=== PATIENT | female | born 1955 | race Caucasian/White ===

== ENCOUNTER 2019-09-09 09:58 | Inpatient (IN) ==
[2019-09-09] MEDS ORDERED: fentaNYL citrate 100 MCG/2 ML VIAL IV PRN (10:09)
[2019-09-09] MEDS ORDERED: PROMETHAZINE 12.5 MG/50.5 ML BAG IV STA (10:12)
--- NOTE | 2019-09-09 10:12 | Emergency Department Note ---
Impression & Plan Calculus of left ureter, Hydronephrosis, left, Flank Pain ED Provider Note NAME: GALLO SETH AGE: 63 SEX: F : 1955 ARRIVES VIA: Ambulance INFORMANT: Patient, ED PROVIDER(S): Ottoniel Gomez DO CHIEF COMPLAINT: Left flank pain HPI: The patient is a 63-year-old female who presented to the emergency department for an evaluation of left flank pain. The patient states that she started having left flank pain earlier today. She is noticed nausea and vomiting. She has a known large renal calculus and she feels that this is the cause of her symptoms. She has previously had kidney stones in the past. She called 911 and presented to the emergency department via ambulance. The patient was treated with Toradol and Zofran prior to arrival with little improvement of her symptoms. She denies having any chest pain or difficulty breathing. She denies having any weakness or numbness in the legs. She is had no rectal bleeding or hematemesis. ROS: See above HPI for pertinent positives & negatives. A total of 10 systems reviewed and were otherwise negative. PAST MEDICAL HISTORY: See Below PAST SURGICAL HISTORY: See Below FAMILY HISTORY: See Below SOCIAL HISTORY: See Below HOME MEDICATIONS: See Below ALLERGIES: See Below VITALS: See Below PHYSICAL EXAMINATION: GENERAL: Patient is awake alert in no acute distress patient is resting comfortably and showing no signs of anxiety EYES: The conjunctivae are clear. The pupils are round and reactive. EARS, NOSE, MOUTH AND THROAT: The nose is without any evidence of any deformity. Mucous membranes are moist. Tongue is midline. NECK: The neck is nontender and supple. RESPIRATORY: Normal respiratory effort is noted there is no evidence of wheezing rhonchi or rales CARDIOVASCULAR: Regular rate and rhythm noted there no murmurs rubs or gallops normal S1 normal S2. GASTROINTESTINAL: The abdomen is mildly distended but soft. There is left-sided tenderness to palpation but no guarding or rigidity. BACK: No midline tenderness or or step-off noted range of motion in flexion extension as well as rotation no signs of muscle spasm noted MUSCULOSKELETAL/EXTREMITIES: There is no evidence of gross deformity full range of motion is noted in the hips and shoulders. SKIN: There is no obvious evidence of any rash. There are no petechiae, pallor or cyanosis noted. NEUROLOGIC: Patient is awake alert and oriented x3 strength is symmetric patellar reflexes are 2+ bilaterally MEDICAL DECISION MAKING: The patient is a 63-year-old female who presented to the emergency department for an evaluation of left flank pain. The patient has a known large renal calculus but started to to notice pain over the last 24 hours. The patient was at home when she started noticing worsening pain. She called the ambulance and presented to the emergency department for further evaluation. The patient was treated with IV fluids and IV pain medication in the emergency department. She was reevaluated multiple times. The patient was found to have a very large distal left ureteral calculus with significant hydronephrosis. Given these findings as well as the patient's persistence of pain I discussed her case with the on-call urologist as well as the on-call [facility] hospitalist group. They have agreed to evaluate the patient in the emergency department for further management and disposition. I discussed the patient's laboratory and radiographic studies with her. Triage Nursing notes reviewed. Prior medical records reviewed Vital Signs: reviewed and remarkable for elevated blood pressure Differential diagnosis: Musculoskeletal, disc herniation, fracture, metastatic disease, cord compression, discitis, sciatica, cauda equina, infection, aortic disease, renal colic, gastrointestinal, as well as other pathologies. ER treatment provided: See below Diagnostics interpreted by me: ECG: none Cardiac Monitoring: An order was placed for continuous cardiac monitoring. The monitor shows a rate of 88 with sinus rhythm. Laboratory studies: As stated above and show below. Imaging studies: See below Consultation(s): 1200: I discussed this case with Janeen who is on-call for the urology group. She recommends that the patient be managed medically but then kept n.p.o. after midnight for likely intervention tomorrow if symptoms do not improve. 1225: I discussed this case with Deena who was on-call for the [facility] hospitalist group. They have agreed to evaluate the patient in the emergency department for further management and disposition. Past Med/Surg History Medical History (Updated 09/09/19 @ 14:10 by Ottoniel Gomez DO) Asthma COPD (chronic obstructive pulmonary disease) oxygen dependent Depression with anxiety Diabetes mellitus, type II High cholesterol HTN (hypertension) Hypothyroidism Insomnia Kidney stones Left-sided heart failure Surgical History Hx of tonsillectomy Hx of tubal ligation Family History Mother Breast cancer Father FH: leukemia CLL Sister Hypertension Social History Feels Safe at Home: Yes Smoking Status: Current some day smoker Cigarettes Per Day: 2 ; Hx Alcohol Use: No Hx Substance Use: No Allergies Allergies Allergy/AdvReac Type Severity Reaction Status Date / Time moxifloxacin [From Avelox] AdvReac Intermediate Cellulitic Unverified 09/09/19 10:58 Rash Home Meds Home Medications Medication Instructions Recorded Confirmed albuterol sulfate 2 puff INHALATION QID PRN 09/09/19 09/09/19 buspirone 7.5 mg PO HS 09/09/19 09/09/19 buspirone 15 mg PO DAILY 09/09/19 09/09/19 citalopram [Celexa] 20 mg PO QAM 09/09/19 09/09/19 fluticasone furoate-vilanterol 1 inh INHALATION DAILY 09/09/19 09/09/19 [Breo Ellipta] furosemide [Lasix] 40 mg PO QAM PRN 09/09/19 09/09/19 levothyroxine [Levoxyl] 50 mcg PO DAILY 09/09/19 09/09/19 lisinopril 5 mg PO QAM 09/09/19 09/09/19 lorazepam 0.5 mg PO BID PRN 09/09/19 09/09/19 pantoprazole [Protonix] 40 mg PO QAM 09/09/19 09/09/19 tiotropium bromide [Spiriva 2 puff INHALATION QAM 09/09/19 09/09/19 Respimat] trazodone 25 mg PO HS 09/09/19 09/09/19 Results & Data (ED) Vital Signs Vital Signs - 24 hr 09/09/19 10:11 09/09/19 10:27 09/09/19 11:48 Temperature 36.6 C Temperature Source Oral Pulse Rate 67 Pulse Rate [Finger] 75 Pulse Rhythm [Finger] Regular Pulse Strength [Finger] Normal Respiratory Rate 20 20 Respiratory Effort / Characteristics Non-Labored Spontaneous Respiratory Depth Normal Respiratory Pattern Regular Blood Pressure 194/96 H Blood Pressure [Right Arm] 135/78 Blood Pressure Mean 128 Blood Pressure Mean [Right Arm] 97 Blood Pressure Position [Right Arm] Lying Pulse Oximetry 100 100 99 Oxygen Delivery Method Room Air Nasal Cannula Nasal Cannula Oxygen Flow Rate 2 2 Sepsis Recent Fever Within 48 Hours No Sepsis New/Unexplained Change in Mental Status No Sepsis Action Taken by Nursing No Action Required Home Medications Current Medication List: was personally reviewed by me Laboratory Data Attestation: I reviewed the patient's lab results. Result diagrams: 09/09/19 10:50 09/09/19 10:50 Lab Results 09/09/19 09/09/19 09/09/19 Range/Units 10:50 10:50 11:35 WBC 10.17 (4.8-10.8) K/uL RBC 4.71 (4.2-5.4) M/uL Hgb 13.3 (12.0-16.0) g/dL Hct 41.9 (37-47) % MCV 89.0 (80-100) fL MCH 28.2 (25-34) pg MCHC 31.7 L (32-36) g/dL RDW Std Deviation 42.0 (36.4-46.3) fL RDW Coeff of Lillie 12.9 (11.5-14.5) % Plt Count 189 (130-400) K/uL MPV 12.0 H (7.4-10.4) fL Immature Gran % (Auto) 0.2 % Neut % (Auto) 86.6 % Lymph % (Auto) 8.1 % [place] % (Auto) 4.7 % Eos % (Auto) 0.1 % Baso % (Auto) 0.3 % Immature Gran # (Auto) 0.02 (0.00-0.02) K/uL Neut # (Auto) 8.81 H (1.4-6.5) K/uL Lymph # (Auto) 0.82 L (1.2-3.4) K/uL [place] # (Auto) 0.48 (0.11-0.59) K/uL Eos # (Auto) 0.01 (0-0.5) K/uL Baso # (Auto) 0.03 (0-0.2) K/uL Sodium 140 (136-145) mmol/L Potassium 3.7 (3.5-5.1) mmol/L Chloride 106 (98-107) mmol/L Carbon Dioxide 29 (21-32) mmol/L Anion Gap 5.0 (3-11) BUN 12 (7-18) mg/dl Creatinine 0.81 (0.6-1.2) mg/dl Est Cr Clr Drug Dosing 65.9 ml/min Est GFR ( Amer) 89.6 Est GFR (Non-Af Amer) 77.3 BUN/Creatinine Ratio 14.4 (10-20) Glucose 136 H (70-99) mg/dl Calcium 9.0 (8.5-10.1) mg/dl Total Bilirubin 0.3 (0.2-1) mg/dl AST 14 L (15-37) U/L ALT 17 (12-78) U/L Alkaline Phosphatase 86 (45-117) U/L Total Protein 7.1 (6.4-8.2) gm/dl Albumin 3.7 (3.4-5.0) gm/dl Globulin 3.4 (2.5-4.0) gm/dl Albumin/Globulin Ratio 1.1 (0.9-2) Lipase 77 (73-393) U/L Urine Color Yellow Urine Appearance Turbid A (Clear) Urine pH 7.5 (4.5-7.5) Ur Specific [place] 1.015 (1.000-1.030) Urine Protein 1+ H (Negative) Urine Glucose (UA) Negative (Negative) Urine Ketones Trace H (Negative) Urine Blood Trace H (Negative) Urine Nitrite Negative (Negative) Urine Bilirubin Negative (Negative) Urine Urobilinogen Negative (Negative) Ur Leukocyte Esterase Negative (Negative) Urine WBC (Auto) 1-5 (0-5) /hpf Urine RBC (Auto) 5-10 H (0-4) /hpf U Hyaline Cast (Auto) 1-5 (0-5) /lpf U Epithel Cells (Auto) >30 H (0-5) /lpf Urine Bacteria (Auto) Negative (Negative) Administered Medications Discontinued Medications Fentanyl Citrate (Fentanyl Citrate) 50 mcg IV Q15M PRN PRN Reason: Pain Stop: 09/23/19 10:08 Last Admin: 09/09/19 10:26 Dose: 50 mcg Documented by: [id number] Sodium Chloride (Nss 1000ml) 1,000 mls @ 999 mls/hr IV .Q1H1M ASHIA Stop: 09/09/19 11:15 Last Infusion: 09/09/19 11:41 Dose: 0 mls/hr Documented by: [id number] Admin: 09/09/19 10:27 Dose: 999 mls/hr Documented by: [id number] Promethazine HCl (Phenergan) 12.5 mg in 50.5 mls @ 202 mls/hr IV NOW STA Stop: 09/09/19 10:26 Last Infusion: 09/09/19 10:45 Dose: 0 mls/hr Documented by: [id number] Admin: 09/09/19 10:26 Dose: 202 mls/hr Documented by: [id number] Imaging Data Radiologist's Impression: CT SCAN OF THE ABDOMEN AND PELVIS WITHOUT IV CONTRAST CLINICAL HISTORY: Left flank pain. COMPARISON STUDY: No priors. TECHNIQUE: CT scan of the abdomen and pelvis is performed from the lung bases to the proximal femora. Images are reviewed in the axial, sagittal, and coronal planes. IV contrast was not administered for this examination as per the referring clinician. A dose lowering technique was utilized adhering to the principles of ALARA. CT DOSE: 702.37 mGy.cm FINDINGS: Lung bases: The heart is normal in size and without pericardial effusion. A fat- containing Bochdalek hernia is noted at the right lung base. There is bibasilar scarring/atelectasis. No airspace consolidation or pleural effusion is identified. There is a small hiatal hernia. Liver: The unenhanced liver is normal in size, contour, and attenuation. There is no intrahepatic biliary ductal dilatation. Gallbladder: Unremarkable. Spleen: Normal in size and attenuation. Pancreas: The unenhanced pancreas is moderately atrophic and grossly unremarkable. Adrenal glands: Unremarkable. Kidneys: The unenhanced kidneys demonstrate mild cortical atrophy. There is an 8 mm obstructing calculus in the distal left ureter located just above the vesicoureteral junction seen on image #318. This causes moderate to severe left- sided hydroureteronephrosis. There is associated left-sided perinephric stranding and trace fluid. No additional left renal calculi are identified. A 5 mm nonobstructing calculus is seen in the lower pole of the right kidney. There is no right-sided hydronephrosis. There is a 1.8 cm left renal cyst. Abdominal vasculature: The abdominal aorta is normal in course and caliber noting moderate atherosclerotic calcification. Bowel: There is no bowel obstruction. Fecal retention is noted in the right colon. The cecum is located in the right upper quadrant. A structure that may represent a normal appendix is seen on image #221. Peritoneum: There is no intraperitoneal free air or abdominal ascites. Lymphadenopathy: None. Pelvic viscera: The bladder, uterus, and adnexa are normal as imaged. Postoperative change is noted in the left groin. Skeletal structures: The skeletal structures are osteopenic. Mild lumbosacral spondylosis is observed. There are mild compression deformities of T11 and L5. Sclerotic change is noted in the pubic symphysis. No lytic or blastic lesions are seen. IMPRESSION: 1. There is an 8 mm obstructing calculus in the distal left ureter located just above the vesicoureteral junction. This causes moderate to severe left hydroureteronephrosis. 2. An additional nonobstructing calculus is seen in the right kidney. 3. Additional findings as above. ACT 112: Negative or not required by law. Electronically signed by: Bang Beltran M.D. 09/09/2019 11:11 AM Dictated: 09/09/19 1102 Transcribed: 09/09/19 1102 Blood Pressure Blood Pressure Findings: Elevated blood pressure Blood Pressure Disposition: further management by hospitalist Discharge Plan Visit Data *Final* Discharge Date/Time: 09/09/19 13:27 Chief Complaint: Flank Pain ED Provider: Ottoniel Gomez Discharge Problem: Calculus of left ureter, Hydronephrosis, left, Flank Pain Patient Disposition: Admitted As Inpatient Condition: Good Discharge Instructions Interventions: ED Discharge Assessment Last Done: 09/09/19 13:27
[2019-09-09] MEDS ORDERED: SODIUM CHLORIDE 0.9% 1000ML 1,000 ML IV SCH (10:15)
[2019-09-09 11:01] LABS: Basophils # (auto) 0.03 K/uL (0-0.2); Basophils % (auto) 0.3 %; Eosinophils # (auto) 0.01 K/uL (0-0.5); Eosinophils % (auto) 0.1 %; Hematocrit (blood only) 41.9 % (37-47); Hemoglobin 13.3 g/dL (12.0-16.0); Immature Granulocytes # (auto) 0.02 K/uL (0.00-0.02); Immature Granulocytes % (auto) 0.2 %; Lymphocytes # (auto) 0.82 K/uL (1.2-3.4); Lymphocytes % (auto) 8.1 %; Mean Corpuscular Hemoglobin 28.2 pg (25-34); Mean Corpuscular Hgb Conc 31.7 g/dL (32-36); Monocytes # (auto) 0.48 K/uL (0.11-0.59); Monocytes % (auto) 4.7 %; Neutrophils # (auto) 8.81 K/uL (1.4-6.5); Neutrophils % (auto) 86.6 %; Platelet Count 189 K/uL (130-400); RDW Coefficient of Variation 12.9 % (11.5-14.5); Red Blood Count 4.71 M/uL (4.2-5.4); White Blood Count 10.17 K/uL (4.8-10.8)
--- NOTE | 2019-09-09 11:12 | CT Scan Report ---
CT SCAN OF THE ABDOMEN AND PELVIS WITHOUT IV CONTRAST CLINICAL HISTORY: Left flank pain. COMPARISON STUDY: No priors. TECHNIQUE: CT scan of the abdomen and pelvis is performed from the lung bases to the proximal femora. Images are reviewed in the axial, sagittal, and coronal planes. IV contrast was not administered for this examination as per the referring clinician. A dose lowering technique was utilized adhering to the principles of ALARA. CT DOSE: 702.37 mGy.cm FINDINGS: Lung bases: The heart is normal in size and without pericardial effusion. A fat-containing Bochdalek hernia is noted at the right lung base. There is bibasilar scarring/atelectasis. No airspace consolid ation or pleural effusion is identified. There is a small hiatal hernia. Liver: The unenhanced liver is normal in size, contour, and attenuation. There is no intrahepatic danuta iary ductal dilatation. Gallbladder: Unremarkable. Spleen: Normal in size and attenuation. Pancreas: The unenhanced pancreas is moderately atrophic and grossly unremarkable. Adrenal glands: Unremarkable. Kidneys: The unenhanced kidneys demonstrate mild cortical atrophy. There is an 8 mm obstructing calcu gustabo in the distal left ureter located just above the vesicoureteral junction seen on image #318. This causes moderate to severe left-sided hydroureteronephrosis. There is associated left-sided perinephr ic stranding and trace fluid. No additional left renal calculi are identified. A 5 mm nonobstructing calculus is seen in the lower pole of the right kidney. There is no right-sided hydronephrosis. There is a 1.8 cm left renal cyst. Abdominal vasculature: The abdominal aorta is normal in course and caliber noting moderate atheroscle rotic calcification. Bowel: There is no bowel obstruction. Fecal retention is noted in the right colon. The cecum is locat ed in the right upper quadrant. A structure that may represent a normal appendix is seen on image #22 1. Peritoneum: There is no intraperitoneal free air or abdominal ascites. Lymphadenopathy: None. Pelvic viscera: The bladder, uterus, and adnexa are normal as imaged. Postoperative change is noted in the left groin. Skeletal structures: The skeletal structures are osteopenic. Mild lumbosacral spondylosis is observed . There are mild compression deformities of T11 and L5. Sclerotic change is noted in the pubic symphy sis. No lytic or blastic lesions are seen. IMPRESSION: 1. There is an 8 mm obstructing calculus in the distal left ureter located just above the vesicourete ral junction. This causes moderate to severe left hydroureteronephrosis. 2. An additional nonobstructing calculus is seen in the right kidney. 3. Additional findings as above. ACT 112: Negative or not required by law. Electronically signed by: Bang Beltran M.D. 09/09/2019 11:11 AM
[2019-09-09 11:16] LABS: Albumin Level 3.7 gm/dl (3.4-5.0); BUN Creatinine Ratio 14.4 (10-20); Creatinine Clr Calc Pharmacy 65.9 ml/min; Est GFR (African American) 89.6; Est GFR (Non-African American) 77.3; Potassium 3.7 mmol/L (3.5-5.1)
[2019-09-09 11:19] LABS: Albumin Globulin Ratio 1.1 (0.9-2); Bilirubin,Total 0.3 mg/dl (0.2-1); Globulin 3.4 gm/dl (2.5-4.0); Total Protein 7.1 gm/dl (6.4-8.2)
[2019-09-09 12:06] LABS: Appearance Urine Turbid (Clear); Bacteria Urine Automated Negative (Negative); Bilirubin Urine Negative (Negative); Blood Urine Trace (Negative); Color Urine Yellow; Epithelial Cell Urine Auto >30 /lpf (0-5); Glucose Urine UA Negative (Negative); Ketones Urine Trace (Negative); Leukocyte Esterase Urine Negative (Negative); Nitrite Urine Negative (Negative); Specific Gravity Urine 1.015 (1.000-1.030); Urobilinogen Urine Negative (Negative); pH Urine 7.5 (4.5-7.5)
[2019-09-09 12:16] LABS: Protein Urine 1+ (Negative); Sulfosalicylic Acid Urine Positive (Negative)
--- NOTE | 2019-09-09 13:41 | History & Physical Report ---
Date of Service September 09, 2019 Assessment & Plan (1) Calculus of left ureter: (2) Hydronephrosis, left: Pt is 63 y/o F with PMH COPD on 2L, DM II, depression, anxiety, hypothyroidism, left sided heart failure presented to ER with c/o left flank pain, nausea and vomiting x 1. Denies fever/chills. Reported was given Zofran and Toradol by EMS. In ER pt afebrile, P: 67, R: 20, BP: 194/96 down to 135/78, 100% on 2L chronic oxygen. No leukocytosis, BUN: 12, Cr: 0.8, GFR: 77, UA: 5-10 RBC, no bacteria or leuk esterase or nitrite CT Abd/pelvis: 8 mm obstructing calculus in the distal left ureter located just above the vesicoureteral junction. This causes moderate to severe left hydroureteronephrosis. An additional nonobstructing calculus is seen in the right kidney. -In ER given 1L NSS, Phenergan 12.5mg, Fentanyl 50mcg -IVF -Toradol, morphine prn pain; Zofran prn N/V -Strain urine -Flomax daily -NPO midnight for probable procedure tomorrow -Consult urology; ER physician spoke to gynaecological oncologist -CBC, BMP in am (3) COPD (chronic obstructive pulmonary disease): On Chronic 2L oxygen via [place] -Denies any increased SOB or wheezing from her baseline, denies cough, fever/chills. -Continue Breo, Spiriva -Will switch Albuterol inhaler to neb treatments secondary to current baseline wheezing and low supply of albuterol MDI (4) Diabetes mellitus, type II: A1c: 5.8 on 06/11/2019 -Pt self stopped metformin. Was taking 500mg daily -Will hold metformin while inpatient -Novolog sliding scale per protocol (5) HTN (hypertension): Initially hypertensive in ER and improved with pain control -Monitor BP -Continue lisinopril (6) Left-sided heart failure: Takes Lasix prn LE edema. No recent edema Appears euvolemic at this time -Hold prn Lasix (7) Hypothyroidism: TSH: 23 on 06/11/2019 -Pt self stopped levothyroxine -Will need further follow up with PCP (8) Depression with anxiety: -Continue buspirone, citalopram, trazodone DVT Prophylaxis -SCDs Full Code as per discussion with pt Follows with Dr Alvarez for routine care Pt was seen and care coordinated with Dr Morel. See addendum History of Present Illness Chief Complaint: Left flank pain Primary Care Provider: Destinee Alvarez MD Pt is 63 y/o F with PMH COPD on 2L, DM II, depression, anxiety, hypothyroidism, left sided heart failure presented to ER with c/o left flank pain. Pt states this morning started with left back pain with radiation to left flank. She has noticed urinating smaller amounts. Also c/o nausea and vomited x 1. EMS gave pt Toradol and Zofran with little relief. Denies any increased SOB from her baseline. Denies fever/chills, diaphoresis, N/V/D/C, MEEHAN, dizziness, syncope, vision changes, neck pain, CP, orthopnea, palpitations, cough, sore throat, choking, otalgia, rhinorrhea, abdominal pain, paresthesias, weakness, extremity weakness, extremity edema, rashes, dysuria, hematuria, urinary retention. Allergies Allergy/AdvReac Type Severity Reaction Status Date / Time moxifloxacin [From Avelox] AdvReac Intermediate Cellulitic Unverified 09/09/19 10:58 Rash Home Medications Home Medications Medication Instructions Recorded Confirmed Type albuterol sulfate 2 puff INHALATION QID PRN 09/09/19 09/09/19 History buspirone 7.5 mg PO HS 09/09/19 09/09/19 History buspirone 15 mg PO DAILY 09/09/19 09/09/19 History citalopram [Celexa] 20 mg PO QAM 09/09/19 09/09/19 History fluticasone furoate-vilanterol 1 inh INHALATION DAILY 09/09/19 09/09/19 History [Breo Ellipta] furosemide [Lasix] 40 mg PO QAM PRN 09/09/19 09/09/19 History levothyroxine [Levoxyl] 50 mcg PO DAILY 09/09/19 09/09/19 History lisinopril 5 mg PO QAM 09/09/19 09/09/19 History lorazepam 0.5 mg PO BID PRN 09/09/19 09/09/19 History pantoprazole [Protonix] 40 mg PO QAM 09/09/19 09/09/19 History tiotropium bromide [Spiriva 2 puff INHALATION QAM 09/09/19 09/09/19 History Respimat] trazodone 25 mg PO HS 09/09/19 09/09/19 History Past Med/Surg History Medical History (Updated 09/09/19 @ 14:10 by Ottoniel Gomez DO) Asthma COPD (chronic obstructive pulmonary disease) oxygen dependent Depression with anxiety Diabetes mellitus, type II High cholesterol HTN (hypertension) Hypothyroidism Insomnia Kidney stones Left-sided heart failure Surgical History Hx of tonsillectomy Hx of tubal ligation Family History Mother Breast cancer Father FH: leukemia CLL Sister Hypertension Social History Preferred Language: Sammarinese Communication Ability: Effective Ice Maker Required: No Beliefs That Will Affect Care: None Current Living Situation: Alone Other Information That Helps Us Care for You: No Feels Safe at Home: Yes Safety Concerns: Feels Safe At This Time Smoking Status: Current every day smoker Tobacco Type: cigarettes ; Cigarettes Per Day: 2 ; Do You Dip or Chew Tobacco: No ; Second Hand Exposure: Yes ; Tobacco Cessation Education Requested by Patient: No Hx Alcohol Use: No Hx Substance Use: No Review of Systems Review of Systems: All systems reviewed & are unremarkable except as noted in HPI & below Physical Exam Physical Exam: General: no distress, WDWN Head: normocephalic, atraumatic Eyes: PERRL, EOM's intact, conjunctiva non-injected, anicteric ENT: normal inspection external ears, nose, mucous membranes moist Neck: supple, trachea midline Lungs: no respiratory distress, on chronic 2L oxygen via [place], +scattered wheezing, no rhonchi/rales CV: RRR, no murmur, no JVD, no pretibial edema Abd: normal BS, soft, +left flank and LLQ tenderness to palpation without rebound or guarding Ext: no cyanosis, no calf tenderness Neuro: A&O x 3, no focal deficits noted, normal affect Skin: warm, dry Results & Data Results & Data ([facility]) Vital Signs (Past 12 Hours) Vital Signs Temp Pulse Pulse Resp BP BP Pulse Ox 09/09/19 13:00 76 20 141/83 H 99 09/09/19 11:48 75 20 135/78 99 09/09/19 10:27 100 09/09/19 10:11 36.6 C 67 20 194/96 H 100 Laboratory Results Short CBC 09/09/19 Range/Units 10:50 WBC 10.17 (4.8-10.8) K/uL Hgb 13.3 (12.0-16.0) g/dL Hct 41.9 (37-47) % Plt Count 189 (130-400) K/uL BMP 09/09/19 10:50 Sodium 140 Potassium 3.7 Chloride 106 Carbon Dioxide 29 BUN 12 Creatinine 0.81 Glucose 136 H Calcium 9.0 Liver Function 09/09/19 Range/Units 10:50 Total Bilirubin 0.3 (0.2-1) mg/dl AST 14 L (15-37) U/L ALT 17 (12-78) U/L Alkaline Phosphatase 86 (45-117) U/L Albumin 3.7 (3.4-5.0) gm/dl Urine 09/09/19 Range/Units 11:35 Urine Color Yellow Urine Appearance Turbid A (Clear) Urine pH 7.5 (4.5-7.5) Ur Specific [place] 1.015 (1.000-1.030) Urine Protein 1+ H (Negative) Urine Glucose (UA) Negative (Negative) Diagnostic Findings CT ABD/PELVIS: IMPRESSION: 1. There is an 8 mm obstructing calculus in the distal left ureter located just above the vesicoureteral junction. This causes moderate to severe left hydroureteronephrosis. 2. An additional nonobstructing calculus is seen in the right kidney. 3. Additional findings as above. Code Status & VTE Plan VTE Prophylaxis Plan VTE Prophylaxis will be ordered: Yes Supervising Physician Co-Signing Physician Notes Attending Addendum: care coordinated with ELEANOR Nieves please refer to her notes for full details, I agree with her notes patient seen and examined, records reviewed by myself as well on exam, patient seen resting in bed, comfortable, not in distress States left flank pain is sufficiently covered with PRN analgesics No hematuria or dysuria since admission Denies fevers or chills no other symptoms VS noted and reviewed oriented x 3, not in distress, speaks in sentences with no effort nor accessory muscle use normal rate, regular rhythm, no murmurs clear breath sounds bilaterally non distended, soft, nontender, no CVA tenderness no bipedal edema, erythema, warmth no neuro deficits WBC 10.17 Hg 13.3 Crea 0.81 ASSESSMENT AND PLAN Left UVJ stone with moderate to severe left hydroureteronephrosis No signs of UTI at this time PRN morphine and Toradol, n.p.o. after midnight, IV fluids, Flomax Urology consulted, cystoscopy with stent placement tomorrow Hypertension Elevated, but asymptomatic Patient was not able to take her usual lisinopril this morning, resume today Chronic respiratory failure, on home oxygen, COPD Not in exacerbation Continue usual Breo, Spiriva other diagnoses and plan of care as per ELEANOR Morel MD
[2019-09-09] MEDS ORDERED: CARBOHYDRATES FOR HYPOGLYCEMIA PO PRN (13:57)
[2019-09-09] MEDS ORDERED: GLUCAGON FOR INJ 1 MG VIAL SQ PRN (13:57)
[2019-09-09] MEDS ORDERED: GLUCOSE 40% GEL 15 GM TUBE PO PRN (13:57)
[2019-09-09] MEDS ORDERED: GLUCOSE 10 TABS/TUBE PO PRN (13:57)
[2019-09-09] MEDS ORDERED: DEXTROSE 50% 50 ML SYRINGE IV PRN (13:57)
[2019-09-09] MEDS ORDERED: ONDANSETRON INJ 2 MG/ML 2 ML VIAL IV PRN (13:57)
[2019-09-09] MEDS ORDERED: ACETAMINOPHEN 325 MG TAB PO PRN (13:57)
[2019-09-09] MEDS: SODIUM CHLORIDE 0.9% 1000ML 1,000 ML IV SCH (15:00)
[2019-09-09] MEDS ORDERED: lisinopriL 5 MG TAB PO ONE (15:26)
[2019-09-09] MEDS: KETOROLAC TROMETHAMINE 15 MG/ML VIAL IV PRN (15:27)
[2019-09-09] MEDS ORDERED: FLUTICASONE/VILANTEROL 100/25MCG 14 PUFFS/INHALER INH STA (15:29)
[2019-09-09] MEDS ORDERED: UMECLIDINIUM BROMIDE 62.5MCG/BLISTER 7 PUFFS/INHALER INH STA (15:30)
[2019-09-09] MEDS ORDERED: PANTOprazole 40 MG TAB PO ONE ×2 (15:30→16:00)
[2019-09-09] MEDS ORDERED: HydrALAZINE HCL 20 MG/ML VIAL IV PRN (16:29)
[2019-09-09] MEDS: LORazepam 0.5 MG TAB PO PRN (16:51)
--- NOTE | 2019-09-09 16:58 | Urology Consultation ---
Date of Consultation September 09, 2019 Assessment & Plan (1) Calculus of left ureter: Assessment 1. Renal colic secondary to distal left ureteral calculus Discussed With patient options including 1. Trial of passage 2. Ureteroscopy laser lithotripsy stent placement 3. Extracorporal shockwave lithotripsy Patient is afebrile and her pain is controlled there is no need for intervention tonight unless she develops a fever at which point she would need stenting. Plan For tomorrow will be to do a cystoscopy ureteroscopy laser lithotripsyAnd stent placement on the left side History of Present Illness Attending Physician: Thien Morel MD History of Present Illness Patient is a 63-year-old white female admitted through the emergency room with left renal colic. She said the pain started about 4 AM this morning.She denies having any fevers chills Did have some nausea.She had a CT done which showed a 7 mm left ureterovesical junction calculus with proximal hydroureteronephrosis.Currently her pain is controlled. She denies any nausea or vomiting. She is had no fevers or shaking chills since being here.She has had calculi in the past. Patient does have a history of diabetes, COPD, nephrolithiasisHypertension Allergies Allergy/AdvReac Type Severity Reaction Status Date / Time moxifloxacin [From Avelox] AdvReac Intermediate Cellulitic Unverified 09/09/19 10:58 Rash Home Medications Home Medications Medication Instructions Recorded Confirmed Type albuterol sulfate 2 puff INHALATION QID PRN 09/09/19 09/09/19 History buspirone 7.5 mg PO HS 09/09/19 09/09/19 History buspirone 15 mg PO DAILY 09/09/19 09/09/19 History citalopram 40 mg PO DAILY 09/09/19 09/09/19 History fluticasone furoate-vilanterol 1 inh INHALATION DAILY 09/09/19 09/09/19 History [Breo Ellipta] furosemide [Lasix] 40 mg PO QAM PRN 09/09/19 09/09/19 History levothyroxine [Levoxyl] 50 mcg PO DAILY 09/09/19 09/09/19 History lisinopril 5 mg PO QAM 09/09/19 09/09/19 History lorazepam 0.5 mg PO BID PRN 09/09/19 09/09/19 History pantoprazole [Protonix] 40 mg PO QAM 09/09/19 09/09/19 History tiotropium bromide [Spiriva 2 puff INHALATION QAM 09/09/19 09/09/19 History Respimat] trazodone 25 mg PO HS 09/09/19 09/09/19 History Patient History Medical History (Updated 09/09/19 @ 14:10 by Ottoniel Gomez DO) Asthma COPD (chronic obstructive pulmonary disease) oxygen dependent Depression with anxiety Diabetes mellitus, type II High cholesterol HTN (hypertension) Hypothyroidism Insomnia Kidney stones Left-sided heart failure Surgical History Hx of tonsillectomy Hx of tubal ligation Family History Mother Breast cancer Father FH: leukemia CLL Sister Hypertension Social History Preferred Language: Faroese Communication Ability: Effective Supervisor Finishing Room Required: No Beliefs That Will Affect Care: None Current Living Situation: Alone Other Information That Helps Us Care for You: No Feels Safe at Home: Yes Safety Concerns: Feels Safe At This Time Smoking Status: Current every day smoker Tobacco Type: cigarettes ; Cigarettes Per Day: 2 ; Do You Dip or Chew Tobacco: No ; Second Hand Exposure: Yes ; Tobacco Cessation Education Requested by Patient: No Hx Alcohol Use: No Hx Substance Use: No Review of Systems Review of Systems: All systems reviewed & are unremarkable except as noted in HPI & below Physical Exam Physical Exam: CONSTITUTIONAL Well-developed well-nourished female in no acute distress NEURO/PSYCH Alert and oriented Normal mood and affect Normal coordination SKIN Normal color and turgor No rashes NECK Normal visual inspection PULMONARY To auscultation Normal rhythm and effort No respiratory distress CARDIAC Regular rate and rhythm No peripheral edema LYMPHATIC Femoral and inguinal lymph nodes not palpable ABDOMEN Soft nontender No hepatosplenomegaly No masses No hernias Results & Data Vital Signs (Past 12 Hours) Vital Signs Temp Pulse Pulse Resp BP BP Pulse Ox 09/09/19 15:01 36.6 C 84 17 186/83 H 93 09/09/19 14:18 37.3 C 87 18 153/88 H 92 09/09/19 13:00 76 20 141/83 H 99 09/09/19 11:48 75 20 135/78 99 09/09/19 10:27 100 09/09/19 10:11 36.6 C 67 20 194/96 H 100 PG Care Time/CCT Total # of Minutes Spent Total Time Spent with Patient: Total time spent is greater than 50% in coordination of care (as documented) at patient's floor/unit and/or counseling patient: Coding Level of Care Code 06302 Office/OBS Consult Lvl 3 Diagnoses Calculus of left ureter N20.1
[2019-09-09] MEDS: CITALOPRAM 40 MG TAB PO SCH (17:20)
[2019-09-09] MEDS: INSULIN ASPART 100 UNITS/ML 3 ML PEN SC SCH ×2 (19:02→21:13)
[2019-09-09] MEDS: MoRPHine SULFATE 4 MG/ML 1 ML CARP\\VIAL IV PRN (19:13)
[2019-09-09] MEDS: CEFAZOLIN 1000MG 1,000 MG/7.5 ML SYR IV SCH (19:13)
[2019-09-09] MEDS: ALBUTEROL 0.083% NEBU SOLN 3 ML VIAL NEB SCH (19:50)
[2019-09-09] MEDS: TAMSULOSIN HCL 0.4 MG CAP PO SCH (20:10)
[2019-09-09] MEDS: BUSPIRONE HCL 7.5 MG TAB PO SCH (20:10)
[2019-09-09] MEDS: TRAZODONE HCL 50 MG TAB PO SCH (20:10)
[2019-09-09] MEDS ORDERED: Nursing to Pharmacy Communication ONE (21:15)
[2019-09-09] MEDS ORDERED: cefTRIAXone SODIUM 2,000 MG in DEXTROSE 5% 50 ML IV SCH (22:00)
[2019-09-10] MEDS: LORazepam 0.5 MG TAB PO PRN ×3 (00:04→23:36)
[2019-09-10] MEDS: SODIUM CHLORIDE 0.9% 1000ML 1,000 ML IV SCH (00:04)
[2019-09-10] MEDS: KETOROLAC TROMETHAMINE 15 MG/ML VIAL IV PRN ×2 (00:25→09:17)
[2019-09-10] MEDS: ALBUTEROL 0.083% NEBU SOLN 3 ML VIAL NEB SCH ×4 (00:39→20:11)
[2019-09-10] MEDS: MoRPHine SULFATE 4 MG/ML 1 ML CARP\\VIAL IV PRN ×2 (05:45→18:34)
[2019-09-10] MEDS: INSULIN ASPART 100 UNITS/ML 3 ML PEN SC SCH ×4 (06:38→21:31)
[2019-09-10 06:41] LABS: Hematocrit (blood only) 35.6 % (37-47); Hemoglobin 11.3 g/dL (12.0-16.0); Mean Corpuscular Hemoglobin 28.2 pg (25-34); Mean Corpuscular Hgb Conc 31.7 g/dL (32-36); Mean Corpuscular Volume 88.8 fL (80-100); Mean Platelet Volume 11.9 fL (7.4-10.4); Platelet Count 170 K/uL (130-400); RDW Coefficient of Variation 13.1 % (11.5-14.5); RDW Standard Deviation 42.4 fL (36.4-46.3); Red Blood Count 4.01 M/uL (4.2-5.4); White Blood Count 7.88 K/uL (4.8-10.8)
[2019-09-10 07:08] LABS: BUN Creatinine Ratio 13.5 (10-20); Calcium 8.3 mg/dl (8.5-10.1); Creatinine Clr Calc Pharmacy 48.5 ml/min; Est GFR (African American) 61.9; Est GFR (Non-African American) 53.4; Potassium 3.6 mmol/L (3.5-5.1)
[2019-09-10] MEDS: CEFAZOLIN 1000MG 1,000 MG/7.5 ML SYR IV SCH ×2 (07:08→19:02)
--- NOTE | 2019-09-10 08:00 | Hospitalist Progress Note ---
Date of Service September 10, 2019 Assessment & Plan (1) Calculus of left ureter: (2) Hydronephrosis, left: Pt is 63 y/o F with PMH COPD on 2L, DM II, depression, anxiety, hypothyroidism, left sided heart failure presented to ER with c/o left flank pain, nausea and vomiting x 1. Denies fever/chills. Reported was given Zofran and Toradol by EMS. In ER pt afebrile, P: 67, R: 20, BP: 194/96 down to 135/78, 100% on 2L chronic oxygen. No leukocytosis, BUN: 12, Cr: 0.8, GFR: 77, UA: 5-10 RBC, no bacteria or leuk esterase or nitrite CT Abd/pelvis: 8 mm obstructing calculus in the distal left ureter located just above the vesicoureteral junction. This causes moderate to severe left hydroureteronephrosis. An additional nonobstructing calculus is seen in the right kidney. -In ER given 1L NSS, Phenergan 12.5mg, Fentanyl 50mcg -IVF -Toradol, morphine prn pain; Zofran prn N/V -Strain urine -Flomax daily -NPO after midnight for planned urologic procedure later today -Urology consulted, plan for cystoscopy ureteroscopy laser lithotripsy and stent placement on the left side -cont. to monitor CBC, BMP in am (3) COPD (chronic obstructive pulmonary disease): On Chronic 2L oxygen via [place] -Denies any increased SOB or wheezing from her baseline, denies cough, fever/chills. -Continue Breo, Spiriva -Will switch Albuterol inhaler to neb treatments secondary to current baseline wheezing and low supply of albuterol MDI (4) Diabetes mellitus, type II: A1c: 5.8 on 06/11/2019 -Pt self stopped metformin. Was taking 500mg daily -Will hold metformin while inpatient -Novolog sliding scale per protocol (5) HTN (hypertension): Initially hypertensive in ER and improved with pain control -Monitor BP -Continue lisinopril (6) Left-sided heart failure: Takes Lasix prn LE edema. No recent edema Appears euvolemic at this time -Hold prn Lasix (7) Hypothyroidism: TSH: 23 on 06/11/2019 -Pt self stopped levothyroxine -Will need further follow up with PCP (8) Depression with anxiety: -Continue buspirone, citalopram, trazodone DVT Prophylaxis -SCDs Full Code as per discussion with pt Follows with Dr Alvarez for routine care Admission and Anticipated Discharge Date Admission Date: September 09, 2019 Subjective Patient is lying in bed, in no acute distress, resting. She says that her pain is now much better controlled. She is scheduled for urologic procedure later today. Currently denies any fevers, chills, chest pain, shortness of breath, nausea or vomiting. Review of Systems Review of Systems: All systems reviewed & are unremarkable except as noted in HPI & below Constitutional: no fever and no chills Respiratory: no cough and no dyspnea Cardiovascular: no chest pain and no dyspnea on exertion Gastrointestinal: no abdominal pain, no nausea and no vomiting Physical Exam Physical Exam: General: Elderly female lying in bed, in no distress, WDWN Head: normocephalic, atraumatic Eyes: PERRL, EOM's intact, conjunctiva non-injected, anicteric ENT: normal inspection external ears, nose, mucous membranes moist Neck: supple, trachea midline Lungs: no respiratory distress, on chronic 2L oxygen via [place], no wheezes,rhonchi/rales CV: RRR, no murmur, no JVD, no pretibial edema Abd: normal BS, soft, +left flank and LLQ tenderness to palpation without rebound or guarding Ext: no cyanosis, no calf tenderness, moves extremities spontaneously Neuro: A&O x 3, no focal deficits noted, normal affect Skin: warm, dry Results & Data Results & Data ([facility]) Vital Signs (Past 12 Hours) Vital Signs Temp Pulse Resp BP Pulse Ox 09/10/19 07:25 78 18 94 09/10/19 06:55 37.1 C 80 17 144/67 H 94 09/10/19 00:40 87 16 93 09/09/19 23:50 37.3 C 85 18 168/79 H 94 09/09/19 22:01 37.4 C 09/09/19 21:36 37.8 C H Laboratory Results 09/10/19 09/10/19 09/10/19 Range/Units 06:12 06:00 06:00 WBC 7.88 (4.8-10.8) K/uL RBC 4.01 L (4.2-5.4) M/uL Hgb 11.3 L (12.0-16.0) g/dL Hct 35.6 L (37-47) % MCV 88.8 (80-100) fL MCH 28.2 (25-34) pg MCHC 31.7 L (32-36) g/dL RDW Std Deviation 42.4 (36.4-46.3) fL RDW Coeff of Lillie 13.1 (11.5-14.5) % Plt Count 170 (130-400) K/uL MPV 11.9 H (7.4-10.4) fL Immature Gran % (Auto) % Neut % (Auto) % Lymph % (Auto) % [place] % (Auto) % Eos % (Auto) % Baso % (Auto) % Immature Gran # (Auto) (0.00-0.02) K/uL Neut # (Auto) (1.4-6.5) K/uL Lymph # (Auto) (1.2-3.4) K/uL [place] # (Auto) (0.11-0.59) K/uL Eos # (Auto) (0-0.5) K/uL Baso # (Auto) (0-0.2) K/uL Sodium 140 (136-145) mmol/L Potassium 3.6 (3.5-5.1) mmol/L Chloride 109 H (98-107) mmol/L Carbon Dioxide 27 (21-32) mmol/L Anion Gap 4.0 (3-11) BUN 15 (7-18) mg/dl Creatinine 1.10 (0.6-1.2) mg/dl Est Cr Clr Drug Dosing 48.5 ml/min Est GFR ( Amer) 61.9 Est GFR (Non-Af Amer) 53.4 BUN/Creatinine Ratio 13.5 (10-20) Glucose 129 H (70-99) mg/dl POC Glucose 127 H (70-99) mg/dl Calcium 8.3 L (8.5-10.1) mg/dl Total Bilirubin (0.2-1) mg/dl AST (15-37) U/L ALT (12-78) U/L Alkaline Phosphatase (45-117) U/L Total Protein (6.4-8.2) gm/dl Albumin (3.4-5.0) gm/dl Globulin (2.5-4.0) gm/dl Albumin/Globulin Ratio (0.9-2) Lipase (73-393) U/L Urine Color Urine Appearance (Clear) Urine pH (4.5-7.5) Ur Specific [place] (1.000-1.030) Urine Protein (Negative) Urine Glucose (UA) (Negative) Urine Ketones (Negative) Urine Blood (Negative) Urine Nitrite (Negative) Urine Bilirubin (Negative) Urine Urobilinogen (Negative) Ur Leukocyte Esterase (Negative) Urine WBC (Auto) (0-5) /hpf Urine RBC (Auto) (0-4) /hpf U Hyaline Cast (Auto) (0-5) /lpf U Epithel Cells (Auto) (0-5) /lpf Urine Bacteria (Auto) (Negative) 09/09/19 09/09/19 09/09/19 Range/Units 20:50 16:59 14:12 WBC (4.8-10.8) K/uL RBC (4.2-5.4) M/uL Hgb (12.0-16.0) g/dL Hct (37-47) % MCV (80-100) fL MCH (25-34) pg MCHC (32-36) g/dL RDW Std Deviation (36.4-46.3) fL RDW Coeff of Lillie (11.5-14.5) % Plt Count (130-400) K/uL MPV (7.4-10.4) fL Immature Gran % (Auto) % Neut % (Auto) % Lymph % (Auto) % [place] % (Auto) % Eos % (Auto) % Baso % (Auto) % Immature Gran # (Auto) (0.00-0.02) K/uL Neut # (Auto) (1.4-6.5) K/uL Lymph # (Auto) (1.2-3.4) K/uL [place] # (Auto) (0.11-0.59) K/uL Eos # (Auto) (0-0.5) K/uL Baso # (Auto) (0-0.2) K/uL Sodium (136-145) mmol/L Potassium (3.5-5.1) mmol/L Chloride (98-107) mmol/L Carbon Dioxide (21-32) mmol/L Anion Gap (3-11) BUN (7-18) mg/dl Creatinine (0.6-1.2) mg/dl Est Cr Clr Drug Dosing ml/min Est GFR ( Amer) Est GFR (Non-Af Amer) BUN/Creatinine Ratio (10-20) Glucose (70-99) mg/dl POC Glucose 79 96 97 (70-99) mg/dl Calcium (8.5-10.1) mg/dl Total Bilirubin (0.2-1) mg/dl AST (15-37) U/L ALT (12-78) U/L Alkaline Phosphatase (45-117) U/L Total Protein (6.4-8.2) gm/dl Albumin (3.4-5.0) gm/dl Globulin (2.5-4.0) gm/dl Albumin/Globulin Ratio (0.9-2) Lipase (73-393) U/L Urine Color Urine Appearance (Clear) Urine pH (4.5-7.5) Ur Specific [place] (1.000-1.030) Urine Protein (Negative) Urine Glucose (UA) (Negative) Urine Ketones (Negative) Urine Blood (Negative) Urine Nitrite (Negative) Urine Bilirubin (Negative) Urine Urobilinogen (Negative) Ur Leukocyte Esterase (Negative) Urine WBC (Auto) (0-5) /hpf Urine RBC (Auto) (0-4) /hpf U Hyaline Cast (Auto) (0-5) /lpf U Epithel Cells (Auto) (0-5) /lpf Urine Bacteria (Auto) (Negative) 09/09/19 09/09/19 09/09/19 Range/Units 11:35 10:50 10:50 WBC 10.17 (4.8-10.8) K/uL RBC 4.71 (4.2-5.4) M/uL Hgb 13.3 (12.0-16.0) g/dL Hct 41.9 (37-47) % MCV 89.0 (80-100) fL MCH 28.2 (25-34) pg MCHC 31.7 L (32-36) g/dL RDW Std Deviation 42.0 (36.4-46.3) fL RDW Coeff of Lillie 12.9 (11.5-14.5) % Plt Count 189 (130-400) K/uL MPV 12.0 H (7.4-10.4) fL Immature Gran % (Auto) 0.2 % Neut % (Auto) 86.6 % Lymph % (Auto) 8.1 % [place] % (Auto) 4.7 % Eos % (Auto) 0.1 % Baso % (Auto) 0.3 % Immature Gran # (Auto) 0.02 (0.00-0.02) K/uL Neut # (Auto) 8.81 H (1.4-6.5) K/uL Lymph # (Auto) 0.82 L (1.2-3.4) K/uL [place] # (Auto) 0.48 (0.11-0.59) K/uL Eos # (Auto) 0.01 (0-0.5) K/uL Baso # (Auto) 0.03 (0-0.2) K/uL Sodium 140 (136-145) mmol/L Potassium 3.7 (3.5-5.1) mmol/L Chloride 106 (98-107) mmol/L Carbon Dioxide 29 (21-32) mmol/L Anion Gap 5.0 (3-11) BUN 12 (7-18) mg/dl Creatinine 0.81 (0.6-1.2) mg/dl Est Cr Clr Drug Dosing 65.9 ml/min Est GFR ( Amer) 89.6 Est GFR (Non-Af Amer) 77.3 BUN/Creatinine Ratio 14.4 (10-20) Glucose 136 H (70-99) mg/dl POC Glucose (70-99) mg/dl Calcium 9.0 (8.5-10.1) mg/dl Total Bilirubin 0.3 (0.2-1) mg/dl AST 14 L (15-37) U/L ALT 17 (12-78) U/L Alkaline Phosphatase 86 (45-117) U/L Total Protein 7.1 (6.4-8.2) gm/dl Albumin 3.7 (3.4-5.0) gm/dl Globulin 3.4 (2.5-4.0) gm/dl Albumin/Globulin Ratio 1.1 (0.9-2) Lipase 77 (73-393) U/L Urine Color Yellow Urine Appearance Turbid A (Clear) Urine pH 7.5 (4.5-7.5) Ur Specific [place] 1.015 (1.000-1.030) Urine Protein 1+ H (Negative) Urine Glucose (UA) Negative (Negative) Urine Ketones Trace H (Negative) Urine Blood Trace H (Negative) Urine Nitrite Negative (Negative) Urine Bilirubin Negative (Negative) Urine Urobilinogen Negative (Negative) Ur Leukocyte Esterase Negative (Negative) Urine WBC (Auto) 1-5 (0-5) /hpf Urine RBC (Auto) 5-10 H (0-4) /hpf U Hyaline Cast (Auto) 1-5 (0-5) /lpf U Epithel Cells (Auto) >30 H (0-5) /lpf Urine Bacteria (Auto) Negative (Negative) Medications Administered Current Inpatient Medications Acetaminophen (Tylenol) 650 mg PO Q4H PRN PRN Reason: pain/fever Stop: 10/09/19 13:56 Last Admin: 09/09/19 22:08 Dose: 650 mg Documented by: Albuterol (Ventolin 0.083% 2.5mg/3ml) 2.5 mg NEB Q6R ASHIA Stop: 10/09/19 18:59 Last Admin: 09/10/19 07:22 Dose: 2.5 mg Documented by: Buspirone HCl (Buspar) 15 mg PO DAILY [facility] Stop: 10/10/19 08:59 Buspirone HCl (Buspar) 7.5 mg PO HS ASHIA Stop: 10/09/19 20:59 Last Admin: 09/09/19 20:10 Dose: 7.5 mg Documented by: Citalopram Hydrobromide (Celexa) 40 mg PO DAILY [facility] Stop: 10/09/19 16:44 Last Admin: 09/09/19 17:20 Dose: 40 mg Documented by: Dextrose (Dextrose 50%) 25 - 50 ml IV UD PRN; Protocol PRN Reason: Hypoglycemia Protocol Stop: 10/09/19 13:56 Fluticasone/Vilanterol (Breo Ellipta 100/25 Mcg Inh) 1 puffs INH DAILY [facility] Stop: 10/10/19 08:59 Glucagon (Glucagen) 1 mg SQ UD PRN; Protocol PRN Reason: Hypoglycemia Protocol Stop: 10/09/19 13:56 Glucose (Dex4 Glucose) 4 - 8 tabs PO UD PRN; Protocol PRN Reason: Hypoglycemia Protocol Stop: 10/09/19 13:56 Glucose (Glucose 40%) 15 - 30 gm PO UD PRN; Protocol PRN Reason: Hypoglycemia Protocol Stop: 10/09/19 13:56 Hydralazine HCl (Hydralazine Hcl) 5 mg IV Q6H PRN PRN Reason: hypertension Stop: 10/09/19 16:29 Sodium Chloride (Nss 1000ml) 1,000 mls @ 100 mls/hr IV .Q10H [facility] Stop: 09/10/19 10:44 Last Admin: 09/10/19 00:04 Dose: 100 mls/hr Documented by: Cefazolin Sodium (Ancef 1000mg) 1,000 mg in 7.5 mls @ 2.5 mls/min IV Q12H [facility] Stop: 09/14/19 18:59 Last Admin: 09/10/19 07:08 Dose: 2.5 mls/min Documented by: Insulin Aspart (Novolog Flexpen) 0 units SC Q6 [facility] Stop: 10/10/19 05:59 Last Admin: 09/10/19 06:38 Dose: Not Given Documented by: Ketorolac Tromethamine (Toradol) 15 mg IV Q6H PRN PRN Reason: Pain Last Admin: 09/10/19 00:25 Dose: 15 mg Documented by: Lisinopril (Zestril) 5 mg PO QAM [facility] Stop: 10/10/19 08:59 Lorazepam (Ativan) 0.5 mg PO BID PRN PRN Reason: Anxiety Stop: 10/09/19 13:56 Last Admin: 09/10/19 00:04 Dose: 0.5 mg Documented by: Miscellaneous (Carbohydrates For Hypoglycemia) 15 - 30 gm PO UD PRN PRN Reason: Hypoglycemia Protocol Stop: 10/09/19 13:56 Morphine Sulfate (Morphine Sulfate) 3 mg IV Q4H PRN PRN Reason: Severe Pain Stop: 09/23/19 13:56 Last Admin: 09/10/19 05:45 Dose: 3 mg Documented by: Ondansetron HCl (Zofran) 4 mg IV Q6H PRN PRN Reason: Nausea Stop: 10/09/19 13:56 Last Admin: 09/10/19 05:50 Dose: 4 mg Documented by: Pantoprazole Sodium (Protonix) [facility] [place] Stop: 10/10/19 08:59 Potassium Chloride (Klor-Con M20) 40 meq PO NOW STA Stop: 09/10/19 07:58 Tamsulosin HCl (Flomax) 0.4 mg PO [facility] Stop: 10/09/19 20:59 Last Admin: 09/09/19 20:10 Dose: 0.4 mg Documented by: Trazodone HCl (Desyrel) 25 mg PO [facility] Stop: 10/09/19 20:59 Last Admin: 09/09/19 20:10 Dose: 25 mg Documented by: Umeclidinium [place] (Incruse Ellipta) 1 puffs INH [facility] Stop: 10/10/19 08:59
[2019-09-10] MEDS ORDERED: POTASSIUM CHLORIDE 20 MEQ TABCR PO ONE (08:15)
[2019-09-10] MEDS: FLUTICASONE/VILANTEROL 100/25MCG 14 PUFFS/INHALER INH SCH (08:44)
[2019-09-10] MEDS: lisinopriL 5 MG TAB PO SCH (08:45)
[2019-09-10] MEDS: CITALOPRAM 40 MG TAB PO SCH (08:45)
[2019-09-10] MEDS: UMECLIDINIUM BROMIDE 62.5MCG/BLISTER 7 PUFFS/INHALER INH SCH (08:45)
[2019-09-10] MEDS: BusPIRone 15 MG TAB PO SCH (08:45)
[2019-09-10] MEDS: PANTOprazole 40 MG TAB PO SCH (08:45)
[2019-09-10] MEDS ORDERED: PROPOFOL IV EMULSION 10 MG/ML 20 ML VIAL IV ONE ×2 (08:56→14:11)
[2019-09-10] MEDS ORDERED: LIDOCAINE HCL 2% 2 ML VIAL/AMP(20MG/ML) INFIL ONE (08:56)
[2019-09-10] MEDS ORDERED: CITALOPRAM 20 MG TAB PO SCH (09:00)
[2019-09-10] MEDS ORDERED: MIDAZOLAM HCL 1 MG/ML 2ML VIAL ONE (12:59)
[2019-09-10] MEDS ORDERED: fentaNYL citrate 100 MCG/2 ML VIAL ONE (12:59)
--- NOTE | 2019-09-10 13:21 | History & Physical Bridge Note ---
Date of Service September 10, 2019 History & Physical Bridge Note I have examined the patient, reviewed the History & Physical and in the interval since the performance of the History & Physical I have noted the following changes of clinical significance: no changes noted
--- NOTE | 2019-09-10 13:23 | Anesthesiology Consultation ---
Date of Service September 10, 2019 Assessment & Plan Chart Review Chart Review: Acceptable Risk for Surgery Consults Requested none History Surgery Operation Date: 09/10/19 13:30 Proposed Procedures p Cystoscopy, Retrograde Pyelogram, Left Ureteronephroscopy, Laser Litho, Stent Placement - Jorge Swain, DO Height/Weight Height: 5 ft 1 in Weight: 75 kg Allergies Allergy/AdvReac Type Severity Reaction Status Date / Time moxifloxacin [From Avelox] AdvReac Intermediate Cellulitic Unverified 09/09/19 10:58 Rash Medications Home Medications Medication Instructions Recorded Confirmed Last Taken albuterol sulfate 2 puff INHALATION QID PRN 09/09/19 09/09/19 09/09/19 buspirone 7.5 mg PO 09/09/19 09/09/19 09/08/19 buspirone 15 mg PO DAILY 09/09/19 09/09/19 09/08/19 citalopram 40 mg PO DAILY 09/09/19 09/09/19 Unknown fluticasone furoate-vilanterol 1 inh INHALATION DAILY 09/09/19 09/09/19 09/08/19 [Breo Ellipta] furosemide [Lasix] 40 mg PO QAM PRN 09/09/19 09/09/19 Unknown levothyroxine [Levoxyl] 50 mcg PO DAILY 09/09/19 09/09/19 Unknown lisinopril 5 mg PO QAM 09/09/19 09/09/19 09/08/19 lorazepam 0.5 mg PO BID PRN 09/09/19 09/09/19 09/08/19 pantoprazole [Protonix] 40 mg PO QAM 09/09/19 09/09/19 09/08/19 tiotropium bromide [Spiriva 2 puff INHALATION QAM 09/09/19 09/09/19 09/08/19 Respimat] trazodone 25 mg PO 09/09/19 09/09/19 09/08/19 Active Medications Generic Name Dose Route Start Last Admin Trade Name Freq PRN Reason Stop Dose Admin Acetaminophen 650 mg 09/09/19 13:57 09/09/19 22:08 Tylenol PO 10/09/19 13:56 650 mg Q4H PRN Administration pain/fever Albuterol 2.5 mg 09/09/19 19:00 09/10/19 07:22 Ventolin 0.083% 2.5mg/3ml NEB 10/09/19 18:59 2.5 mg Q6R ASHIA Administration Buspirone HCl 15 mg 09/10/19 09:00 09/10/19 08:45 Buspar PO 10/10/19 08:59 15 mg DAILY ASHIA Administration Buspirone HCl 7.5 mg 09/09/19 21:00 09/09/19 20:10 Buspar PO 10/09/19 20:59 7.5 mg HS ASHIA Administration Citalopram Hydrobromide 40 mg 09/09/19 16:45 09/10/19 08:45 Celexa PO 10/09/19 16:44 40 mg DAILY ASHIA Administration Fluticasone/Vilanterol 1 puffs 09/10/19 09:00 09/10/19 08:44 Breo Ellipta 100/25 Mcg Inh INH 10/10/19 08:59 1 puffs DAILY ASHIA Administration Cefazolin Sodium 1,000 mg in 7.5 mls @ 2.5 mls/min 09/09/19 19:00 09/10/19 07:08 Ancef 1000mg IV 09/14/19 18:59 2.5 mls/min Q12H ASHIA Administration Insulin Aspart 0 units 09/10/19 06:00 09/10/19 11:57 Novolog Flexpen SC 10/10/19 05:59 Not Given Q6 ASHIA Lisinopril 5 mg 09/10/19 09:00 09/10/19 08:45 Zestril PO 10/10/19 08:59 5 mg QAM ASHIA Administration Lorazepam 0.5 mg 09/09/19 13:57 09/10/19 00:04 Ativan PO 10/09/19 13:56 0.5 mg BID PRN Administration Anxiety Morphine Sulfate 3 mg 09/09/19 13:57 09/10/19 05:45 Morphine Sulfate IV 09/23/19 13:56 3 mg Q4H PRN Administration Severe Pain Ondansetron HCl 4 mg 09/09/19 13:57 09/10/19 05:50 Zofran IV 10/09/19 13:56 4 mg Q6H PRN Administration Nausea Pantoprazole Sodium 40 mg 09/10/19 09:00 06/04/20 08:45 Protonix PO 10/10/19 08:59 40 mg QAM ASHIA Administration Tamsulosin HCl 0.4 mg 09/09/19 21:00 09/09/19 20:10 Flomax PO 10/09/19 20:59 0.4 mg HS ASHIA Administration Trazodone HCl 25 mg 09/09/19 21:00 09/09/19 20:10 Desyrel PO 10/09/19 20:59 25 mg HS ASHIA Administration Umeclidinium [place] 1 puffs 09/10/19 09:00 09/10/19 08:45 Incruse Ellipta INH 10/10/19 08:59 1 puffs QAM ASHIA Administration NPO Date Last Intake of Fluids: 09/09/19 Time Last Intake of Fluids: 22:30 Last Intake of Fluids Comment: sips with meds this morning Date Last Intake of Solids: 09/09/19 Time Last Intake of Solids: 17:30 Past Medical History Medical History Asthma COPD (chronic obstructive pulmonary disease) oxygen dependent Depression with anxiety Diabetes mellitus, type II High cholesterol HTN (hypertension) Hypothyroidism Insomnia Kidney stones Left-sided heart failure Past Family History Family History Mother Breast cancer Father FH: leukemia CLL Sister Hypertension Past Surgical History Surgical History Hx of tonsillectomy Hx of tubal ligation Social History Smoking Status: Current every day smoker tobacco type: cigarettes Smoking cigarettes per day: 2 Do You Dip or Chew Tobacco: No Hx Alcohol Use: No Hx Substance Use: No substance use type: does not use Physical Exam Vital Signs Last Vital Signs Temp 36.8 C 09/10/19 13:12 Pulse 86 09/10/19 13:12 Resp 18 09/10/19 13:12 BP 158/88 H 09/10/19 13:12 Pulse Ox 94 09/10/19 13:12 Testing Laboratory Results 09/10/19 06:00 09/10/19 06:00 Urine Color Yellow 09/09/19 11:35 Urine Appearance Turbid (Clear) A 09/09/19 11:35 Urine pH 7.5 (4.5-7.5) 09/09/19 11:35 Ur Specific [place] 1.015 (1.000-1.030) 09/09/19 11:35 Urine Protein 1+ (Negative) H 09/09/19 11:35 Urine Glucose (UA) Negative (Negative) 09/09/19 11:35 Urine Ketones Trace (Negative) H 09/09/19 11:35 Urine Nitrite Negative (Negative) 09/09/19 11:35 Ur Leukocyte Esterase Negative (Negative) 09/09/19 11:35 Urine WBC (Auto) 1-5 /hpf (0-5) 09/09/19 11:35 Urine RBC (Auto) 5-10 /hpf (0-4) H 09/09/19 11:35 U Hyaline Cast (Auto) 1-5 /lpf (0-5) 09/09/19 11:35 U Epithel Cells (Auto) >30 /lpf (0-5) H 09/09/19 11:35 Urine Bacteria (Auto) Negative (Negative) 09/09/19 11:35 09/10/19 09/10/19 11:48 06:12 POC Glucose 123 H 127 H
[2019-09-10] MEDS ORDERED: HYDROmorphone INJ 2 MG/ML SYR/VIAL IV PRN (13:24)
[2019-09-10] MEDS ORDERED: ONDANSETRON INJ 2 MG/ML 2 ML VIAL IV PRN (13:24)
[2019-09-10] MEDS ORDERED: METOCLOPRAMIDE HCL INJ 5 MG/ML 2 ML VIAL IV PRN (13:24)
[2019-09-10] MEDS ORDERED: fentaNYL citrate 100 MCG/2 ML VIAL IV PRN (13:24)
[2019-09-10] MEDS ORDERED: ATROPINE SULFATE 0.1 MG/ML 10ML SYR IV PRN (13:24)
[2019-09-10] MEDS ORDERED: ePHEDrine sulfate 50 MG/ML AMP IV PRN (13:24)
[2019-09-10] MEDS ORDERED: PROMETHAZINE HCL 12.5 MG in SODIUM CHLORIDE 0.9% 50 ML IV PRN (13:24)
[2019-09-10] MEDS ORDERED: IOTHALAMATE MEGLUMINE II 17.2% 250 ML VIAL ONE (13:28)
--- NOTE | 2019-09-10 14:13 | Operative Report ---
PG Post Operative Report Pre & Post Diagnosis Obst Distal Left ureteral stone Same Operation Date: 09/10/19 13:30 <No data on this case meets the specified criteria> I identified the patient and participated in the time-out.: Yes Procedure Cystoscopy with left ureteroscopy, laser lithotripsy, retrograde pyelogram, and stent placement. Operation Date: 09/10/19 13:30 <No data on this case meets the specified criteria> Surgeon Jorge Swain, II, DO Gear Generator Set Up Operator None Estimated Blood Loss 1 Findings Consistent with Post-Op Diagnosis Stone destroyed to dust and small fragments. Specimens None Drains 6 Fr Multilength Anesthesia Type MAC Complications none Disposition Disposition: Recovery Room Indications Patient with bothersome stones. Risks and benefits discussed at length. Description of Procedure Patient was consented and brought back to the operating room. Patient was placed under anesthesia in the supine position and moved to the dorsal lithotomy position. Patient was prepped and draped in the regular sterile fashion. A time out was completed. A 30degree Cystoscope was placed into the bladder and the entire bladder was examined. The UO's were identified. The UO was cannulized with a catheter and a retrograde pyelogram was completed. A wire was then placed. The Rigid ureteroscope was taken into the ureter. The stone was identified. A laser fiber was selected and the stones were pulverized to dust and small fragments. The entire area was once again examined. No residual large fragments or areas of concern were noted. The scope was slowly removed with the wire left in place. Contrast was placed through the scope for a pyelogram to assist in stent placement. The entire ureter was examined as the scope was slowly removed. No obstructions or other areas of concern were noted. With the wire in place, a 6 Fr Double J stent was placed. It was confirmed with fluoroscopy. With the stent in place, the bladder was emptied. The scope was removed. The patient was cleaned, aroused from anesthesia, and transferred to the pacu in stable condition having tolerated the procedure well with no complications. I was present and participated in all aspects of the procedure. The patient will be monitored in the PACU until transferred. I attest to the content of the Intraoperative Record and any orders documented therein. Any exceptions are noted below.
--- NOTE | 2019-09-10 14:21 | Fluoroscopy Report ---
FL retrograde includes kub CLINICAL HISTORY: RETROGRADEstent placement COMPARISON STUDY: None FLUOROSCOPY TIME: 26 seconds NUMBER OF FLUOROSCOPIC IMAGES: 20 FINDINGS: Image intensifier support for left ureteral stent placement and laser lithotripsy IMPRESSION: Image intensifier support for left ureteral stent placement and laser lithotripsy. ACT 112: Negative or not required by law. The above report was generated using voice recognition software. It may contain grammatical, syntax or spelling errors. Electronically signed by: Justin Alvarado M.D. 09/10/2019 2:20 PM
--- NOTE | 2019-09-10 14:33 | Anesthesiology Progress Note ---
Date of Service September 10, 2019 Anesthesia Post Procedure Vital Signs Vital Signs: Temp Pulse Resp BP BP Pulse Ox 09/10/19 14:22 36.8 C 82 16 104/76 99 09/10/19 13:12 36.8 C 86 18 158/88 H 94 09/10/19 07:25 78 18 94 09/10/19 06:55 37.1 C 80 17 144/67 H 94 09/10/19 00:40 87 16 93 09/09/19 23:50 37.3 C 85 18 168/79 H 94 09/09/19 22:01 37.4 C 09/09/19 21:36 37.8 C H 09/09/19 19:07 80 20 159/79 H 94 09/09/19 17:21 80 18 170/85 H 92 09/09/19 15:01 36.6 C 84 17 186/83 H 93 Pain Intensity Back: Pain Intensity: 1 Transfer of Care Handoff Completed per policy Notes Mental Status: alert / awake / arousable and participated in evaluation Patient Amnestic to Procedure: Yes Nausea / Vomiting: adequately controlled Pain: adequately controlled Airway Patency, RR, SpO2: stable & adequate BP & HR: stable & adequate Hydration State: stable & adequate Anesthetic Complications: no major complications apparent
[2019-09-10] MEDS ORDERED: Nursing to Pharmacy Communication ONE (15:13)
[2019-09-10] MEDS: TAMSULOSIN HCL 0.4 MG CAP PO SCH (20:05)
[2019-09-10] MEDS: TRAZODONE HCL 50 MG TAB PO SCH (20:05)
[2019-09-10] MEDS: BUSPIRONE HCL 7.5 MG TAB PO SCH (20:06)
[2019-09-11] MEDS: MoRPHine SULFATE 4 MG/ML 1 ML CARP\\VIAL IV PRN ×3 (00:06→09:51)
[2019-09-11] MEDS: ALBUTEROL 0.083% NEBU SOLN 3 ML VIAL NEB SCH ×3 (00:56→13:10)
[2019-09-11] MEDS: CEFAZOLIN 1000MG 1,000 MG/7.5 ML SYR IV SCH (06:10)
[2019-09-11 06:16] LABS: Hematocrit (blood only) 34.3 % (37-47); Hemoglobin 10.9 g/dL (12.0-16.0); Mean Corpuscular Hemoglobin 28.4 pg (25-34); Mean Corpuscular Hgb Conc 31.8 g/dL (32-36); Mean Corpuscular Volume 89.3 fL (80-100); Mean Platelet Volume 11.4 fL (7.4-10.4); Platelet Count 170 K/uL (130-400); RDW Coefficient of Variation 13.2 % (11.5-14.5); Red Blood Count 3.84 M/uL (4.2-5.4); White Blood Count 6.78 K/uL (4.8-10.8)
[2019-09-11 06:46] LABS: Calcium 8.3 mg/dl (8.5-10.1); Creatinine Clr Calc Pharmacy 75.1 ml/min; Est GFR (African American) 105.1; Est GFR (Non-African American) 90.7; Magnesium 1.9 mg/dl (1.8-2.4)
--- NOTE | 2019-09-11 07:45 | Hospitalist Progress Note ---
Date of Service September 11, 2019 Assessment & Plan (1) Calculus of left ureter: (2) Hydronephrosis, left: Pt is 63 y/o F with PMH COPD on 2L, DM II, depression, anxiety, hypothyroidism, left sided heart failure presented to ER with c/o left flank pain, nausea and vomiting x 1. Denies fever/chills. Reported was given Zofran and Toradol by EMS. In ER pt afebrile, P: 67, R: 20, BP: 194/96 down to 135/78, 100% on 2L chronic oxygen. No leukocytosis, BUN: 12, Cr: 0.8, GFR: 77, UA: 5-10 RBC, no bacteria or leuk esterase or nitrite CT Abd/pelvis: 8 mm obstructing calculus in the distal left ureter located just above the vesicoureteral junction. This causes moderate to severe left hydroureteronephrosis. An additional nonobstructing calculus is seen in the right kidney. -In ER given 1L NSS, Phenergan 12.5mg, Fentanyl 50mcg -IVF -Toradol, morphine prn pain; Zofran prn N/V -Strain urine -Flomax daily -Urology consulted, patient underwent laser lithotripsy and left ureteral stent placement on 09/10/[address] Swain. Patient tolerated procedure well. She will be discharged today, plan to follow- up with urology next week for stent removal. (3) COPD (chronic obstructive pulmonary disease): On Chronic 2L oxygen via [place] -Denies any increased SOB or wheezing from her baseline, denies cough, fever/chills. -Continue Breo, Spiriva -Will switch Albuterol inhaler to neb treatments secondary to current baseline wheezing and low supply of albuterol MDI (4) Diabetes mellitus, type II: A1c: 5.8 on 06/11/2019 -Pt self stopped metformin. Was taking 500mg daily -Will hold metformin while inpatient -Novolog sliding scale per protocol (5) HTN (hypertension): Initially hypertensive in ER and improved with pain control -Monitor BP -Continue lisinopril (6) Left-sided heart failure: Takes Lasix prn LE edema. No recent edema Appears euvolemic at this time -Hold prn Lasix (7) Hypothyroidism: TSH: 23 on 06/11/2019 -Pt self stopped levothyroxine -Will need further follow up with PCP (8) Depression with anxiety: -Continue buspirone, citalopram, trazodone DVT Prophylaxis -SCDs Full Code as per discussion with pt Follows with Dr Alvarez for routine care Admission and Anticipated Discharge Date Admission Date: September 09, 2019 Subjective Patient underwent laser lithotripsy and left ureteral stent placement yesterday. Tolerated procedure well. Currently she sitting in the bed, in no acute distress, inquiring about going home. Denies any fevers, chills, chest pain, shortness of breath, abdominal pain. Says she has mild discomfort with urination and some blood in the urine. Evaluated by urology today, patient is safe to discharge home, will follow up with urology for stent removal next week. Patient understands and agrees with the plan. Review of Systems Review of Systems: All systems reviewed & are unremarkable except as noted in HPI & below Constitutional: no fever and no chills Respiratory: no cough and no dyspnea Cardiovascular: no chest pain and no dyspnea on exertion Gastrointestinal: no abdominal pain, no nausea and no vomiting Genitourinary: + dysuria (mild) and + hematuria (mild) Physical Exam Physical Exam: General: Elderly female lying in bed, in no distress, WDWN Head: normocephalic, atraumatic Eyes: PERRL, EOM's intact, conjunctiva non-injected, anicteric ENT: normal inspection external ears, nose, mucous membranes moist Neck: supple, trachea midline Lungs: no respiratory distress, on chronic 2L oxygen via [place], no wheezes,rhonchi/rales CV: RRR, no murmur, no JVD, no pretibial edema Abd: normal BS, soft, nontender to palpation, mild left CVA tenderness (much improved) Ext: no cyanosis, no calf tenderness, moves extremities spontaneously Neuro: A&O x 3, no focal deficits noted, normal affect Skin: warm, dry Results & Data Results & Data ([facility]) Vital Signs (Past 12 Hours) Vital Signs Temp Pulse Resp BP BP Pulse Ox 09/11/19 07:21 19 93 09/11/19 07:14 37.0 C 80 17 122/69 94 09/11/19 03:30 37.3 C 76 18 114/66 92 09/10/19 23:34 37.0 C 80 18 147/75 H 96 09/10/19 21:22 37.1 C 81 16 118/69 90 09/10/19 20:11 80 18 94 Laboratory Results 09/11/19 09/11/19 09/10/19 Range/Units 05:58 05:58 20:51 WBC 6.78 (4.8-10.8) K/uL RBC 3.84 L (4.2-5.4) M/uL Hgb 10.9 L (12.0-16.0) g/dL Hct 34.3 L (37-47) % MCV 89.3 (80-100) fL MCH 28.4 (25-34) pg MCHC 31.8 L (32-36) g/dL RDW Std Deviation 43.0 (36.4-46.3) fL RDW Coeff of Lillie 13.2 (11.5-14.5) % Plt Count 170 (130-400) K/uL MPV 11.4 H (7.4-10.4) fL Sodium 141 (136-145) mmol/L Potassium 4.0 (3.5-5.1) mmol/L Chloride 108 H (98-107) mmol/L Carbon Dioxide 30 (21-32) mmol/L Anion Gap 3.0 (3-11) BUN 8 D (7-18) mg/dl Creatinine 0.71 D (0.6-1.2) mg/dl Est Cr Clr Drug Dosing 75.1 ml/min Est GFR ( Amer) 105.1 Est GFR (Non-Af Amer) 90.7 BUN/Creatinine Ratio 11.0 (10-20) Glucose 98 (70-99) mg/dl POC Glucose 81 (70-99) mg/dl Calcium 8.3 L (8.5-10.1) mg/dl Phosphorus 3.0 (2.5-4.9) mg/dl Magnesium 1.9 (1.8-2.4) mg/dl 09/10/19 09/10/19 09/10/19 Range/Units 17:08 14:25 11:48 WBC (4.8-10.8) K/uL RBC (4.2-5.4) M/uL Hgb (12.0-16.0) g/dL Hct (37-47) % MCV (80-100) fL MCH (25-34) pg MCHC (32-36) g/dL RDW Std Deviation (36.4-46.3) fL RDW Coeff of Lillie (11.5-14.5) % Plt Count (130-400) K/uL MPV (7.4-10.4) fL Sodium (136-145) mmol/L Potassium (3.5-5.1) mmol/L Chloride (98-107) mmol/L Carbon Dioxide (21-32) mmol/L Anion Gap (3-11) BUN (7-18) mg/dl Creatinine (0.6-1.2) mg/dl Est Cr Clr Drug Dosing ml/min Est GFR ( Amer) Est GFR (Non-Af Amer) BUN/Creatinine Ratio (10-20) Glucose (70-99) mg/dl POC Glucose 79 105 H 123 H (70-99) mg/dl Calcium (8.5-10.1) mg/dl Phosphorus (2.5-4.9) mg/dl Magnesium (1.8-2.4) mg/dl Medications Administered Current Inpatient Medications Acetaminophen (Tylenol) 650 mg PO Q4H PRN PRN Reason: pain/fever Stop: 10/09/19 13:56 Last Admin: 09/09/19 22:08 Dose: 650 mg Documented by: Albuterol (Ventolin 0.083% 2.5mg/3ml) 2.5 mg NEB Q6R [facility] Stop: 10/09/19 18:59 Last Admin: 09/11/19 07:20 Dose: 2.5 mg Documented by: Buspirone HCl (Buspar) 15 mg PO DAILY [facility] Stop: 10/10/19 08:59 Last Admin: 09/10/19 08:45 Dose: 15 mg Documented by: Buspirone HCl (Buspar) 7.5 mg PO HS [facility] Stop: 10/09/19 20:59 Last Admin: 09/10/19 20:06 Dose: 7.5 mg Documented by: Citalopram Hydrobromide (Celexa) 40 mg PO DAILY [facility] Stop: 10/09/19 16:44 Last Admin: 09/10/19 08:45 Dose: 40 mg Documented by: Dextrose (Dextrose 50%) 25 - 50 ml IV UD PRN; Protocol PRN Reason: Hypoglycemia Protocol Stop: 10/09/19 13:56 Fluticasone/Vilanterol (Breo Ellipta 100/25 Mcg Inh) 1 puffs INH DAILY [facility] Stop: 10/10/19 08:59 Last Admin: 09/10/19 08:44 Dose: 1 puffs Documented by: Glucagon (Glucagen) 1 mg SQ UD PRN; Protocol PRN Reason: Hypoglycemia Protocol Stop: 10/09/19 13:56 Glucose (Dex4 Glucose) 4 - 8 tabs PO UD PRN; Protocol PRN Reason: Hypoglycemia Protocol Stop: 10/09/19 13:56 Glucose (Glucose 40%) 15 - 30 gm PO UD PRN; Protocol PRN Reason: Hypoglycemia Protocol Stop: 10/09/19 13:56 Hydralazine HCl (Hydralazine Hcl) 5 mg IV Q6H PRN PRN Reason: hypertension Stop: 10/09/19 16:29 Cefazolin Sodium (Ancef 1000mg) 1,000 mg in 7.5 mls @ 2.5 mls/min IV Q12H [facility] Stop: 09/14/19 18:59 Last Admin: 09/11/19 06:10 Dose: 2.5 mls/min Documented by: Insulin Aspart (Novolog Flexpen) 0 units SC ACHS [facility] Stop: 10/10/19 16:29 Last Admin: 09/10/19 21:31 Dose: Not Given Documented by: Lisinopril (Zestril) 5 mg PO QAM [facility] Stop: 10/10/19 08:59 Last Admin: 09/10/19 08:45 Dose: 5 mg Documented by: Lorazepam (Ativan) 0.5 mg PO BID PRN PRN Reason: Anxiety Stop: 10/09/19 13:56 Last Admin: 09/10/19 23:36 Dose: 0.5 mg Documented by: Miscellaneous (Carbohydrates For Hypoglycemia) 15 - 30 gm PO UD PRN PRN Reason: Hypoglycemia Protocol Stop: 10/09/19 13:56 Morphine Sulfate (Morphine Sulfate) 3 mg IV Q4H PRN PRN Reason: Severe Pain Stop: 09/23/19 13:56 Last Admin: 09/11/19 06:48 Dose: 3 mg Documented by: Ondansetron HCl (Zofran) 4 mg IV Q6H PRN PRN Reason: Nausea Stop: 10/09/19 13:56 Last Admin: 09/10/19 05:50 Dose: 4 mg Documented by: Pantoprazole Sodium (Protonix) 40 mg PO [facility] Stop: 10/10/19 08:59 Last Admin: 09/10/19 08:45 Dose: 40 mg Documented by: Tamsulosin HCl (Flomax) 0.4 mg PO [facility] Stop: 10/09/19 20:59 Last Admin: 09/10/19 20:05 Dose: 0.4 mg Documented by: Trazodone HCl (Desyrel) 25 mg PO [facility] Stop: 10/09/19 20:59 Last Admin: 09/10/19 20:05 Dose: 25 mg Documented by: Umeclidinium [place] (Incruse Ellipta) 1 puffs INH [facility] Stop: 10/10/19 08:59 Last Admin: 09/10/19 08:45 Dose: 1 puffs Documented by:
[2019-09-11] MEDS: FLUTICASONE/VILANTEROL 100/25MCG 14 PUFFS/INHALER INH SCH (08:18)
[2019-09-11] MEDS: lisinopriL 5 MG TAB PO SCH (08:19)
[2019-09-11] MEDS: CITALOPRAM 40 MG TAB PO SCH (08:19)
[2019-09-11] MEDS: PANTOprazole 40 MG TAB PO SCH (08:19)
[2019-09-11] MEDS: BusPIRone 15 MG TAB PO SCH (08:19)
[2019-09-11] MEDS: UMECLIDINIUM BROMIDE 62.5MCG/BLISTER 7 PUFFS/INHALER INH SCH (08:19)
[2019-09-11] MEDS: LORazepam 0.5 MG TAB PO PRN (08:22)
[2019-09-11] MEDS: INSULIN ASPART 100 UNITS/ML 3 ML PEN SC SCH ×2 (08:55→12:55)
--- NOTE | 2019-09-11 12:37 | Urology Progress Note ---
Date of Service September 11, 2019 Assessment & Plan (1) Flank Pain: Postop day 1 status post laser lithotripsy and stent placement. Patient tolerated procedure well with no major issues or problems. Has been increasing ambulation. Has increased diet slowly. Is having issues with pain on voiding. Discussed this at length with patient. Oral pain medications were recommended. Will likely resolve over the next few days likely secondary to reflux. We will continue to follow. Patient is improving and is hoping to go home later today. Assuming patient does not have any further issues or problems and pain is well controlled she should be able to return home. Patient also has a right sided renal stone and may need this addressed at some point. Has a tethered stent in place. We will plan to have patient back in the office next week for tethered stent removal and will likely discuss future plans for possible intervention on right side in the next 2 to 3 months (2) Calculus of left ureter: Subjective Postop from stent placement for obstruction issues. Patient has been tolerating well. Has noticed some frequency and urgency. Has not had severe pain in the back and flank. Does have occasional burning and irritation. No severe episodes or major changes. No new nausea or vomiting. Had tolerated anesthesia without major problems Review of Systems Review of Systems: All systems reviewed & are unremarkable except as noted in HPI & below Physical Exam Physical Exam: General: Alert in no acute distress. HEENT: Normocephalic Atraumatic. Inspection normal. Cranial Nerves 2-12 Grossly intact. Normal inspection of face. Normal inspection of neck. Psychologic: Normal affect. Respiratory: Nonlabored. No use of accessory muscles. No tachypnea or dyspnea. Cardiovascular: No tachycardia Skin: Nenzel and Dry. No rashes or visible lesions. Extremities/Lymphatics: No edema Abdomen: Soft Non-distended. No rebound or guarding. Results & Data Vital Signs (Past 12 Hours) Vital Signs Temp Pulse Resp BP BP Pulse Ox 09/11/19 11:46 37.1 C 87 18 119/72 94 09/11/19 07:21 19 93 09/11/19 07:14 37.0 C 80 17 122/69 94 09/11/19 03:30 37.3 C 76 18 114/66 92 PG Care Time/CCT Total # of Minutes Spent Total Time Spent with Patient: Total time spent is greater than 50% in coordination of care (as documented) at patient's floor/unit and/or counseling patient: Coding Level of Care Code 80375 Subseq Hosp Care Lvl 3 Diagnoses Flank Pain R10.9 Calculus of left ureter N20.1
--- NOTE | 2019-09-11 14:01 | Discharge Summary ---
Date of Service September 11, 2019 Admission HPI Per Admitting Provider Pt is 63 y/o F with PMH COPD on 2L, DM II, depression, anxiety, hypothyroidism, left sided heart failure presented to ER with c/o left flank pain. Pt states this morning started with left back pain with radiation to left flank. She has noticed urinating smaller amounts. Also c/o nausea and vomited x 1. EMS gave pt Toradol and Zofran with little relief. Denies any increased SOB from her baseline. Denies fever/chills, diaphoresis, N/V/D/C, MEEHAN, dizziness, syncope, vision changes, neck pain, CP, orthopnea, palpitations, cough, sore throat, choking, otalgia, rhinorrhea, abdominal pain, paresthesias, weakness, extremity weakness, extremity edema, rashes, dysuria, hematuria, urinary retention. Admission Exam Per Admitting Provider General: no distress, WDWN Head: normocephalic, atraumatic Eyes: PERRL, EOM's intact, conjunctiva non-injected, anicteric ENT: normal inspection external ears, nose, mucous membranes moist Neck: supple, trachea midline Lungs: no respiratory distress, on chronic 2L oxygen via [place], +scattered wheezing, no rhonchi/rales CV: RRR, no murmur, no JVD, no pretibial edema Abd: normal BS, soft, +left flank and LLQ tenderness to palpation without rebound or guarding Ext: no cyanosis, no calf tenderness Neuro: A&O x 3, no focal deficits noted, normal affect Skin: warm, dry Principal Diagnosis Obstructing calculus in left ureter, hydroureteronephrosis Now status post laser lithotripsy and left ureteral stent placement Discharge Exam General: Elderly female lying in bed, in no distress, WDWN Head: normocephalic, atraumatic Eyes: PERRL, EOM's intact, conjunctiva non-injected, anicteric ENT: normal inspection external ears, nose, mucous membranes moist Neck: supple, trachea midline Lungs: no respiratory distress, on chronic 2L oxygen via [place], no wheezes,rhonchi/rales CV: RRR, no murmur, no JVD, no pretibial edema Abd: normal BS, soft, nontender to palpation, mild left CVA tenderness (much improved) Ext: no cyanosis, no calf tenderness, moves extremities spontaneously Neuro: A&O x 3, no focal deficits noted, normal affect Skin: warm, dry Discharge Data Allergies Allergy/AdvReac Type Severity Reaction Status Date / Time moxifloxacin [From Avelox] AdvReac Intermediate Cellulitic Unverified 09/09/19 10:58 Rash Consultations 09/09/19 11:58 Consult Urology Stat 09/09/19 12:29 ED Decision to Admit Stat 09/09/19 13:57 Consult Urology Routine Procedures Performed Operation Date: 09/10/19 13:30 Actual Procedures p Left Ureteronephroscopy, Laser Lithotripsy, (Not Applicable) - DO vidya Arambula Left ureteral Stent Placement(Not Applicable) - DO vidya Arambula Cystoscopy, Left Retrograde Pyelogram(Not Applicable) - Jorge Swain DO Ordered Studies 09/09/19 10:09 CT abd pelvis wo con Stat IMPRESSION: 1. There is an 8 mm obstructing calculus in the distal left ureter located just above the vesicoureteral junction. This causes moderate to severe left hydroureteronephrosis. 2. An additional nonobstructing calculus is seen in the right kidney. 09/10/19 11:00 FL retrograde includes kub Routine Hospital Course (1) Calculus of left ureter: (2) Hydronephrosis, left: Pt is 63 y/o F with PMH COPD on 2L, DM II, depression, anxiety, hypothyr oidism, left sided heart failure presented to ER with c/o left flank pain, nausea and vomiting x 1. Denies fever/chills. Reported was given Zofran and Toradol by EMS. In ER pt afebrile, P: 67, R: 20, BP: 194/96 down to 135/78, 100% on 2L chronic oxygen. No leukocytosis, BUN: 12, Cr: 0.8, GFR: 77, UA: 5-10 RBC, no bacteria or leuk esterase or nitrite CT Abd/pelvis: 8 mm obstructing calculus in the distal left ureter located just above the vesicoureteral junction. This causes moderate to severe left hydroureteronephrosis. An additional nonobstructing calculus is seen in the right kidney. -In ER given 1L NSS, Phenergan 12.5mg, Fentanyl 50mcg -IVF -Toradol, morphine prn pain; Zofran prn N/V -Strain urine -Flomax daily -Urology consulted, patient underwent laser lithotripsy and left ureteral stent placement on 09/10/[address] Swain. Patient tolerated procedure well. She will be discharged today, plan to follow- up with urology next week for stent removal. (3) COPD (chronic obstructive pulmonary disease): On Chronic 2L oxygen via [place] -Denies any increased SOB or wheezing from her baseline, denies cough, fever/chills. -Continue Breo, Spiriva -switched Albuterol inhaler to neb treatments secondary to current baseline wheezing and low supply of albuterol MDI (4) Diabetes mellitus, type II: A1c: 5.8 on 06/11/2019 -Pt self stopped metformin. Was taking 500mg daily -Will hold metformin while inpatient -Novolog sliding scale per protocol (5) HTN (hypertension): Initially hypertensive in ER and improved with pain control -Monitor BP -Continue lisinopril (6) Left-sided heart failure: Takes Lasix prn LE edema. No recent edema Appears euvolemic at this time -Hold prn Lasix (7) Hypothyroidism: TSH: 23 on 06/11/2019 -Pt self stopped levothyroxine -Will need further follow up with PCP (8) Depression with anxiety: -Continue buspirone, citalopram, trazodone Follows with Dr Alvarez for routine care Total Time Total Time Spent Total Time Spent (In Minutes): 40 Total Time Includes: Examination of the Patient, Discharge Planning, Medication Reconciliation and Communication With Other Providers Discharge Plan Discharge Items Patient Disposition: Home - Self-Care Reason For Visit: KIDNEY STONE Discharge Diagnosis: Obstructing calculus in left ureter, hydronephrosis Now status post laser lithotripsy and left ureteral stent placement Condition on Discharge: Good Activity: Per Instructions section Non-emergency contact: Primary Care Provider and Urologist Call non-emergency contact if: you have any medication questions and your symptoms worsen Follow-up/Referrals: Destinee Alvarez MD [Primary Care Provider] - 09/14/19 2:20 pm (09/14/2019 2:20 PM Provider Destinee Alvarez MD Department General Internal Medicine [facility] ) Diet: Carb Consistent or DM2 Addtl Attending Provider Instructions: For pain, recommend to take Tylenol 1000 mg 3 times a day. You can obtain Tylenol [id number]. For severe pain, you can take tramadol as prescribed, however given that you already take Lorazepam, minimize tramadol use as much as possible, as combination of these drugs can be dangerous. Discuss with your primary care doctor possible other options, if your pain is not well controlled. Currently you have an appointment scheduled for September 13. You will also need to follow-up with urology (Dr. Swain), who plans to remove the stent next week, you will be contacted from their office. Pending Studies at Discharge: No Stand-Alone Forms: My [facility] [place], Smoking Cessation Medications and DC Order Prescriptions: New tamsulosin 0.4 mg Capsule 0.4 mg PO HS 5 Days Qty: 5 RF: 0 tramadol 50 mg tablet 50 mg PO Q8H PRN (Reason: pain) Qty: 10 RF: 0 cephalexin [Keflex] 500 mg capsule 500 mg PO Q6H 3 Days Qty: 12 RF: 0 Continued furosemide [Lasix] 40 mg Tablet 40 mg PO QAM PRN (Reason: Edema) RF: 0 trazodone 50 mg Tablet 25 mg PO HS RF: 0 lorazepam 0.5 mg Tablet 0.5 mg PO BID PRN (Reason: Anxiety) RF: 0 pantoprazole [Protonix] 40 mg Tablet,Delayed Release (Dr/Ec) 40 mg PO QAM RF: 0 lisinopril 5 mg Tablet 5 mg PO QAM RF: 0 albuterol sulfate 90 mcg/actuation Hfa Aerosol Inhaler 2 puff INHALATION QID PRN (Reason: Shortness Of Breath) RF: 0 buspirone 15 mg Tablet 15 mg PO DAILY RF: 0 Spiriva Respimat 1.25 mcg/actuation Mist 2 puff INHALATION QAM RF: 0 buspirone 15 mg Tablet 7.5 mg PO HS RF: 0 Breo Ellipta 100-25 mcg/dose Blister With Device 1 inh INHALATION DAILY RF: 0 levothyroxine [Levoxyl] 50 mcg Tablet 50 mcg PO DAILY RF: 0 citalopram 40 mg tablet 40 mg PO DAILY RF: 0 Discharge Orders: Discharge Order (Routine); Ordered 09/11/19 Ordered By: Momo Guerrero Admission Data Admit Date/Time: 09/09/19 12:56 Attending Provider: Momo Guerrero Admit Provider: Thien Morel Primary Care Provider: Destinee Alvarez Other Providers: Juan Antonio Gibbs ; Thien Morel
== END 2019-09-11 14:21 | disposition home or self-care (01) | DRG 660 ==
LOC: ED 09:58 → 3N 12:56 → SUATTDRO 12:56 → 3N 13:27

== ENCOUNTER 2020-04-20 13:35 | Inpatient (IN) ==
[2020-04-20] MEDS ORDERED: DEXAMETHASONE SOD INJ 10 MG/ML VIAL IV ONE (14:27)
[2020-04-20] MEDS ORDERED: ALBUT/IPRATROP 3MG/0.5MG NEB 3 ML VIAL NEB STA (14:27)
[2020-04-20] MEDS ORDERED: ONDANSETRON INJ 2 MG/ML 2 ML VIAL IV STA (14:27)
[2020-04-20] MEDS ORDERED: SODIUM CHLORIDE 0.9% 1000ML 1,000 ML IV SCH (14:31)
[2020-04-20 14:40] LABS: Basophils # (auto) 0.01 K/uL (0-0.2); Basophils % (auto) 0.2 %; Eosinophils # (auto) 0.02 K/uL (0-0.5); Eosinophils % (auto) 0.5 %; Hematocrit (blood only) 39.9 % (37-47); Hemoglobin 13.1 g/dL (12.0-16.0); Lymphocytes # (auto) 0.89 K/uL (1.2-3.4); Lymphocytes % (auto) 20.5 %; Mean Corpuscular Hemoglobin 28.9 pg (25-34); Mean Corpuscular Hgb Conc 32.8 g/dL (32-36); Mean Corpuscular Volume 88.1 fL (80-100); Mean Platelet Volume 10.8 fL (7.4-10.4); Monocytes % (auto) 9.2 %; Neutrophils # (auto) 3.03 K/uL (1.4-6.5); Neutrophils % (auto) 69.6 %; Platelet Count 215 K/uL (130-400); RDW Coefficient of Variation 12.9 % (11.5-14.5); RDW Standard Deviation 41.8 fL (36.4-46.3); Red Blood Count 4.53 M/uL (4.2-5.4); White Blood Count 4.35 K/uL (4.8-10.8)
--- NOTE | 2020-04-20 14:40 | Emergency Department Note ---
History of Present Illness General Chief complaint: Illness Stated complaint: ILLNESS, SOB, COVID + Time Seen by Provider: 04/20/20 13:59 History of Present Illness Maximum Pain Intensity: 6 Patient is a 64-year-old female with past medical history significant for oxygen dependent COPD, hypertension, diabetes, hypothyroidism, who presents the emergency department via ambulance for evaluation of nausea, vomiting, diarrhea and weakness with associated shortness of breath after being diagnosed with Covid 8 days ago. Patient was seen at our facility early in the morning on 04/12/2020. Her Covid test was positive at that time. Patient states that she has been resting at home over the last week. She was doing well until the last 2 to 3 days when her symptoms worsened. She has been nauseous and anorexic, has had vomiting and diarrhea. She feels generally weak and fatigued. She has had continued fevers, last temperature at home was 101 F earlier this morning. She is normally on 2 to 2-1/2 L of oxygen by nasal cannula, she has had increased oxygen to over 3 L over the last 1 to 2 days. She has a pulse ox probe at home, lowest sat she documented was 91%. She has been using her Ventolin inhaler 4 times per day, has been compliant with her other inhalers including Dulera and Combivent. She still notes some tightness in her chest and wheezing. She has tried Zofran for the nausea but it has not helped. She vomited twice today, has had roughly 5 episodes of diarrhea in the last 24 hours. She denies melena, hematochezia or hematemesis. She has been taking Tylenol for her fevers, headache and body aches. She has a nebulizer machine at home but was told not to use this by her primary care provider's office. She called the ambulance this morning because of the weakness, nausea vomiting and diarrhea. She does have a longstanding history of COPD, she is not currently smoking. She has never been intubated for her COPD. Home Medications Medication Instructions Recorded Confirmed Type albuterol sulfate 2 puff INHALATION QID PRN 09/09/19 04/20/20 History buspirone 7.5 mg PO HS 09/09/19 04/20/20 History buspirone 15 mg PO QAM 09/09/19 04/20/20 History citalopram 40 mg PO DAILY 09/09/19 04/20/20 History lisinopril 5 mg PO QAM 09/09/19 04/20/20 History lorazepam 0.5 mg PO BID PRN 09/09/19 04/20/20 History pantoprazole [Protonix] 40 mg PO QAM 09/09/19 04/20/20 History ipratropium-albuterol [Combivent 1 puff INHALATION QID 04/12/20 04/20/20 History Respimat] mometasone-formoterol [Dulera] 2 puff INHALATION Q12H 04/12/20 04/20/20 History Allergies Allergy/AdvReac Type Severity Reaction Status Date / Time levothyroxine Allergy Hives Verified 04/12/20 03:00 moxifloxacin [From Avelox] AdvReac Intermediate Cellulitic Unverified 04/20/20 15:16 Rash Past Med/Surg History Medical History (Updated 04/20/20 @ 19:19 by Latasha Escalante) Asthma COPD (chronic obstructive pulmonary disease) oxygen dependent Depression with anxiety Diabetes mellitus, type II High cholesterol HTN (hypertension) Hypothyroidism Insomnia Kidney stones Left-sided heart failure Surgical History Hx of tonsillectomy Hx of tubal ligation Family History Mother Breast cancer Father FH: leukemia CLL Sister Hypertension Social History (Updated 04/20/20 @ 17:00 by Elli Abreu PA-C) Smoking Status: Former smoker Second Hand Exposure: Yes; Hx Alcohol Use: No Hx Substance Use: No Preferred Language: Tajik Communication Ability: Effective Concert Promoter Required: No Beliefs That Will Affect Care: None Current Living Situation: Alone Feels Safe at Home: Yes Assistive Devices: Oxygen - Continuous Review of Systems A total of 10 systems reviewed and were otherwise negative Physical Exam Vital Signs Vital Signs - 24 hr 04/20/20 13:42 04/20/20 13:44 04/20/20 13:45 Temperature 36.9 C Temperature Source Oral Pulse Rate 75 81 81 Pulse Rate [Right Radial] Pulse Rate from SpO2 Sensor 76 81 81 Pulse Rhythm Regular Pulse Strength Normal Respiratory Rate 21 20 17 Respiratory Effort / Characteristics Non-Labored Spontaneous Respiratory Depth Normal Blood Pressure 143/81 H 131/80 Blood Pressure Mean 97 97 Blood Pressure Position Lying Pulse Oximetry 98 98 97 Oxygen Delivery Method Nasal Cannula Oxygen Flow Rate 2 Sepsis Recent Fever Within 48 Hours Yes Sepsis New/Unexplained Change in Mental Status No Sepsis Action Taken by Nursing No Action Required 04/20/20 14:00 04/20/20 14:01 04/20/20 14:15 Temperature Temperature Source Pulse Rate 81 80 83 Pulse Rate [Right Radial] Pulse Rate from SpO2 Sensor 81 80 82 Pulse Rhythm Pulse Strength Respiratory Rate 17 13 19 Respiratory Effort / Characteristics Respiratory Depth Blood Pressure 118/75 115/83 Blood Pressure Mean 98 96 Blood Pressure Position Pulse Oximetry 97 97 97 Oxygen Delivery Method Oxygen Flow Rate Sepsis Recent Fever Within 48 Hours Sepsis New/Unexplained Change in Mental Status Sepsis Action Taken by Nursing 04/20/20 14:30 04/20/20 14:31 04/20/20 14:45 Temperature Temperature Source Pulse Rate 78 81 81 Pulse Rate [Right Radial] Pulse Rate from SpO2 Sensor 79 79 81 Pulse Rhythm Pulse Strength Respiratory Rate 13 15 Respiratory Effort / Characteristics Respiratory Depth Blood Pressure 119/71 122/72 Blood Pressure Mean 99 97 Blood Pressure Position Pulse Oximetry 97 97 96 Oxygen Delivery Method Oxygen Flow Rate Sepsis Recent Fever Within 48 Hours Sepsis New/Unexplained Change in Mental Status Sepsis Action Taken by Nursing 04/20/20 15:00 04/20/20 15:01 04/20/20 15:15 Temperature Temperature Source Pulse Rate 80 77 73 Pulse Rate [Right Radial] Pulse Rate from SpO2 Sensor 80 73 73 Pulse Rhythm Pulse Strength Respiratory Rate 12 16 15 Respiratory Effort / Characteristics Respiratory Depth Blood Pressure 127/77 133/86 Blood Pressure Mean 94 98 Blood Pressure Position Pulse Oximetry 97 97 98 Oxygen Delivery Method Oxygen Flow Rate Sepsis Recent Fever Within 48 Hours Sepsis New/Unexplained Change in Mental Status Sepsis Action Taken by Nursing 04/20/20 15:17 04/20/20 15:30 04/20/20 15:31 Temperature Temperature Source Pulse Rate 76 73 Pulse Rate [Right Radial] 73 Pulse Rate from SpO2 Sensor 75 73 Pulse Rhythm Pulse Strength Respiratory Rate 20 12 14 Respiratory Effort / Characteristics Non-Labored Spontaneous Respiratory Depth Blood Pressure 127/79 Blood Pressure Mean 102 Blood Pressure Position Pulse Oximetry 95 95 95 Oxygen Delivery Method Nasal Cannula Oxygen Flow Rate 2.5 Sepsis Recent Fever Within 48 Hours Sepsis New/Unexplained Change in Mental Status Sepsis Action Taken by Nursing 04/20/20 15:45 04/20/20 16:00 04/20/20 16:01 Temperature Temperature Source Pulse Rate 75 77 79 Pulse Rate [Right Radial] Pulse Rate from SpO2 Sensor 75 77 80 Pulse Rhythm Pulse Strength Respiratory Rate 16 17 17 Respiratory Effort / Characteristics Respiratory Depth Blood Pressure 138/64 130/68 Blood Pressure Mean 94 88 Blood Pressure Position Pulse Oximetry 94 95 94 Oxygen Delivery Method Oxygen Flow Rate Sepsis Recent Fever Within 48 Hours Sepsis New/Unexplained Change in Mental Status Sepsis Action Taken by Nursing 04/20/20 16:15 04/20/20 16:30 04/20/20 16:31 Temperature Temperature Source Pulse Rate 73 80 79 Pulse Rate [Right Radial] Pulse Rate from SpO2 Sensor 74 81 80 Pulse Rhythm Pulse Strength Respiratory Rate 15 14 16 Respiratory Effort / Characteristics Respiratory Depth Blood Pressure 137/72 128/67 Blood Pressure Mean 106 88 Blood Pressure Position Pulse Oximetry 93 93 93 Oxygen Delivery Method Oxygen Flow Rate Sepsis Recent Fever Within 48 Hours Sepsis New/Unexplained Change in Mental Status Sepsis Action Taken by Nursing 04/20/20 16:45 04/20/20 17:00 04/20/20 17:01 Temperature Temperature Source Pulse Rate 80 76 77 Pulse Rate [Right Radial] Pulse Rate from SpO2 Sensor 82 76 78 Pulse Rhythm Pulse Strength Respiratory Rate 22 15 16 Respiratory Effort / Characteristics Respiratory Depth Blood Pressure 144/84 H 134/74 Blood Pressure Mean 114 101 Blood Pressure Position Pulse Oximetry 94 95 95 Oxygen Delivery Method Oxygen Flow Rate Sepsis Recent Fever Within 48 Hours Sepsis New/Unexplained Change in Mental Status Sepsis Action Taken by Nursing 04/20/20 17:15 04/20/20 17:30 04/20/20 17:31 Temperature Temperature Source Pulse Rate 78 79 79 Pulse Rate [Right Radial] Pulse Rate from SpO2 Sensor 78 79 80 Pulse Rhythm Pulse Strength Respiratory Rate 12 12 15 Respiratory Effort / Characteristics Respiratory Depth Blood Pressure 125/72 120/68 Blood Pressure Mean 101 85 Blood Pressure Position Pulse Oximetry 95 96 95 Oxygen Delivery Method Oxygen Flow Rate Sepsis Recent Fever Within 48 Hours Sepsis New/Unexplained Change in Mental Status Sepsis Action Taken by Nursing 04/20/20 18:30 Temperature Temperature Source Pulse Rate Pulse Rate [Right Radial] Pulse Rate from SpO2 Sensor Pulse Rhythm Pulse Strength Respiratory Rate Respiratory Effort / Characteristics Respiratory Depth Blood Pressure Blood Pressure Mean Blood Pressure Position Pulse Oximetry Oxygen Delivery Method Nasal Cannula Oxygen Flow Rate Sepsis Recent Fever Within 48 Hours Sepsis New/Unexplained Change in Mental Status Sepsis Action Taken by Nursing CONSTITUTIONAL: Patient is an ill although nontoxic appearing 64-year-old female who is awake and alert and laying semiupright on the gurney in no acute distress . She is afebrile, O2 sat 97% on 2 and half liters by nasal cannula. EYES: Pupils equal, round, reactive to light and accommodation. EOMs intact without nystagmus. Sclera are anicteric. ENT: Tympanic membranes intact, with normal landmarks. External canals are clear. Oral and nasopharynx are clear. Mucous membranes are moist, no lesions, tongue and gums appear normal. CARDIOVASCULAR: Regular rate and rhythm, with normal S1 and S2, no murmur or gallop or rub is heard. No carotid bruits auscultated. No JVD. Peripheral pulses easy to palpable. RESPIRATORY: Breath sounds are diminished, with inspiratory and expiratory wheezes noted throughout. No accessory muscle use or retractions. No conversational dyspnea. GI: Bowel sounds are present. Abdomen is soft, nontender, nondistended. No organomegaly. No pulsatile masses. No guarding or rebound. MUSCULOSKELETAL: Full range of motion of extremities x 4 with good strength. No cyanosis, edema, joint tenderness or swelling. No deformity. INTEGUMENTARY: No lesions or rash, normal skin turgor. NEUROLOGICAL: Alert, oriented, and cooperative. Cranial nerves, sensation and strength grossly intact. Pupils round, equal, and react to light, EOMs are full. LYMPH: No lymphadenopathy. Course Course The patient was seen and assessed as above. Old records were reviewed. She presents the emergency department for worsening weakness, nausea, vomiting and shortness of breath in the setting of COVID-19 and COPD. IV lock was initiated and laboratory studies were collected. Patient was hydrated with normal saline solution, and medicated with Zofran 4 mg IV, Decadron 6 mg IV and given a DuoNeb treatment. Chest x-ray and EKG were performed. Laboratory studies were collected including CBC with differential, sed rate, coags, D-dimer, CMP, lactic acid, magnesium, C-reactive protein, lipase, troponin, type and screen, and procalcitonin. Laboratory studies noted a leukopenia 4300. She is not anemic. Sed rate slightly elevated at 39, coags are within normal limits. D-dimer is 430. Electrolytes without significant abnormality requiring correction. Renal functions are normal. Lactate is 0.4. Transaminases are within normal limits. Troponin is negative x1. Lipase is not indicative of acute pancreatitis. Procalcitonin is less than 0.05. Blood cultures x2 were drawn and are pending. EKG was without acute ischemic changes. Chest x-ray notes mild hazy bibasilar opacities, differentials considered infectious versus artifact versus atelectasis. X-ray unchanged from April 12, 2020. The patient was reassessed by telephone. She states that the nausea had improved with the IV Zofran. The nebulizer treatment had helped and she was coughing more. Laboratory studies and diagnostic imaging were reviewed with her. Given her Covid illness, superimposed on her COPD, admission/observation was discussed with her and she was in agreement. Patient was reviewed with attending physician, and [facility]. Cardiac monitoring: An order was placed for continuous cardiac monitoring. The monitor shows a normal sinus rhythm in the mid 70s to low 80s. Administered Medications Discontinued Medications Albuterol (Albut/Ipratrop 3mg/0.5mg Neb 3 Ml Vial) 3 ml NEB NOW STA Stop: 04/20/20 14:28 Last Admin: 04/20/20 15:16 Dose: 3 ml Documented by: [id number] Dexamethasone (Dexamethasone Sod Inj 10 Mg/Ml Vial) 6 mg IV NOW ONE Stop: 04/20/20 14:28 Last Admin: 04/20/20 15:01 Dose: 6 mg Documented by: [id number] Sodium Chloride (Nss 1000ml) 1,000 mls @ 999 mls/hr IV .Q1H1M ASHIA Stop: 04/20/20 15:31 Last Infusion: 04/20/20 16:30 Dose: 0 mls/hr Documented by: [id number] Admin: 04/20/20 15:01 Dose: 999 mls/hr Documented by: [id number] Ondansetron HCl (Ondansetron Inj 2 Mg/Ml 2 Ml Vial) 4 mg IV NOW STA Stop: 04/20/20 14:28 Last Admin: 04/20/20 15:00 Dose: 4 mg Documented by: [id number] Medical Decision Making Differential Diagnosis Differential diagnosis includes acute myocardial infarction, acute coronary syndrome, myocarditis, pericarditis, pericardial effusions /tamponade, pulmonary embolism, viral illness including influenza or coronavirus, pneumonia, pneumoth orax, cardiomyopathy, congestive heart failure, anemia , COPD/asthma exacerbation, among others. Medical Records Attestation: I reviewed the patient's medical records. Home Medications Current Medication List: was personally reviewed by me Laboratory Data Attestation: I reviewed the patient's lab results. Result diagrams: 04/20/20 13:50 04/20/20 13:50 Lab Results 04/20/20 04/20/20 04/20/20 Range/Units 13:50 13:50 13:50 WBC 4.35 L (4.8-10.8) K/uL RBC 4.53 (4.2-5.4) M/uL Hgb 13.1 (12.0-16.0) g/dL Hct 39.9 (37-47) % MCV 88.1 (80-100) fL MCH 28.9 (25-34) pg MCHC 32.8 (32-36) g/dL RDW Std Deviation 41.8 (36.4-46.3) fL RDW Coeff of Lillie 12.9 (11.5-14.5) % Plt Count 215 (130-400) K/uL MPV 10.8 H (7.4-10.4) fL Immature Gran % (Auto) 0.0 % Neut % (Auto) 69.6 % Lymph % (Auto) 20.5 % [place] % (Auto) 9.2 % Eos % (Auto) 0.5 % Baso % (Auto) 0.2 % Neut # (Auto) 3.03 (1.4-6.5) K/uL Lymph # (Auto) 0.89 L (1.2-3.4) K/uL [place] # (Auto) 0.40 (0.11-0.59) K/uL Eos # (Auto) 0.02 (0-0.5) K/uL Baso # (Auto) 0.01 (0-0.2) K/uL Immature Gran # (Auto) 0.00 (0.00-0.02) K/uL ESR (0-21) mm/hr PT 10.5 (9.0-12.0) Seconds INR 1.0 (0.9-1.1) APTT 33.5 H (21.0-31.0) Seconds PTT Ratio 1.2 D-Dimer 430 (0-500) ug/L FEU Sodium (136-145) mmol/L Potassium (3.5-5.1) mmol/L Chloride (98-107) mmol/L Carbon Dioxide (21-32) mmol/L Anion Gap (3-11) BUN (7-18) mg/dl Creatinine (0.6-1.2) mg/dl Est Cr Clr Drug Dosing ml/min Est GFR ( Amer) Est GFR (Non-Af Amer) BUN/Creatinine Ratio (10-20) Glucose (70-99) mg/dl Lactate (0.4-2.0) mmol/L Calcium (8.5-10.1) mg/dl Magnesium (1.8-2.4) mg/dl Total Bilirubin (0.2-1) mg/dl AST (15-37) U/L ALT (12-78) U/L Alkaline Phosphatase (45-117) U/L Troponin I (0-0.045) ng/ml C-Reactive Protein (0-0.29) mg/dl Total Protein (6.4-8.2) gm/dl Albumin (3.4-5.0) gm/dl Globulin (2.5-4.0) gm/dl Albumin/Globulin Ratio (0.9-2) Lipase (73-393) U/L Procalcitonin < 0.05 (0-0.5) ng/ml Blood Type Antibody Screen 04/20/20 04/20/20 04/20/20 Range/Units 13:50 13:50 14:46 WBC (4.8-10.8) K/uL RBC (4.2-5.4) M/uL Hgb (12.0-16.0) g/dL Hct (37-47) % MCV (80-100) fL MCH (25-34) pg MCHC (32-36) g/dL RDW Std Deviation (36.4-46.3) fL RDW Coeff of Lillie (11.5-14.5) % Plt Count (130-400) K/uL MPV (7.4-10.4) fL Immature Gran % (Auto) % Neut % (Auto) % Lymph % (Auto) % [place] % (Auto) % Eos % (Auto) % Baso % (Auto) % Neut # (Auto) (1.4-6.5) K/uL Lymph # (Auto) (1.2-3.4) K/uL [place] # (Auto) (0.11-0.59) K/uL Eos # (Auto) (0-0.5) K/uL Baso # (Auto) (0-0.2) K/uL Immature Gran # (Auto) (0.00-0.02) K/uL ESR 39 H (0-21) mm/hr PT (9.0-12.0) Seconds INR (0.9-1.1) APTT (21.0-31.0) Seconds PTT Ratio D-Dimer (0-500) ug/L FEU Sodium 139 (136-145) mmol/L Potassium 3.5 (3.5-5.1) mmol/L Chloride 104 (98-107) mmol/L Carbon Dioxide 29 (21-32) mmol/L Anion Gap 6.0 (3-11) BUN 8 (7-18) mg/dl Creatinine 0.73 (0.6-1.2) mg/dl Est Cr Clr Drug Dosing 69.2 ml/min Est GFR ( Amer) 100.9 Est GFR (Non-Af Amer) 87.0 BUN/Creatinine Ratio 10.3 (10-20) Glucose 161 H (70-99) mg/dl Lactate (0.4-2.0) mmol/L Calcium 9.1 (8.5-10.1) mg/dl Magnesium 1.8 (1.8-2.4) mg/dl Total Bilirubin 0.4 (0.2-1) mg/dl AST 31 (15-37) U/L ALT 27 (12-78) U/L Alkaline Phosphatase 87 (45-117) U/L Troponin I (0-0.045) ng/ml C-Reactive Protein 3.48 H (0-0.29) mg/dl Total Protein 7.2 (6.4-8.2) gm/dl Albumin 3.1 L (3.4-5.0) gm/dl Globulin 4.1 H (2.5-4.0) gm/dl Albumin/Globulin Ratio 0.8 L (0.9-2) Lipase 100 (73-393) U/L Procalcitonin (0-0.5) ng/ml Blood Type O Negative Antibody Screen NEGATIVE 04/20/20 04/20/20 Range/Units 14:58 15:18 WBC (4.8-10.8) K/uL RBC (4.2-5.4) M/uL Hgb (12.0-16.0) g/dL Hct (37-47) % MCV (80-100) fL MCH (25-34) pg MCHC (32-36) g/dL RDW Std Deviation (36.4-46.3) fL RDW Coeff of Lillie (11.5-14.5) % Plt Count (130-400) K/uL MPV (7.4-10.4) fL Immature Gran % (Auto) % Neut % (Auto) % Lymph % (Auto) % [place] % (Auto) % Eos % (Auto) % Baso % (Auto) % Neut # (Auto) (1.4-6.5) K/uL Lymph # (Auto) (1.2-3.4) K/uL [place] # (Auto) (0.11-0.59) K/uL Eos # (Auto) (0-0.5) K/uL Baso # (Auto) (0-0.2) K/uL Immature Gran # (Auto) (0.00-0.02) K/uL ESR (0-21) mm/hr PT (9.0-12.0) Seconds INR (0.9-1.1) APTT (21.0-31.0) Seconds PTT Ratio D-Dimer (0-500) ug/L FEU Sodium (136-145) mmol/L Potassium (3.5-5.1) mmol/L Chloride (98-107) mmol/L Carbon Dioxide (21-32) mmol/L Anion Gap (3-11) BUN (7-18) mg/dl Creatinine (0.6-1.2) mg/dl Est Cr Clr Drug Dosing ml/min Est GFR ( Amer) Est GFR (Non-Af Amer) BUN/Creatinine Ratio (10-20) Glucose (70-99) mg/dl Lactate 0.7 (0.4-2.0) mmol/L Calcium (8.5-10.1) mg/dl Magnesium (1.8-2.4) mg/dl Total Bilirubin (0.2-1) mg/dl AST (15-37) U/L ALT (12-78) U/L Alkaline Phosphatase (45-117) U/L Troponin I < 0.015 (0-0.045) ng/ml C-Reactive Protein (0-0.29) mg/dl Total Protein (6.4-8.2) gm/dl Albumin (3.4-5.0) gm/dl Globulin (2.5-4.0) gm/dl Albumin/Globulin Ratio (0.9-2) Lipase (73-393) U/L Procalcitonin (0-0.5) ng/ml Blood Type Antibody Screen Imaging Data Attestation: I personally reviewed and interpreted this imaging study as follows: Radiologist's Impression: XR chest 1V portable CLINICAL HISTORY: SOB, COVID, COPD COMPARISON STUDY: Chest radiograph April 12, 2020. FINDINGS: There may be mild lung hyperexpansion. No pneumothorax or pleural effusion is noted. Mild hazy bibasilar opacities are present. Appearance is similar to exam of April 12, 2020. Cardiomediastinal silhouette is unremarkable. Patient is mildly rotated. IMPRESSION: Mild hazy bibasilar opacities. Artifact or atelectasis is favored however an infectious process could appear similar. ECG Data Attestation: I personally reviewed and interpreted this ECG as follows: Indication: + SOB/dyspnea Rate (beats per minute): 81 Rhythm: + normal sinus ECG [place]: + Normal ECG ST segments: + Normal ST segments ECG Findings: no PVCs Comparison ECG Date: from (04/12/2020) Change: no significant change MDM Narrative See ED course. Impression & Plan Pneumonia due to COVID-19 virus, COPD exacerbation Discharge Plan Visit Data Chief Complaint: Illness Stated Complaint: ILLNESS, SOB, COVID + ED Provider: Gurvinder Pollard ED Midlevel Provider: Latasha Escalante Discharge Problem: Pneumonia due to COVID-19 virus, COPD exacerbation Patient Disposition: Admitted As Inpatient Discharge Instructions Interventions: ED Discharge Assessment Last Done: 04/20/20 18:30 Forms Stand Alone Forms: My [employer] Prescriptions Prescriptions: No Action Dulera 200-5 mcg/actuation Hfa Aerosol Inhaler 2 puff INHALATION Q12H RF: 0 Combivent Respimat 20-100 mcg/actuation Mist 1 puff INHALATION QID RF: 0 lorazepam 0.5 mg Tablet 0.5 mg PO BID PRN (Reason: Anxiety) RF: 0 pantoprazole [Protonix] 40 mg Tablet,Delayed Release (Dr/Ec) 40 mg PO QAM RF: 0 lisinopril 5 mg Tablet 5 mg PO QAM RF: 0 albuterol sulfate 90 mcg/actuation Hfa Aerosol Inhaler 2 puff INHALATION QID PRN (Reason: Shortness Of Breath) RF: 0 buspirone 15 mg Tablet 15 mg PO QAM RF: 0 buspirone 15 mg Tablet 7.5 mg PO HS RF: 0 citalopram 40 mg tablet 40 mg PO DAILY RF: 0 Referrals Referrals: Destinee Alvarez MD [Primary Care Provider] -
[2020-04-20 14:48] LABS: Albumin Level 3.1 gm/dl (3.4-5.0); BUN Creatinine Ratio 10.3 (10-20); C Reactive Protein 3.48 mg/dl (0-0.29); Calcium 9.1 mg/dl (8.5-10.1); Creatinine Clr Calc Pharmacy 69.2 ml/min; D Dimer 430 ug/L FEU (0-500); Est GFR (African American) 100.9; Magnesium 1.8 mg/dl (1.8-2.4); Partial Thromboplastin Ratio 1.2; Partial Thromboplastin Time 33.5 Seconds (21.0-31.0); Potassium 3.5 mmol/L (3.5-5.1); Prothrombin Time 10.5 Seconds (9.0-12.0)
[2020-04-20 14:51] LABS: Albumin Globulin Ratio 0.8 (0.9-2); Bilirubin,Total 0.4 mg/dl (0.2-1); Globulin 4.1 gm/dl (2.5-4.0); Total Protein 7.2 gm/dl (6.4-8.2)
--- NOTE | 2020-04-20 14:58 | XRay Report ---
XR chest 1V portable CLINICAL HISTORY: SOB, COVID, COPD COMPARISON STUDY: Chest radiograph April 12, 2020. FINDINGS: There may be mild lung hyperexpansion. No pneumothorax or pleural effusion is noted. Mild h azy bibasilar opacities are present. Appearance is similar to exam of April 12, 2020. Cardiomediasti nal silhouette is unremarkable. Patient is mildly rotated. IMPRESSION: Mild hazy bibasilar opacities. Artifact or atelectasis is favored however an infectious process could appear similar. ACT 112: Negative or not required by law. Electronically signed by: Bryn Diego M.D. 04/20/2020 2:57 PM
--- NOTE | 2020-04-20 17:02 | History & Physical Report ---
Date of Service April 20, 2020 Assessment & Plan (1) Pneumonia due to COVID-19 virus: (2) COPD exacerbation: (3) Chronic respiratory failure: This is a 64-year-old female who has significant past medical history of oxygen dependent COPD, T2DM, HTN, depression with anxiety, hypothyroidism, ulcerative colitis, history of CHF who presents to ED secondary to worsening COVID-19 symptoms including shortness of breath for the past 3 days. Patient initially diagnosed with COVID-19 on 04/12/2020 with symptom onset of 04/11/20. Persistent symptoms worsen with increasing shortness of breath and chest tightness. Chest x-ray unchanged prior. ESR 39, CRP 3.48, procalcitonin less than 0.05, D-dimer WNL. Admit to Med/Surg Start remdesivir 200 mg x 1; 100 mg daily x4 days IV dexamethasone 6 mg daily Pulmonary toilet with incentive spirometry, flutter valve Continue albuterol nebs, Combivent and Dulera Encourage self proning if tolerated Tessalon Perles or Mucinex for cough Antiemetics/antipyretics (4) Diabetes mellitus, type II: Last A1c 5.9 on 02/18/2020 BSG 161 in ED Consult placed in the pharmacy in setting of dexamethasone use and expected hyperglycemia (5) HTN (hypertension): Blood pressure stable continue lisinopril (6) DVT prophylaxis: SQ Lovenox 40mg Q12 Disposition: admit to med/surg Follow up: PCP Dr. Alvarez upon discharge Pt was collaborated with Dr. Alberts, please see addendum History of Present Illness Chief Complaint: Worsening shortness of breath for the past 2 to 3 days. Primary Care Provider: Destinee Alvarez MD This is a 64-year-old female who has significant past medical history of oxygen dependent COPD, T2DM, HTN, depression with anxiety, hypothyroidism, ulcerative colitis, history of CHF who presents to ED secondary to worsening COVID-19 symptoms including shortness of breath for the past 3 days. Patient was initially seen and evaluated in our ED the morning of 04/12/2020. She was Covid positive at that time. She has been resting at home however for the past several days her symptoms have worsened. Her symptoms include off-and-on fever with a T-max of 101, nausea, loss of taste and smell, body aches, myalgias, fatigue, cough and worsening shortness of breath. She is on 2 L of oxygen at baseline and has pulse oximetry at home. She has been monitoring her blood oxygen level and has been declining to low 90s therefore she has increased her oxygen to 3 L. She has had 2 episodes of vomiting today and approximately 5 episodes of diarrhea. She denies any chills, sweats, lightheadedness, dizziness, chest pain, palpitations, hemoptysis, abdominal pain, melena, hematochezia, dysuria, increased urgency or frequency with urination. She has been taking [id number] Tylenol with mild improvement. She is also been using nebulizer at home with mild improvement of symptoms. She is a former smoker but currently denies tobacco use. In ED Chest x-ray was similar in appearance with mild hazy bibasilar opacities. Inflammatory markers elevated with ESR 39 and CRP 3.48. Her procalcitonin was normal. No signs or symptoms of superimposed infection. Her D-dimer was WNL. She received 6 mg of IV dexamethasone and albuterol nebulizer treatment in ED. Allergies Allergy/AdvReac Type Severity Reaction Status Date / Time levothyroxine Allergy Hives Verified 04/12/20 03:00 moxifloxacin [From Avelox] AdvReac Intermediate Cellulitic Unverified 04/20/20 15:16 Rash Home Medications Medication Instructions Recorded Confirmed Type albuterol sulfate 2 puff INHALATION QID PRN 09/09/19 04/20/20 History buspirone 7.5 mg PO HS 09/09/19 04/20/20 History buspirone 15 mg PO QAM 09/09/19 04/20/20 History citalopram 40 mg PO DAILY 09/09/19 04/20/20 History lisinopril 5 mg PO QAM 09/09/19 04/20/20 History lorazepam 0.5 mg PO BID PRN 09/09/19 04/20/20 History pantoprazole [Protonix] 40 mg PO QAM 09/09/19 04/20/20 History ipratropium-albuterol [Combivent 1 puff INHALATION QID 04/12/20 04/20/20 History Respimat] mometasone-formoterol [Dulera] 2 puff INHALATION Q12H 04/12/20 04/20/20 History Past Med/Surg History Medical History (Updated 04/20/20 @ 17:05 by Elli Abreu PA-C) Asthma COPD (chronic obstructive pulmonary disease) oxygen dependent Depression with anxiety Diabetes mellitus, type II High cholesterol HTN (hypertension) Hypothyroidism Insomnia Kidney stones Left-sided heart failure Surgical History Hx of tonsillectomy Hx of tubal ligation Family History Mother Breast cancer Father FH: leukemia CLL Sister Hypertension Social History (Updated 04/20/20 @ 17:00 by Elli Abreu PA-C) Smoking Status: Former smoker Second Hand Exposure: Yes; Hx Alcohol Use: No Hx Substance Use: No Preferred Language: Irish Communication Ability: Effective Auto Self Service Station Attendant Required: No Beliefs That Will Affect Care: None Current Living Situation: Alone Feels Safe at Home: Yes Assistive Devices: Oxygen - Continuous Review of Systems Review of Systems: All systems reviewed & are unremarkable except as noted in HPI & below Physical Exam Physical Exam: please refer to Dr. Alberts addendum for physical exam findings Results & Data Results & Data ([facility]) Vital Signs (Past 12 Hours) Vital Signs Temp Pulse Pulse Resp BP Pulse Ox 04/20/20 15:17 73 20 95 04/20/20 13:42 36.9 C 78 22 131/80 97 Diagnostic Findings CXR: IMPRESSION: Mild hazy bibasilar opacities. Artifact or atelectasis is favored however an infectious process could appear similar. Medications Administered Discontinued Medications Albuterol (Albut/Ipratrop 3mg/0.5mg Neb 3 Ml Vial) 3 ml NEB NOW STA Stop: 04/20/20 14:28 Last Admin: 04/20/20 15:16 Dose: 3 ml Documented by: [id number] Dexamethasone (Dexamethasone Sod Inj 10 Mg/Ml Vial) 6 mg IV NOW ONE Stop: 04/20/20 14:28 Last Admin: 04/20/20 15:01 Dose: 6 mg Documented by: [id number] Sodium Chloride (Nss 1000ml) 1,000 mls @ 999 mls/hr IV .Q1H1M ASHIA Stop: 04/20/20 15:31 Last Admin: 04/20/20 15:01 Dose: 999 mls/hr Documented by: [id number] Ondansetron HCl (Ondansetron Inj 2 Mg/Ml 2 Ml Vial) 4 mg IV NOW STA Stop: 04/20/20 14:28 Last Admin: 04/20/20 15:00 Dose: 4 mg Documented by: [id number] ECG Rate (beats per minute): 81 Rhythm: normal sinus Findings: + prolonged QT (qtc 471ms) COVID-19 Results Results COVID-19 Lab Results: RBC 4.53 M/uL (4.2-5.4) 04/20/20 WBC 4.35 K/uL (4.8-10.8) L 04/20/20 Hgb 13.1 g/dL (12.0-16.0) 04/20/20 Hct 39.9 % (37-47) 04/20/20 Plt Count 215 K/uL (130-400) 04/20/20 Neutrophils (%) (Auto) 69.6 % 04/20/20 Lymphocytes (%) (Auto) 20.5 % 04/20/20 Monocytes # (Auto) 0.40 K/uL (0.11-0.59) 04/20/20 Eosinophils # (Auto) 0.02 K/uL (0-0.5) 04/20/20 Immature Granulocyte % (Auto) 0.0 % 04/20/20 Neutrophils # (Auto) 3.03 K/uL (1.4-6.5) 04/20/20 Lymphocytes # (Auto) 0.89 K/uL (1.2-3.4) L 04/20/20 Monocytes # (Auto) 0.40 K/uL (0.11-0.59) 04/20/20 Eosinophils # (Auto) 0.02 K/uL (0-0.5) 04/20/20 Basophils # (Auto) 0.01 K/uL (0-0.2) 04/20/20 Immature Granulocyte # (Auto) 0.00 K/uL (0.00-0.02) 04/20/20 Na 139 mmol/L (136-145) 04/20/20 K 3.5 mmol/L (3.5-5.1) 04/20/20 Cl 104 mmol/L (98-107) 04/20/20 CO2 29 mmol/L (21-32) 04/20/20 Anion Gap 6.0 (3-11) 04/20/20 BUN 8 mg/dl (7-18) 04/20/20 Creatinine 0.73 mg/dl (0.6-1.2) 04/20/20 BUN/Creatinine Ratio 10.3 (10-20) 04/20/20 Glucose Level 161 mg/dl (70-99) H 04/20/20 Ca 9.1 mg/dl (8.5-10.1) 04/20/20 Total Bilirubin 0.4 mg/dl (0.2-1) 04/20/20 AST/SGOT 31 U/L (15-37) 04/20/20 ALT/SGPT 27 U/L (12-78) 04/20/20 Alkaline Phosphatase 87 U/L (45-117) 04/20/20 Total Protein 7.2 gm/dl (6.4-8.2) 04/20/20 Albumin 3.1 gm/dl (3.4-5.0) L 04/20/20 Globulin 4.1 gm/dl (2.5-4.0) H 04/20/20 Albumin/Globulin Ratio 0.8 (0.9-2) L 04/20/20 Troponin I < 0.015 ng/ml (0-0.045) 04/20/20 CRP 3.48 mg/dl (0-0.29) H 04/20/20 Procalcitonin < 0.05 ng/ml (0-0.5) 04/20/20 D-Dimer 430 ug/L FEU (0-500) 04/20/20 PTT 33.5 Seconds (21.0-31.0) H 04/20/20 INR 1.0 (0.9-1.1) 04/20/20 Chest X-Ray 04/20/20 Code Status & VTE Plan Code Status Full Code VTE Prophylaxis Plan VTE Prophylaxis will be ordered: Yes Supervising Physician Co-Signing Physician Notes I saw this patient with the physician traffic assistant, I participated in the history, physical, review of systems, and physical exam. I reviewed the medications with the patient and the physician traffic assistant and helped reconcile the medications. I helped take a detailed family and social history as well. I formulated the assessment and plan personally with the physician traffic assistant and went over it with the patient. ROS-No Headache, No Visual Changes, No Nausea, No Vomiting, +Fever, + Chills, No Neck Pain or Stiffness, No Chest Pain, No Palpitations, + SOB, + SIERRA, + Cough, No Sputum, + Wheezing, No Abdominal Pain, No Diarrhea, No Hematemesis, No Hemoptysis, No Unexpected Weight Loss, No Flank pain, No Melena, No Hematochezia, No Frequency, No Urgency, No Burning, No Hematuria, No Rashes, No Diaphoresis. Appetite is Normal Physical Exam Gen-AAO x 3, Ill, febrile Head-NCAT, EOMI, PERRLA, Anicteric Sclera, No Posterior Pharyngeal Erythema Neck-Supple, No JVD, No Thyromegaly, No Masses, No LAD, No Bruits Lungs-No Rales, No Rhonchi, Tight Wheezing, No Crepitus Chest-No S4, +S1, +S2, No S3, No Murmurs, No Rubs, No Gallops, No Ectopy Abdomen-Soft, Bowel Sounds Present, Non Tender, Non Distended, No Hepatomegaly, No Splenomegaly, No Palpable Masses, No Rebound, No Rigidity, No Guarding Musculoskeletal-Full Range of Motion Bilaterally, No CVAT Extremities-No Cyanosis, No Clubbing, No Edema Nuero-Cranial Nerves II-XII grossly intact, Motor WNL, DTRs WNL, Strength WNL, Non Focal Psych-Normal Mood
[2020-04-20] MEDS ORDERED: ALBUTEROL HFA 8 GM INHALER INH PRN (19:36)
[2020-04-20] MEDS ORDERED: DEXTROSE 50% 50 ML SYRINGE IV PRN (19:36)
[2020-04-20] MEDS ORDERED: GLUCAGON FOR INJ 1 MG VIAL SQ PRN (19:36)
[2020-04-20] MEDS ORDERED: GLUCOSE 10 TABS/TUBE PO PRN (19:36)
[2020-04-20] MEDS ORDERED: IPRATROPIUM BROMIDE/ALBUTEROL respimat INH INH SCH (19:36)
[2020-04-20] MEDS ORDERED: GLUCOSE 40% GEL 15 GM TUBE PO PRN (19:36)
[2020-04-20] MEDS ORDERED: CARBOHYDRATES FOR HYPOGLYCEMIA PO PRN (19:36)
[2020-04-20] MEDS ORDERED: PHARMACY GLYCEMIC MGMT CONSULT PRN (19:59)
[2020-04-20] MEDS ORDERED: REMDESIVIR 200 MG in SODIUM CHLORIDE 0.9% 210 ML IV ONE (20:15)
[2020-04-20] MEDS: SODIUM CHLORIDE 0.9% 1000ML 1,000 ML IV SCH (20:32)
[2020-04-20] MEDS: busPIRone 7.5 MG TAB PO SCH (21:00)
[2020-04-20] MEDS: guaiFENesin 600 MG TABCR PO SCH (21:01)
[2020-04-20] MEDS: INSULIN ASPART 100 UNITS/ML 3 ML PEN SC SCH (21:02)
[2020-04-20] MEDS: BENZONATATE 100 MG CAPSULE PO SCH (21:03)
[2020-04-20] MEDS: ENOXAPARIN INJ 40 MG/0.4 ML SYR SQ SCH (21:03)
[2020-04-20] MEDS: LORazepam 0.5 MG TAB PO PRN (21:05)
--- NOTE | 2020-04-20 22:41 | Pharmacy Report ---
Pharmacy Glycemic Short Note 2 - Date of Service April 20, 2020 - Glycemic Short BSG Results (Last 24 hours): 04/20/20 04/20/20 13:50 20:09 Glucose 161 H POC Glucose 139 H OUTPATIENT ANTIDIABETIC REGIMEN: * N/A * HbA1c: 5.9% (02/18/20) - per H&P ASSESSMENT: * JEREMIAS is a 64 year old female admitted on 04/20 with COPD exacerbation secondary to COVID-19 pneumonia * BSGs reasonable so far today (161 and 139 mg/dL) * Will hold basal for now given A1c with no antidiabetic medications * Will manage with SC Novolog for now * May require basal insulin with IV dexamethasone moving forward PLAN FOR INPATIENT GLYCEMIC CONTROL: * Basal insulin * Hold for now - consider adding basal insulin with IV dexamethasone based on BSG trends * Bolus insulin * NovoLog per scale ACHS or Q6hrs while NPO * Goal Range: Low 110 mg/dL - High 140 mg/dL * Correction Factor: 30 mg/dL/unit * Nutritional / Prandial insulin per carb ratio of 1 unit per 10 grams CHO consumed PLAN FOR DISCHARGE: * tbd
[2020-04-20] MEDS: SODIUM CHLORIDE 0.9% 10ML FLUSH IV SCH (23:08)
[2020-04-20] MEDS ORDERED: traZODone HCL 50 MG TAB PO ONE (23:15)
[2020-04-21 07:11] LABS: Hematocrit (blood only) 39.8 % (37-47); Hemoglobin 12.5 g/dL (12.0-16.0); Mean Corpuscular Hgb Conc 31.4 g/dL (32-36); Mean Platelet Volume 10.9 fL (7.4-10.4); Platelet Count 227 K/uL (130-400); RDW Standard Deviation 42.4 fL (36.4-46.3); Red Blood Count 4.47 M/uL (4.2-5.4)
[2020-04-21 07:24] LABS: Estimated Average Glucose 131 mg/dl; Hemoglobin A1C 6.2 % (4.5-5.6)
[2020-04-21 07:36] LABS: BUN Creatinine Ratio 13.3 (10-20); Calcium 8.5 mg/dl (8.5-10.1); Creatinine Clr Calc Pharmacy 83.9 ml/min; Est GFR (African American) 112.9; Est GFR (Non-African American) 97.4; Magnesium 2.1 mg/dl (1.8-2.4); Potassium 3.9 mmol/L (3.5-5.1)
[2020-04-21] MEDS: Albuterol HFA 8 GM Inhaler (Combivent Respimat P&T Subs) INH SCH ×4 (07:59→19:20)
[2020-04-21] MEDS: Ipratropium HFA Inhaler (Combivent Respimat P&T Subs) INH SCH ×4 (08:00→19:20)
[2020-04-21] MEDS: dexAMETHasone 6 MG in SYRINGE 0 ML IV SCH (08:41)
[2020-04-21] MEDS: BENZONATATE 100 MG CAPSULE PO SCH ×3 (08:42→21:30)
[2020-04-21] MEDS: ENOXAPARIN INJ 40 MG/0.4 ML SYR SQ SCH ×2 (08:42→21:30)
[2020-04-21] MEDS: guaiFENesin 600 MG TABCR PO SCH ×2 (08:42→21:29)
[2020-04-21] MEDS: FLUTICASONE/VILANTEROL 100/25MCG 14 PUFFS/INHALER INH SCH (08:43)
[2020-04-21] MEDS: lisinopril 5 MG TAB PO SCH (08:43)
[2020-04-21] MEDS: CITALOPRAM 40 MG TAB PO SCH (08:43)
[2020-04-21] MEDS: busPIRone 15 MG TAB PO SCH (08:44)
[2020-04-21] MEDS: PANTOprazole 40 MG TAB PO SCH (08:44)
[2020-04-21] MEDS: LORazepam 0.5 MG TAB PO PRN ×2 (08:46→21:29)
[2020-04-21] MEDS: INSULIN ASPART 100 UNITS/ML 3 ML PEN SC SCH ×4 (08:47→21:35)
--- NOTE | 2020-04-21 13:10 | CT Scan Report ---
HEAD CT NONCONTRAST CT DOSE: 638.56 mGycm HISTORY: sudden onset blurred vision, r/o CVA TECHNIQUE: Multiaxial CT images of the head were performed without the use of intravenous contrast. A utomated exposure control was utilized for this study. A dose lowering technique was utilized adheri ng to the principles of ALARA. Comparison: None. Findings: The paranasal sinuses and mastoid air cells are clear. The calvarium and skull base are int act. The ventricles and sulci are within normal limits. There is no mass, hematoma, midline shift, ac judy infarct. Mild periventricular white matter hypodensity is nonspecific but suggestive of microvasc ular ischemic change. Impression: No acute intracranial abnormality. ACT 112: Negative or not required by law. Electronically signed by: Stan Davis M.D. 04/21/2020 1:09 PM
--- NOTE | 2020-04-21 18:26 | Hospitalist Progress Note ---
Date of Service April 21, 2020 Assessment & Plan (1) Pneumonia due to COVID-19 virus: (2) COPD exacerbation: (3) Chronic respiratory failure: Per admitting service notes: This is a 64-year-old female who has significant past medical history of oxygen dependent COPD, T2DM, HTN, depression with anxiety, hypothyroidism, ulcerative colitis, history of CHF who presents to ED secondary to worsening COVID-19 symptoms including shortness of breath for the past 3 days. Patient initially diagnosed with COVID-19 on 04/12/2020 with symptom onset of 04/11/20. Persistent symptoms worsen with increasing shortness of breath and chest tightness. Chest x-ray unchanged prior. ESR 39, CRP 3.48, procalcitonin less than 0.05, D-dimer WNL. 04/21 stable at 3 L NC Remdesivir Day 2 Decadron Day 2 Pulmonary toilet with incentive spirometry, flutter valve Continue albuterol nebs, Combivent and Dulera Encourage self proning if tolerated Tessalon Perles or Mucinex for cough CT head: no acute CVA blurred vision resolved (4) Diabetes mellitus, type II: Last A1c 5.9 on 02/18/2020 Pharm Glycemic Control consult (5) HTN (hypertension): Blood pressure stable continue lisinopril (6) DVT prophylaxis: SQ Lovenox 40mg Q12 Disposition: admit to med/surg Follow up: PCP Dr. Alvarez upon discharge Admission and Anticipated Discharge Date Admission Date: April 20, 2020 Subjective ff up for COVID 19 pneumonia, acute on chronic respiratory failure seen resting in bed, not in distress, on 3 L NC states she feels improved compared to yesterday Breathing and cough improving gradually Denies chest pain Appetite improving as well Was reporting blurred vision this morning, no other neurologic deficits, resolved now No other symptoms Review of Systems Review of Systems: All systems reviewed & are unremarkable except as noted in Subjective Physical Exam Physical Exam: General- oriented x 3, not in distress, speaks in sentences with no effort or accessory muscle use Head- atraumatic Eyes- PERRL, EOMI, anicteric ENT- oropharynx clear Neck- supple, no JVD, no adenopathy, no thyromegaly; carotids +2/2, no bruits appreciated Lungs- (+) mild expiratory wheeze and crackles Good air entry bilaterally Heart- normal rate, regular rhythm; no murmur, no gallop, no rub appreciated Abdomen- normal bowel sounds, nondistended, soft, nontender, no masses or hepatosplenomegaly Extremities- no pretibial edema, no calf tenderness; peripheral pulses intact Neuro- alert, oriented x 3; CN 2-12 grossly intact; motor 5/5 bilaterally;sensation 100% on all extremities; no other gross focal neurologic deficits Skin- warm & dry Results & Data Results & Data ([facility]) Vital Signs (Past 12 Hours) Vital Signs Temp Pulse Resp BP Pulse Ox 04/21/20 16:02 72 16 92 04/21/20 15:19 36.7 C 72 16 130/75 92 04/21/20 12:04 36.6 C 73 18 132/76 93 04/21/20 11:41 73 18 96 04/21/20 08:00 70 20 96 04/21/20 07:49 37 C 72 18 145/70 H 97 Laboratory Results Laboratory Results - last 24 hr 04/20/20 04/21/20 04/21/20 20:09 05:31 05:31 WBC 2.00 L RBC 4.47 Hgb 12.5 Hct 39.8 MCV 89.0 MCH 28.0 MCHC 31.4 L RDW Std Deviation 42.4 RDW Coeff of Lillie 13.0 Plt Count 227 MPV 10.9 H Sodium 141 Potassium 3.9 Chloride 107 Carbon Dioxide 30 Anion Gap 4.0 BUN 8 Creatinine 0.58 L Est Cr Clr Drug Dosing 83.9 Est GFR ( Amer) 112.9 Est GFR (Non-Af Amer) 97.4 BUN/Creatinine Ratio 13.3 Glucose 119 H POC Glucose 139 H Estimat Average Glucose Hemoglobin A1c Calcium 8.5 Magnesium 2.1 Procalcitonin Hepatitis C Ab Screen 04/21/20 04/21/20 04/21/20 05:31 05:31 05:31 WBC RBC Hgb Hct MCV MCH MCHC RDW Std Deviation RDW Coeff of Lillie Plt Count MPV Sodium Potassium Chloride Carbon Dioxide Anion Gap BUN Creatinine Est Cr Clr Drug Dosing Est GFR ( Amer) Est GFR (Non-Af Amer) BUN/Creatinine Ratio Glucose POC Glucose Estimat Average Glucose 131 Hemoglobin A1c 6.2 H Calcium Magnesium Procalcitonin < 0.05 Hepatitis C Ab Screen Neg 04/21/20 04/21/20 04/21/20 07:50 12:15 17:02 WBC RBC Hgb Hct MCV MCH MCHC RDW Std Deviation RDW Coeff of Lillie Plt Count MPV Sodium Potassium Chloride Carbon Dioxide Anion Gap BUN Creatinine Est Cr Clr Drug Dosing Est GFR ( Amer) Est GFR (Non-Af Amer) BUN/Creatinine Ratio Glucose POC Glucose 116 H 113 H 150 H Estimat Average Glucose Hemoglobin A1c Calcium Magnesium Procalcitonin Hepatitis C Ab Screen
[2020-04-21] MEDS: REMDESIVIR 100 MG in SODIUM CHLORIDE 0.9% 230 ML IV SCH (19:25)
[2020-04-21] MEDS: SODIUM CHLORIDE 0.9% 10ML FLUSH IV SCH (20:30)
[2020-04-21] MEDS: busPIRone 7.5 MG TAB PO SCH (21:29)
[2020-04-21] MEDS: traZODone HCL 50 MG TAB PO SCH (21:29)
[2020-04-21 22:23] LABS: Appearance Urine Clear (Clear); Bacteria Urine Automated Negative (Negative); Bilirubin Urine Negative (Negative); Blood Urine Negative (Negative); Cast Urine Automated 0 /lpf (0-5); Color Urine Yellow; Epithelial Cell Urine Auto >30 /lpf (0-5); Glucose Urine UA Negative (Negative); Ketones Urine Negative (Negative); Leukocyte Esterase Urine 2+ (Negative); Nitrite Urine Negative (Negative); Protein Urine Trace (Negative); RBC Urine Automated 0-4 /hpf (0-4); Specific Gravity Urine 1.014 (1.000-1.030); Urobilinogen Urine Negative (Negative); WBC Urine Automated >30 /hpf (0-5)
[2020-04-22 07:06] LABS: Creatinine Clr Calc Pharmacy 60.8 ml/min; Est GFR (African American) 90.3; Est GFR (Non-African American) 77.9
[2020-04-22] MEDS: Ipratropium HFA Inhaler (Combivent Respimat P&T Subs) INH SCH ×4 (07:07→19:29)
[2020-04-22] MEDS: Albuterol HFA 8 GM Inhaler (Combivent Respimat P&T Subs) INH SCH ×4 (07:07→19:28)
[2020-04-22] MEDS: FLUTICASONE/VILANTEROL 100/25MCG 14 PUFFS/INHALER INH SCH (07:35)
[2020-04-22] MEDS: LORazepam 0.5 MG TAB PO PRN ×2 (07:37→21:08)
[2020-04-22] MEDS: CITALOPRAM 40 MG TAB PO SCH (07:40)
[2020-04-22] MEDS: busPIRone 15 MG TAB PO SCH (07:40)
[2020-04-22] MEDS: dexAMETHasone 6 MG in SYRINGE 0 ML IV SCH (07:41)
[2020-04-22] MEDS: guaiFENesin 600 MG TABCR PO SCH ×2 (07:45→20:40)
[2020-04-22] MEDS: BENZONATATE 100 MG CAPSULE PO SCH ×3 (07:46→20:41)
[2020-04-22] MEDS: PANTOprazole 40 MG TAB PO SCH (07:46)
[2020-04-22] MEDS: lisinopril 5 MG TAB PO SCH (07:47)
[2020-04-22] MEDS: INSULIN ASPART 100 UNITS/ML 3 ML PEN SC SCH ×4 (08:59→21:04)
[2020-04-22] MEDS: ENOXAPARIN INJ 40 MG/0.4 ML SYR SQ SCH ×2 (09:02→21:08)
[2020-04-22 10:49] LABS: Hematocrit (blood only) 37.3 % (37-47); Hemoglobin 12.1 g/dL (12.0-16.0); Immature Granulocytes # (auto) 0.03 K/uL (0.00-0.02); Immature Granulocytes % (auto) 0.6 %; Lymphocytes % (auto) 11.8 %; Mean Corpuscular Hemoglobin 28.3 pg (25-34); Mean Corpuscular Hgb Conc 32.4 g/dL (32-36); Mean Corpuscular Volume 87.1 fL (80-100); Mean Platelet Volume 11.1 fL (7.4-10.4); Monocytes # (auto) 0.35 K/uL (0.11-0.59); Monocytes % (auto) 6.9 %; Neutrophils # (auto) 4.11 K/uL (1.4-6.5); Neutrophils % (auto) 80.7 %; Platelet Count 253 K/uL (130-400); RDW Coefficient of Variation 13.1 % (11.5-14.5); RDW Standard Deviation 41.9 fL (36.4-46.3); Red Blood Count 4.28 M/uL (4.2-5.4); White Blood Count 5.09 K/uL (4.8-10.8)
[2020-04-22 11:32] LABS: BUN Creatinine Ratio 19.3 (10-20); Calcium 8.7 mg/dl (8.5-10.1); Creatinine Clr Calc Pharmacy 57.9 ml/min; Est GFR (African American) 85.1; Est GFR (Non-African American) 73.4; Potassium 3.6 mmol/L (3.5-5.1)
--- NOTE | 2020-04-22 11:59 | Pharmacy Report ---
Glycemic Control Progress Note - Date of Service April 22, 2020 - Scope Glycemic Pharmacist consulted for glycemic control to write orders per [facility] inpatient glycemic control protocol. - Objective Accuchecks BSG(last 24 hours):: 04/21/20 04/21/20 04/21/20 12:15 17:02 20:33 Glucose POC Glucose 113 H 150 H 118 H 04/22/20 04/22/20 08:01 10:10 Glucose 189 H POC Glucose 99 HbA1c:: Hemoglobin A1c 6.2 % (4.5-5.6) H 04/21/20 05:31 - Recent Pertinent Medications The patient is currently receiving: * Basal insulin: Lantus -- units every -- hours * Correctional Insulin: Novolog Correction per scale ACHS Goal Range: Low 110 mg/dL - High 140 mg/dL Correction Factor: 25 mg/dL/unit * Prandial insulin: Per carb ratio of 1 unit per 8 grams CHO consumed - Outpatient Anti-Diabetic Meds N/A - Assessment & Plan ASSESSMENT: * See progress note from 04/20/20 for more background info, in short: * Pt receiving SQ basal bolus insulin regimen for hyperglycemia secondary to dexamethasone 6 mg IV daily (today is day 2)/ * Patient is currently receiving an average of 20 units of insulin per day * - units of basal insulin * 20 units of prandial/correctional insulin * BSGs ranging 113 - 150 mg/dl over the past 24hrs * Changes needed to insulin regimen: * AM Fasting BSG = 99 mg/dl. This is in goal range for patient based on inpatient targets and co-morbidities. Therefore Basal insulin will continue to be held. * Post-prandial BSGs are in range therefore no changes needed to CF/CR. * Total daily dose = ~20-25 units. This dosing is yielding adequate glycemic control. PLAN FOR INPATIENT GLYCEMIC CONTROL: * Continuing correction factor of 25 mg/dl/unit * Continuing carb ratio of 1 unit per 8 grams CHO consumed * Continuing goal range of Low 110 mg/dL - High 140 mg/dL RECOMMENDATIONS FOR DISCHARGE: * Patient's HbA1C indicates pre-diabetes. * Recommend monitoring at appropriate interval. Can consider dietary modifications and/or the start of metformin if desired. Thank you.
--- NOTE | 2020-04-22 13:35 | Electrocardiogram Report ---
Test Reason : Blood Pressure : / mmHG Vent. Rate : 081 BPM Atrial Rate : 081 BPM P-R Int : 158 ms QRS Dur : 074 ms QT Int : 406 ms P-R-T Axes : 074 022 046 degrees QTc Int : 471 ms Normal sinus rhythm Normal ECG When compared with ECG of 12-APR-2020 02:10, Premature ventricular complexes are no longer Present Confirmed by Christiano Payton ([id number]) on 04/22/2020 1:35:16 PM Referred By: REFERRED SELF Confirmed By:Christiano Payton
[2020-04-22] MEDS ORDERED: MAGNESIUM HYDROXIDE SUSP 30 ML UDC PO PRN (15:34)
[2020-04-22] MEDS ORDERED: PROMETHAZINE HCL 12.5 MG in SODIUM CHLORIDE 0.9% 50 ML IV PRN (15:34)
--- NOTE | 2020-04-22 15:40 | Hospitalist Progress Note ---
Date of Service April 22, 2020 Assessment & Plan (1) Pneumonia due to COVID-19 virus: (2) COPD exacerbation: (3) Chronic respiratory failure: Per admitting service notes: This is a 64-year-old female who has significant past medical history of oxygen dependent COPD, T2DM, HTN, depression with anxiety, hypothyroidism, ulcerative colitis, history of CHF who presents to ED secondary to worsening COVID-19 symptoms including shortness of breath for the past 3 days. Patient initially diagnosed with COVID-19 on 04/12/2020 with symptom onset of 04/11/20. Persistent symptoms worsen with increasing shortness of breath and chest tightness. Chest x-ray unchanged prior. ESR 39, CRP 3.48, procalcitonin less than 0.05, D-dimer WNL. 04/22 stable 3 L NC--> 2 L gradually improving Remdesivir Day / Decadron Day 3 Pulmonary toilet with incentive spirometry, flutter valve Continue albuterol nebs, Combivent and Dulera Encourage self proning if tolerated Tessalon Perles or Mucinex for cough Phenergan PRN for nausea (4) Diabetes mellitus, type II: Last A1c 5.9 on 02/18/2020 Pharm Glycemic Control consult (5) HTN (hypertension): Blood pressure stable continue lisinopril (6) DVT prophylaxis: SQ Lovenox 40mg Q12 Disposition: anticipate d/c to home when medically stable Admission and Anticipated Discharge Date Admission Date: April 20, 2020 Subjective ff up for COVID 19 pneumonia, acute on chronic hypoxic respiratory failure seen resting in bed, not in distress states she has some nausea today, no abdominal pain last BM 2 days ago breathing and cough improved compared to yesterday no chest pain, leg pain appetite is ok no other symptoms Review of Systems Review of Systems: All systems reviewed & are unremarkable except as noted in Subjective Physical Exam Physical Exam: General- oriented x 3, not in distress, speaks in sentences with no effort or accessory muscle use Eyes- anicteric Neck- no JVD Lungs- diminished but improved BS compared to yesterday wheezing resolved mild rhonchi at the bases Heart- normal rate, regular rhythm; no murmurs Abdomen- normal bowel sounds, nondistended, soft, nontender Extremities- no pretibial edema, no calf tenderness Neuro- alert, oriented x 3; no gross focal neurologic deficits Skin- warm & dry Results & Data Results & Data ([facility]) Vital Signs (Past 12 Hours) Vital Signs Temp Pulse Pulse Resp BP Pulse Ox 04/22/20 15:05 36.8 C 74 16 117/63 90 04/22/20 11:17 76 20 96 04/22/20 07:17 36.7 C 61 20 126/67 92 04/22/20 07:08 64 18 93 Laboratory Results Laboratory Results - last 24 hr 04/21/20 04/21/20 04/21/20 17:02 20:33 21:05 WBC RBC Hgb Hct MCV MCH MCHC RDW Std Deviation RDW Coeff of Lillie Plt Count MPV Immature Gran % (Auto) Neut % (Auto) Lymph % (Auto) [place] % (Auto) Eos % (Auto) Baso % (Auto) Neut # (Auto) Lymph # (Auto) [place] # (Auto) Eos # (Auto) Baso # (Auto) Immature Gran # (Auto) Sodium Potassium Chloride Carbon Dioxide Anion Gap BUN Creatinine Est Cr Clr Drug Dosing Est GFR ( Amer) Est GFR (Non-Af Amer) BUN/Creatinine Ratio Glucose POC Glucose 150 H 118 H Calcium AST ALT Urine Color Yellow Urine Appearance Clear Urine pH 7.0 Ur Specific Palm 1.014 Urine Protein Trace H Urine Glucose (UA) Negative Urine Ketones Negative Urine Blood Negative Urine Nitrite Negative Urine Bilirubin Negative Urine Urobilinogen Negative Ur Leukocyte Esterase 2+ H Urine WBC (Auto) >30 H Urine RBC (Auto) 0-4 U Hyaline Cast (Auto) 0 U Epithel Cells (Auto) >30 H Urine Bacteria (Auto) Negative 04/22/20 04/22/20 04/22/20 05:43 08:01 10:10 WBC 5.09 RBC 4.28 Hgb 12.1 Hct 37.3 MCV 87.1 MCH 28.3 MCHC 32.4 RDW Std Deviation 41.9 RDW Coeff of Lillie 13.1 Plt Count 253 MPV 11.1 H Immature Gran % (Auto) 0.6 Neut % (Auto) 80.7 Lymph % (Auto) 11.8 [place] % (Auto) 6.9 Eos % (Auto) 0.0 Baso % (Auto) 0.0 Neut # (Auto) 4.11 Lymph # (Auto) 0.60 L [place] # (Auto) 0.35 Eos # (Auto) 0.00 Baso # (Auto) 0.00 Immature Gran # (Auto) 0.03 H Sodium Potassium Chloride Carbon Dioxide Anion Gap BUN Creatinine 0.80 Est Cr Clr Drug Dosing 60.8 Est GFR ( Amer) 90.3 Est GFR (Non-Af Amer) 77.9 BUN/Creatinine Ratio Glucose POC Glucose 99 Calcium AST 17 ALT 24 Urine Color Urine Appearance Urine pH Ur Specific Palm Urine Protein Urine Glucose (UA) Urine Ketones Urine Blood Urine Nitrite Urine Bilirubin Urine Urobilinogen Ur Leukocyte Esterase Urine WBC (Auto) Urine RBC (Auto) U Hyaline Cast (Auto) U Epithel Cells (Auto) Urine Bacteria (Auto) 04/22/20 04/22/20 10:10 12:13 WBC RBC Hgb Hct MCV MCH MCHC RDW Std Deviation RDW Coeff of Lillie Plt Count MPV Immature Gran % (Auto) Neut % (Auto) Lymph % (Auto) [place] % (Auto) Eos % (Auto) Baso % (Auto) Neut # (Auto) Lymph # (Auto) [place] # (Auto) Eos # (Auto) Baso # (Auto) Immature Gran # (Auto) Sodium 140 Potassium 3.6 Chloride 107 Carbon Dioxide 26 Anion Gap 7.0 BUN 16 D Creatinine 0.84 Est Cr Clr Drug Dosing 57.9 Est GFR ( Amer) 85.1 Est GFR (Non-Af Amer) 73.4 BUN/Creatinine Ratio 19.3 Glucose 189 H POC Glucose 150 H Calcium 8.7 AST ALT Urine Color Urine Appearance Urine pH Ur Specific [place] Urine Protein Urine Glucose (UA) Urine Ketones Urine Blood Urine Nitrite Urine Bilirubin Urine Urobilinogen Ur Leukocyte Esterase Urine WBC (Auto) Urine RBC (Auto) U Hyaline Cast (Auto) U Epithel Cells (Auto) Urine Bacteria (Auto)
[2020-04-22] MEDS: REMDESIVIR 100 MG in SODIUM CHLORIDE 0.9% 230 ML IV SCH (19:45)
[2020-04-22] MEDS: busPIRone 7.5 MG TAB PO SCH (20:39)
[2020-04-22] MEDS: traZODone HCL 50 MG TAB PO SCH (20:41)
[2020-04-22] MEDS: SODIUM CHLORIDE 0.9% 10ML FLUSH IV SCH (21:01)
[2020-04-23 06:31] LABS: Hemoglobin 11.7 g/dL (12.0-16.0); Immature Granulocytes # (auto) 0.02 K/uL (0.00-0.02); Immature Granulocytes % (auto) 0.3 %; Lymphocytes # (auto) 1.19 K/uL (1.2-3.4); Lymphocytes % (auto) 16.8 %; Mean Corpuscular Hemoglobin 28.2 pg (25-34); Mean Corpuscular Hgb Conc 32.5 g/dL (32-36); Mean Corpuscular Volume 86.7 fL (80-100); Mean Platelet Volume 10.8 fL (7.4-10.4); Monocytes # (auto) 0.85 K/uL (0.11-0.59); Neutrophils # (auto) 5.04 K/uL (1.4-6.5); Neutrophils % (auto) 70.9 %; Platelet Count 251 K/uL (130-400); RDW Standard Deviation 41.6 fL (36.4-46.3); Red Blood Count 4.15 M/uL (4.2-5.4)
[2020-04-23 06:52] LABS: BUN Creatinine Ratio 26.6 (10-20); Calcium 8.4 mg/dl (8.5-10.1); Creatinine Clr Calc Pharmacy 66.7 ml/min; Est GFR (African American) 100.9; Potassium 3.9 mmol/L (3.5-5.1)
[2020-04-23] MEDS: Ipratropium HFA Inhaler (Combivent Respimat P&T Subs) INH SCH ×4 (07:38→19:41)
[2020-04-23] MEDS: Albuterol HFA 8 GM Inhaler (Combivent Respimat P&T Subs) INH SCH ×4 (07:38→19:41)
[2020-04-23] MEDS: FLUTICASONE/VILANTEROL 100/25MCG 14 PUFFS/INHALER INH SCH (08:16)
[2020-04-23] MEDS: PANTOprazole 40 MG TAB PO SCH (08:17)
[2020-04-23] MEDS: CITALOPRAM 40 MG TAB PO SCH (08:17)
[2020-04-23] MEDS: BENZONATATE 100 MG CAPSULE PO SCH ×3 (08:17→20:39)
[2020-04-23] MEDS: lisinopril 5 MG TAB PO SCH (08:17)
[2020-04-23] MEDS: dexAMETHasone 6 MG in SYRINGE 0 ML IV SCH (08:17)
[2020-04-23] MEDS: busPIRone 15 MG TAB PO SCH (08:17)
[2020-04-23] MEDS: guaiFENesin 600 MG TABCR PO SCH ×2 (08:18→20:39)
[2020-04-23] MEDS: LORazepam 0.5 MG TAB PO PRN ×2 (08:22→20:44)
[2020-04-23] MEDS: INSULIN ASPART 100 UNITS/ML 3 ML PEN SC SCH ×4 (09:34→22:30)
[2020-04-23] MEDS: ENOXAPARIN INJ 40 MG/0.4 ML SYR SQ SCH ×2 (09:37→21:42)
--- NOTE | 2020-04-23 17:12 | Hospitalist Progress Note ---
Date of Service April 23, 2020 Assessment & Plan (1) Pneumonia due to COVID-19 virus: (2) COPD exacerbation: (3) Chronic respiratory failure: Per admitting service notes: This is a 64-year-old female who has significant past medical history of oxygen dependent COPD, T2DM, HTN, depression with anxiety, hypothyroidism, ulcerative colitis, history of CHF who presents to ED secondary to worsening COVID-19 symptoms including shortness of breath for the past 3 days. Patient initially diagnosed with COVID-19 on 04/12/2020 with symptom onset of 04/11/20. Persistent symptoms worsen with increasing shortness of breath and chest tightness. Chest x-ray unchanged prior. ESR 39, CRP 3.48, procalcitonin less than 0.05, D-dimer WNL. 04/23 stable 3 L NC--> 2 L continues to improve overall Remdesivir Day 4/5 Decadron Day 4 Pulmonary toilet with incentive spirometry, flutter valve Continue albuterol nebs, Combivent and Dulera Encourage self proning if tolerated Tessalon Perles or Mucinex for cough Phenergan PRN for nausea (4) Diabetes mellitus, type II: Last A1c 5.9 on 02/18/2020 Pharm Glycemic Control consult (5) HTN (hypertension): Blood pressure stable continue lisinopril (6) DVT prophylaxis: SQ Lovenox 40mg Q12 Disposition: anticipate d/c to home when medically stable Admission and Anticipated Discharge Date Admission Date: April 20, 2020 Subjective ff up for COVID 19 pneumonia, etc seen resting in bed, comfortable, on 2 L NC states she feels continued improvement breathing is easier, less cough no chest pain good appetite nausea resolved no other symptoms Review of Systems Review of Systems: All systems reviewed & are unremarkable except as noted in Subjective Physical Exam Physical Exam: General- oriented x 3, not in distress, speaks in sentences with no effort or accessory muscle use Eyes- anicteric Neck- no JVD Lungs- mild intermittent wheeze on the left mid-base clear on the right Heart- normal rate, regular rhythm; no murmurs Abdomen- normal bowel sounds, nondistended, soft, nontender Extremities- no pretibial edema, no calf tenderness Neuro- alert, oriented x 3; no gross focal neurologic deficits Skin- warm & dry Results & Data Results & Data ([facility]) Vital Signs (Past 12 Hours) Vital Signs Temp Pulse Resp BP Pulse Ox 04/23/20 15:51 36.7 C 66 16 115/68 93 04/23/20 15:06 73 18 97 04/23/20 11:18 75 16 96 04/23/20 07:40 36.6 C 64 16 133/62 92 04/23/20 07:38 82 16 96 Laboratory Results Laboratory Results - last 24 hr 04/22/20 04/22/20 04/23/20 17:23 20:48 05:36 WBC RBC Hgb Hct MCV MCH MCHC RDW Std Deviation RDW Coeff of Lillie Plt Count MPV Immature Gran % (Auto) Neut % (Auto) Lymph % (Auto) Peach % (Auto) Eos % (Auto) Baso % (Auto) Neut # (Auto) Lymph # (Auto) Peach # (Auto) Eos # (Auto) Baso # (Auto) Immature Gran # (Auto) Sodium 140 Potassium 3.9 Chloride 108 H Carbon Dioxide 28 Anion Gap 4.0 BUN 20 H Creatinine 0.73 Est Cr Clr Drug Dosing 66.7 Est GFR ( Amer) 100.9 Est GFR (Non-Af Amer) 87.0 BUN/Creatinine Ratio 26.6 H Glucose 109 H POC Glucose 140 H 158 H Calcium 8.4 L AST 23 ALT 26 04/23/20 04/23/20 04/23/20 05:36 07:55 12:03 WBC 7.10 RBC 4.15 L Hgb 11.7 L Hct 36.0 L MCV 86.7 MCH 28.2 MCHC 32.5 RDW Std Deviation 41.6 RDW Coeff of Lillie 13.0 Plt Count 251 MPV 10.8 H Immature Gran % (Auto) 0.3 Neut % (Auto) 70.9 Lymph % (Auto) 16.8 Peach % (Auto) 12.0 Eos % (Auto) 0.0 Baso % (Auto) 0.0 Neut # (Auto) 5.04 Lymph # (Auto) 1.19 L Peach # (Auto) 0.85 H Eos # (Auto) 0.00 Baso # (Auto) 0.00 Immature Gran # (Auto) 0.02 Sodium Potassium Chloride Carbon Dioxide Anion Gap BUN Creatinine Est Cr Clr Drug Dosing Est GFR ( Amer) Est GFR (Non-Af Amer) BUN/Creatinine Ratio Glucose POC Glucose 128 H 112 H Calcium AST ALT
[2020-04-23] MEDS: REMDESIVIR 100 MG in SODIUM CHLORIDE 0.9% 230 ML IV SCH (20:35)
[2020-04-23] MEDS: traZODone HCL 50 MG TAB PO SCH (20:39)
[2020-04-23] MEDS: busPIRone 7.5 MG TAB PO SCH (20:39)
[2020-04-23] MEDS: SODIUM CHLORIDE 0.9% 10ML FLUSH IV SCH (21:40)
[2020-04-24 07:06] LABS: Basophils # (auto) 0.01 K/uL (0-0.2); Basophils % (auto) 0.1 %; Hematocrit (blood only) 38.5 % (37-47); Hemoglobin 12.3 g/dL (12.0-16.0); Immature Granulocytes # (auto) 0.04 K/uL (0.00-0.02); Immature Granulocytes % (auto) 0.5 %; Lymphocytes # (auto) 1.45 K/uL (1.2-3.4); Lymphocytes % (auto) 17.5 %; Mean Corpuscular Hemoglobin 27.9 pg (25-34); Mean Corpuscular Hgb Conc 31.9 g/dL (32-36); Mean Corpuscular Volume 87.3 fL (80-100); Mean Platelet Volume 10.8 fL (7.4-10.4); Monocytes # (auto) 1.15 K/uL (0.11-0.59); Monocytes % (auto) 13.9 %; Neutrophils # (auto) 5.62 K/uL (1.4-6.5); Platelet Count 262 K/uL (130-400); RDW Coefficient of Variation 12.9 % (11.5-14.5); RDW Standard Deviation 41.5 fL (36.4-46.3); Red Blood Count 4.41 M/uL (4.2-5.4); White Blood Count 8.27 K/uL (4.8-10.8)
[2020-04-24] MEDS: Albuterol HFA 8 GM Inhaler (Combivent Respimat P&T Subs) INH SCH ×4 (07:30→19:31)
[2020-04-24] MEDS: Ipratropium HFA Inhaler (Combivent Respimat P&T Subs) INH SCH ×4 (07:31→19:31)
[2020-04-24 07:33] LABS: BUN Creatinine Ratio 25.3 (10-20); Calcium 8.4 mg/dl (8.5-10.1); Creatinine Clr Calc Pharmacy 63.2 ml/min; Est GFR (African American) 94.6; Est GFR (Non-African American) 81.6; Potassium 4.2 mmol/L (3.5-5.1)
[2020-04-24] MEDS: FLUTICASONE/VILANTEROL 100/25MCG 14 PUFFS/INHALER INH SCH (07:34)
[2020-04-24] MEDS: dexAMETHasone 6 MG in SYRINGE 0 ML IV SCH (07:34)
[2020-04-24] MEDS: BENZONATATE 100 MG CAPSULE PO SCH ×3 (07:34→20:26)
[2020-04-24] MEDS: lisinopril 5 MG TAB PO SCH (07:35)
[2020-04-24] MEDS: busPIRone 15 MG TAB PO SCH (07:35)
[2020-04-24] MEDS: PANTOprazole 40 MG TAB PO SCH (07:35)
[2020-04-24] MEDS: guaiFENesin 600 MG TABCR PO SCH ×2 (07:37→20:26)
[2020-04-24] MEDS: CITALOPRAM 40 MG TAB PO SCH (07:37)
[2020-04-24] MEDS: LORazepam 0.5 MG TAB PO PRN ×2 (07:40→20:36)
[2020-04-24] MEDS: INSULIN ASPART 100 UNITS/ML 3 ML PEN SC SCH ×4 (09:44→20:45)
[2020-04-24] MEDS: ENOXAPARIN INJ 40 MG/0.4 ML SYR SQ SCH ×2 (09:46→20:28)
--- NOTE | 2020-04-24 13:49 | Pharmacy Report ---
Glycemic Control Progress Note - Date of Service April 24, 2020 - Scope Glycemic Pharmacist consulted for glycemic control to write orders per [facility] inpatient glycemic control protocol. - Objective Accuchecks BSG(last 24 hours):: 04/23/20 04/23/20 04/24/20 17:23 20:41 06:40 Glucose 118 H POC Glucose 134 H 125 H 04/24/20 04/24/20 08:07 12:08 Glucose POC Glucose 102 H 117 H HbA1c:: Hemoglobin A1c 6.2 % (4.5-5.6) H 04/21/20 05:31 - Recent Pertinent Medications The patient is currently receiving: * Basal insulin: Lantus -- units every -- hours * Correctional Insulin: Novolog Correction per scale ACHS Goal Range: Low 110 mg/dL - High 140 mg/dL Correction Factor: 25 mg/dL/unit * Prandial insulin: Per carb ratio of 1 unit per 7 grams CHO consumed * Oral Agents: - Outpatient Anti-Diabetic Meds N/A - Assessment & Plan ASSESSMENT: * See progress note from 04/20/20 for more background info, in short: * Pt receiving SQ basal bolus insulin regimen for hyperglycemia secondary to baseline DM. Patient is COVID positive on dexamethasone 6 mg IV daily. * Patient is currently receiving an average of 21 units of insulin per day * 0 units of basal insulin * 21 units of prandial/correctional insulin * BSGs ranging 112 - 134 mg/dl over the past 24hrs * Changes needed to insulin regimen: * AM Fasting BSG = 102 mg/dl. This is in goal range for patient based on inpatient targets and co-morbidities. No basal insulin. * Post-prandial BSGs are in range therefore no changes needed to CF/CR. * Total daily dose = ~20 units. This dosing is yielding adequate glycemic co ntrol PLAN FOR INPATIENT GLYCEMIC CONTROL: * Continuing correction factor of 25 mg/dl/unit * Continuing carb ratio of 1 unit per 7 grams CHO consumed * Continuing goal range of Low 110 mg/dL - High 140 mg/dL RECOMMENDATIONS FOR DISCHARGE: * Patient's HbA1C indicates pre-diabetes. * Recommend monitoring at appropriate interval. Can consider dietary modificati ons and/or the start of metformin if desired. Thank you.
--- NOTE | 2020-04-24 16:16 | Hospitalist Progress Note ---
Date of Service April 24, 2020 Assessment & Plan (1) Pneumonia due to COVID-19 virus: (2) COPD exacerbation: (3) Chronic respiratory failure: Per admitting service notes: This is a 64-year-old female who has significant past medical history of oxygen dependent COPD, T2DM, HTN, depression with anxiety, hypothyroidism, ulcerative colitis, history of CHF who presents to ED secondary to worsening COVID-19 symptoms including shortness of breath for the past 3 days. Patient initially diagnosed with COVID-19 on 04/12/2020 with symptom onset of 04/11/20. Persistent symptoms worsen with increasing shortness of breath and chest tightness. Chest x-ray unchanged prior. ESR 39, CRP 3.48, procalcitonin less than 0.05, D-dimer WNL. 04/24 stable 3 L NC--> 2 L patient improving daily Remdesivir Day 5/ Decadron Day 5 Pulmonary toilet with incentive spirometry, flutter valve Continue albuterol nebs, Combivent and Dulera Tessalon Perles or Mucinex for cough Phenergan PRN for nausea (4) Diabetes mellitus, type II: Last A1c 5.9 on 02/18/2020 Pharm Glycemic Control consult (5) HTN (hypertension): Blood pressure stable continue lisinopril (6) DVT prophylaxis: SQ Lovenox 40mg Q12 Disposition: anticipate d/c to home tomorrow Admission and Anticipated Discharge Date Admission Date: April 20, 2020 Subjective ff up for COVID 19 pneumonia, acute on chronic hypoxic respiratory failure seen resting in bed, comfortable, on 2 L NC states she feels improved today breathing is improving, less cough no chest pain, palpitations, dizziness no abdominal pain , nausea appetite is good no other symptoms Review of Systems Review of Systems: All systems reviewed & are unremarkable except as noted in Subjective Physical Exam Physical Exam: General- oriented x 3, not in distress, speaks in sentences with no effort or accessory muscle use Eyes- anicteric Neck- no JVD Lungs- mild wheeze on the right, intermittent clear on the left Heart- normal rate, regular rhythm; no murmurs Abdomen- normal bowel sounds, nondistended, soft, nontender Extremities- no pretibial edema, no calf tenderness Neuro- alert, oriented x 3; no gross focal neurologic deficits Skin- warm & dry Results & Data Results & Data ([facility]) Vital Signs (Past 12 Hours) Vital Signs Temp Pulse Pulse Resp BP Pulse Ox 04/24/20 15:33 78 16 90 04/24/20 15:27 36.8 C 68 16 128/71 90 04/24/20 11:12 93 H 18 93 04/24/20 07:36 65 18 92
[2020-04-24] MEDS: traZODone HCL 50 MG TAB PO SCH (20:27)
[2020-04-24] MEDS: busPIRone 7.5 MG TAB PO SCH (20:28)
[2020-04-24] MEDS: REMDESIVIR 100 MG in SODIUM CHLORIDE 0.9% 230 ML IV SCH (20:29)
[2020-04-24] MEDS: SODIUM CHLORIDE 0.9% 10ML FLUSH IV SCH (21:35)
[2020-04-25 06:33] LABS: Basophils # (auto) 0.01 K/uL (0-0.2); Basophils % (auto) 0.1 %; Hematocrit (blood only) 38.7 % (37-47); Hemoglobin 12.3 g/dL (12.0-16.0); Immature Granulocytes # (auto) 0.07 K/uL (0.00-0.02); Immature Granulocytes % (auto) 0.8 %; Lymphocytes # (auto) 1.64 K/uL (1.2-3.4); Lymphocytes % (auto) 17.9 %; Mean Corpuscular Hemoglobin 27.6 pg (25-34); Mean Corpuscular Hgb Conc 31.8 g/dL (32-36); Mean Corpuscular Volume 86.8 fL (80-100); Mean Platelet Volume 11.8 fL (7.4-10.4); Monocytes # (auto) 1.08 K/uL (0.11-0.59); Monocytes % (auto) 11.8 %; Neutrophils # (auto) 6.35 K/uL (1.4-6.5); Neutrophils % (auto) 69.4 %; Platelet Count 295 K/uL (130-400); RDW Coefficient of Variation 12.9 % (11.5-14.5); RDW Standard Deviation 41.3 fL (36.4-46.3); Red Blood Count 4.46 M/uL (4.2-5.4); White Blood Count 9.15 K/uL (4.8-10.8)
[2020-04-25 07:19] LABS: BUN Creatinine Ratio 29.8 (10-20); Calcium 9.1 mg/dl (8.5-10.1); Creatinine Clr Calc Pharmacy 55.9 ml/min; Est GFR (African American) 81.6; Est GFR (Non-African American) 70.4; Potassium 4.3 mmol/L (3.5-5.1)
[2020-04-25] MEDS: Ipratropium HFA Inhaler (Combivent Respimat P&T Subs) INH SCH ×3 (07:36→14:46)
[2020-04-25] MEDS: Albuterol HFA 8 GM Inhaler (Combivent Respimat P&T Subs) INH SCH ×3 (07:36→14:46)
[2020-04-25] MEDS: guaiFENesin 600 MG TABCR PO SCH (09:03)
[2020-04-25] MEDS: CITALOPRAM 40 MG TAB PO SCH (09:04)
[2020-04-25] MEDS: lisinopril 5 MG TAB PO SCH (09:04)
[2020-04-25] MEDS: PANTOprazole 40 MG TAB PO SCH (09:04)
[2020-04-25] MEDS: dexAMETHasone 6 MG in SYRINGE 0 ML IV SCH (09:04)
[2020-04-25] MEDS: busPIRone 15 MG TAB PO SCH (09:04)
[2020-04-25] MEDS: FLUTICASONE/VILANTEROL 100/25MCG 14 PUFFS/INHALER INH SCH (09:04)
[2020-04-25] MEDS: ENOXAPARIN INJ 40 MG/0.4 ML SYR SQ SCH (09:05)
[2020-04-25] MEDS: BENZONATATE 100 MG CAPSULE PO SCH ×2 (09:05→14:35)
[2020-04-25] MEDS: INSULIN ASPART 100 UNITS/ML 3 ML PEN SC SCH ×2 (09:08→12:55)
[2020-04-25] MEDS: LORazepam 0.5 MG TAB PO PRN (09:41)
--- NOTE | 2020-04-25 14:42 | Hospitalist Progress Note ---
Date of Service April 25, 2020 Assessment & Plan (1) Pneumonia due to COVID-19 virus: (1) Pneumonia due to COVID-19 virus: (2) COPD exacerbation: (3) Acute on chronic hypoxic space respiratory failure: Per admitting service notes: This is a 64-year-old female who has significant past medical history of oxygen dependent COPD, T2DM, HTN, depression with anxiety, hypothyroidism, ulcerative colitis, history of CHF who presents to ED secondary to worsening COVID-19 symptoms including shortness of breath for the past 3 days. Patient initially diagnosed with COVID-19 on 04/12/2020 with symptom onset of 04/11/20. Persistent symptoms worsen with increasing shortness of breath and chest tightness. Chest x-ray :IMPRESSION: Mild hazy bibasilar opacities. Artifact or atelectasis is favored however an infectious process could appear similar. ESR 39, CRP 3.48, procalcitonin less than 0.05, D-dimer WNL. Patient did well through admission She completed 5 days of Remdesivir IV Also received 6 days of Decadron IV given incentive spirometry, flutter valve, Mucinex Was able to be weaned off from 4 L of oxygen by nasal cannula, Usual 2 L of nasal cannula Patient's symptoms significantly improved Discharged on short prednisone taper, Mucinex Follow-up with PCP this week Repeat renal function and liver function test on follow-up with PCP next Repeat chest x-ray in 3 to 4 weeks (4) Diabetes mellitus, type II: A1c 6.2 Pharm Glycemic Control consulted Given insulin sliding scale follow-up and management as an outpatient (5) HTN (hypertension): Blood pressure stable continue lisinopril (6) DVT prophylaxis: Given SQ Lovenox 40mg Q12 Disposition: Discharge to home today Follow-up with PCP 04/28/2020 Plan of care discussed with patient in detail at length All questions were answered She is understanding, agreeable, comfortable plan of care Admission and Anticipated Discharge Date Admission Date: April 20, 2020 Subjective For COVID-19 pneumonia, acute chronic hypoxic respiratory failure Seen sitting up in bed, comfortable, just had lunch, in good spirits On 2 L of oxygen by nasal cannula States that she feels much better overall Breathing is mostly back to her baseline Minimal cough, no chest pain Abdominal pain, nausea vomiting Appetite is great Ambulating with no problems Other symptoms States she is mostly back to her baseline States that she is ready and would like to be discharged today Review of Systems Review of Systems: All systems reviewed & are unremarkable except as noted in Subjective Physical Exam Physical Exam: General- oriented x 3, not in distress, speaks in sentences with no effort or accessory muscle use Eyes- anicteric Neck- no JVD Lungs- faint intermittent wheeze on the left base, clear on the right Good air entry bilaterally Heart- normal rate, regular rhythm; no murmurs Abdomen- normal bowel sounds, nondistended, soft, nontender Extremities- no pretibial edema, no calf tenderness Neuro- alert, oriented x 3; no gross focal neurologic deficits Skin- warm & dry Results & Data Results & Data ([facility]) Vital Signs (Past 12 Hours) Vital Signs Temp Pulse Pulse Pulse Pulse Resp BP 04/25/20 13:42 36.9 C 84 88 93 H 73 20 134/69 04/25/20 11:31 88 20 04/25/20 07:37 75 18 04/25/20 07:24 36.9 C 74 18 134/69 BP Pulse Ox 04/25/20 13:42 145/80 H 95 04/25/20 11:31 95 04/25/20 07:37 97 04/25/20 07:24 96 Laboratory Results Laboratory Results - last 24 hr 04/24/20 04/24/20 04/25/20 17:17 20:26 05:32 WBC RBC Hgb Hct MCV MCH MCHC RDW Std Deviation RDW Coeff of Lillie Plt Count MPV Immature Gran % (Auto) Neut % (Auto) Lymph % (Auto) Clay % (Auto) Eos % (Auto) Baso % (Auto) Neut # (Auto) Lymph # (Auto) Clay # (Auto) Eos # (Auto) Baso # (Auto) Immature Gran # (Auto) Sodium 139 Potassium 4.3 Chloride 107 Carbon Dioxide 24 Anion Gap 8.0 BUN 26 H Creatinine 0.87 Est Cr Clr Drug Dosing 55.9 Est GFR ( Amer) 81.6 Est GFR (Non-Af Amer) 70.4 BUN/Creatinine Ratio 29.8 H Glucose 104 H POC Glucose 148 H 110 H Calcium 9.1 AST 19 ALT 32 04/25/20 04/25/20 04/25/20 05:32 07:53 12:01 WBC 9.15 RBC 4.46 Hgb 12.3 Hct 38.7 MCV 86.8 MCH 27.6 MCHC 31.8 L RDW Std Deviation 41.3 RDW Coeff of Lillie 12.9 Plt Count 295 MPV 11.8 H Immature Gran % (Auto) 0.8 Neut % (Auto) 69.4 Lymph % (Auto) 17.9 Clay % (Auto) 11.8 Eos % (Auto) 0.0 Baso % (Auto) 0.1 Neut # (Auto) 6.35 Lymph # (Auto) 1.64 Clay # (Auto) 1.08 H Eos # (Auto) 0.00 Baso # (Auto) 0.01 Immature Gran # (Auto) 0.07 H Sodium Potassium Chloride Carbon Dioxide Anion Gap BUN Creatinine Est Cr Clr Drug Dosing Est GFR ( Amer) Est GFR (Non-Af Amer) BUN/Creatinine Ratio Glucose POC Glucose 119 H 98 Calcium AST ALT
--- NOTE | 2020-04-25 14:47 | Discharge Summary ---
Date of Service April 25, 2020 Admission HPI Per Admitting Provider This is a 64-year-old female who has significant past medical history of oxygen dependent COPD, T2DM, HTN, depression with anxiety, hypothyroidism, ulcerative colitis, history of CHF who presents to ED secondary to worsening COVID-19 symptoms including shortness of breath for the past 3 days. Patient was initially seen and evaluated in our ED the morning of 04/12/2020. She was Covid positive at that time. She has been resting at home however for the past several days her symptoms have worsened. Her symptoms include off-and-on fever with a T-max of 101, nausea, loss of taste and smell, body aches, myalgias, f atigue, cough and worsening shortness of breath. She is on 2 L of oxygen at baseline and has pulse oximetry at home. She has been monitoring her blood oxygen level and has been declining to low 90s therefore she has increased her oxygen to 3 L. She has had 2 episodes of vomiting today and approximately 5 episodes of diarrhea. She denies any chills, sweats, lightheadedness, dizziness, chest pain, palpitations, hemoptysis, abdominal pain, melena, hematochezia, dysuria, increased urgency or frequency with urination. She has been taking [id number] Tylenol with mild improvement. She is also been using nebulizer at home with mild improvement of symptoms. She is a former smoker but currently denies tobacco use. In ED Chest x-ray was similar in appearance with mild hazy bibasilar opacities. Inflammatory markers elevated with ESR 39 and CRP 3.48. Her procalcitonin was normal. No signs or symptoms of superimposed infection. Her D-dimer was WNL. She received 6 mg of IV dexamethasone and albuterol nebulizer treatment in ED. Admission Exam Per Admitting Provider Gen-AAO x 3, Ill, febrile Head-NCAT, EOMI, PERRLA, Anicteric Sclera, No Posterior Pharyngeal Erythema Neck-Supple, No JVD, No Thyromegaly, No Masses, No LAD, No Bruits Lungs-No Rales, No Rhonchi, Tight Wheezing, No Crepitus Chest-No S4, +S1, +S2, No S3, No Murmurs, No Rubs, No Gallops, No Ectopy Abdomen-Soft, Bowel Sounds Present, Non Tender, Non Distended, No Hepatomegaly, No Splenomegaly, No Palpable Masses, No Rebound, No Rigidity, No Guarding Musculoskeletal-Full Range of Motion Bilaterally, No CVAT Extremities-No Cyanosis, No Clubbing, No Edema Nuero-Cranial Nerves II-XII grossly intact, Motor WNL, DTRs WNL, Strength WNL, Non Focal Psych-Normal Mood Principal Diagnosis COVID-19 pneumonia, COPD exacerbation, Acute on Chronic hypoxic respiratory failure Discharge Exam General- oriented x 3, not in distress, speaks in sentences with no effort or accessory muscle use Eyes- anicteric Neck- no JVD Lungs- mild wheeze on the right, intermittent clear on the left Heart- normal rate, regular rhythm; no murmurs Abdomen- normal bowel sounds, nondistended, soft, nontender Extremities- no pretibial edema, no calf tenderness Neuro- alert, oriented x 3; no gross focal neurologic deficits Skin- warm & dry Discharge Data Allergies Allergy/AdvReac Type Severity Reaction Status Date / Time levothyroxine Allergy Hives Verified 04/12/20 03:00 moxifloxacin [From Avelox] AdvReac Intermediate Cellulitic Unverified 04/20/20 15:16 Rash tomato AdvReac Verified 04/21/20 16:33 Consultations 04/20/20 16:14 ED Decision to Admit Stat Ordered Studies 04/21/20 12:11 CT head/brain wo con Stat Comparison: None. Findings: The paranasal sinuses and mastoid air cells are clear. The calvarium and skull base are intact. The ventricles and sulci are within normal limits. There is no mass, hematoma, midline shift, acute infarct. Mild periventricular white matter hypodensity is nonspecific but suggestive of microvascular ischemic change. Impression: No acute intracranial abnormality. Chest x-ray: FINDINGS: There may be mild lung hyperexpansion. No pneumothorax or pleural effusion is noted. Mild hazy bibasilar opacities are present. Appearance is similar to exam of April 12, 2020. Cardiomediastinal silhouette is unremarkable. Patient is mildly rotated. IMPRESSION: Mild hazy bibasilar opacities. Artifact or atelectasis is favored however an infectious process could appear similar. Hospital Course (1) Pneumonia due to COVID-19 virus: (1) Pneumonia due to COVID-19 virus: (2) COPD exacerbation: (3) Acute on chronic hypoxic space respiratory failure: Per admitting service notes: This is a 64-year-old female who has significant past medical history of oxygen dependent COPD, T2DM, HTN, depression with anxiety, hypothyroidism, ulcerative colitis, history of CHF who presents to ED secondary to worsening COVID-19 symptoms including shortness of breath for the past 3 days. Patient initially diagnosed with COVID-19 on 04/12/2020 with symptom onset of 04/11/20. Persistent symptoms worsen with increasing shortness of breath and chest tightness. Chest x-ray :IMPRESSION: Mild hazy bibasilar opacities. Artifact or atelectasis is favored however an infectious process could appear similar. ESR 39, CRP 3.48, procalcitonin less than 0.05, D-dimer WNL. Patient did well through admission She completed 5 days of Remdesivir IV Also received 6 days of Decadron IV given incentive spirometry, flutter valve, Mucinex Was able to be weaned off from 4 L of oxygen by nasal cannula, Usual 2 L of nasal cannula Patient's symptoms significantly improved Discharged on short prednisone taper, Mucinex Follow-up with PCP this week Repeat renal function and liver function test on follow-up with PCP next Repeat chest x-ray in 3 to 4 weeks (4) Diabetes mellitus, type II: A1c 6.2 Pharm Glycemic Control consulted Given insulin sliding scale follow-up and management as an outpatient (5) HTN (hypertension): Blood pressure stable continue lisinopril (6) DVT prophylaxis: Given SQ Lovenox 40mg Q12 Disposition: Discharge to home today Follow-up with PCP 04/28/2020 Plan of care discussed with patient in detail at length All questions were answered She is understanding, agreeable, comfortable plan of care Total Time Total Time Spent Total Time Spent (In Minutes): 50 minutes Discharge Plan Discharge Items Patient Disposition: Home - Self-Care Reason For Visit: COVID PNA; COPD EXACERBATION Discharge Diagnosis: COVID-19 pneumonia Acute on Chronic Hypoxic Respiratory Failure Activity: Resume your previous activity Activity Comment: Increase activity gradually as tolerated, always ambulate frequently Lifting: Wait until after follow-up appointment Exercise/Sports: Wait until after follow-up appointment Driving/Machine Use: No driving until reevaluated and allowed by primary care physician Non-emergency contact: Primary Care Provider Call non-emergency contact if: you have any medication questions, your symptoms worsen and you have a fever Follow-up/Referrals: Destinee Alvarez MD [Primary Care Provider] - (Date & Time 04/28/2020 11:00 AM Provider Destinee Alvarez MD Department General Internal Medicine [facility] PLEASE NOTE THAT THIS IS A TELEVIDEO APPOINTMENT. PLEASE FOLLOW THE INSTRUCTIONS PROVIDED IN AN EMAIL YOU WILL RECEIVE. IF YOU HAVE ANY QUESTIONS, PLEASE CALL ) Diet: Carb Consistent or DM2 and Heart Healthy Addtl Attending Provider Instructions: Please review your new medication list and follow instructions carefully Your new medications are: Prednisone taper Mucinex Always ambulate frequently to prevent blood clots. Continue to use incentive spirometry every 15 minutes and flutter valve 4 times a day. Call your primary care physician or return to the ER immediately if with worsening of symptoms, including Shortness of breath, chest pain, fevers or chills, sputum production, Leg swelling or leg pain. Follow-up with primary care physician as outlined above. Pending Studies at Discharge: Yes Studies:: Repeat blood work on follow-up with primary care physician. Repeat chest x-ray in 3 to 4 weeks. Stand-Alone Forms: My Take the Interview, Smoking Cessation Medications and DC Order Prescriptions: New guaifenesin [Mucinex] 600 mg Tablet Extended Release 12hr 600 mg PO Q12 Qty: 10 RF: 0 prednisone 10 mg tablet 10 mg PO UD Qty: 10 RF: 0 Continued Dulera 200-5 mcg/actuation Hfa Aerosol Inhaler 2 puff INHALATION Q12H RF: 0 Combivent Respimat 20-100 mcg/actuation Mist 1 puff INHALATION QID RF: 0 trazodone 50 mg Tablet 25 mg PO HS RF: 0 lorazepam 0.5 mg Tablet 0.5 mg PO BID PRN (Reason: Anxiety) RF: 0 pantoprazole [Protonix] 40 mg Tablet,Delayed Release (Dr/Ec) 40 mg PO QAM RF: 0 lisinopril 5 mg Tablet 5 mg PO QAM RF: 0 albuterol sulfate 90 mcg/actuation Hfa Aerosol Inhaler 2 puff INHALATION QID PRN (Reason: Shortness Of Breath) RF: 0 buspirone 15 mg Tablet 15 mg PO QAM RF: 0 buspirone 15 mg Tablet 7.5 mg PO HS RF: 0 citalopram 40 mg tablet 40 mg PO DAILY RF: 0 Discharge Orders: Discharge Order (Routine); Ordered 04/25/20 Ordered By: Thien Palomares/Other Patient Handouts: High Blood Sugar (Hyperglycemia), Managing Type 2 Diabetes Admission Data Admit Date/Time: 04/20/20 16:20 Attending Provider: Thien Morel Admit Provider: Kb Alberts Primary Care Provider: Destinee Alvarez Other Providers: Kb Alberts Other Interventions: Discharge Summary Assessment (RN) Last Done: 04/25/20 13:42
== END 2020-04-25 15:55 | disposition home or self-care (01) | DRG 177 ==
LOC: ED 13:35 → SUATTDRO 16:20 → 3E 16:20

== ENCOUNTER 2024-08-07 04:24 | Inpatient (IN) ==
--- OUTSIDE RECORDS SUMMARY | 2024-08-07 04:32 | External Medical Summary | Summary of Care ---
Author Name Unknown Organization [facility] Address [address] [facility] [address] Phone [phone] Care Team Providers Care Industrial Electrician Name Role Phone Vickey Merchant MD Primary Car e Provider Encounter Details Date Type Department Care Team (Late st Contact Info) Description 04/13/2024 Population Health External Data Unspecified Department Allergies Active Allergy Reactions Criticality Noted Date Comments Adhesive Tape 07/07/2003 Moxifloxacin Hydrochloride Rash 9 Moxifloxacin Hcl Itching Medium 09/19/2017 documented as of this encounter (statuses as of 04/13/2024) Medications Aspirin 81 MG Oral Tablet Delayed Release 1 Tablet every other day. 30 0 10/14/19 03 Active OXYGENIndications: COPD, severity to be determined (HCC) Continue oxygen at home 1 0 12/22/19 09 Active furosemide (LASIX) 40 MG Tablet Active Lancets (ONETOUCH DELICA PLUS [id number]) [facility] to test 4 times daily as directed Dx E11.9 300 Each 4 03/18/20 19 Active citalopram (CELEXA) 40 MG TabletIndications: Episode of recurrent major depressive disorder, unspecified depression episode severity (HCC),CRISTOFER (generalized anxiety disorder) Take 1 Tab by mouth daily. Take 40 mg in morning 90 Tab 3 12/10/19 20 Active Levothyroxine Sodium 50 MCG Oral Tablet (Synthroid)Indicat ions:Acquired hypothyroidism Take 1 Tab by mouth daily first thing in the morning. (at least 30 min prior to breakfast or other meds) 30 Tab 11 01/08/20 Active Additional Information Patient not taking.Reported on 04/28/2020 Ipratropium-Albute rol 0.5-2.5 (3) MG/3ML Inhalation Solution (DUONEB)Indication s:COPD, severity to be determined (HCC) Inhale 3 mL via nebulizer every 6 hours as needed for Shortness of Breath. 360 mL 5 01/25/20 Active Ondansetron 4 MG Oral Tablet Disintegrating (ZOFRAN) Place 1 Tab on tongue every 8 hours as needed for Nausea. dissolve on tongue. 30 Tab 04/16/19 Active Additional Information Patient not taking.Reported on 01/27/2024 Benzonatate 100 MG Oral Capsule (Tessalon Perlcarson)Indications :Cough Take 1 Cap by mouth 3 times a day as needed for Cough. Do not cut, crush, or chew. 50 Cap 1 04/26/19 Active Additional Information Patient not taking.Reported on 01/27/2024 Multivitamin Adult Oral Tablet Take by mouth. Act khris Polyethylene Glycol 3350 17 GM Oral Packet (MiraLax Mix-In Pelsor) Take 17 g by mouth daily. Active Bisacodyl 10 MG Rectal Suppository Administer 10 mg into the rectum daily. Active guaiFENesin ER 600 MG Oral Tablet Extended Release 12 Hour (Mucinex) Take 600 mg by mouth 2 times a day. Active predniSONE 10 MG Oral Tablet (Deltasone)Indicat ions:COPD exacerbation (HCC) Take 5 tabs for 2 days, 4 tabs for 2 days, 3 tabs for 2 days, 2 tabs for 2 days 1 tab for 2 days 30 Tab 05/16/19 Active Additional Information Patient not taking.Reported on 01/27/2024 busPIRone HCl 15 MG Oral Tablet (Buspar)Indication s:CRISTOFER (generalized anxiety disorder),Psychoph ysiological insomnia TAKE 1 TABLET BY MOUTH TWICE DAILY 60 Tab 5 06/09/19 Active traZODone HCl 50 MG Oral Tablet (Desyrel)Indicatio ns:Psychophysiolog ical insomnia Take 0.5 Tabs by mouth at bedtime. 30 Tab 11 06/09/19 21 Active Albuterol Sulfate HFA 108 (90 Base) MCG/ACT Inhalation Aerosol SolutionIndication s:COPD, severity to be determined (HCC) Inhale 2 Puffs by mouth 4 times a day. 18 g 3 07/08/19 21 Active Dulera 200-5 MCG/ACT Inhalation Aerosol (Mometasone Furo-Formoterol Fum)Indications:CO PD, severity to be determined (HCC) Inhale 2 Puffs by mouth 2 times a day. 39 g 1 09/29/19 21 Active LORazepam 0.5 MG Oral Tablet (Ativan)Indication s:CRISTOFER (generalized anxiety disorder) Take 1 Tab by mouth 2 times a day. Take extra 1/2 tab in afternoon only if needed. 70 Tab 10/04/19 21 Active Combivent Respimat 20-100 MCG/ACT Inhalation Aerosol Solution (Ipratropium-Albut elton)Indications:C OPD, severity to be determined (HCC) INHALE 1 PUFF BY MOUTH FOUR TIMES DAILY 4 g 5 10/13/19 21 Active Pantoprazole Sodium 40 MG Oral Tablet Delayed Release (Protonix) TAKE ONE TABLET BY MOUTH ONCE DAILY 90 Tab 2 12/21/19 21 Active OneTouch Ultra Blue In Vitro Strip (Glucose Blood) Use to test once daily as directed Dx E11.9 400 Strip 03/15/20 21 Active amLODIPine Besy-Benazepril HCl 5-10 MG Oral Capsule (Lotrel) Take 1 Capsule by mouth in the morning. Active Ezetimibe 10 MG Oral Tablet (Zetia) Take 1 Tablet by mouth in the morning. Active Thyroid 15 MG Oral Tablet ([place] Thyroid) Take 1 Tablet by mouth in the morning. Active Tylenol PM Extra Strength 500-25 MG Oral Tablet (diphenhydrAMINE-A PAP (sleep)) Take 2 Tablets by mouth at bedtime as needed for Sleep. Active Ondansetron HCl 4 MG Oral Tablet Take 1 Tablet by mouth every 8 hours as needed for Vomiting or Nausea for up to 20 days. 20 Tablet 04/11/19 25 025 Active predniSONE 50 MG Oral Tablet (Deltasone) Take 1 Tablet by mouth in the morning for 7 days. 7 Tablet 04/11/19 25 025 Active Azithromycin 250 MG Oral Tablet (Zithromax) Take 2 tabs by mouth on the first day, then take 1 tab on daily on days two through five. 6 Tablet 04/11/19 25 Active Hospital, Clinic, or Other Facility Administered Medication Ordered Dose Route Frequency Start Date End Date Status albuterol sulfate (PROVENTIL) (2.5 MG/3ML) 0.083% inhalation solution 2.5 mgIndications:COPD, severity to be determined (HCC) 2.5 mg NEBULIZER Q4H PRN 12/26/2018 Active documented as of this encounter (statuses as of 04/13/2024) Active Problems Problem Noted Date Diagnosed Date CRISTOFER (generalized anxiety disorder) 07/30/2019 Persistent insomnia 07/30/2019 Acquired hypothyroidism 02/10/2019 COPD, severity to be determined 12/18/2008 Type 2 diabetes mellitus wit h hemoglobin A1c goal of less than 7.0% 12/18/2008 Overview (08/02/2015): ICD-10 update of inactive term Major depressive disorder 12/17/2008 Overview (01/29/2017): ICD-10 update of inactive term Type 2 diabetes mellitus wit h hemoglobin A1c goal of less than 7.0% 01/14/2004 Overview (08/02/2015): ICD-10 update of inactive term Presenile dementia, uncomplicated 01/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 Mitral valve prolapse 01/14/2004 Heart failure, left-sided 01/14/2004 Menopause 01/14/2004 Overview (12/05/2004): age 42y, never hrt TOBACCO USE DISORDER(aka SMOKER) 01/14/2004 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 Ulcerative colitis documented as of this encounter (statuses as of 04/13/2024) Resolved Problems Problem Noted Date Diagnosed Date Resolved Date Tylenol intoxication 12/17/2008 009 s/p overdose of Tylenol 12/17/200812/07 documented as of this encounter (statuses as of 04/13/2024) Immunizations Name Administration Dates Next Due Pneumococcal Polysaccharide PPV23 (Pneumovax) Seasonal Influenza, PF, 6 M & above, IM , (FluLaval or Fluzone) 12/11/2018 documented as of this encounter Social History Tobacco Use Types Packs/Day Years Used Date Smoking Tobacco: Former Cigarettes 0.5 40 0 04/25/1980 - 04/25/2020 Smokeless Tobacco: Never Comments:quit in October using nicotine patch- only smokes 3-4 per day (previous 1ppd) Alcohol Use Standard Drinks/Week Comments Yes 0 (1 standard drink = 0.6 oz pur e alcohol) rarely PHQ-2 Answer Date Recorded PHQ Adult Total Score 0 06/04/2023 Hunger Vital Sign Answer Date Recorded Within the past 12 months, y ou worried that your food would run out before you got the money to buy more. Never true 06/04/19 24 Within the past 12 months, t he food you bought just didn't last and you didn't have money to get more. Never true 06/04/2023 Childcare Answer Date Recorded Do you feel overwhelmed with taking care of a child, family member or friend? No 06/04/2023 Does your family need help f inding childcare? (Household - for ages 0-17 years) Not on file 06/04/2023 Clothing Answer Date Recorded Have you been unable to get clothing when it was really needed? No 06/04/2023 Is your family able to get c lothes or diapers when needed? (Household - for ages 0-17 years) Not on file 06/04/2023 Personal Safety Answer Date Recorded Do you feel unsafe or have concerns for your saf ety? No 06/04/2023 Do you have concerns for you r family's safety? (Household - for ages 0-17 years) Not on file 06/04/2023 Utilities Answer Date Recorded Do you have trouble paying y our heating, water, or electric bill? No 06/04/2023 Is your family able to pay t he heat, water, or electric bill? (Household - for ages 0-17 years) Not on file 06/04/2023 Does your family have access to good internet? (Household - for ages 0-17 years) Not on file 06/04/2023 Employment Status Answer Date Recorded Are you unemployed or without regular income? Ye s 06/04/2023 Does the household have a re gular source of income? (Household - for ages 0-17 years) Not on file 06/04/2023 Social Connections Answer Date Recorded How often do you feel lonely or isolated from th ose around you? Never 06/04/2023 Financial Resource Strain Answer Date R ecorded Do you have any trouble payi ng for your medications, or do you think you might in the future? No 06/04/2023 Does your family have troubl e paying for medicine? (Household - for ages 0-17 years) Not on file 06/04/2023 Transportation Needs Answer Date Record ed READ ONLY Do you have troubl e getting a ride to medical visits or work? Never True 06/04/2023 Does your family have a hard time getting a ride to doctors visits? (Household - for ages 0-17 years) Not on file 06/04/2023 Has lack of transportation k ept you from medical appointments, meetings, work, or from getting things needed for daily living? Check all that apply. (Adult - for ages 18 years and over) Not on file 06/04/2023 Do you (or your family) have trouble finding or paying for a ride (transportation)? (Household - for ages 0-17 years) Not on file 06/04/2023 Housing Stability Answer Date Recorded Do you currently live in a s helter or have no steady place to sleep at night? No 06/04/2023 READ ONLY Do you think you a re at risk of becoming homeless? No 06/04/2023 Does your family worry about paying for your home or becoming homeless? (Household - for ages 0-17 years) Not on file 0 06/04/2023 Are you homeless or worried that you might be in the future? (Adult - for ages 18 years and over) Not on file Are you (or your family) jluis eless or worried that you might be in the future? (Household - for ages 0-17 years) Not on file Food Insecurity Answer Date Recorded Do you need food for this week? No 06/04/2023 Are you able to get enough f ood for your family? (Household - for ages 0-17 years) Not on file 06/04/2023 Does your family need food t his week? (Household - for ages 0-17 years) Not on file 06/04/2023 Do you always have enough fo od for your family? (Household - for ages 0-17 years) Not on file 06/04/2023 Comments No Sex and Gender Information Value Date Recorded Sex Assigned at Female 12/11/2018 2:28 PM EDT Legal Sex Female 7:01 AM EST Gender Identity Female 12/11/2018 2:28 PM EDT Sexual Orientation Straight 12/11/2018 2: 28 PM EDT documented as of this encounter Plan of Treatment Health Maintenance Due Date Last Done Comments Alpha-1 Antitrypsin 09/15/1973 Hepatitis C Screening 09/15/1973 DTap/Tdap Vaccines (1 - Tdap) 09/15/1974 Colonoscopy 09/15/2000 Fecal Occult Blood Test 09/15/2000 Sigmoidoscopy 09/15/2000 Zoster Vaccines (1 of 2) 09/15/2005 Diabetic Eye Exam 12/12/2019 12/11/2018, 01/19/2003 Albumin/Creatinine Ratio 06/10/2020 020, 08/04/2018, 04/02/2018 Diabetic Foot Exam 01/06/2021 01/07/2020, 12/11/2018 TSH 02/17/2021 02/18/2020, 08/2019, 01/30/2019, Additional history exists HbA1c 09/08/2021 03/10/2021, 08/1 04/2020, 02/18/2020, Additional history exists Mammogram 08/31/2022 08/31/2021 Colorectal Cancer Screening 03/20/2023 COVID-19 Vaccine ( season) 2023 Influenza Vaccine (FLU shot) (#1) 2023 01/22/2022, 12/11/2018, 12/11/2018 Depression Monitoring 06/04/2024 06/04/2023 GFR 04/11/2025 04/11/2024, 1206/2020, 03/10/2021, Additional history exists O2 ASSESSMENT COMPLETED IN PAST YEAR FOR COPD 04/11/2025 04/11/2024 Lipid Panel 03/10/2026 03/10/2021, 090 08/2018, 08/04/2018, Additional history exists Cologuard 03/19/2026 03/19/2023 Pneumococcal Vaccine: 50+ Years (3 of 3 - PCV20 or PCV21) 01/22/2027 01/22/2022, 12/11/2018 DXA Scan 08/31/2028 08/31/2021, 06/07/2005 Pap Smear Discontinued 12/05/2004 RETIRED - COLONOSCOPY-EVERY 5 YRS AGES 18-100 Discontinued 08/12/2012 Lung Cancer Screening Completed 08/31/2021 HPV (Gardasil) Vaccine Aged Out No lo nger eligible based on patient's age to complete this topic Hepatitis B Vaccine Aged Out No longe r eligible based on patient's age to complete this topic MENINGOCOCCAL (MENACTRA/MENVEO) Aged Out No longer eligible based on patient's age to complete this topic documented as of this encounter Medical Devices Not on filedocumented as of this encounter Additional Health Concerns Infection Onset Date Last Indicated Resolved Time Influenza (seasonal) 04/11/2024 04/11/2024 documented as of this encounter Advance Directives * Full Code (Latest Code Status on File) Date Activated Date Inactivated Comments 12/19/2008 4:15 PM 12/21/2008 3:32 PM This order r eflects the patients wishes and were consensually agreed upon. * Full Code Date Activated Date Inactivated Comments 12/17/2008 3:25 AM 12/19/2008 4:11 PM This order r eflects the patients wishes and were consensually agreed upon. Question Answer Comments Discussion of Advance Directives occurred with: Patient Does the patient have a Living Will? Yes, not cu rrently available Does the patient have Health Care Power of Onion Topper? Yes, not currently available Care Teams Industrial Electrician Relationship Specialty Start Date End Date Vickey Merchant MD [employer] [place] [address] [address] [phone] PCP - General Internal Medicine 05/24/21 documented as of this encounter
--- OUTSIDE RECORDS SUMMARY | 2024-08-07 04:32 | External Medical Summary ---
Author Name Unknown Address Unknown Organization R4LH:[facility] [address] [place] [address] Laboratory Report Ordering Provider Test Date Status EUGENIA ROSEMOHSEN 05/29/2024 15:34:00 Final Observation Date Value Abnormality Reference (Units ) Status Cholesterol 05/29/2024 17:04 247 Above high normal 140 -200 (mg/dL) Final Triglyceride 05/29/2024 17:04 137 35-200 (mg /dL) Final HDL 05/29/2024 17:04 53 30-85 (mg/dL) Final VLDL, Calculated 05/29/2024 17:04 27 <30 (m g/dL) Final LDL, Calculated 05/29/2024 17:04 167 Above high normal <140 (mg/dL) Final ATP III CLASSIFICATION = HIG H Performing Location [facility] [address] [place] [address]
--- OUTSIDE RECORDS SUMMARY | 2024-08-07 04:32 | External Medical Summary ---
Author Name Unknown Address Unknown Organization R4LH:[facility] [address] [place] [address] Laboratory Report Ordering Provider Test Date Status JASON ROSE 05/29/2024 15:34:00 Final Observation Date Value Abnormality Reference (Units ) Status Total Protein 05/29/2024 17:04 7.5 6.0-8.3 ( g/dL) Final Albumin 05/29/2024 17:04 4.1 3.2-5.5 (g/dL ) Final Bilirubin, Total 05/29/2024 17:04 0.6 0.2-1. 0 (mg/dL) Final Bilirubin, Direct 05/29/2024 17:04 0.1 0.0-0 .2 (mg/dL) Final AST 05/29/2024 17:04 17 10-42 (U/L) F inal ALT 05/29/2024 17:04 12 10-60 (U/L) F inal Alkaline Phosphatase 05/29/2024 17:04 69 42 -121 (U/L) Final Performing Location [facility] [address] [place] [address]
--- OUTSIDE RECORDS SUMMARY | 2024-08-07 04:32 | External Medical Summary ---
Author Name Unknown Address Unknown Organization K1G:[facility] - [address] [facility] [address] Laboratory Report Ordering Provider Test Date Status JASON LARA 07/30/2024 17:23:18 Final Observation Date Value Abnormality Reference (Units ) Status BUN 07/30/2024 17:23:18 13 6-20 (mg/dL) Final Creatinine 07/30/2024 17:23:18 0.9 0.5-1.0 (mg/dL) Final Glomerular filtration rate/1.73 sq M.predicted [Volume Rate/Area] in Serum, Plasma or Blood by Creatinine-based formula (CKD-EPI) 07/30/2024 17:23:18 72 >=60 (mL/min) Final eGFR is calculated based on the CKD-EPI 2020 equation. Sodium 07/30/2024 17:23:18 139 135-146 (m mol/L) Final Potassium 07/30/2024 17:23:18 3.9 3.5-5.1 (m mol/L) Final Cl 07/30/2024 17:23:18 100 98-107 (mm ol/L) Final CO2 07/30/2024 17:23:18 25 22-32 (mmo l/L) Final Anion gap 07/30/2024 17:23:18 14 7-15 (mmol /L) Final Glucose 07/30/2024 17:23:18 143 Above high normal 70 -120 (mg/dL) Final Albumin 07/30/2024 17:23:18 3.9 3.8-5.0 (g /dL) Final AST (Aspartate aminotransferase) 07/30/2024 17:23:18 19 10-35 (U/L) Fin al Alk Phos 07/30/2024 17:23:18 75 35-130 (U/ L) Final Bilirubin, Total 07/30/2024 17:23:18 0.3 <=1 .2 (mg/dL) Final Calcium 07/30/2024 17:23:18 8.8 8.4-10.2 ( mg/dL) Final Protein 07/30/2024 17:23:18 6.7 6.0-8.3 (g /dL) Final ALT (Alanine aminotransferase) 07/30/2024 17:23:18 10 10-35 (U/L) Timmy bowles Performing Location LABORATORY [address] [address]
--- OUTSIDE RECORDS SUMMARY | 2024-08-07 04:32 | External Medical Summary ---
Author Name Unknown Address Unknown Organization K1G:[facility] - [address] [facility] [id number] Laboratory Report Ordering Provider Test Date Status JASON LARA 07/30/2024 17:23:18 Final Observation Date Value Abnormality Reference (Units ) Status SYNC LEUKOCYTES IN BLOOD BY AUTOMATED COUNT 07/30/2024 17:23:18 10.77 4.00-10.80 (K/uL) Final Segs 07/30/2024 17:23:18 84.3 Above high normal 40.0-75.0 (%) Final Lymphs % 07/30/2024 17:23:18 9.7 Below low normal 18.0-42.0 (%) Final Monos 07/30/2024 17:23:18 5.1 1.0-11.0 (%) Final Eosinophils 07/30/2024 17:23:18 0.5 0.0-6.0 (%) Final Basos 07/30/2024 17:23:18 0.4 0.0-2.0 (%) Final Absolute Segs 07/30/2024 17:23:18 9.09 Above high normal 1.80-7.70 (K/uL) Final Lymphs, absolute 07/30/2024 17:23:18 1.04 1.00-4.80 (K/ul) Final Monos, Abs 07/30/2024 17:23:18 0.55 0.00-1.10 (K/uL) Final Eos, Abs 07/30/2024 17:23:18 0.05 0.00-0.70 (K/uL) Final Basos, Abs 07/30/2024 17:23:18 0.04 0.00-0.20 (K/uL) Final Performing Location [facility] - [address] [facility] [address]
--- OUTSIDE RECORDS SUMMARY | 2024-08-07 04:32 | External Medical Summary ---
Author Name Unknown Address Unknown Organization [id number]:[facility] [address] [place] [address] Laboratory Report Ordering Provider Test Date Status JASON ROSE 05/29/2024 15:34:00 Final Observation Date Value Abnormality Reference (Units ) Status T3 05/29/2024 20:54 102.00 60-181 (ng/dL ) Final Performing Location [facility] [address] [place] [address]
--- OUTSIDE RECORDS SUMMARY | 2024-08-07 04:32 | External Medical Summary ---
Author Name Unknown Address Unknown Organization R4:[facility] [address] [place] [address] Laboratory Report Ordering Provider Test Date Status JASON ROSE 05/29/2024 15:34:00 Final Observation Date Value Abnormality Reference (Units ) Status WBC 05/29/2024 15:50 6.0 4.0-10.0 (X10 E+09/L) Final RBC 05/29/2024 15:50 4.81 3.9-5.2 (X10E +12/L) Final Hemoglobin 05/29/2024 15:50 13.4 11.2-15.7 (g /dL) Final Hematocrit 05/29/2024 15:50 41.3 34.0-45.0 (% ) Final MCV 05/29/2024 15:50 85.9 79-98 (fL) Fi nal MCH 05/29/2024 15:50 27.9 26.0-32.0 (pg ) Final MCHC 05/29/2024 15:50 32.5 32-36 (g/dL) Final Platelets 05/29/2024 15:50 265 150-370 (X10E +09/L) Final RDW 05/29/2024 15:50 14.4 11.7-14.4 (%) Final Neutrophils 05/29/2024 15:50 53.2 34.0-71.1 ( %) Final Lymphocytes 05/29/2024 15:50 36.0 19.3-51.7 ( %) Final Monocytes 05/29/2024 15:50 8.7 4.7-12.5 (%) Final Eosinophils 05/29/2024 15:50 0.9 0.7-5.8 (%) Final Basophils 05/29/2024 15:50 1.2 0.1-1.2 (%) F inal Absolute Neutrophils 05/29/2024 15:50 3.20 1. 6-6.1 (X10E+09/L) Final Absolute Lymphocytes 05/29/2024 15:50 2.20 1. 2-3.7 (X10e+03/uL) Final Absolute Monocytes 05/29/2024 15:50 0.50 0.2- 0.9 (X10E+09/L) Final Absolute Eosinophils 05/29/2024 15:50 0.10 0. 00-0.40 (X10E+09/L) Final Absolute Basophils 05/29/2024 15:50 0.10 0.00 -0.10 (X10E+09/L) Final Performing Location [facility] [address] [place] [address]
--- OUTSIDE RECORDS SUMMARY | 2024-08-07 04:32 | External Medical Summary ---
Author Name Unknown Address Unknown Organization K01:[facility] [place] [address] [place] [id number] Laboratory Report Ordering Provider Test Date Status JASON LARA 07/30/2024 19:22:26 Final Observation Date Value Abnormality Reference (Units) Status Bacteria identified in Specimen by Culture 07/30/2024 19:22:26 No significant growth Final Test: Culture, Urine, Quanti tative
Specimen Source: Urine, Clean Catch
Specimen Type: Urine
Specimen Date: 07/30/20241921
Result Date: 08/01/2024812
Result Status: Final result
Resulting Lab: [facility]
[address]
[place] [id number]

CULTURE

No significant growth

null Performing Location [facility] [place] [address] [facility] [address]
--- OUTSIDE RECORDS SUMMARY | 2024-08-07 04:32 | External Medical Summary | Summary of Care ---
Author Name Unknown Organization [facility] Address [address] [place] [address] Phone [phone] Care Team Providers Care Examiner Of Currency Name Role Phone Vickey Merchant MD Primary Car e Provider Reason for Visit * Reason Onset Date Comments Advice 06/03/2024 Encounter Details Date Type Department Care Team (Late st Contact Info) Description 06/03/2024 Telephone Care Coordination and Integration [address] [place] [address] Ana Soto LPN [address] [place] [address] Advice Allergies Active Allergy Reactions Criticality Noted Date Comments Adhesive Tape 07/07/2003 Moxifloxacin Hydrochloride Rash 9 Moxifloxacin Hcl Itching Medium 09/19/2017 documented as of this encounter (statuses as of 06/03/2024) Medications OXYGENIndications:C OPD, severity to be determined (HCC) Continue oxygen at home 1 0 9 Active Lancets (ONETOUCH DELICA PLUS [id number]) MISC Use to test 4 times daily as directed Dx E11.9 300 Each 4 9 Active citalopram (CELEXA) 40 MG TabletIndications:E pisode of recurrent major depressive disorder, unspecified depression episode severity (HCC),CRISTOFER (generalized anxiety disorder) Take 1 Tab by mouth daily. Take 40 mg in morning 90 Tab 3 0 Active Ipratropium-Albuter ol 0.5-2.5 (3) MG/3ML Inhalation Solution (DUONEB)Indications :COPD, severity to be determined (HCC) Inhale 3 mL via nebulizer every 6 hours as needed for Shortness of Breath. 360 mL 5 0 Active Ondansetron 4 MG Oral Tablet Disintegrating (ZOFRAN) Place 1 Tab on tongue every 8 hours as needed for Nausea. dissolve on tongue. 30 Tab 1 Active Benzonatate 100 MG Oral Capsule (Tessalon Perles)Indications: Cough Take 1 Cap by mouth 3 times a day as needed for Cough. Do not cut, crush, or chew. 50 Cap 1 1 Active Multivitamin Adult Oral Tablet Take by mouth. Active Polyethylene Glycol 3350 17 GM Oral Packet (MiraLax Mix-In [place]) Take 1 Packet by mouth in the morning. Active predniSONE 10 MG Oral Tablet (Deltasone)Indicati ons:COPD exacerbation (HCC) Take 5 tabs for 2 days, 4 tabs for 2 days, 3 tabs for 2 days, 2 tabs for 2 days 1 tab for 2 days 30 Tab 1 Active busPIRone HCl 15 MG Oral Tablet (Buspar)Indications :CRISTOFER (generalized anxiety disorder),Psychophy siological insomnia TAKE 1 TABLET BY MOUTH TWICE DAILY 60 Tab 5 1 Active traZODone HCl 50 MG Oral Tablet (Desyrel)Indication s:Psychophysiologic al insomnia Take 0.5 Tabs by mouth at bedtime. 30 Tab 11 1 Active Albuterol Sulfate HFA 108 (90 Base) MCG/ACT Inhalation Aerosol SolutionIndications :COPD, severity to be determined (HCC) Inhale 2 Puffs by mouth 4 times a day. 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 39 g 1 1 Active LORazepam 0.5 MG Oral Tablet (Ativan)Indications :CRISTOFER (generalized anxiety disorder) Take 1 Tab by mouth 2 times a day. Take extra 1/2 tab in afternoon only if needed. 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 Active Tylenol PM Extra Strength 500-25 MG Oral Tablet (diphenhydrAMINE-AP AP (sleep)) Take 2 Tablets by mouth at bedtime as needed for Sleep. Active Ondansetron HCl 4 MG Oral Tablet Take 1 Tablet by mouth every 8 hours as needed for Vomiting or Nausea for up to 20 days. 20 Tablet 5 025 Active Levocetirizine Dihydrochloride 5 MG Oral Tablet Take 1 Tablet by mouth in the morning. 4 Active Hospital, Clinic, or Other Facility Administered Medication Ordered Dose Route Frequency Start Date End Date Status albuterol sulfate (PROVENTIL) (2.5 MG/3ML) 0.083% inhalation solution 2.5 mgIndications:COPD, severity to be determined (HCC) 2.5 mg NEBULIZER Q4H PRN 12/26/2018 Active documented as of this encounter (statuses as of 06/03/2024) Active Problems Problem Noted Date Diagnosed Date [...] as of this encounter (statuses as of 06/03/2024) Resolved Problems Problem Noted Date Diagnosed Date Resolved Date Tylenol intoxication 12/17/2008 009 s/p overdose of Tylenol 12/17/200812/07 documented as of this encounter (statuses as of 06/03/2024) Immunizations Name Administration Dates Next Due Pneumococcal Polysaccharide PPV23 (Pneumovax) Seasonal Influenza, PF, 6 M & above, IM , (FluLaval or Fluzone) 12/11/2018 documented as of this encounter Social History Tobacco Use Types Packs/Day Years Used Date Smoking Tobacco: Some Days Cigarettes 0.5 40 Started: 04/25/1980; Last attempted to quit: 04/25/2020 Smokeless Tobacco: Never Comments:quit in October using nicotine patch- only smokes 3-4 per day (previous 1ppd) Alcohol Use Standard Drinks/Week Comments Not Currently 0 (1 standard drink = 0.6 oz pur e alcohol) rarely PHQ-2 Answer Date Recorded PHQ Adult Total Score 0 06/03/2024 Hunger Vital Sign Answer Date Recorded Within the past 12 months, y ou worried that your food would run out before you got the money to buy more. Never true 06/03/19 25 Within the past 12 months, t he food you bought just didn't last and you didn't have money to get more. Never true 06/03/2024 Childcare Answer Date Recorded Do you feel overwhelmed with taking care of a child, family member or friend? No 06/03/2024 Does your family need help f inding childcare? (Household - for ages 0-17 years) Not on file 06/03/2024 Clothing Answer Date Recorded Have you been unable to get clothing when it was really needed? No 06/03/2024 Is your family able to get c lothes or diapers when needed? (Household - for ages 0-17 years) Not on file 06/03/2024 Personal Safety Answer Date Recorded Do you feel unsafe or have concerns for your saf ety? No 06/03/2024 Do you have concerns for you r family's safety? (Household - for ages 0-17 years) Not on file 06/03/2024 Utilities Answer Date Recorded Do you have trouble paying y our heating, water, or electric bill? No 06/03/2024 Is your family able to pay t he heat, water, or electric bill? (Household - for ages 0-17 years) Not on file 06/03/2024 Does your family have access to good internet? (Household - for ages 0-17 years) Not on file 06/03/2024 Employment Status Answer Date Recorded Are you unemployed or without regular income? No 06/03/2024 Does the household have a [facility] source of income? (Household - for ages 0-17 years) Not on file 06/03/2024 Social Connections Answer Date Recorded How often do you feel lonely or isolated from th ose around you? Never 06/03/2024 Financial Resource Strain Answer Date R ecorded Do you have any trouble payi ng for your medications, or do you think you might in the future? No 06/03/2024 Does your family have troubl e paying for medicine? (Household - for ages 0-17 years) Not on file 06/03/2024 Transportation Needs Answer Date Record ed READ ONLY Do you have troubl e getting a ride to medical visits or work? Never True 06/03/2024 Does your family have a hard time getting a ride to doctors visits? (Household - for ages 0-17 years) Not on file 06/03/2024 Has lack of transportation k ept you from medical appointments, meetings, work, or from getting things needed for daily living? Check all that apply. No 06/03/2024 Do you (or your family) have trouble finding or paying for a ride (transportation)? (Household - for ages 0-17 years) Not on file 06/03/2024 Housing Stability Answer Date Recorded Do you currently live in a s helter or have no steady place to sleep at night? No 06/03/2024 READ ONLY Do you think you a re at risk of becoming homeless? No 06/03/2024 Does your family worry about paying for your home or becoming homeless? (Household - for ages 0-17 years) Not on file 0 06/03/2024 Are you homeless or worried that you might be in the future? No 06/03/2024 Are you (or your family) jluis eless [...] ages 0-17 years) Not on file 06/04/2023 Food Insecurity Answer Date Recorded Within the past 12 months, y ou worried that your food would run out before you got the money to buy more. Never true 06/03/19 25 Within the past 12 months, t he food you bought just didn't last and you didn't have money to get more. Never true 06/03/2024 Do you need food for this week? No 06/03/2024 Comments No Sex and Gender Information Value Date Recorded Sex Assigned at Female 12/11/2018 2:28 PM EDT Legal Sex Female 7:01 AM EST Gender Identity Female 12/11/2018 2:28 PM EDT Sexual Orientation Straight 12/11/2018 2: 28 PM EDT documented as of this encounter Miscellaneous Notes * Telephone Encounter - Ana Soto LPN - 06/03/2024 10:25 AM EST Phone call to provider with the following requests nebulizer needs new neb mask and tubing. -- to be sent to [facility] also request for appointment with home appliance technician in [place] Spoke to Spoke to MARIELLA at the office patient has an appt on Saturday with PCP and will discuss documented in this encounter Plan of Treatment Health Maintenance Due Date Last Done Comments Alpha-1 Antitrypsin 09/15/1973 Hepatitis C Screening 09/15/1973 DTap/Tdap Vaccines (1 - Tdap) 09/15/1974 Colonoscopy 09/15/2000 Fecal Occult Blood Test 09/15/2000 Sigmoidoscopy 09/15/2000 Zoster Vaccines (1 of 2) 09/15/2005 Diabetic Eye Exam 12/12/2019 12/11/2018, 01/19/2003 Albumin/Creatinine Ratio 06/10/2020 020, 08/04/2018, 04/02/2018 DISCUSS TOBACCO CESSATION (REFER TO SMARTSET #0268) 06/10/2020 06/11/2019 Diabetic Foot Exam 01/06/2021 01/07/2020, 12/11/2018 HbA1c 09/08/2021 03/10/2021, 0804/2020, 02/18/2020, Additional history exists Mammogram 08/31/2022 08/31/2021 Colorectal Cancer Screening 03/20/2023 COVID-19 Vaccine ( season) 2023 Influenza Vaccine (FLU shot) (#1) 2023 01/22/2022, 12/11/2018, 12/11/2018 GFR 04/11/2025 04/11/2024, 06/2020, 03/10/2021, Additional history exists O2 ASSESSMENT COMPLETED IN PAST YEAR FOR COPD 04/11/2025 04/11/2024 Depression Monitoring 06/03/2025 06/03/2024 Lipid Panel 03/10/2026 03/10/2021, 08/2018, 08/04/2018, Additional history exists Cologuard 03/19/2026 [...] on patient's age to complete this topic Meningitis B Vaccine (Bexsero/Trumemba) Aged Out No longer eligible based on patient's age to complete this topic documented as of this encounter Medical Devices Not on filedocumented as of this encounter Advance Directives * [...] the patient have Health Care Power of Superintendent General? Yes, not currently available Care Teams Examiner Of Currency Relationship Specialty Start Date End Date Vickey Merchant MD [facility] [place] [address] [place] [phone] PCP - General Internal Medicine 05/24/21 documented as of this encounter
--- OUTSIDE RECORDS SUMMARY | 2024-08-07 04:32 | External Medical Summary ---
Author Name Unknown Address Unknown Organization [id number]:[facility] [address] [place] [address] Laboratory Report Ordering Provider Test Date Status JASON ROSE 05/29/2024 15:34:00 Final Observation Date Value Abnormality Reference (Units ) Status Hemoglobin A1C 05/29/2024 20:50 5.4 <5.7 (%) Final [place] [employer] n Guidelines: Decreased risk or non-diabetic: <5.7% Increased risk of diabetes: 5.7-6.4% Consistent with diabetes: >=6.5% General goal for treated diabetics: <7.0% Performing Location [facility] [address] [place] [address]
--- OUTSIDE RECORDS SUMMARY | 2024-08-07 04:32 | External Medical Summary ---
Author Name Unknown Address Unknown Organization K1G:[facility] - [address] [place] [id number] Laboratory Report Ordering Provider Test Date Status JASON LARA 07/30/2024 19:22:26 Final Observation Date Value Abnormality Reference (Units ) Status Color of Urine by Auto 07/30/2024 19:22:26 Yellow Light Yellow, Yellow, Dark Yellow Final Clarity, Urine 07/30/2024 19:22:26 Clear Clear Final Glucose [Mass/volume] in Urine by Automated test strip 07/30/2024 19:22:26 Negative Negative (mg/dL) Final Bilirubin.total [Presence] in Urine by Automated test strip 07/30/2024 19:22:26 Negative Negative Final Ketones [Mass/volume] in Urine by Automated test strip 07/30/2024 19:22:26 Negative Negative (mg/dL) Final Specific gravity, Urine 07/30/2024 19:22:26 1.012 1.003-1.030 Final Hemoglobin [Presence] in Urine by Automated test strip 07/30/2024 19:22:26 Moderate Abnormal Negative Final pH, Urine 07/30/2024 19:22:26 7.0 5.0-7.5 (Units) Final Protein [Mass/volume] in Urine by Automated test strip 07/30/2024 19:22:26 Negative Negative (mg/dL) Final Urobilinogen [Mass/volume] in Urine by Automated test strip 07/30/2024 19:22:26 0.2 0.2, 1.0 (mg/dL) Final Nitrite [Presence] in Urine by Automated test strip 07/30/2024 19:22:26 Negative Negative Final Leukocyte esterase [Presence] in Urine by Automated test strip 07/30/2024 19:22:26 Negative Negative Final RBC, Urine 07/30/2024 19:22:26 20-29 Abnormal 0-2 (/HPF) Final WBC, Urine 07/30/2024 19:22:26 3-5 Abnormal 0-2 (/HPF) Final Bacteria [#/area] in Urine sediment by Microscopy high power field 07/30/2024 19:22:26 26-50 Abnormal 0-25 (/HPF) Final CULTURE, URINE - [facility] 07/30/2024 19:22:26 Final Quantitative urine culture t o be performed Performing Location [facility] - [address] [place] [id number]
--- OUTSIDE RECORDS SUMMARY | 2024-08-07 04:32 | External Medical Summary ---
Author Name Unknown Address Unknown Organization [id number]:[facility] [address] [place] [address] Laboratory Report Ordering Provider Test Date Status JASON ROSE 05/29/2024 15:34:00 Final Observation Date Value Abnormality Reference (Units ) Status Free T4 05/29/2024 16:39 0.48 Below low normal 0.89-1 .76 (ng/dL) Final Performing Location [facility] [address] [place] [address]
--- OUTSIDE RECORDS SUMMARY | 2024-08-07 04:32 | External Medical Summary | Summary of Care ---
Author Name Unknown Organization [facility] Address [address] [facility] [address] Phone [phone] Care Team Providers Care Gluing Crew Leader Name Role Phone Vickey Merchant MD Primary Car e Provider Encounter Details Date Type Department Care Team (Late st Contact Info) Description 04/27/2024 Population Health External Data Unspecified Department Allergies Active Allergy Reactions Criticality Noted Date Comments Adhesive Tape 07/07/2003 Moxifloxacin Hydrochloride Rash 9 Moxifloxacin Hcl Itching Medium 09/19/2017 documented as of this encounter (statuses as of 04/27/2024) Medications Aspirin 81 MG Oral Tablet Delayed Release 1 Tablet every other day. 30 0 10/14/19 03 Active OXYGENIndications: COPD, severity to be determined (HCC) Continue oxygen at home 1 0 12/22/19 09 Active furosemide (LASIX) 40 MG Tablet Active Lancets (ONETOUCH DELICA PLUS [id number]) [facility] Use to test 4 times daily as [...] 3350 17 GM Oral Packet (MiraLax Mix-In [place]) Take 17 g by mouth daily. Active [...] morning. Active Thyroid 15 MG Oral Tablet (Shirley Thyroid) Take 1 Tablet by mouth in [...] days. 20 Tablet 04/11/19 25 025 Active Azithromycin 250 [...] as of this encounter (statuses as of 04/27/2024) Active Problems Problem Noted Date Diagnosed Date [...] as of this encounter (statuses as of 04/27/2024) Resolved Problems Problem Noted Date Diagnosed Date Resolved Date Tylenol intoxication 12/17/2008 009 s/p overdose of Tylenol 12/17/200812/07 documented as of this encounter (statuses as of 04/27/2024) Immunizations Name Administration Dates Next Due Pneumococcal [...] 01/30/2019, Additional history exists HbA1c 09/08/2021 03/10/2021, 08/04/2020, 02/18/2020, Additional history exists Mammogram 08/31/2022 08/31/2021 [...] the patient have Health Care Power of Bolt Machine Operator? Yes, not currently available Care Teams Gluing Crew Leader Relationship Specialty Start Date End Date Vickey Merchant MD [facility] [place] [address] [place] [phone] PCP - General Internal Medicine 05/24/21 documented as of this encounter
--- OUTSIDE RECORDS SUMMARY | 2024-08-07 04:32 | External Medical Summary ---
Author Name Unknown Address Unknown Organization R4LH:[facility] [address] [place] [address] Laboratory Report Ordering Provider Test Date Status JASON ROES 05/29/2024 15:34:00 Final Observation Date Value Abnormality Reference (Units ) Status Glucose 05/29/2024 17:04 125 Above high normal 70-99 (mg/dL) Final BUN 05/29/2024 17:04 10 7-18 (mg/dL) Final Creatinine 05/29/2024 17:04 0.81 0.60-1.30 (m g/dL) Final eGFR 05/29/2024 17:04 79 >59 (mL/min/1 .73m2) Final eGFR = 142 X [min(Scr/k,1)]* *a [max(Scr/k,1)-1.200x0.9938age X 1.012 [if female] Where Scr is serum creatinine; k is 0.7 for females and 0.9 males; a is -0.241 for females and -0.302 for males; min indicates the minimum of Scr/k or 1, max indicates the maximum of Scr/k or 1 Sodium 05/29/2024 17:04 136 136-145 (mmol /L) Final Potassium 05/29/2024 17:04 3.8 3.6-5.0 (mmol /L) Final Chloride 05/29/2024 17:04 100 Below low normal 101-11 1 (mmol/L) Final CO2 05/29/2024 17:04 28 21-31 (mmol/L ) Final Anion Gap 05/29/2024 17:04 12 6-16 (mmol/L) Final Calcium 05/29/2024 17:04 8.9 8.4-10.5 (mg/ dL) Final Performing Location [facility] [address] [place] [address]
--- OUTSIDE RECORDS SUMMARY | 2024-08-07 04:32 | External Medical Summary ---
Author Name Unknown Address Unknown Organization K1G:[facility] - [address] [place] [id number] Laboratory Report Ordering Provider Test Date Status JASON LARA 07/30/2024 17:23:18 Final Observation Date Value Abnormality Reference (Units ) Status WBC, Total 07/30/2024 17:23:18 10.77 4.00-10.8 0 (K/uL) Final RBC 07/30/2024 17:23:18 4.42 3.85-5.15 (M/uL) Final Hemoglobin 07/30/2024 17:23:18 12.4 12.0-15.3 (g/dL) Final HCT 07/30/2024 17:23:18 39.8 36.0-45.2 (%) Final MCV 07/30/2024 17:23:18 90.0 81.5-97.5 (fL) Final MCH 07/30/2024 17:23:18 28.1 27.0-34.0 (pg) Final MCHC 07/30/2024 17:23:18 31.2 32.0-36.0 (g/dL) Final RDW 07/30/2024 17:23:18 12.4 11.5-15.5 (%) Final Platelets 07/30/2024 17:23:18 242 140-400 (K /uL) Final MPV 07/30/2024 17:23:18 10.7 6.6-11.1 ( fL) Final Performing Location [facility] - [address] [facility] [place] [phone]
--- OUTSIDE RECORDS SUMMARY | 2024-08-07 04:32 | External Medical Summary | Summary of Care ---
Author Name Unknown Organization [facility] Address [address] [facility] [place] [address] Phone [phone] Care Team Providers Care Guide Tour Name Role Phone Vickey Merchant MD Primary Car e Provider Reason for Visit * Reason Comments eRx-Medication Refill Encounter Details Date Type Department Care Team ([facility] st Contact Info) Description 04/10/2024 Refill General Internal Medicine [facility] [address] [facility] [place] [address] Destinee Alvarez MD [address] [place] [address] COPD, severity to be determined (HCC) Allergies Active Allergy Reactions Criticality Noted Date [...] MG Tablet Active Lancets (ONETOUCH DELICA PLUS [id number]) MISC Use to test 4 times daily as directed Dx E11.9 300 Each 4 03/18/20 19 Active citalopram (CELEXA) 40 MG TabletIndications: Episode of recurrent major depressive disorder, unspecified depression episode severity (HCC),CRISTOFER (generalized anxiety disorder) Take 1 Tab by mouth daily. Take 40 mg in morning 90 Tab 3 12/10/19 Active Levothyroxine Sodium 50 MCG Oral Tablet (Synthroid)Indicat ions:Acquired hypothyroidism Take 1 Tab by mouth daily first thing in the morning. (at least 30 min prior to breakfast or other meds) 30 Tab 11 01/08/20 Active Additional Information Patient not taking.Reported on 04/28/2020 Ipratropium-Albute rol 0.5-2.5 (3) MG/3ML Inhalation Solution (DUONEB)Indication s:COPD, severity to be determined ([facility]) Inhale 3 mL via nebulizer every 6 hours as needed for Shortness of Breath. 360 mL 5 01/25/20 Active Ondansetron 4 MG Oral Tablet Disintegrating (ZOFRAN) Place 1 Tab on tongue every 8 hours as needed for Nausea. dissolve on tongue. 30 Tab 04/16/19 Active Additional Information Patient not taking.Reported on 01/27/2024 Benzonatate 100 MG Oral Capsule (Tessalon Perles)Indications :Cough Take 1 Cap by mouth 3 times a day as needed for Cough. Do not cut, crush, or chew. 50 Cap 1 04/26/19 Active Additional Information Patient not taking.Reported on 01/27/2024 Multivitamin Adult Oral Tablet Take by mouth. Act khris Polyethylene Glycol 3350 17 GM Oral Packet (MiraLax Mix-In [place]) Take 17 g by mouth daily. Active [...] MOUTH TWICE DAILY 60 Tab 5 06/09/19 21 Active traZODone HCl 50 MG Oral Tablet [...] morning. Active Thyroid 15 MG Oral Tablet ([place] Thyroid) Take 1 Tablet by mouth in the morning. Active Tylenol PM Extra Strength 500-25 MG Oral Tablet (diphenhydrAMINE-A PAP (sleep)) Take 2 Tablets by mouth at bedtime as needed for Sleep. Active Hospital, Clinic, or Other Facility Administered [...] Types Packs/Day Years Used Date Smoking Tobacco: Every Day Cigarettes 0.5 40 Started: 04/25/1980; Last attempted [...] on file Are you (or your family) jlusi eless or worried that you might be [...] encounter Miscellaneous Notes * Telephone Encounter - Ashli Salas RPh - 04/13/2024 9:50 AM ESTRefused Prescriptions: Disp Refills Ipratropium-Albuterol 0.5-2.5 (3) MG/3ML I*360 mL 4 Sig: INHALEONE VIAL VIA NEBULIZER FOUR TIMES DAILYRefused By: ASHLI SALAS for Refusal: Managed by another physician documented in this encounter Plan of Treatment Health Maintenance Due Date Last Done Comments Alpha-1 Antitrypsin 09/15/1973 Hepatitis C Screening 09/15/1973 DTap/Tdap Vaccines (1 - Tdap) 09/15/1974 Colonoscopy 09/15/2000 Fecal Occult Blood Test 09/15/2000 Sigmoidoscopy 09/15/2000 Zoster Vaccines (1 of 2) 09/15/2005 Diabetic Eye Exam 12/12/2019 12/11/2018, 01/19/2003 Albumin/Creatinine Ratio 06/10/2020 020, 08/04/2018, 04/02/2018 Diabetic Foot Exam 01/06/2021 01/07/2020, 12/11/2018 TSH 02/17/2021 02/18/2020, 03/0 08/2019, 01/30/2019, Additional history exists HbA1c 09/08/2021 03/10/2021, 08/1 04/2020, 02/18/2020, Additional history exists Mammogram 08/31/2022 08/31/2021 Colorectal Cancer Screening 03/20/2023 COVID-19 Vaccine ( season) 2023 Influenza Vaccine (FLU shot) (#1) 2023 01/22/2022, 12/11/2018, 12/11/2018 Depression Monitoring 06/04/2024 06/04/2023 GFR 04/11/2025 04/11/2024, 06/2020, 03/10/2021, Additional history exists O2 ASSESSMENT COMPLETED IN PAST YEAR FOR COPD 04/11/2025 04/11/2024 Lipid Panel 03/10/2026 03/10/2021, 08/2018, 08/04/2018, Additional [...] Not on filedocumented as of this encounter Visit Diagnoses Diagnosis COPD, severity to be determined (HCC) Chronic airway obstruction, not elsewhere classified documented in this encounter Additional Health Concerns Infection Onset Date Last Indicated Resolved Time Respiratory Rule-Out 04/11/2024 04/11/2024 025 5:03 AM EST COVID-19 Rule-Out 04/11/2024 04/11/2024 04/11/2024 5:03 AM EST Influenza (seasonal) 04/11/2024 04/11/2024 documented as of [...] the patient have Health Care Power of Crm Campaign Manager? Yes, not currently available Care Teams Guide Tour Relationship Specialty Start Date End Date Vickey Merchant MD [facility] [place] [address] [place] [phone] PCP - General Internal Medicine 05/24/21 documented as of this encounter
--- OUTSIDE RECORDS SUMMARY | 2024-08-07 04:32 | External Medical Summary ---
Author Name Unknown Address Unknown Organization [id number] [address] [place] [id number] Laboratory Report Ordering Provider Test Date Status JASON ROSE 05/29/2024 15:34:00 Final Observation Date Value Abnormality Reference (Units ) Status TSH 05/29/2024 17:50 56.85 Above upper panic limit s 0.45-5.33 (uIU/mL) Final CRITICAL VALUE CALLED / READ BACK BY: DR. JONES at [facility] 05/29/24 17:50 NL Performing Location [facility] [address] [place] [id number]
--- OUTSIDE RECORDS SUMMARY | 2024-08-07 04:32 | External Medical Summary | Summary of Care ---
Author Name Unknown Organization [facility] [address] [place] [address] Phone [phone] Care Team Providers Care Research Rn Spec Name Role Phone Vickey Merchant MD Primary Car e Provider Reason for Referral * Evaluate & Treat - Unlimited Visits (Within 3 days (urgent)) - Authorized Specialty Diagnoses / Procedures Referred By Nia mercado Referred To Contact Urology Diagnoses Ureterolithiasis Piotr Galvan PA-C [address] [place] [address] Phone: tel: fax: Referral ID Status Reason Start Date Expiration Date Visits Requested Visits Authorized [id number] Authorized Specialty Services Required 07/30/2024 [id number] Question Answer Referral Priority Within 3 days (urgent) Where should this appointment be scheduled? [facility] What is the patient being referred for? Kidney Stone/Calculi Has Imaging been done? Yes Comments Discharge Order Reason for Visit * Reason Comments Flank Pain * Auth/Cert Specialty Diagnoses / Procedures Referred By Nia mercado Referred To Contact [address] [address] Phone: tel:[phone] [facility] Emergency Department (SH) [address] [place] [address] Phone: tel: fax: Referral ID Status Reason Start Date Expiration Date Visits Re quested Visits Authorized [id number] Encounter Details Date Type Department Care Team (Latest Contact Info) Description 07/30/2024 5:01 PM EDT - 07/30/2024 8:41 PM EDT Emergency [facility] Emergency Department ([facility]) [address] [facility] [place] [address] Blade Garcia DO [address] [place] [address] Ureterolithiasis (Primary Dx) Discharge Disposition: Home - Self Care Allergies Active Allergy Reactions Criticality Noted Date Comments Adhesive Tape 07/07/2003 Moxifloxacin Hydrochloride Rash 9 Moxifloxacin Hcl Itching Medium 09/19/2017 documented as of this encounter (statuses as of 07/31/2024) Medications OXYGENIndications:C OPD, severity to be determined (HCC) Continue oxygen at home 1 0 9 Active Lancets (ONETOUCH DELICA PLUS [id number]) [facility] Use to test 4 times daily as [...] 1 Active Benzonatate 100 MG Oral Capsule (Tesshikha Gonzalez)Indications: Cough Take 1 Cap by mouth 3 times a day as needed for Cough. Do not cut, crush, or chew. 50 Cap 1 1 Active Multivitamin Adult Oral Tablet Take by mouth. 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 39 g 1 1 Active LORazepam 0.5 MG Oral Tablet (Ativan)Indications :CRISTOFER (generalized anxiety disorder) Take 1 Tab by mouth 2 times a day. Take extra 1/2 tab in afternoon only if needed. 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 Active Levocetirizine Dihydrochloride 5 MG Oral Tablet Take 1 Tablet by mouth in the morning. 4 Active Tamsulosin HCl 0.4 MG Oral Capsule (Flomax) Take 1 Capsule by mouth in the morning. 30 Capsule 5 Active Hospital, Clinic, or Other Facility Administered Medication Ordered Dose Route Frequency Start Date End Date Status albuterol sulfate (PROVENTIL) (2.5 MG/3ML) 0.083% inhalation solution 2.5 mgIndications:COPD, severity to be determined (HCC) 2.5 mg NEBULIZER Q4H PRN 12/26/2018 Active documented as of this encounter (statuses as of 07/31/2024) Active Problems Problem Noted Date Diagnosed Date [...] as of this encounter (statuses as of 07/31/2024) Resolved Problems Problem Noted Date Diagnosed Date Resolved Date Tylenol intoxication 12/17/200812/19/ 009 s/p overdose of Tylenol 12/17/200812/07 documented as of this encounter (statuses as of 07/31/2024) Immunizations Name Administration Dates Next Due Pneumococcal [...] money to buy more. Never true 06/03/19 Within the past 12 months, t he [...] No 06/03/2024 Does the household have a re gular [...] 06/03/2024 Transportation Needs Answer Date Record ed Do you have trouble getting a ride to medical visits or work? (Adult - for ages 18 years and over) Not on file 06/03/2024 Does your family have a hard [...] place to sleep at night? No 06/03/2024 Do you think you are at risk of becoming homeless? (Adult - for ages 18 years and over) Not on file 06/03/2024 Does your family worry about paying [...] PM EDT documented as of this encounter Last Filed Vital Signs Vital Sign Reading Time Taken Comments Blood Pressure 136/72 07/30/2024 6:00 PM EDT Pulse 76 07/30/2024 6:00 PM EDT Temperature 36.6 °C (97.9 °F) 07/30/2024 5:00 PM ED T Respiratory Rate 16 07/30/2024 6:00 PM EDT Oxygen Saturation 99% 07/30/2024 6:00 PM EDT Inhaled Oxygen Concentration - - Weight - - Height - - Body Mass Index - - documented in this encounter Discharge Instructions * Discharge Instructions* Piotr Galvan PA-C - 07/30/2024 7:12 PM EDT Take the prescribed medication Flomax once a day to help pass the kidney stone. Discontinue taking after stone has passed. Use the urine strainer provided to help indicate whether stone has passed ornot. Continue alternating up to 1000 mg Tylenol/400 mg ibuprofen every 3-4 hours as needed for pain control. Drink plenty of clear fluids and stay hydrated. I advise you to also use heat/ice as needed. Follow up with Urology referral for further workup/treatment for kidney stone. documented in this encounter ED Notes * Vance Johnson RN - 07/30/2024 5:05 PM EDT Patient has known kidney stones from a CT a month ago, she thinks one is trying to pass or can't pass, has severe R flank pain and nausea. 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 documented in this encounter Miscellaneous Notes * Pt Handout (on AVS) - Piotr Galvan PA-C - 07/30/2024 7:11 PM EDT Images from the original note were not included. Kidney Stones - Video Kidney stones are a common problem, affecting about 12% of men and 5% of women. Stones are typically caused by an imbalance in the urinary system: too little water, too much oxalate, or too much calcium. In this video, you'll find out how the stones develop and what you can do to prevent them. To view the video go to this web address: [email or web address] Or, scan this QR code with your smart phone Last Reviewed Date: 2019 00:00:00 © [employer]. All rights reserved. This information is not intended as a substitute for professional medical care. Always follow your healthcare professional's instructions. * ED Accounts Manager Note - Latosha Motley LPN - 07/30/2024 5:27 PM EDT Patient unable to provide urine sample at this time. documented in this encounter Plan of Treatment Upcoming Encounters Date Type Department Care Team (Late st Contact Info) Description 08/04/2024 1:30 PM EDT [facility] [place] [address] [place] [address] Bernie Villa PA-C [address] [place] [address] Pending Results Name Type Priority Associated Diagnoses Date /Time CULTURE, URINE, QUANTITATIVE Lab STAT 07/30/2024 7:22 PM EDT Scheduled Orders Name Type Priority Associated Diagnoses Orde r Schedule CULTURE, URINE, QUANTITATIVE Lab STAT One Time for 1 Occurrences starting 07/30/2024 until 07/30/2024 Scheduled Referrals Name Type Priority Associated Diagnoses Orde r Schedule ADULT/PEDS UROLOGY REFERRAL OP Referral Within 3 days (urgent) Ureterolithiasis Ordered: 07/30/2024 Health Maintenance Due Date Last Done Comments Alpha-1 Antitrypsin 09/15/1973 Hepatitis C Screening 09/15/1973 DTap/Tdap Vaccines (1 - Tdap) 09/15/1974 Colonoscopy 09/15/2000 Fecal Occult Blood Test 09/15/2000 Sigmoidoscopy 09/15/2000 Zoster Vaccines (1 of 2) 09/15/2005 Diabetic Eye Exam 12/12/2019 12/11/2018, 01/19/2003 Albumin/Creatinine Ratio 06/10/2020 020, 08/04/2018, 04/02/2018 DISCUSS TOBACCO CESSATION (REFER TO SMARTSET #3291) 06/10/2020 06/11/2019 Diabetic Foot Exam 01/06/2021 01/07/2020, 12/11/2018 HbA1c 09/08/2021 03/10/2021, 0804/2020, 02/18/2020, Additional history exists Lung Cancer Screening 08/31/2022 08/31/2021 Mammogram 08/31/2022 08/31/2021 Colorectal Cancer Screening 03/20/2023 COVID-19 Vaccine ( season) 2023 Influenza Vaccine (FLU shot) (Season Ended) 2024 01/22/2022, 12/11/2018, 12/11/2018 Depression Monitoring 06/03/2025 06/03/2024 GFR 07/30/2025 07/30/2024, 07/2024, 03/10/2021, Additional history exists O2 ASSESSMENT COMPLETED IN PAST YEAR FOR COPD 07/30/2025 07/30/2024 Lipid Panel 03/10/2026 03/10/2021, 09/0 08/2018, 08/04/2018, Additional history exists Cologuard 03/19/2026 03/19/2023 Pneumococcal Vaccine: 50+ Years (3 of 3 - PCV20 or PCV21) 01/22/2027 01/22/2022, 12/11/2018 DXA Scan 08/31/2028 08/31/2021, 06/07/2005 Pap Smear Discontinued 12/05/2004 RETIRED - COLONOSCOPY-EVERY 5 YRS AGES 18-100 Discontinued 08/12/2012 HPV (Gardasil) Vaccine Aged Out No lo [...] Not on filedocumented as of this encounter Procedures Procedure Name Priority Date/Time Associated Diagnosis Comments URINALYSIS, REFLEX TO CULTURE STAT 07/30/2024 7:22 PM EDT URINALYSIS, REFLEX TO CULTURE (CUP ONLY) STAT 07/30/2024 7:22 PM EDT URINALYSIS, REFLEX TO CULTURE (NOT FOR NEUTROPENIC PATIENTS) STAT 07/30/2024 7:[address] ABD/PELVIS WO IV/ORAL CONTRAST STAT 07/30/2024 5:57 PM EDT EXTRA GREEN TOP WITH GEL Routine 07/30/2024 5:23 PM EDT EXTRA TUBES Routine 07/30/2024 5:23 PM EDT DIFFERENTIAL, AUTOMATED STAT 07/30/2024 5:23 PM EDT COMPREHENSIVE METABOLIC PANEL STAT 07/30/2024 5:23 PM EDT CBC STAT 07/30/2024 5:23 PM EDT CBC STAT 07/30/2024 5:23 PM EDT documented in this encounter Results * (ABNORMAL) URINALYSIS, REFLEX TO CULTURE (07/30/2024 7:22 PM EDT) Color, Urine Yellow Light Yellow, Yellow, Dark Yellow 07/30/2024 7:46 PM EDT LAB[facility]ATORY [facility] Clarity, Urine Clear Clear 07/30/2024 7:46 PM EDT [facility] Glucose, Urine Negative Negative mg/dL 07/30/2024 7:46 PM EDT [facility] Bilirubin, Urine Negative Negative 07/30/2024 7:46 PM EDT [facility] Ketone, Urine Negative Negative mg/dL 07/30/2024 7:46 PM EDT [facility] Specific [place], Urine 1.012 1.003 - 1.030 07/30/2024 7:46 PM EDT [facility] Blood, Urine Moderate(A) Negative 07/30/2024 7:46 PM EDT [facility] pH, Urine 7.0 5.0 - 7.5 Units 07/30/2024 7:46 PM EDT [facility] Protein, Urine Negative Negative mg/dL 07/30/2024 7:46 PM EDT [facility] Urobilinogen, Urine 0.2 0.2, 1.0 mg/dL 07/30/2024 7:46 PM EDT LABORATORY [facility] Nitrite, Urine Negative Negative 07/30/2024 7:46 PM EDT LAB[facility]ATORY [facility] Esterase, Urine Negative Negative 07/30/2024 7:46 PM EDT [facility] RBC, Urine 20-29(A) 0 - 2 /HPF 07/30/2024 7:46 PM EDT [facility] WBC, Urine 3-5(A) 0 - 2 /HPF 07/30/2024 7:46 PM EDT [facility] Bacteria, Urine 26-50(A) 0 - 25 /HPF 07/30/2024 7:46 PM EDT [facility] Culture, Urine 07/30/2024 7:46 PM EDT [facility] Comment:Quantitative urine c ulture to be performed Urine Urine specimen obtained by clean catch procedure / Unknown Non-blood Collection / Unknown 07/30/2024 7:22 PM EDT 07/30/2024 7:33 PM EDT Piotr Galvan PA-C LAB URINE ORDERABLES Fi nal Result Performing Organization Address [facility]/ZIP Co de Phone Number LABORATORY [address] [address] * URINALYSIS, REFLEX TO CULTURE (CUP ONLY) (07/30/2024 7:22 PM EDT) Urinalysis, Reflex to Culture Specimen Specimen collected and received 07/30/2024 7:34 PM EDT [facility] Urine Urine specimen obtained by clean catch procedure / Unknown Non-blood Collection / Unknown 07/30/2024 7:22 PM EDT 07/30/2024 7:33 PM EDT Piotr Galvan PA-C LAB URINE ORDERABLES Fi nal Result Performing Organization Address [facility] Co de Phone Number LABORATORY [address] [address] * CT ABD/PELVIS WO IV/ORAL CONTRAST (07/30/2024 5:57 PM EDT) Anatomical Region Laterality Modality Body, Abdomen, Pelvis Computed T omography 07/30/2024 5:51 PM EDT Impressions 07/30/2024 6:29 PM EDT IMPRESSION: 1. Punctate left intrarenal calculus and 5 mm nonobstructing right intrarenal calculus. Zcrr-xz-[id number] right perinephric stranding and hydronephrosis secondary to a 6 x 4 x 6.5 mm calculus located in the right ureter at the level of L4. 2. Remainder of findings as described. THIS DOCUMENT HAS BEEN ELECTRONICALLY SIGNED BY MINAL WINSLOW MD Narrative 07/30/2024 6:29 PM EDT PROCEDURE INFORMATION: Exam: CT Abdomen And Pelvis Without Contrast Exam date and time: 07/30/2024 5:51 PM Age: 68 years old Clinical indication: Abdominal pain; Flank; Right; Additional info: H/o kid stone. Right low back/flank pain x1 day TECHNIQUE: Imaging protocol: Computed tomography of the abdomen and pelvis without contrast. Radiation optimization: All CT scans at this facility use at least one of these dose optimization techniques: automated exposure control; mA and/or kV adjustment per patient size (includes targeted exams where dose is matched to clinical indication); or iterative reconstruction. COMPARISON: CT ABD/PELVIS W IV CON 08/27/2018 9:28 AM FINDINGS: Lungs: Minimal dependent changes are present in the lung bases. Liver: See "Stomach and bowel" finding. Gallbladder and biliary ducts: Normal. No calcified stones. No ductal dilation. Pancreas: Normal. No ductal dilation. Spleen: Normal. No splenomegaly. Adrenal glands: Normal. No mass. Kidneys and ureters: Punctate left intrarenal calculus and 5 mm nonobstructing right intrarenal calculus. Cecz-qq-ladcakqb right perinephric stranding and hydronephrosis secondary to a 6 x 4 x 6.5 mm calculus located in the right ureter at the level of L4. Stomach and bowel: Interposition of the colon in front of the liver. Diverticulosis is present with no CT evidence of diverticulitis. Appendix: No evidence of appendicitis. Intraperitoneal space: Unremarkable. No free air. No significant fluid collection. Vasculature: Arterial calcifications are present. Lymph nodes: Unremarkable. No enlarged lymph nodes. Urinary bladder: Unremarkable as visualized. Reproductive: Unremarkable as visualized. Bones/joints: Chronic appearing mild compression deformity L5. Soft tissues: Unremarkable. Procedure Note Minal Winslow MD - 07/30/2024 PROCEDURE INFORMATION: Exam: CT Abdomen And Pelvis Without Contrast Exam date and time: 07/30/2024 5:51 PM Age: 68 years old Clinical indication: Abdominal pain; Flank; Right; Additional info: H/okid stone. Right low back/flank pain x1 day TECHNIQUE: Imaging protocol: Computed tomography of the abdomen and pelvis without contrast. Radiation optimization: All CT scans at this facility use at least one ofthese dose optimization techniques: automated exposure control; mA and/or kV adjustment per patient size (includes targeted exams where dose is matchedto clinical indication); or iterative reconstruction. COMPARISON: CT ABD/PELVIS W IV CON 08/27/2018 9:28 AM FINDINGS: Lungs: Minimal dependent changes are present in the lung bases. Liver: See "Stomach and bowel" finding. Gallbladder and biliary ducts: Normal. No calcified stones. No ductaldilation. Pancreas: Normal. No ductal dilation. Spleen: Normal. No splenomegaly. Adrenal glands: Normal. No mass. Kidneys and ureters: Punctate left intrarenal calculus and 5 mmnonobstructing right intrarenal calculus. Jbap-[id number]-brdqlytk right perinephric strandingand hydronephrosis secondary to a 6 x 4 x 6.5 mm calculus located in the right ureter at the level of L4. Stomach and bowel: Interposition of the colon in front of the liver. Diverticulosis is present with no CT evidence of diverticulitis. Appendix: No evidence of appendicitis. Intraperitoneal space: Unremarkable. No free air. No significant fluid collection. Vasculature: Arterial calcifications are present. Lymph nodes: Unremarkable. No enlarged lymph nodes. Urinary bladder: Unremarkable as visualized. Reproductive: Unremarkable as visualized. Bones/joints: Chronic appearing mild compression deformity L5. Soft tissues: Unremarkable. IMPRESSION IMPRESSION: 1. Punctate left intrarenal calculus and 5 mm nonobstructing rightintrarenal calculus. Zrhr-uq-wzylpfny right perinephric stranding and hydronephrosis secondary to a 6 x 4 x 6.5 mm calculus located in the right ureter at thelevel of L4. 2. Remainder of findings as described. THIS DOCUMENT HAS BEEN ELECTRONICALLY SIGNED BY MINAL WINSLOW MD Piotr Galvan PA-C RAD CT Final R esult * EXTRA GREEN TOP WITH GEL (07/30/2024 5:23 PM EDT) Blood Venous blood specimen / Unknown 07/30/2024 5:23 PM EDT 07/30/2024 5:30 PM EDT Blade Garcia DO LAB BLOOD ORDERABLES Final Result [place] [address] [place] [address] * (ABNORMAL) DIFFERENTIAL, AUTOMATED (07/30/2024 5:23 PM EDT) [facility] WBC 10.77 4.00 - 10.80 K/uL 07/30/2024 5:33 PM EDT [facility] Neutrophils % 84.3(H) 40.0 - 75.0 % 07/30/2024 5:33 PM EDT [facility] Lymphocytes % 9.7(L) 18.0 - 42.0 % 07/30/2024 5:33 PM EDT [facility] Monocytes % 5.1 1.0 - 11.0 % 07/30/2024 5:33 PM EDT [facility] Eosinophils % 0.5 0.0 - 6.0 % 07/30/2024 5:33 PM EDT [facility] Basophils % 0.4 0.0 - 2.0 % 07/30/2024 5:33 PM EDT [facility] Absolute Neutrophils 9.09(H) 1.80 - 7.70 K/uL 07/30/2024 5:33 PM EDT [facility] Absolute Lymphocytes 1.04 1.00 - 4.80 K/ul 07/30/2024 5:33 PM EDT [facility] Absolute Monocytes 0.55 0.00 - 1.10 K/uL 07/30/2024 5:33 PM EDT [facility] Absolute Eosinophils 0.05 0.00 - 0.70 K/uL 07/30/2024 5:33 PM EDT [facility] Absolute Basophils 0.04 0.00 - 0.20 K/uL 07/30/2024 5:33 PM EDT [facility] Blood Venous blood specimen / Unknown Venipuncture / Unknown 07/30/2024 5:23 PM EDT 07/30/2024 5:29 PM EDT us Piotr Galvan PA-C LAB BLOOD ORDERABLES Fi nal Result [facility] [address] [place] [address] * CBC (07/30/2024 5:23 PM EDT) [facility] WBC 10.77 4.00 - 10.80 K/uL 07/30/2024 5:33 PM EDT [facility] RBC 4.42 3.85 - 5.15 M/uL 07/30/2024 5:33 PM EDT [facility] HGB 12.4 12.0 - 15.3 g/dL 07/30/2024 5:33 PM EDT [facility] HCT 39.8 36.0 - 45.2 % 07/30/2024 5:33 PM EDT [facility] MCV 90.0 81.5 - 97.5 fL 07/30/2024 5:33 PM EDT [facility] MCH 28.1 27.0 - 34.0 pg 07/30/2024 5:33 PM EDT [facility] MCHC 31.2 32.0 - 36.0 g/dL 07/30/2024 5:33 PM EDT [facility] RDW 12.4 11.5 - 15.5 % 07/30/2024 5:33 PM EDT [facility] PLT 242 140 - 400 K/uL 07/30/2024 5:33 PM EDT [facility] MPV 10.7 6.6 - 11.1 fL 07/30/2024 5:33 PM EDT [facility] Blood Venous blood specimen / Unknown Venipuncture / Unknown 07/30/2024 5:23 PM EDT 07/30/2024 5:29 PM EDT Piotr Galvan PA-C LAB BLOOD ORDERABLES Fi nal Result LABORATORY [address] [address] * (ABNORMAL) COMPREHENSIVE METABOLIC PANEL (07/30/2024 5:23 PM EDT) [facility] BUN 13 6 - 20 mg/dL 07/30/2024 5:50 PM EDT [facility] CREATININE 0.9 0.5 - 1.0 mg/dL 07/30/2024 5:50 PM EDT [facility] EGFR 72 >=60 mL/min 07/30/2024 5:50 PM EDT [facility] Comment:eGFR is calculated b ased on the CKD-EPI 2020 equation. SODIUM 139 135 - 146 mmol/L 07/30/2024 5:50 PM EDT LAB[facility]ATORY [facility] POTASSIUM 3.9 3.5 - 5.1 mmol/L 07/30/2024 5:50 PM EDT LAB[facility] CHLORIDE 100 98 - 107 mmol/L 07/30/2024 5:50 PM EDT LAB[facility]ORY [facility] CO2 25 22 - 32 mmol/L 07/30/2024 5:50 PM EDT [facility] ANION GAP 14 7 - 15 mmol/L 07/30/2024 5:50 PM EDT LAB[facility] GLUCOSE 143(H) 70 - 120 mg/dL 07/30/2024 5:50 PM EDT LAB[facility] Albumin 3.9 3.8 - 5.0 g/dL 07/30/2024 5:50 PM EDT LAB[facility]ATORY [facility] AST 19 10 - 35 U/L 07/30/2024 5:50 PM EDT [facility] Alkaline Phosphatase 75 35 - 130 U/L 07/30/2024 5:50 PM EDT [facility] Bilirubin, Total 0.3 <=1.2 mg/dL 07/30/2024 5:50 PM EDT LAB[facility]ORY [facility] CALCIUM 8.8 8.4 - 10.2 mg/dL 07/30/2024 5:50 PM EDT [facility] Protein 6.7 6.0 - 8.3 g/dL 07/30/2024 5:50 PM EDT [facility] ALT 10 10 - 35 U/L 07/30/2024 5:50 PM EDT [facility] Blood Venous blood specimen / Unknown Venipuncture / Unknown 07/30/2024 5:23 PM EDT 07/30/2024 5:29 PM EDT Piotr Galvan PA-C LAB BLOOD ORDERABLES Fi nal Result LABORATORY [place] [id number] [place] [address] documented in this encounter Visit Diagnoses Diagnosis Ureterolithiasis- Primary Calculus of ureter documented in this encounter Administered Medications Inactive Administered Medications - up to 3 most recent administrations Medication Order MAR Action Action Date Dose Rate Site keTORolac (Toradol) 15 MG/ML inj 15 mg 15 mg, IV Push, ONCE, On Gisela 07/30/24 at 1830, For 1 dose Given 07/30/2024 6:02 PM EDT 15 mg Metoclopramide (Reglan) inj 10 mg 10 mg, IV Push, Q6H, First dose on Gisela 07/30/24 at 1900, Until Discontinued Given 07/30/2024 6:33 PM EDT 10 mg Morphine Sulfate (PF) inj 4 mg 4 mg, Intravenous, ONCE, On Gisela 07/30/24 at 1900, For 1 dose Given 07/30/2024 6:33 PM EDT 4 mg NSS 0.9% 1,000 mL bolus infusion Peripheral IV, at 1,000 mL/hr Administer over 60 Minutes, Administer entire volume within 60 minutes or less., ONCE, 1 dose, On Gisela 07/30/24 at 1830 New Bag 07/30/2024 6:01 PM EDT 1,000 mL 1000 mL/hr oxygen GAS Inhalation, OXYGEN, First dose on [place] 07/30/24 at 1945, Until Discontinued, Device/Managed by: Low Flow Device, Goal SPO2 (%): 91-95, Starting Device: Nasal Cannula, Initial Flow Rate (LPM): 2, Lowest Support: Nasal Cannula: Flow 0-6 LPM. Titrate up/down by 1 LPM., Titration Interval: Q2 minutes and as needed., Notify Provider: For sudden DECREASE in resting SPO2 to less than 85% and when escalating delivery device., Wean patient off Oxygen when the oxygen saturation is greater than or equal to 93% tamsulosin (Flomax) cap 0.4 mg 0.4 mg, Oral, ONCE, On Gisela 07/30/24 at 2100, For 1 dose, Administer 30 min after meal. This med should NOT be Crushed or Chewed or opened! ORAL administration only!! Given 07/30/2024 8:21 PM EDT 0.4 mg documented in this encounter Active and Recently Administered Medications Times are shown in EDT. Scheduled Medication Order 07/28/2024 07/29/2024 07/30/2024 keTORolac (Toradol) 15 MG/ML inj 15 mg (COMPLETED) 15 mg, IV Push, ONCE, On Gisela 07/30/24 at 1830, For 1 dose 1801 (Given - Provid er: Vance Johnson RN) Metoclopramide (Reglan) inj 10 mg 10 mg, IV Push, Q6H, First dose on Gisela 07/30/24 at 1900, Until Discontinued 1832 (Given - Provid er: Vance Johnson RN) Morphine Sulfate (PF) inj 4 mg (COMPLETED) 4 mg, Intravenous, ONCE, On Gisela 07/30/24 at 1900, For 1 dose 1832 (Given - Provid er: Vance Johnson RN) NSS 0.9% 1,000 mL bolus infusion (COMPLETED) Peripheral IV, at 1,000 mL/hr Administer over 60 Minutes, Administer entire volume within 60 minutes or less., ONCE, 1 dose, On Gisela 07/30/24 at 1830 1800 (New Bag - Prov ider: Vance Johnson RN)2032 (Stopped - Provider: Marcelina Schmitt RN) oxygen GAS Inhalation, OXYGEN, First dose on Gisela 07/30/24 at 1945, Until Discontinued, Device/Managed by: Low Flow Device, Goal SPO2 (%): 91-95, Starting Device: Nasal Cannula, Initial Flow Rate (LPM): 2, Lowest Support: Nasal Cannula: Flow 0-6 LPM. Titrate up/down by 1 LPM., Titration Interval: Q2 minutes and as needed., Notify Provider: For sudden DECREASE in resting SPO2 to less than 85% and when escalating delivery device., Wean patient off Oxygen when the oxygen saturation is greater than or equal to 93% 1944 (Due) tamsulosin (Flomax) cap 0.4 mg (COMPLETED) 0.4 mg, Oral, ONCE, On Gisela 07/30/24 at 2100, For 1 dose, Administer 30 min after meal. This med should NOT be Crushed or Chewed or opened! ORAL administration only!! 2020 (Given - Provid er: Araceli Lee LPN) documented in this encounter Advance Directives * Full Code [...] the patient have Health Care Power of Cutting Machine Tender? Yes, not currently available Care Teams Research Rn Spec Relationship Specialty Start Date End Date Vickey Merchant MD [facility] [place] [address] [address] [place] [phone] PCP - General Internal Medicine 05/24/21 documented as of this encounter
--- OUTSIDE RECORDS SUMMARY | 2024-08-07 04:33 | External Medical Summary ---
Author Name Unknown Address Unknown Organization K01:[facility] [place] [address] [place] [address] Laboratory Report Ordering Provider Test Date Status SUMMER MEDINA 04/11/2024 03:56:57 Final Less than 0.5 ng/mL: Low ris k for progression to sepsis. Review patients condition for localized infections.

0.5 to 2.0 ng/mL: Intermediate risk for progresion to sepsis. Review underlying conditions. Recommend repeat PCT after 6 hours has elapsed.

Greater than 2.0 ng/mL: high risk for progression to sepsis unless other causes are known. Observation Date Value Abnormality Reference (Units ) Status Procalcitonin [Mass/volume] in Serum or Plasma by Immunoassay 04/11/2024 03:56:57 0.10 Above high normal <0.10 (ng/mL) Final Performing Location [facility]ORY [facility] [place] [facility] [place] [address] [place] [address]
--- OUTSIDE RECORDS SUMMARY | 2024-08-07 04:33 | External Medical Summary ---
Author Name Unknown Address Unknown Organization K1G:LABORATORY [facility] - [address] [facility] [address] Laboratory Report Ordering Provider Test Date Status SUMMER MEDINA 04/11/2024 03:59:52 Final ADMITTED patient Observation Date Value Abnormality Reference (Units ) Status Adenovirus DNA [Presence] in Nasopharynx by PAPI with non-probe detection 04/11/2024 03:59:52 Negative Negative Final Human coronavirus 229E RNA [Presence] in Nasopharynx by PAPI with non-probe detection 04/11/2024 03:59:52 Negative Negative Final Human coronavirus HKU1 RNA [Presence] in Nasopharynx by PAPI with non-probe detection 04/11/2024 03:59:52 Negative Negative Final Human coronavirus NL63 RNA [Presence] in Nasopharynx by PAPI with non-probe detection 04/11/2024 03:59:52 Negative Negative Final Human coronavirus OC43 RNA [Presence] in Nasopharynx by PAPI with non-probe detection 04/11/2024 03:59:52 Negative Negative Final SARS-CoV-2 (COVID-19) RNA [Presence] in Nasopharynx by PAPI with non-probe detection 04/11/2024 03:59:52 Negative Negative Final Human metapneumovirus RNA [Presence] in Nasopharynx by PAPI with non-probe detection 04/11/2024 03:59:52 Negative Negative Final Rhinovirus+Enterovirus RNA [Presence] in Nasopharynx by PAPI with non-probe detection 04/11/2024 03:59:52 Negative Negative Final Influenza virus A H1 2009 pandemic RNA [Presence] in Nasopharynx by PAPI with non-probe detection 04/11/2024 03:59:52 Positive Abnormal Negative Final Influenza A virus Subtype H1 2009 detected by PCR (amplified probe). Test results reported to [facility]. Influenza virus B RNA [Prese nce] in Nasopharynx by PAPI with non-probe detection 04/11/2024 03:59:52 Negative Negative Final Parainfluenza virus 1 RNA [P resence] in Nasopharynx by PAPI with non-probe detection 04/11/2024 03:59:52 Negative Negative Final Parainfluenza virus 2 RNA [P resence] in Nasopharynx by PAPI with non-probe detection 04/11/2024 03:59:52 Negative Negative Final Parainfluenza virus 3 RNA [P resence] in Nasopharynx by PAPI with non-probe detection 04/11/2024 03:59:52 Negative Negative Final Parainfluenza virus 4 RNA [P resence] in Nasopharynx by PAPI with non-probe detection 04/11/2024 03:59:52 Negative Negative Final Respiratory syncytial virus RNA [Presence] in Nasopharynx by PAPI with non-probe detection 04/11/2024 03:59:52 Negative Negative F inal Bordetella pertussis.pertuss is toxin promoter region [Presence] in Nasopharynx by PAPI with non-probe detection 04/11/2024 03:59:52 Negative Negative Final Chlamydophila pneumoniae DNA [Presence] in Nasopharynx by PAPI with non-probe detection 04/11/2024 03:59:52 Negative Negative Final Mycoplasma pneumoniae DNA [P resence] in Nasopharynx by PAPI with non-probe detection 04/11/2024 03:59:52 Negative Negative Final Bordetella parapertussis IS1 001 DNA [Presence] in Nasopharynx by PAPI with non-probe detection 04/11/2024 03:59:52 Negative Negative F inal The primers that detect Rhin ovirus may cross react with some Enterorviruses. The validation of bronchial specimens, tracheal aspirates, and throats for this assay was developed and performance characteristics determined by [facility] �The validation of alternate specimen types has not been cleared or approved by the U.S. Food and Drug Administration (FDA). �It has been determined that such clearance or approval is not necessary. Performing [facility] - [address] [facility] [address]
--- OUTSIDE RECORDS SUMMARY | 2024-08-07 04:33 | External Medical Summary ---
Author Name Unknown Address Unknown Organization K1G:LABORATORY [address] [address] Laboratory Report Ordering Provider Test Date Status CAROLSUMMER 04/11/2024 03:56:57 Final Observation Date Value Abnormality Reference (Units ) Status Bacteria identified in Specimen by Culture 04/11/2024 03:56:57 No growth Final Test: Culture, Blood (Site 2)
Specimen Source: Blood, Venous
Specimen Type: Blood
Specimen Date: 04/11/2024 035
Result Date: 04/16/2024 0501
Result Status: Final result
Resulting Lab: LABORATORY [facility]
[address] [place] [address]
[facility] [address]

CULTURE

No growth

null Performing Location LABORATORY [facility] - [address] [place] [address]
--- OUTSIDE RECORDS SUMMARY | 2024-08-07 04:33 | External Medical Summary ---
Author Name Unknown Address Unknown Organization K1G:LABORATORY [address] [address] Laboratory Report Ordering Provider Test Date Status SUMMER MEDINA 04/11/2024 03:59:25 Final Observation Date Value Abnormality Reference (Units ) Status Bacteria identified in Specimen by Culture 04/11/2024 03:59:25 No growth Final Test: Culture, Blood
Sp ecimen Source: Blood, Venous
Specimen Type: Blood
Specimen Date: 04/11/2024358
Result Date: 04/16/2024 050
Result Status: Final result
Resulting Lab: LAB[facility]ATORY [facility]
[address] [place] [address]
[facility] [address]

CULTURE

No growth

null Performing Location LABORATORY [address] [address]
--- OUTSIDE RECORDS SUMMARY | 2024-08-07 04:33 | External Medical Summary ---
Author Name Unknown Address Unknown Organization R4H:[facility] [address] [place] [address] Laboratory Report Ordering Provider Test Date Status RAUL YEBOAH 03/13/2024 03:46:00 Apple l Observation Date Value Abnormality Reference (Units ) Status Glucose 03/13/2024 04:16 128 Above high normal 70-99 (mg/dL) Final BUN 03/13/2024 04:16 13 7-18 (mg/dL) Final Creatinine 03/13/2024 04:16 0.59 Below low normal 0.60- 1.30 (mg/dL) Final eGFR 03/13/2024 04:16 98 >59 (mL/min/1 .73m2) Final eGFR = 142 X [min(Scr/k,1)]* *a [max(Scr/k,1)-1.200x0.9938age X 1.012 [if female] Where Scr is serum creatinine; k is 0.7 for females and 0.9 males; a is -0.241 for females and -0.302 for males; min indicates the minimum of Scr/k or 1, max indicates the maximum of Scr/k or 1 Sodium 03/13/2024 04:16 138 136-145 (mmol /L) Final Potassium 03/13/2024 04:16 4.3 3.6-5.0 (mmol /L) Final Chloride 03/13/2024 04:16 101 101-111 (mmol /L) Final CO2 03/13/2024 04:16 27 21-31 (mmol/L ) Final Anion Gap 03/13/2024 04:16 14 6-16 (mmol/L) Final Calcium 03/13/2024 04:16 9.1 8.4-10.5 (mg/ dL) Final Total Protein 03/13/2024 04:16 7.2 6.0-8.3 ( g/dL) Final Albumin 03/13/2024 04:16 3.8 3.2-5.5 (g/dL ) Final Bilirubin, Total 03/13/2024 04:16 0.2 0.2-1. 0 (mg/dL) Final AST 03/13/2024 04:16 25 10-42 (U/L) F inal ALT 03/13/2024 04:16 24 10-60 (U/L) F inal Alkaline Phosphatase 03/13/2024 04:16 77 42 -121 (U/L) Final Performing Location [facility] [address] [place] [address]
--- OUTSIDE RECORDS SUMMARY | 2024-08-07 04:33 | External Medical Summary ---
Author Name Unknown Address Unknown Organization K1G:LABORATORY [facility] - [address] [place] [address] Laboratory Report Ordering Provider Test Date Status SUMMER MEDINA 04/11/2024 03:56:57 Final Observation Date Value Abnormality Reference (Units ) Status Lactic Acid, Whole Blood 04/11/2024 03:56:57 0.8 0.4-2.0 (mmol/L) Final Performing Location LABORATORY [facility] - [address] [place] [phone]
--- OUTSIDE RECORDS SUMMARY | 2024-08-07 04:33 | External Medical Summary ---
Author Name Unknown Address Unknown Organization R4LH:[facility] [address] [place] [address] Laboratory Report Ordering Provider Test Date Status RAUL YEBOAH 03/13/2024 03:46:00 Apple l Observation Date Value Abnormality Reference (Units ) Status High Sensitivity Troponin I 03/13/2024 04:22 5 <18 (ng/L) Final [employer] hs-Tro ponin I assay Performing Location [facility] [address] [place] [address]
--- OUTSIDE RECORDS SUMMARY | 2024-08-07 04:33 | External Medical Summary ---
Author Name Unknown Address Unknown Organization R4LH:[facility] [address] [place] [address] Laboratory Report Ordering Provider Test Date Status RAUL YEBOAH 03/13/2024 03:46:00 Apple l Observation Date Value Abnormality Reference (Units ) Status Lipase 03/13/2024 04:16 34 22-51 (U/L) F inal Performing Location [facility] [address] [place] [address]
--- OUTSIDE RECORDS SUMMARY | 2024-08-07 04:33 | External Medical Summary ---
Author Name Unknown Address Unknown Organization R1WR:[facility] [address] [place] [address] Laboratory Report Ordering Provider Test Date Status RAUL YEBOAH 03/13/2024 04:21:00 Apple l Observation Date Value Abnormality Reference (Units ) Status Glucose, POC 03/13/2024 04:23 121 Above high normal 70 -99 (mg/dL) Final Performing Location [facility] [address] [place] [address]
--- OUTSIDE RECORDS SUMMARY | 2024-08-07 04:33 | External Medical Summary | Summary of Care ---
Author Name Unknown Organization [facility] Address [address] [address] Phone [phone] Care Team Providers Care Digital Associate Media Director Name Role Phone Vickey Merchant MD Primary Car e Provider Encounter Details Date Type Department Care Team (Late st Contact Info) Description 03/16/2024 Population Health External Data Unspecified Department Allergies Active Allergy Reactions Criticality Noted Date Comments Adhesive Tape 07/07/2003 Moxifloxacin Hydrochloride Rash 9 Moxifloxacin Hcl Itching Medium 09/19/2017 documented as of this encounter (statuses as of 03/16/2024) Medications Aspirin 81 MG Oral Tablet Delayed Release 1 Tablet every other day. 30 0 10/14/19 03 Active OXYGENIndications: COPD, severity to be determined (HCC) Continue oxygen at home 1 0 12/22/19 09 Active furosemide (LASIX) 40 MG Tablet Active Lancets (ONETOUCH DELICA PLUS [id number]) [facility] Use to test 4 times daily as [...] 3350 17 GM Oral Packet (MiraLax Mix-In [place]) Take 17 g by mouth daily. Active [...] morning. Active Thyroid 15 MG Oral Tablet ([place] Thyroid) Take 1 Tablet by mouth in [...] as of this encounter (statuses as of 03/16/2024) Active Problems Problem Noted Date Diagnosed Date [...] as of this encounter (statuses as of 03/16/2024) Resolved Problems Problem Noted Date Diagnosed Date Resolved Date Tylenol intoxication 12/17/2008 009 s/p overdose of Tylenol 12/17/200812/07 documented as of this encounter (statuses as of 03/16/2024) Immunizations Name Administration Dates Next Due Pneumococcal [...] Alpha-1 Antitrypsin 09/15/1973 Hepatitis C Screening 09/15/1973 O2 ASSESSMENT COMPLETED IN PAST YEAR FOR COPD 09/15/1973 DTap/Tdap Vaccines (1 - Tdap) 09/15/1974 Colonoscopy 09/15/2000 Fecal Occult Blood Test 09/15/2000 Sigmoidoscopy 09/15/2000 Zoster Vaccines (1 of 2) 09/15/2005 Diabetic Eye Exam 12/12/2019 12/11/2018, 01/19/2003 Albumin/Creatinine Ratio 06/10/2020 020, 08/04/2018, 04/02/2018 DISCUSS TOBACCO CESSATION (REFER TO SMARTSET #3291) 06/10/2020 06/11/2019 Diabetic Foot Exam 01/06/2021 01/07/2020, 12/11/2018 TSH 02/17/2021 02/18/2020, 08/2019, 01/30/2019, Additional history exists HbA1c 09/08/2021 03/10/2021, 11/06, 02/18/2020, Additional history exists GFR 03/10/2022 03/10/2021, 06/2020, 11/16/2020, Additional history exists Mammogram 08/31/2022 08/31/2021 Colorectal Cancer Screening 03/20/2023 COVID-19 Vaccine ( - season) 2023 Influenza Vaccine (FLU shot) (#1) 2023 01/22/2022, 12/11/2018, 12/11/2018 Pneumococcal Vaccine: 65+ Years (3 of 3 - PPSV23 or PCV20) 12/12/2023 01/22/2022, 12/11/2018 Depression Monitoring 06/04/2024 06/04/2023 Lipid Panel 03/10/2026 03/10/2021, 0 08/2018, 08/04/2018, Additional history exists Cologuard 03/19/2026 03/19/2023 DXA Scan 08/31/2028 08/31/2021, 06/07/2005 Pap Smear [...] the patient have Health Care Power of Composite Boat Builder? Yes, not currently available Care Teams Digital Associate Media Director Relationship Specialty Start Date End Date Vickey Merchant MD [facility] [place] [address] [address] [place] [phone] PCP - General Internal Medicine 05/24/21 documented as of this encounter
--- OUTSIDE RECORDS SUMMARY | 2024-08-07 04:33 | External Medical Summary ---
Author Name Unknown Address Unknown Organization R4LH:[facility] [address] [place] [address] Laboratory Report Ordering Provider Test Date Status RAUL YEBOAH 03/13/2024 03:46:00 Apple l Observation Date Value Abnormality Reference (Units ) Status B-Type Natriuretic Peptide 03/13/2024 04:22 41 <100 (pg/mL) Final Less than 100 pg/mL: heart f ailure is improbable. Greater than 100 pg/mL; heart failure is increasingly probable. At levels greater than 500 pg/mL; heart failure is the most likely diagnosis. BNP results should always be interpreted in the context of other clinical information, especially in the range between 100 and 500 pg/mL. *NEJM 350, No.7; [phone]; 05/20/03 Performing Location [facility] [address] [place] [address]
--- OUTSIDE RECORDS SUMMARY | 2024-08-07 04:33 | External Medical Summary ---
Author Name Unknown Address Unknown Organization R4LH:[facility] [address] [place] [address] Laboratory Report Ordering Provider Test Date Status RAUL YEBOAH 03/13/2024 03:46:00 Apple l Observation Date Value Abnormality Reference (Units ) Status Prothrombin Time 03/13/2024 04:10 12.2 11.9-1 4.5 (Sec) Final INR 03/13/2024 04:10 0.9 Fin al Performing Location [facility] [address] [place] [address]
--- OUTSIDE RECORDS SUMMARY | 2024-08-07 04:33 | External Medical Summary ---
Author Name Unknown Address Unknown Organization K1G:LABORATORY [facility] - [facility] [address] Laboratory Report Ordering Provider Test Date Status SUMMER MEDINA 04/11/2024 05:42:53 Final Observation Date Value Abnormality Reference (Units ) Status Color of Urine by Auto 04/11/2024 05:42:53 Yellow Light Yellow, Yellow, Dark Yellow Final Clarity, Urine 04/11/2024 05:42:53 Clear Clear Final Glucose [Mass/volume] in Urine by Automated test strip 04/11/2024 05:42:53 Negative Negative (mg/dL) Final Bilirubin.total [Presence] in Urine by Automated test strip 04/11/2024 05:42:53 Negative Negative Final Ketones [Mass/volume] in Urine by Automated test strip 04/11/2024 05:42:53 Negative Negative (mg/dL) Final Specific gravity, Urine 04/11/2024 05:42:53 1.015 1.003-1.030 Final Hemoglobin [Presence] in Urine by Automated test strip 04/11/2024 05:42:53 Small Abnormal Negative Final pH, Urine 04/11/2024 05:42:53 6.0 5.0-7.5 (Units) Final Protein [Mass/volume] in Urine by Automated test strip 04/11/2024 05:42:53 Trace Abnormal Negative (mg/dL) Final Urobilinogen [Mass/volume] in Urine by Automated test strip 04/11/2024 05:42:53 0.2 0.2, 1.0 (mg/dL) Final Nitrite [Presence] in Urine by Automated test strip 04/11/2024 05:42:53 Negative Negative Final Leukocyte esterase [Presence] in Urine by Automated test strip 04/11/2024 05:42:53 Negative Negative Final RBC, Urine 04/11/2024 05:42:53 3-5 Abnormal 0-2 (/HPF) Final WBC, Urine 04/11/2024 05:42:53 0-2 0-2 (/HPF) Final Bacteria [#/area] in Urine sediment by Microscopy high power field 04/11/2024 05:42:53 0-25 0-25 (/HPF) Final CULTURE, URINE - [facility] 04/11/2024 05:42:53 Final Culture not indicated by uri nalysis results\X09\ Performing Location LABORATORY [address] [address]
--- OUTSIDE RECORDS SUMMARY | 2024-08-07 04:33 | External Medical Summary ---
Author Name Unknown Address Unknown Organization K1G:LABORATORY [facility] - [address] [place] [address] Laboratory Report Ordering Provider Test Date Status SUMMER MEDINA 04/11/2024 03:56:57 Final Anticoagulation may affect t esting. Refer to [employer] Test Catalog for a list of effects. Observation Date Value Abnormality Reference (Units ) Status aPTT panel - Platelet poor plasma 04/11/2024 03:56:57 40 Above high normal 21-38 (seconds) Final Performing Location LABORATORY [facility] - [address] [place] [phone]
--- OUTSIDE RECORDS SUMMARY | 2024-08-07 04:33 | External Medical Summary ---
Author Name Unknown Address Unknown Organization K1G:LABORATORY [facility] - [facility] [address] Laboratory Report Ordering Provider Test Date Status SUMMER MEDINA 04/11/2024 03:56:57 Final Observation Date Value Abnormality Reference (Units ) Status WBC, Total 04/11/2024 03:56:57 7.18 4.00-10.8 0 (K/uL) Final RBC 04/11/2024 03:56:57 4.20 3.85-5.15 (M/uL) Final Hemoglobin 04/11/2024 03:56:57 11.9 Below low normal 12 .0-15.3 (g/dL) Final HCT 04/11/2024 03:56:57 37.8 36.0-45.2 (%) Final MCV 04/11/2024 03:56:57 90.0 81.5-97.5 (fL) Final MCH 04/11/2024 03:56:57 28.3 27.0-34.0 (pg) Final MCHC 04/11/2024 03:56:57 31.5 32.0-36.0 (g/dL) Final RDW 04/11/2024 03:56:57 13.0 11.5-15.5 (%) Final Platelets 04/11/2024 03:56:57 166 140-400 (K /uL) Final MPV 04/11/2024 03:56:57 10.9 6.6-11.1 ( fL) Final Performing Location LABORATORY [facility] - [address] [place] [phone]
--- OUTSIDE RECORDS SUMMARY | 2024-08-07 04:33 | External Medical Summary ---
Author Name Unknown Address Unknown Organization K1G:LABORATORY [facility] - [address] [place] [address] Laboratory Report Ordering Provider Test Date Status SUMMER MEDINA 04/11/2024 03:56:57 Final Observation Date Value Abnormality Reference (Units ) Status SYNC LEUKOCYTES IN BLOOD BY AUTOMATED COUNT 04/11/2024 03:56:57 7.18 4.00-10.80 (K/uL) Final Segs 04/11/2024 03:56:57 70.6 40.0-75.0 (%) Final Lymphs % 04/11/2024 03:56:57 19.1 18.0-42.0 (%) Final Monos 04/11/2024 03:56:57 10.0 1.0-11.0 (%) Final Eosinophils 04/11/2024 03:56:57 0.0 0.0-6.0 (%) Final Basos 04/11/2024 03:56:57 0.3 0.0-2.0 (%) Final Absolute Segs 04/11/2024 03:56:57 5.07 1.80-7.70 (K/uL) Final Lymphs, absolute 04/11/2024 03:56:57 1.37 1.00-4.80 (K/ul) Final Monos, Abs 04/11/2024 03:56:57 0.72 0.00-1.10 (K/uL) Final Eos, Abs 04/11/2024 03:56:57 0.00 0.00-0.70 (K/uL) Final Basos, Abs 04/11/2024 03:56:57 0.02 0.00-0.20 (K/uL) Final Performing Location LABORATORY [facility] - [address] [facility] [address]
--- OUTSIDE RECORDS SUMMARY | 2024-08-07 04:33 | External Medical Summary ---
Author Name Unknown Address Unknown Organization R4LH:[facility] [address] [place] [address] Laboratory Report Ordering Provider Test Date Status RAUL YEBOAH 03/13/2024 03:46:00 Apple l Observation Date Value Abnormality Reference (Units ) Status aPTT 03/13/2024 04:11 31.4 22.6-34.3 (SE C) Final Performing Location [facility] [address] [address]
--- OUTSIDE RECORDS SUMMARY | 2024-08-07 04:33 | External Medical Summary ---
Author Name Unknown Address Unknown Organization K1G:LABORATORY [facility] - [address] [facility] [address] Laboratory Report Ordering Provider Test Date Status SUMMER MEDINA 04/11/2024 03:56:57 Final Observation Date Value Abnormality Reference (Units ) Status Body temperature 04/11/2024 03:56:57 37.0 (C) Final pH of Venous blood 04/11/2024 03:56:57 7.412 7.320-7.430 (units) Final Carbon dioxide [Partial pressure] in Venous blood 04/11/2024 03:56:57 44.8 40.0-60.0 (mmHg) Final Oxygen [Partial pressure] in Venous blood 04/11/2024 03:56:57 43.8 25.0-50.0 (mmHg) Final Base excess, Capillary 04/11/2024 03:56:57 3.3 Above high normal -2.0-2.0 (mmol/L) Final Hemoglobin [Mass/volume] in Blood by Oximetry 04/11/2024 03:56:57 13.1 12.0-15.3 (g/dL) Final Oxyhemoglobin, Venous (FO2HB) 04/11/2024 03:56:57 81.0 40.0-85.0 (% total Hgb) Final Carboxyhemoglobin 04/11/2024 03:56:57 1.0 <=1.5 (% total Hgb) Final Smokers: 0-9.0 % Methemoglobin 04/11/2024 03:56:57 0.6 <=1.5 (% total Hgb) Final Deoxyhemoglobin/Hemoglobin.t otal in Venous blood 04/11/2024 03:56:57 17.4 (% total Hgb) Apple l Oxygen content in Venous blood 04/11/2024 03:56:57 14.9 7.0-18.0 (%vol) Final Bicarbonate, Venous, POC (i-STAT) 04/11/2024 03:56:57 28.5 23.0-31.0 (mmol/L) [facility] Performing Location LABORATORY [facility] - [facility] [address]
--- OUTSIDE RECORDS SUMMARY | 2024-08-07 04:33 | External Medical Summary ---
Author Name Unknown Address Unknown Organization K1G:LABORATORY [facility] - [address] [place] [phone] Laboratory Report Ordering Provider Test Date Status SUMMER MEDINA 04/11/2024 03:56:57 Final Observation Date Value Abnormality Reference (Units ) Status Troponin T 04/11/2024 03:56:57 8 <=14 (ng/ L) Final Performing Location LABORATORY [facility] - [address] [place] [phone]
--- OUTSIDE RECORDS SUMMARY | 2024-08-07 04:33 | External Medical Summary ---
Author Name Unknown Address Unknown Organization K1G:[facility] - [address] [facility] [id number] Laboratory Report Ordering Provider Test Date Status [facility]MER MEDINA 04/11/2024 03:56:57 Final Observation Date Value Abnormality Reference (Units ) Status BUN 04/11/2024 03:56:57 9 6-20 (mg/dL) Final Creatinine 04/11/2024 03:56:57 0.7 0.5-1.0 (mg/dL) Final Glomerular filtration rate/1.73 sq M.predicted [Volume Rate/Area] in Serum, Plasma or Blood by Creatinine-based formula (CKD-EPI) 04/11/2024 03:56:57 90 >=60 (mL/min) Final eGFR is calculated based on the CKD-EPI 2020 equation. Sodium 04/11/2024 03:56:57 134 Below low normal 135 -146 (mmol/L) Final Potassium 04/11/2024 03:56:57 3.7 3.5-5.1 (m mol/L) Final Cl 04/11/2024 03:56:57 98 98-107 (mm ol/L) Final CO2 04/11/2024 03:56:57 24 22-32 (mmo l/L) Final Anion gap 04/11/2024 03:56:57 12 7-15 (mmol /L) Final Glucose 04/11/2024 03:56:57 143 Above high normal 70 -120 (mg/dL) Final Albumin 04/11/2024 03:56:57 4.0 3.8-5.0 (g /dL) Final AST (Aspartate aminotransferase) 04/11/2024 03:56:57 27 10-35 (U/L) Fin al Alk Phos 04/11/2024 03:56:57 78 35-130 (U/ L) Final Bilirubin, Total 04/11/2024 03:56:57 0.3 <=1 .2 (mg/dL) Final Calcium 04/11/2024 03:56:57 8.8 8.4-10.2 ( mg/dL) Final Protein 04/11/2024 03:56:57 7.1 6.0-8.3 (g /dL) Final ALT (Alanine aminotransferase) 04/11/2024 03:56:57 13 10-35 (U/L) Timmy bowles Performing Location [facility] - [address] [place] [id number]
--- OUTSIDE RECORDS SUMMARY | 2024-08-07 04:33 | External Medical Summary ---
Author Name Unknown Address Unknown Organization R4:[facility] [address] [place] [id number] Laboratory Report Ordering Provider Test Date Status RAUL YEBOAH 03/13/2024 03:46:00 Apple l Observation Date Value Abnormality Reference (Units ) Status WBC 03/13/2024 04:05 10.0 4.0-10.0 (X10E+09/L) Final RBC 03/13/2024 04:05 4.27 3.9-5.2 (X10E+12/L) Final Hemoglobin 03/13/2024 04:05 12.7 11.2-15.7 (g/dL) Final Hematocrit 03/13/2024 04:05 37.0 34-45 (%) Final MCV 03/13/2024 04:05 86.7 79-98 (fL) Final MCH 03/13/2024 04:05 29.8 26.0-32.0 (pg) Final MCHC 03/13/2024 04:05 34.4 32-36 (g/dL) Final Platelets 03/13/2024 04:05 255 150-370 (X10E+09/L) Final RDW 03/13/2024 04:05 13.3 (%) Final Neutrophils 03/13/2024 04:05 60.6 34.0-71.1 (%) Final Lymphocytes 03/13/2024 04:05 25.5 19.3-51.7 (%) Final Monocytes 03/13/2024 04:05 11.8 4.7-12.5 (%) Final Eosinophils 03/13/2024 04:05 0.9 0.7-5.8 (%) Final Basophils 03/13/2024 04:05 1.2 0.1-1.2 (%) Final Absolute Neutrophils 03/13/2024 04:05 6.10 1.6-6.1 (X10E+09/L) Final Absolute Lymphocytes 03/13/2024 04:05 2.60 1.2-3.7 (X10E+09/L) Final Absolute Monocytes 03/13/2024 04:05 1.20 Above high normal 0.2-0.9 (X10E+09/L) Final Absolute Eosinophils 03/13/2024 04:05 0.10 0.0-0.4 (X10E+09/L) Final Absolute Basophils 03/13/2024 04:05 0.10 0.0-0.1 (X10E+09/L) Final Performing Location [facility] [address] [place] [id number]
--- OUTSIDE RECORDS SUMMARY | 2024-08-07 04:33 | External Medical Summary | Summary of Care ---
Author Name Unknown Organization [facility] [address] [place] [address] Phone [phone] Care Team Providers Care Gas Controller Name Role Phone Vickey Merhcant MD Primary Car e Provider Reason for Visit * Reason Comments Cough Short of Breath * Auth/Cert Specialty Diagnoses / Procedures Referred By Nia t Referred To Contact [place] [address] [place] [address] Phone: tel:[phone] [facility] Emergency Department ([facility]) [address] [place] [address] Phone: tel: fax: Referral ID Status Reason Start Date Expiration Date Visits Re quested Visits Authorized [id number] Encounter Details Date Type Department Care Team (Late st Contact Info) Description 04/11/2024 3:42 AM EST - 04/11/2024 7:00 AM EST Emergency [facility] Emergency Department ([facility]) [address] [place] [id number] Erik Lan MD [facility] [place] [id number] Sepsis ([facility]) Discharge Disposition: Home - Self Care Allergies Active Allergy Reactions Criticality Noted Date Comments Adhesive Tape 07/07/2003 Moxifloxacin Hydrochloride Rash 9 Moxifloxacin Hcl Itching Medium 09/19/2017 documented as of this encounter (statuses as of 04/11/2024) Medications Aspirin 81 MG Oral Tablet Delayed Release 1 Tablet every other day. 30 0 10/14/19 03 Active OXYGENIndications: COPD, severity to be determined (HCC) Continue oxygen at home 1 0 12/22/19 09 Active furosemide (LASIX) 40 MG Tablet Active Lancets (ONETOUCH DELICA PLUS [id number]) [facility] Use to test 4 times daily as [...] or other meds) 30 Tab 11 01/08/20 20 Active Additional Information Patient not taking.Reported on 04/28/2020 Ipratropium-[place] rol 0.5-2.5 (3) MG/3ML Inhalation Solution (DUONEB)Indication s:COPD, severity to be determined (HCC) Inhale 3 mL via nebulizer every 6 hours as needed for Shortness of Breath. 360 mL 5 01/25/20 20 Active Ondansetron 4 MG Oral Tablet Disintegrating (ZOFRAN) Place 1 Tab on tongue every 8 hours as needed for Nausea. dissolve on tongue. 30 Tab 04/16/19 21 Active Additional Information Patient not taking.Reported on 01/27/2024 Benzonatate 100 MG Oral Capsule (Tessalsandra Perlcarson)Indications :Cough Take 1 Cap by mouth 3 times a day as needed for Cough. Do not cut, crush, or chew. 50 Cap 1 04/26/19 Active Additional Information Patient not taking.Reported on 01/27/2024 Multivitamin Adult Oral Tablet Take by mouth. Act khris Polyethylene Glycol 3350 17 GM Oral Packet (MiraLax Mix-In [place]) Take 17 g by mouth daily. Active [...] tab for 2 days 30 Tab 05/16/19 21 Active Additional Information Patient not taking.Reported on [...] morning. Active Thyroid 15 MG Oral Tablet ([place] Thyroid) Take 1 Tablet by mouth in [...] as of this encounter (statuses as of 04/11/2024) Active Problems Problem Noted Date Diagnosed Date [...] as of this encounter (statuses as of 04/11/2024) Resolved Problems Problem Noted Date Diagnosed Date Resolved Date Tylenol intoxication 12/17/2008 009 s/p overdose of Tylenol 12/17/200812/07 documented as of this encounter (statuses as of 04/11/2024) Immunizations Name Administration Dates Next Due Pneumococcal Polysaccharide PPV23 (Pneumovax) Seasonal Influenza, PF, 6 M & above, IM , (FluLaval or Fluzone) 12/11/2018 documented as of this encounter Social History Tobacco Use Types Packs/Day Years Used Date Smoking Tobacco: Former Cigarettes 0.5 40 0 04/25/1980 - 04/25/2020 Smokeless Tobacco: Never Tobacco Cessation:Counseling Given: Not Answered Comments:quit in October using nicotine patch- only [...] Sign Reading Time Taken Comments Blood Pressure 103/59 04/11/2024 6:45 AM EST Pulse 99 04/11/2024 6:45 AM EST Temperature 38.7 °C (101.7 °F) 04/11/2024 3:[address] Respiratory Rate 18 04/11/2024 6:45 AM EST Oxygen Saturation 94% 04/11/2024 6:45 AM EST Inhaled Oxygen Concentration - - Weight 60.9 kg (134 lb 4.2 oz) 04/11/2024 3:43 A M EST Height 152.4 cm (5') 04/11/2024 3:43 AM EST Body Mass Index 26.22 04/11/2024 3:43 AM EST documented in this encounter ED Notes * Rand Palmer RN - 04/11/2024 3:45 AM EST Patient reports that she has been "sick" for 2 months. States she has had a head and chest cold andbeen on multiple antibiotics without improvement. Reports she is more short of breath than normal tonight, wears 3L O2 at baseline. EMS reports O2 sat was 98% on arrival. EMS gave duoneb x 2, albuterol x 1 and solumedrol 125mg IV. documented in this encounter Miscellaneous Notes * Pt Handout (on AVS) - Erik Lan MD - 04/11/2024 6:45 AM EST Images from the original note were not included. [id number] The Flu (Influenza) Updated for the 2113-4443 flu season The flu (influenza) is an infection caused by a virus. It affects your respiratory tract. The respiratory tract is made up of your mouth, nose, and lungs, and the passages between them. Unlike a cold, the flu can make you very ill. The flu may lead to a serious lung infection called pneumonia. The flu can cause serious problems and even cause . Because of the risk of severe disease, experts strongly advise getting a flu vaccine before the start of the flu season. This protects you, your family, and others. The flu vaccine and other vaccinescan be given at the same time. People at high risk for problems from the flu are likely to be at high risk for serious problems from COVID-19 and RSV. This makes it important to get a flu vaccine. Viruses that cause influenza spread through the air in droplets when someone who has the flu coughs, sneezes, laughs, or talks. Who is at risk for the flu? Anyone can get the flu. But you're more likely to get the flu if you: · Have a weak immune system · Work in a healthcare setting where there may be flu germs · Live or work with someone who has the flu · Haven?t had the flu vaccine as advised · Live in a setting with many other people. This may be an assisted living facility, a residential, or a detention or senior care. How does the flu spread? The flu is caused by a virus. The virus spreads through the air in droplets when someone who has the flu coughs, sneezes, laughs, or talks. You can get infected when you breathe in these droplets. You can get infected when you touch a surface with droplets on it and then touch your eyes, nose, or mouth. You can corn picker the virus if you touch used tissues, or share utensils, drinking glasses, or atoothbrush from an infected person. What are the symptoms of the flu? Flu symptoms tend to start quickly. They may last a few days to a few weeks. They include: · Fever usually higher than 100.4° F ( 38°C ) and chills · Sore throat and headache · Dry cough · Runny nose · Tiredness and weakness · Muscle aches · Headaches · Vomiting and diarrhea Who is at risk for flu complications? For some people, the flu can be very serious. The risk for complications is higher for: · Children under age 5 · Adults age 65 or older · People with a chronic illness such as diabetes or heart, kidney, or lung disease · People who live in a residential or long-term care facility The risk is also higher for people with a weak immune system. This includes people who: · Have HIV/AIDS · Have cancer · Had an organ transplant · Are taking immune-suppressing medicines How is the flu diagnosed? Your doctor might suspect the flu based on symptoms alone. However, other infections can cause symptoms similar to the flu. The flu, RSV and COVID-19 can have similar symptoms. To confirm the diagnosis, your doctor might swab your nose or throat using a sterile cotton swab and send this to the lab for testing. How is the flu treated? The flu usually gets better after 7 days or so. In some cases, your healthcare provider may prescribe an antiviral medicine. It may help you get well sooner. It may reduce the risk for and severity of complications. For the medicine to help, you need to take it as soon as possible after your symptoms start. The best time is to take it within 48 hours. If you develop pneumonia or other serious illness from the flu, you may need to stay in the hospital. Easing flu symptoms · Drink lots of fluids. This includes water, juice, and warm soup. A good rule is to drink enough so that you urinate your normal amount. · Get plenty of rest. · Ask your healthcare provider what to take for fever and pain. Don't give aspirin to children or teens. It may cause a rare but serious illness called Ramirez syndrome. The syndrome affects the liver and brain. · Stay away from cigarette smoke, whether it's yours or other people?s. · Take warm, steamy showers to help soothe your cough. · If you have a sore throat, gargling with warm salty water, sucking on an ice cube, drinking hot water with honey and freshly squeezed lemon juice can help. · Call your provider if your fever is 100.4° F ( 38°C ) or higher. Call if you become dizzy, lightheaded, or short of breath. Taking steps to protect others · Wash your hands often. Do this especially after coughing or sneezing. If you can't wash, clean your hands with a hand pattern cleaner that has at least 60% alcohol. · Cough or sneeze into a tissue. Then throw the tissue away and wash your hands. If you don?t havea tissue, cough and sneeze into the bend of your elbow. · Don?t share food, utensils, drinking glasses, or a toothbrush with others. · Stay home until at least 24 hours after fever or chills stop. Some medicines reduce fever. Checkyour temperature when you stop taking the medicine. How can the flu be prevented? · One of the best ways to prevent the flu is to get a flu vaccine each year. Experts advise that, with rare exceptions, all people age 6 months or older get a flu vaccine every year. This includes people. The flu vaccine is advised even for people with egg allergies. Talk with your healthcare provider before getting the vaccine if: o You are feeling sick on the day of planned vaccination. o You have ever had a severe reaction from the flu vaccine o You have ever had Guillain-Barré Syndrome (GBS), a severe paralyzing illness · Healthcare providers advise getting the flu vaccine each year as soon as it's available in your area. Flu virus strains change from year to year. The vaccine changes each year. This is to help protect you from flu viruses more likely to cause illness in the upcoming flu season. The vaccine comesin different forms. It's most often given as a shot into a muscle. A nasal spray is available for he althy people between ages 2 and 49 years who aren't . A needle-free form is called a jet injector. It gives the vaccine in a high-pressure stream through the skin into the muscle. This form may be an option for people ages 18 to 64. Your healthcare provider can tell you which vaccine is right for you. · Wash your hands often. This is a proven way to help prevent the spread of infection. · Carry a hand pattern cleaner that has at least 60% alcohol. Use it when you can't use soap and water. Then wash your hands as soon as you can. · Try not to touch your eyes, nose, or mouth. · At home and work, clean phones, computer keyboards, and toys often with disinfectant wipes. · Stay away from others who have the flu or symptoms of the flu. If around people who have the flu, wear a well-fitted mask that covers your mouth and nose. Handwashing tips Handwashing is one of the best ways to prevent many common infections. If you're caring for or visiting someone with the flu, wash your hands each time you enter and leave the room. Follow these steps: · Use clean, running water and plenty of soap. Rub your hands together well. · Clean the whole hand, including under your nails, between your fingers, and up the wrists. · Wash for at least 20 seconds. · Rinse, letting the water run down your fingers, not up your wrists. · Dry your hands well. Use a paper towel to turn off the faucet and open the door. Using alcohol-based hand braddisher Use a hand braddisher with at least 60% alcohol if you don't have access to soap and water. Follow these steps: · Apply enough of the braddisher on your hands to cover all surfaces. · Rub your hands together briskly. Clean the backs of your hands, the palms, between your fingers,and up the wrists. · Rub until the gel is gone and your hands are dry. This should take about 20 seconds. Preventing the flu in healthcare places The flu is a special concern for people in hospitals and long-term care. To help prevent the spreadof flu, many hospitals and nursing homes take these steps: · Healthcare providers wash their hands or use an alcohol-based hand pattern cleaner before and after treating each patient. · People with the flu have private rooms and bathrooms. Or they may share a room with someone withthe same infection. · People who are at high risk for the flu but don't have it are encouraged to get the flu and pneumonia vaccines. · All healthcare workers are encouraged or required to get flu shots. Last Reviewed Date: 2023 00:00:00 © [employer]. All rights reserved. This information is not intended as a substitute for professional medical care. Always follow your healthcare professional's instructions. documented in this encounter Plan of Treatment Pending Results Name Type Priority Associated Diagnoses Date /Time CULTURE, BLOOD Lab STAT 04/11/2024 3:59 AM EST CULTURE, BLOOD Lab STAT 04/11/2024 3:56 AM EST Scheduled Orders Name Type Priority Associated Diagnoses Orde r Schedule EKG EKG STAT Sepsis (HCC) Perform Now for 1 Occurrences starting 04/11/2024 until 04/11/2024 Health Maintenance Due Date Last Done Comments [...] Diagnosis Comments URINALYSIS, REFLEX TO CULTURE STAT 04/11/2024 5:42 AM EST URINALYSIS, REFLEX TO CULTURE (CUP ONLY) STAT 04/11/2024 5:42 AM EST URINALYSIS, REFLEX TO CULTURE (NOT FOR NEUTROPENIC PATIENTS) STAT 04/11/2024 5:42 AM EST XR CHEST 1 VIEW STAT 04/11/2024 4:36 AM EST RESPIRATORY PATHOGEN PANEL, PCR STAT 04/11/2024 3:59 AM EST MRSA SCREEN, PCR Routine 04/11/2024 3:59 AM EST CULTURE, BLOOD STAT 04/11/2024 3:59 AM EST LACTATE, WHOLE BLOOD WITH REFLEX IF ABNORMAL STAT 04/11/2024 3:56 AM EST DIFFERENTIAL, AUTOMATED STAT 04/11/2024 3:56 AM EST TROPONIN T, HIGH SENSITIVITY STAT 04/11/2024 3:56 AM EST PROCALCITONIN STAT 04/11/2024 3:56 AM EST BLOOD GAS, VENOUS STAT 04/11/2024 3:5 6 AM EST COMPREHENSIVE METABOLIC PANEL STAT 04/11/2024 3:56 AM EST CBC STAT 04/11/2024 3:56 AM EST PT INR STAT 04/11/2024 3:56 AM EST CULTURE, BLOOD STAT 04/11/2024 3:56 AM EST APTT STAT 04/11/2024 3:56 AM EST CBC STAT 04/11/2024 3:56 AM EST documented in this encounter Results * (ABNORMAL) URINALYSIS, REFLEX TO CULTURE (04/11/2024 5:42 AM EST) Color, Urine Yellow Light Yellow, Yellow, Dark Yellow 04/11/2024 6:11 AM EST LABORATORY [facility] Clarity, Urine Clear Clear 04/11/2024 6:11 AM EST LABORATORY [facility] Glucose, Urine Negative Negative mg/dL 04/11/2024 6:11 AM EST LABORATORY [facility] Bilirubin, Urine Negative Negative 04/11/2024 6:11 AM EST LABORATORY [facility] Ketone, Urine Negative Negative mg/dL 04/11/2024 6:11 AM EST LABORATORY [facility] Specific [place], Urine 1.015 1.003 - 1.030 04/11/2024 6:11 AM EST LABORATORY [facility] Blood, Urine Small(A) Negative 04/11/2024 6:11 AM EST LABORATORY [facility] pH, Urine 6.0 5.0 - 7.5 Units 04/11/2024 6:11 AM EST LABORATORY [facility] Protein, Urine Trace(A) Negative mg/dL 04/11/2024 6:11 AM EST LABORATORY [facility] Urobilinogen, Urine 0.2 0.2, 1.0 mg/dL 04/11/2024 6:11 AM EST LABORATORY [facility] Nitrite, Urine Negative Negative 04/11/2024 6:11 AM EST LABORATORY [facility] Esterase, Urine Negative Negative 04/11/2024 6:11 AM EST LABORATORY [facility] RBC, Urine 3-5(A) 0 - 2 /HPF 04/11/2024 6:11 AM EST LABORATORY [facility] WBC, Urine 0-2 0 - 2 /HPF 04/11/2024 6:11 AM EST LABORATORY [facility] Bacteria, Urine 0-25 0 - 25 /HPF 04/11/2024 6:11 AM EST LABORATORY [facility] Culture, Urine 04/11/2024 6:11 AM EST LABORATORY [facility] Comment:Culture not indicate d by urinalysis results Urine Urine specimen obtained by clean catch procedure / Unknown Non-blood Collection / Unknown 04/11/2024 5:42 AM EST 04/11/2024 6:00 AM EST Erik Lan MD LAB URINE ORDERABLES Fin al Result Performing Organization Address [facility] de Phone Number LABORATORY [address] [address] * URINALYSIS, REFLEX TO CULTURE (CUP ONLY) (04/11/2024 5:42 AM EST) Urinalysis, Reflex to Culture Specimen Specimen collected and received 04/11/2024 7:01 AM EST LABORATORY [facility] Urine Urine specimen obtained by clean catch procedure / Unknown Non-blood Collection / Unknown 04/11/2024 5:42 AM EST 04/11/2024 6:00 AM EST Erik Lan MD LAB URINE ORDERABLES Fin al Result Performing Organization Address City/[facility]/ZIP Co de Phone Number LABORATORY [address] [address] * XR CHEST 1 VIEW (04/11/2024 4:36 AM EST) Anatomical Region Laterality Modality Chest Computed Radiogr aphy 04/11/2024 4:30 AM EST Impressions 04/11/2024 8:03 AM EST IMPRESSION: No acute lung disease. Chronic interstitial lung disease noted. THIS DOCUMENT HAS BEEN ELECTRONICALLY SIGNED BY STANLEY MOREL MD Narrative 04/11/2024 8:03 AM EST PROCEDURE INFORMATION: Exam: XR Chest Exam date and time: 04/11/2024 4:30 AM Age: 68 years old Clinical indication: Shortness of breath; Patient HX: Has had cold symptoms, SOB on and off since thanksgiving. Worse now. ; Additional info: Sepsis TECHNIQUE: Imaging protocol: Radiologic exam of the chest. Views: 1 view. COMPARISON: CT CHEST LOW DOSE SCAN 08/31/2021 2:29 PM FINDINGS: Lungs: No acute lung disease. No consolidation. Chronic interstitial lung disease noted. Pleural spaces: Unremarkable. No pleural effusion. No pneumothorax. Heart/Mediastinum: No cardiomegaly. Bones/joints: Unremarkable. Procedure Note Stanley Morel MD - 04/11/2024 PROCEDURE INFORMATION: Exam: XR Chest Exam date and time: 04/11/2024 4:30 AM Age: 68 years old Clinical indication: Shortness of breath; Patient HX: Has had coldsymptoms, SOB on and off since thanksgiving. Worse now. ; Additional info: Sepsis TECHNIQUE: Imaging protocol: Radiologic exam of the chest. Views: 1 view. COMPARISON: CT CHEST LOW DOSE SCAN 08/31/2021 2:29 PM FINDINGS: Lungs: No acute lung disease. No consolidation. Chronic interstitial lung disease noted. Pleural spaces: Unremarkable. No pleural effusion. No pneumothorax. Heart/Mediastinum: No cardiomegaly. Bones/joints: Unremarkable. IMPRESSION IMPRESSION: No acute lung disease. Chronic interstitial lung disease noted. THIS DOCUMENT HAS BEEN ELECTRONICALLY SIGNED BY STANLEY MOREL MD Erik Lan MD RADIOLOGY ([facility]) Final Result * (ABNORMAL) RESPIRATORY PATHOGEN PANEL, PCR (04/11/2024 3:59 AM EST) [facility] Adenovirus by PCR Negative Negative 025 5:03 AM EST LABORATORY [facility] Coronavirus 229E by PCR Negative Negative 04/11/2024 5:03 AM EST LABORATORY [facility] Coronavirus HKU1 by PCR Negative Negative 04/11/2024 5:03 AM EST LABORATORY [facility] Coronavirus NL63 by PCR Negative Negative 04/11/2024 5:03 AM EST LABORATORY [facility] Coronavirus OC43 by PCR Negative Negative 04/11/2024 5:03 AM EST LABORATORY [facility] Coronavirus SARS-CoV-2 by PCR Negative Negative 04/11/2024 5:03 AM EST LABORATORY [facility] Human Metapneumovirus by PCR Negative Negative 04/11/2024 5:03 AM EST LABORATORY [facility] Rhinovirus/Enterov irus by PCR Negative Negative 04/11/2024 5:03 AM EST LABORATORY [facility] Influenza A Virus, Subtype H1 2009 by PCR Positive(A) Negative 04/11/2024 5:03 AM EST LABORATORY [facility] Comment: Influenza A virus Subtype H1 2009 detected by PCR (amplified probe). Test results reported to [facility]. Influenza B Virus by PCR Negative Negative 04/11/2024 5:03 AM EST LABORATORY [facility] Parainfluenza Virus 1 by PCR Negative Negative 04/11/2024 5:03 AM EST LABORATORY [facility] Parainfluenza Virus 2 by PCR Negative Negative 04/11/2024 5:03 AM EST LABORATORY [facility] Parainfluenza Virus 3 by PCR Negative Negative 04/11/2024 5:03 AM EST LABORATORY [facility] Parainfluenza Virus 4 by PCR Negative Negative 04/11/2024 5:03 AM EST LABORATORY [facility] Respiratory Syncytial Virus by PCR Negative Negative 04/11/2024 5:03 AM EST LABORATORY [facility] Bordetella pertussis by PCR Negative Negative 04/11/2024 5:03 AM EST LABORATORY [facility] Chlamydia pneumoniae by PCR Negative Negative 04/11/2024 5:03 AM EST LABORATORY [facility] Mycoplasma pneumoniae by PCR Negative Negative 04/11/2024 5:03 AM EST LABORATORY [facility] Bordetella parapertussis by PCR Negative Negative 04/11/2024 5:03 AM EST LABORATORY [facility] Comment: The primers that detect Rhinovirus may cross react with some Enterorviruses. The validation of bronchial specimens, tracheal aspirates, and throats for this assay was developed and performance characteristics determined by [facility]. The validation of alternate specimen types has not been cleared or approved by the U.S. Food and Drug Administration (FDA). It has been determined that such clearance or approval is not necessary. Upper Respiratory Mid-turbinate nasal swab / Unknown Non-blood Collection / Unknown 04/11/2024 3:59 AM EST 04/11/2024 4:08 AM EST Erik Lan MD LAB MICRO - GENERAL BRIAN JAUREGUI Final Result Performing Organization Address City/[facility]/ZIP Co de Phone Number LABORATORY [facility] [address] [place] [address] * MRSA SCREEN, PCR (04/11/2024 3:59 AM EST) Pathologist [facility] MRSA PCR Result Negative Negative 2:40 PM EST LAB[facility]AT[facility] Comment:No Methicillin resis tant Staphylococcus aureus detected by PCR (amplified probe). Upper Respiratory Swab of internal nose / Unknown Non-blood Collection / Unknown 04/11/2024 3:59 AM EST 04/11/2024 4:08 AM EST Erik Lan MD LAB MICRO - GENERAL BRIAN JAUREGUI Final Result Performing Organization Address City/[facility]/ZIP Co de Phone Number LAB[facility]ATORY [facility] [address] [place] [address] * DIFFERENTIAL, AUTOMATED (04/11/2024 3:56 AM EST) Pathologist [facility] WBC 7.18 4.00 - 10.80 K/uL 04/11/2024 4:13 AM EST LABORATORY [facility] Neutrophils % 70.6 40.0 - 75.0 % 04/11/2024 4:13 AM EST LABORATORY [facility] Lymphocytes % 19.1 18.0 - 42.0 % 04/11/2024 4:13 AM EST LABORATORY [facility] Monocytes % 10.0 1.0 - 11.0 % 04/11/2024 4:13 AM EST LABORATORY [facility] Eosinophils % 0.0 0.0 - 6.0 % 04/11/2024 4:13 AM EST LABORATORY [facility] Basophils % 0.3 0.0 - 2.0 % 04/11/2024 4:13 AM EST LABORATORY [facility] Absolute Neutrophils 5.07 1.80 - 7.70 K/uL 04/11/2024 4:13 AM EST LABORATORY [facility] Absolute Lymphocytes 1.37 1.00 - 4.80 K/ul 04/11/2024 4:13 AM EST LABORATORY [facility] Absolute Monocytes 0.72 0.00 - 1.10 K/uL 04/11/2024 4:13 AM EST LABORATORY [facility] Absolute Eosinophils 0.00 0.00 - 0.70 K/uL 04/11/2024 4:13 AM EST LABORATORY [facility] Absolute Basophils 0.02 0.00 - 0.20 K/uL 04/11/2024 4:13 AM EST LABORATORY [facility] Blood Venous blood specimen / Unknown Venipuncture / Unknown 04/11/2024 3:56 AM EST 04/11/2024 4:08 AM EST Erik Lan MD LAB BLOOD ORDERABLES Fin al Result LABORATORY [address] [address] * (ABNORMAL) CBC (04/11/2024 3:56 AM EST) WBC 7.18 4.00 - 10.80 K/uL 04/11/2024 4:13 AM EST LABORATORY [facility] RBC 4.20 3.85 - 5.15 M/uL 04/11/2024 4:13 AM EST LABORATORY [facility] HGB 11.9(L) 12.0 - 15.3 g/dL 04/11/2024 4:13 AM EST LABORATORY [facility] HCT 37.8 36.0 - 45.2 % 04/11/2024 4:13 AM EST LABORATORY [facility] MCV 90.0 81.5 - 97.5 fL 04/11/2024 4:13 AM EST LABORATORY [facility] MCH 28.3 27.0 - 34.0 pg 04/11/2024 4:13 AM EST LABORATORY [facility] MCHC 31.5 32.0 - 36.0 g/dL 04/11/2024 4:13 AM EST LAB[facility]ATORY [facility] RDW 13.0 11.5 - 15.5 % 04/11/2024 4:13 AM EST LAB[facility] PLT 166 140 - 400 K/uL 04/11/2024 4:13 AM EST LAB[facility]ATORY [facility] MPV 10.9 6.6 - 11.1 fL 04/11/2024 4:13 AM EST LAB[facility]ORY [facility] Blood Venous blood specimen / Unknown Venipuncture / Unknown 04/11/2024 3:56 AM EST 04/11/2024 4:08 AM EST us Erik Lan MD LAB BLOOD ORDERABLES Fin al Result Performing Organization Address City/State/[facility] Co de Phone Number LABORATORY [address] [address] * (ABNORMAL) BLOOD GAS, VENOUS (04/11/2024 3:56 AM EST) Temperature 37.0 C 04/11/2024 4:26 AM EST LAB[facility]ATORY [facility] pH, Venous 7.412 7.320 - 7.430 units 04/11/2024 4:26 AM EST LABORATORY [facility] pCO2, Venous 44.8 40.0 - 60.0 mmHg 04/11/2024 4:26 AM EST LAB[facility]ORY [facility] pO2, Venous 43.8 25.0 - 50.0 mmHg 04/11/2024 4:26 AM EST LAB[facility]ORY [facility] Base Excess, Venous 3.3(H) -2.0 - 2.0 mmol/L 04/11/2024 4:26 AM EST LAB[facility]ATORY [facility] HGB 13.1 12.0 - 15.3 g/dL 04/11/2024 4:26 AM EST LAB[facility] Oxyhemoglobin, Venous 81.0 40.0 - 85.0 % total Hgb 04/11/2024 4:26 AM EST LAB[facility]ORY [facility] Carboxyhemoglobi n, Whole Blood 1.0 <=1.5 % total Hgb 04/11/2024 4:26 AM EST LAB[facility] Comment:Smokers: 0-9.0 % Methemoglobin, Whole Blood 0.6 <=1.5 % total Hgb 04/11/2024 4:26 AM EST LAB[facility]ORY [facility] Reduced Hemoglobin, Venous 17.4 % total Hgb 04/11/2024 4:26 AM EST LABORATORY [facility] O2 Content, Venous 14.9 7.0 - 18.0 %vol 04/11/2024 4:26 AM EST LAB[facility] Bicarbonate, Whole Blood 28.5 23.0 - 31.0 mmol/L 04/11/2024 4:26 AM EST LAB[facility] Blood Venous blood specimen / Unknown Venipuncture / Unknown 04/11/2024 3:56 AM EST 04/11/2024 4:08 AM EST Erik Lan MD LAB BLOOD ORDERABLES Fin al Result Performing Organization Address [facility] de Phone Number LABORATORY [address] [address] * (ABNORMAL) APTT (04/11/2024 3:56 AM EST) aPTT 40(H) 21 - 38 seconds 04/11/2024 4:34 AM EST LAB[facility]ATORY [facility] Blood Venous blood specimen / Unknown Venipuncture / Unknown 04/11/2024 3:56 AM EST 04/11/2024 4:08 AM EST Narrative LABORATORY [facility] - 04/11/2024 4:34 AM EST Anticoagulation may affect testing. Refer to [employer] Test Catalog for a list of effects. Erik Lan MD LAB BLOOD ORDERABLES Fin al Result Performing Organization Address City/[facility] Co de Phone Number LABORATORY [address] [address] * PT INR (04/11/2024 3:56 AM EST) Prothrombin Time 14.9 11.6 - 15.2 seconds 04/11/2024 4:33 AM EST LAB[facility]ATORY [facility] INR 1.2 0.8 - 1.2 04/11/2024 4:33 AM EST LAB[facility] Blood Venous blood specimen / Unknown Venipuncture / Unknown 04/11/2024 3:56 AM EST 04/11/2024 4:08 AM EST Narrative LAB[facility]ATORY [facility] - 04/11/2024 4:33 AM EST Warfarin Therapy INR: 2.0-3.0 conventional anticoagulation INR: 2.5-3.5 high intensity anticoagulation Erik Lan MD LAB BLOOD ORDERABLES Fin al Result Performing Organization Address [facility] de Phone Number LABORATORY [address] [address] * LACTATE, WHOLE BLOOD WITH REFLEX IF ABNORMAL (04/11/2024 3:56 AM EST) Lactate 0.8 0.4 - 2.0 mmol/L 04/11/2024 4:26 AM EST LAB[facility]ATORY [facility] Blood Venous blood specimen / Unknown Venipuncture / Unknown 04/11/2024 3:56 AM EST 04/11/2024 4:08 AM EST Erik Lan MD LAB BLOOD ORDERABLES Fin al Result Performing Organization Address [facility] de Phone Number LABORATORY [address] [address] * TROPONIN T, HIGH SENSITIVITY (04/11/2024 3:56 AM EST) Troponin T, High Sensitivity 8 <=14 ng/L 04/11/2024 4:35 AM EST LAB[facility]ATORY [facility] Blood Venous blood specimen / Unknown Venipuncture / Unknown 04/11/2024 3:56 AM EST 04/11/2024 4:08 AM EST Erik Lan MD LAB BLOOD ORDERABLES Fin al Result Performing Organization Address [facility] de Phone Number LABORATORY [address] [address] * (ABNORMAL) PROCALCITONIN (04/11/2024 3:56 AM EST) Procalcitonin 0.10(H) <0.10 ng/mL 04/11/2024 1:23 PM EST [facility] Blood Venous blood specimen / Unknown Venipuncture / Unknown 04/11/2024 3:56 AM EST 04/11/2024 4:08 AM EST [facility] - 04/11/2024 1:23 PM EST Less than 0.5 ng/mL: Low risk for progression to sepsis. Review patients condition for localized infections. 0.5 to 2.0 ng/mL: Intermediate risk for progresion to sepsis. Review underlying conditions. Recommend repeat PCT after 6 hours has elapsed. Greater than 2.0 ng/mL: high risk for progression to sepsis unless other causes are known. us Erik Lan MD LAB BLOOD ORDERABLES Fin al Result [facility] [address] [place] [address] * (ABNORMAL) COMPREHENSIVE METABOLIC PANEL (04/11/2024 3:56 AM EST) BUN 9 6 - 20 mg/dL 04/11/2024 4:30 AM EST LABORATORY [facility] CREATININE 0.7 0.5 - 1.0 mg/dL 04/11/2024 4:30 AM EST LABORATORY [facility] EGFR 90 >=60 mL/min 04/11/2024 4:30 AM EST LABORATORY [facility] Comment:eGFR is calculated b ased on the CKD-EPI 2020 equation. SODIUM 134(L) 135 - 146 mmol/L 04/11/2024 4:30 AM EST LABORATORY [facility] POTASSIUM 3.7 3.5 - 5.1 mmol/L 04/11/2024 4:30 AM EST LAB[facility]ATORY [facility] CHLORIDE 98 98 - 107 mmol/L 04/11/2024 4:30 AM EST LAB[facility]ATORY [facility] CO2 24 22 - 32 mmol/L 04/11/2024 4:30 AM EST LAB[facility]ATORY [facility] ANION GAP 12 7 - 15 mmol/L 04/11/2024 4:30 AM EST LABORATORY [facility] GLUCOSE 143(H) 70 - 120 mg/dL 04/11/2024 4:30 AM EST LAB[facility]ATORY [facility] Albumin 4.0 3.8 - 5.0 g/dL 04/11/2024 4:30 AM EST LABORATORY [facility] AST 27 10 - 35 U/L 04/11/2024 4:30 AM EST LABORATORY [facility] Alkaline Phosphatase 78 35 - 130 U/L 04/11/2024 4:30 AM EST LABORATORY [facility] Bilirubin, Total 0.3 <=1.2 mg/dL 04/11/2024 4:30 AM EST LAB[facility]ATORY [facility] CALCIUM 8.8 8.4 - 10.2 mg/dL 04/11/2024 4:30 AM EST LAB[facility]ATORY [facility] Protein 7.1 6.0 - 8.3 g/dL 04/11/2024 4:30 AM EST LAB[facility]ATORY [facility] ALT 13 10 - 35 U/L 04/11/2024 4:30 AM EST LABORATORY [facility] Blood Venous blood specimen / Unknown Venipuncture / Unknown 04/11/2024 3:56 AM EST 04/11/2024 4:08 AM EST Erik Lan MD LAB BLOOD ORDERABLES Fin al Result Performing Organization Address City/State/[facility] Co de Phone Number LABORATORY [id number] [place] [address] documented in this encounter Visit Diagnoses Diagnosis Sepsis (HCC) Unspecified septicemia documented in this encounter Administered Medications Inactive Administered Medications - up to 3 most recent administrations Medication Order MAR Action Action Date Dose Rate Site Acetaminophen (Tylenol) tab 650 mg 650 mg, Oral, ONCE, On 04/11/24 at 0430, For 1 dose, Maximum of 4 grams (4000 mg) per day. Given 04/11/2024 4:13 AM EST 650 mg ISOLYTE 1,900 mL bolus infusion (SEE ADMIN INSTRUCTIONS) Intravenous, at 1,200 mL/hr, Obtain vital signs q15 min x 4 beginning within the hour after fluid bolus end time, then resume vital signs as ordered. Estimated body mass index is 26.22 kg/m² as calculated from the following: Height as of this encounter: 1.524 m (5'). Weight as of this encounter: 60.9 kg (134 lb 4.2 oz). Actual body weight was utilized to determine target ordered volume. Plasma-LYTE 148, isolyte-S, and isolyte-S pH 7.4 are considered equivalent - including for MAR barcode scanning., ONCE, 1 dose, On 04/11/24 at 0430 New Bag 04/11/2024 4:12 AM EST 1,900 mL 1200 mL/hr ondansetron (Zofran) inj 4 mg 4 mg, Intravenous, ONCE, On 04/11/24 at 0430, For 1 dose Given 04/11/2024 4:13 AM EST 4 mg Piperacillin-Tazobactam (Zosyn) 4.5 g in 100 mL NSS ivpb (HALF hour infusion) 4.5 g, IV Piggyback, ONCE, On 04/11/24 at 0430, For 1 dose New Bag 04/11/2024 4:19 AM EST 4.5 g 210 mL/hr Vancomycin (Vancocin) 1,500 mg in D5W 250 mL ivpb 1,500 mg, IV Piggyback, ONCE, 1 dose, On 04/11/24 at 0430 New Bag 04/11/2024 5:00 AM EST 1,500 mg 170 mL/hr documented in this encounter Active and Recently Administered Medications Times are shown in EST. Scheduled Medication Order 04/09/2024 04/10/2024 04/11/2024 Acetaminophen (Tylenol) tab 650 mg (COMPLETED) 650 mg, Oral, ONCE, On 04/11/24 at 0430, For 1 dose, Maximum of 4 grams (4000 mg) per day. 0413 (Given - Provid er: Michael José RN - Comment: for fever) ISOLYTE 1,900 mL bolus infusion (SEE ADMIN INSTRUCTIONS) (COMPLETED) Intravenous, at 1,200 mL/hr, Obtain vital signs q15 min x 4 beginning within the hour after fluid bolus end time, then resume vital signs as ordered. Estimated body mass index is 26.22 kg/m² as calculated from the following: Height as of this encounter: 1.524 m (5'). Weight as of this encounter: 60.9 kg (134 lb 4.2 oz). Actual body weight was utilized to determine target ordered volume. Plasma-LYTE 148, isolyte-S, and isolyte-S pH 7.4 are considered equivalent - including for MAR barcode scanning., ONCE, 1 dose, On 04/11/24 at 0430 0412 (New Bag - Prov ider: Michael José, RN)0618 (Stopped - Provider: Michael José RN) ondansetron (Zofran) inj 4 mg (COMPLETED) 4 mg, Intravenous, ONCE, On 04/11/24 at 0430, For 1 dose 0413 (Given - Provid er: Michael José RN) Piperacillin-Tazobactam (Zosyn) 4.5 g in 100 mL NSS ivpb (HALF hour infusion) (COMPLETED) 4.5 g, IV Piggyback, ONCE, On 04/11/24 at 0430, For 1 dose 0419 (New Bag - Prov ider: Michael José RN)0458 (Stopped - Provider: Michael José RN) Vancomycin (Vancocin) 1,500 mg in D5W 250 mL ivpb 1,500 mg, IV Piggyback, ONCE, 1 dose, On 04/11/24 at 0430 0500 (New Bag - Prov ider: Michael José RN)0745 (Stopped - Provider: Michael José RN) documented in this encounter Additional Health Concerns [...] the patient have Health Care Power of Medical Office Rep? Yes, not currently available Care Teams Gas Controller Relationship Specialty Start Date End Date Vickey Merchant MD [place] [address] [address] [place] [phone] PCP - General Internal Medicine 05/24/21 documented as of this encounter
--- OUTSIDE RECORDS SUMMARY | 2024-08-07 04:33 | External Medical Summary ---
Author Name Unknown Address Unknown Organization [id number]:LABORATORY [facility] - [address] [facility] [address] Laboratory Report Ordering Provider Test Date Status [facility] 04/11/2024 03:56:57 Final Warfarin Therapy
INR: 2 .0-3.0 conventional anticoagulation
INR: 2.5- 3.5 high intensity anticoagulation Observation Date Value Abnormality Reference (Units ) Status PT 04/11/2024 03:56:57 14.9 11.6-15.2 (seconds) Final INR 04/11/2024 03:56:57 1.2 0.8-1.2 Final Performing Location LABORATORY [facility] - [address] [facility] [address]
--- OUTSIDE RECORDS SUMMARY | 2024-08-07 04:33 | External Medical Summary ---
Author Name Unknown Address Unknown Organization [id number]:[facility] [place] [address] [place] [address] Laboratory Report Ordering Provider Test Date Status [facility] 04/11/2024 03:59:52 Final Observation Date Value Abnormality Reference (Units ) Status Methicillin resistant Staphylococcus aureus (MRSA) DNA [Presence] in Nose by PAPI with probe detection 04/11/2024 03:59:52 Negative Negative Final No Methicillin resistant Sta phylococcus aureus detected by PCR (amplified probe). Performing Location [facility] [place] [address] [place] [address]
--- OUTSIDE RECORDS SUMMARY | 2024-08-07 04:34 | External Medical Summary | Summary of Care ---
Author Name Unknown Organization [facility] Address [address] [facility] [place] [address] Phone [phone] Care Team Providers Care Sr. Pricing Analyst Name Role Phone Vickey Merchant MD Primary Car e Provider Encounter Details Date Type Department Care Team (Late st Contact Info) Description 02/13/2024 Population Health External Data Unspecified Department Allergies Active Allergy Reactions Criticality Noted Date Comments Adhesive Tape 07/07/2003 Moxifloxacin Hydrochloride Rash 9 Moxifloxacin Hcl Itching Medium 09/19/2017 documented as of this encounter (statuses as of 02/20/2024) Medications Aspirin 81 MG Oral Tablet Delayed Release 1 Tablet every other day. 30 0 10/14/19 03 Active OXYGENIndications: COPD, severity to be determined (HCC) Continue oxygen at home 1 0 12/22/19 09 Active furosemide (LASIX) 40 MG Tablet Active Lancets (ONETOUCH DELICA PLUS [id number]) [facility] Use to test 4 times daily as [...] 3350 17 GM Oral Packet (MiraLax Mix-In [place]) Take 17 g by mouth daily. Active [...] morning. Active Thyroid 15 MG Oral Tablet ([place] Thyroid) Take 1 Tablet by mouth in [...] as of this encounter (statuses as of 02/20/2024) Active Problems Problem Noted Date Diagnosed Date [...] as of this encounter (statuses as of 02/20/2024) Resolved Problems Problem Noted Date Diagnosed Date Resolved Date Tylenol intoxication 12/17/2008 009 s/p overdose of Tylenol 12/17/200812/07 documented as of this encounter (statuses as of 02/20/2024) Immunizations Name Administration Dates Next Due Pneumococcal [...] the patient have Health Care Power of Inside Plant Supervisor? Yes, not currently available Care Teams Sr. Pricing Analyst Relationship Specialty Start Date End Date Vickey Merchant MD [facility] Outlet [place] [address] [address] [place] [phone] PCP - General Internal Medicine 05/24/21 documented as of this encounter
--- NOTE | 2024-08-07 04:46 | Emergency Department Note ---
Impression & Plan Hydronephrosis, right, Failure of outpatient treatment, Calculus of distal right ureter, Hypoxia ED Provider Note Name: GALLO SETH Age: 68 Sex: Female Arrives Via: Walk-In Informant: Patient, Daughter ED Provider: Cesar Suero MD Chief Complaint: Flank pain Impression: As per impressions above Medical Decision Making: Pleasant 68-year-old female with extensive past medical history including multiple episodes of kidney stones over the years. She has been dealing with worsening right flank pain into her abdomen over the last week. Home pain medications are not helping. She is now in significantly more distress. Workup reveals a relatively large right distal ureteral stone with moderate hydro-. Urinalysis with white blood cells though no overt bacteria. She was given some IV narcotics that becomes quite hypoxic with them. This is likely secondary to her chronic respiratory failure. Given failure of outpatient management and now the concern for possible developing infection. She was given IV Rocephin. I discussed the case with urology plan will be for them to evaluate in the morning they agree as patient is not septic shock nor clear evidence of infection at this time will await further medical clearance and evaluation. Hospitalist consulted for further management. Patient and daughter are comfortable with this plan. Triage/Nursing Notes reviewed by Me External Chart Review by me: I did review the patient's urology note from 09/11/2019 status post lithotripsy in her previous renal colic issues. Differential:Renal colic, UTI, appendicitis, diverticulitis, mesenteric ischemia, aortic pathology, infections, inflammatory bowel disease, PUD, biliary pathology, as well as other pathologies. Vital Signs: reviewed and remarkable for hypoxia Interventions: Dilaudid IV, Rocephin IV, normal saline bolus IV Labs:ED labs Reviewed by me and remarkable for mild white blood cell count elevation. Mild hyperglycemia. Urinalysis with leuk esterase and white blood cells no bacteria. Imaging:CT of the abdomen pelvis without contrast as per my informal interpretation. There is an 8 mm right ureteral stone with moderate hydro-. No free air or bowel obstruction appreciated. Confirmed by radiologist. Cardiac/Tele Monitoring: Cardiac Monitoring: An Order was placed for continuous cardiac monitoring. The monitor shows a rate of 80 with a normal sinus rhythm. Consults:Discussed with Dr. Swain of urology. Discussed with hospital service who will manage patient further Plan: Disposition:Hospitalization. Condition: Good History of Present Illness: 68-year-old female arrives for evaluation of right flank pain. Patient with long history of periodic kidney stones. About a week and a half ago she started developing right flank pain. Pain was waxing waning got quite severe so she went to an outside hospital. Diagnosed with ureteral stone. She started on Oxy IR and was to see urology as an outpatient. Unfortunately patient ended up getting the flu and sick. She states she was vomiting some. Thus she missed this urology appointment. Patient notes that since then though pain has just continued to worsen. Frequent nausea and vomiting. She notes she feels like she is get a pass out. She has not been eating or drinking well. She is starting get some right sided abdominal pain with it as well. No urinary burning or frequency. Does note dark urine. Denies any leg swelling calf pain rashes chest pain shortness of breath or other concerning signs or symptoms. Past Medical History: Type 2 diabetes, hypertension, kidney stones, COPD on chronic oxygen, heart failure Home Medications:See Below Allergies: Levothyroxine, Avelox Vitals:Blood Pressure: 181/84, Pulse 88, RR 16, T 36.5C, O2 91% on RA Physical Exam: GENERAL: Patient is uncomfortable appearing and in moderate distress. Dehydrated. RESPIRATORY: No dyspnea. Clear to auscultation and equal bilaterally. CARDIOVASCULAR: Regular rate and rhythm.No murmur appreciated. GASTROINTESTINAL: Abdomen soft, non-tender, no peritonitis. BACK: No midline tenderness, ++right CVA tenderness EXTREMITIES: Normal motion all extremities, no cyanosis, no edema. NEUROLOGIC: Alert and oriented. No focal neurologic deficits appreciated SKIN: No rash, no jaundice, no diaphoresis. PSYCH: Appropriate GCS: 15 ED Course: Times/Reassessments: Patient's pain is significantly improved. Unfortunately she is bit hypoxic though improved with nasal cannula O2. Cesar Suero MD Past Med/Surg History Problem List (Updated 08/08/24 @ 05:05 by Cesar Suero MD) Hypoxia (Acute) Calculus of distal right ureter (Acute) Failure of outpatient treatment (Acute) Hydronephrosis, right (Acute) Hydronephrosis Right ureteral calculus Hydronephrosis with renal calculous obstruction Oxygen dependent Chronic respiratory failure DVT prophylaxis COPD exacerbation (Acute) Pneumonia due to COVID-19 virus (Acute) COVID-19 (Acute) Hypothyroidism Left-sided heart failure Insomnia Depression with anxiety HTN (hypertension) Diabetes mellitus, type II COPD (chronic obstructive pulmonary disease) (Acute) oxygen dependent Medical History (Updated 08/08/24 @ 05:05 by Cesar Suero MD) High cholesterol Asthma Kidney stones Surgical History Hx of tonsillectomy Hx of tubal ligation Family History Mother Breast cancer Father FH: leukemia CLL Sister Hypertension Social History Smoking Status: Current every day smoker Tobacco Type: Cigarettes Cigarettes Per Day: 1; Second Hand Exposure: Yes; Do You Dip or Chew Tobacco: No; Hx Alcohol Use: No Hx Substance Use: No Preferred Language: Czech Communication Ability: Effective 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 Beliefs That Will Affect Care: None Current Living Situation: Alone Feels Safe at Home: No Is there a partner from a previous relationship who is making you feel unsafe now?: No Assistive Devices: Oxygen - Continuous Allergies Allergies Allergy/AdvReac Type Severity Reaction Status Date / Time levothyroxine Allergy Hives Verified 08/07/24 12:11 moxifloxacin [From Avelox] AdvReac Intermediate Cellulitic Verified 08/07/24 12:11 Rash tomato AdvReac Verified 08/07/24 12:11 Home Meds Home Medications Medication Instructions Recorded Confirmed albuterol sulfate 90 mcg/actuation 2 puff inhalation QID PRN 09/09/19 08/07/24 aerosol inhaler Shortness Of Breath citalopram 40 mg tablet 40 mg PO HS 09/09/19 08/07/24 amlodipine 5 mg-benazepril 10 mg 1 cap PO QAM 08/07/24 08/07/24 capsule buspirone 15 mg tablet 15 mg PO BID 08/07/24 08/07/24 ipratropium 0.5 mg-albuterol 3 mg 3 ml inhalation QID PRN SOB or 08/07/24 08/07/24 (2.5 mg base)/3 mL nebulization Wheezing soln ipratropium 20 mcg-albuterol 100 1 puff inhalation QID 08/07/24 08/07/24 mcg/actuation mist for inhalation (Combivent Respimat) levocetirizine 5 mg tablet 5 mg PO QAM PRN Allergies 08/07/24 08/07/24 levothyroxine 50 mcg tablet 50 mcg PO QAM 08/07/24 08/07/24 lorazepam 0.5 mg tablet 0.5 mg PO BID 08/07/24 08/07/24 mometasone-formoterol HFA 200 2 puff inhalation BID 08/07/24 08/07/24 mcg-5 mcg/actuation aerosol inhaler (Dulera) pantoprazole 40 mg tablet,delayed 40 mg PO QAM 08/07/24 08/07/24 release simvastatin 10 mg tablet 10 mg PO QAM 08/07/24 08/07/24 trazodone 50 mg tablet 25 mg PO QPM 08/07/24 08/07/24 Results & Data (ED) Vital Signs Vital Signs - 24 hr 08/07/24 05:36 08/07/24 06:00 08/07/24 06:30 Pulse Rate 89 81 Pulse Rate from SpO2 Sensor 86 81 Respiratory Rate 15 12 Blood Pressure 153/73 H 135/77 121/84 Blood Pressure Mean 99 96 94 Pulse Oximetry 96 95 Oxygen Delivery Method Nasal Cannula Nasal Cannula Oxygen Flow Rate 2 2 08/07/24 06:30 08/07/24 07:00 08/07/24 07:00 Pulse Rate 82 Pulse Rate from SpO2 Sensor 82 Respiratory Rate 14 Blood Pressure 121/84 133/74 Blood Pressure Mean 94 95 Pulse Oximetry 94 Oxygen Delivery Method Oxygen Flow Rate 08/07/24 07:00 08/07/24 07:00 08/07/24 07:12 Pulse Rate 78 Pulse Rate from SpO2 Sensor 79 Respiratory Rate 9 L Blood Pressure 133/74 133/74 Blood Pressure Mean 95 95 Pulse Oximetry 95 Oxygen Delivery Method Oxygen Flow Rate 08/07/24 07:31 08/07/24 07:31 08/07/24 07:33 Pulse Rate 102 H Pulse Rate from SpO2 Sensor 100 H Respiratory Rate 22 Blood Pressure 155/95 H 155/95 H Blood Pressure Mean 110 110 Pulse Oximetry 94 Oxygen Delivery Method Oxygen Flow Rate Laboratory Data 08/07/24 04:50 08/07/24 04:50 Lab Results 08/07/24 Range/Units 04:50 WBC 12.06 H (4.8-10.8) K/ul RBC 4.57 (4.20-5.40) M/uL Hgb 12.7 (12.0-16.0) g/dl Hct 39.8 (37.0-47.0) % MCV 87.1 (80.0-100.0) fL MCH 27.8 (25.0-34.0) pg MCHC 31.9 L (32.0-36.0) g/dL RDW Std Deviation 39.6 (36.4-46.3) fL RDW Coeff of Lillie 12.5 (11.5-14.5) % Plt Count 227 (130-400) K/uL MPV 10.8 (9.4-12.4) fL Immature Gran % (Auto) 0.4 % Neut % (Auto) 85.3 % Lymph % (Auto) 7.8 % Powell % (Auto) 5.8 % Eos % (Auto) 0.3 % Baso % (Auto) 0.4 % Neut # (Auto) 10.28 H (1.40-6.50) K/uL Lymph # (Auto) 0.94 L (1.20-3.40) K/uL Powell # (Auto) 0.70 H (0.11-0.59) K/uL Eos # (Auto) 0.04 (0.00-0.50) K/uL Baso # (Auto) 0.05 (0.00-0.20) K/uL Immature Gran # (Auto) 0.05 (0.01-0.20) K/uL Sodium 137 (136-145) mmol/L Potassium 3.9 (3.5-5.1) mmol/L Chloride 99 (98-107) mmol/L Carbon Dioxide 30 (21-32) mmol/L Anion Gap 8 (3-11) BUN 13 (6-23) mg/dl Creatinine 1.03 (0.6-1.2) mg/dl Est Cr Clr Drug Dosing 43.1 ml/min eGFR 59.23 BUN/Creatinine Ratio 12.6 (10-20) Glucose 169 H (70-99(Fasting)) mg/dl Calcium 9.4 (8.6-10.3) mg/dl Total Bilirubin 0.3 (0.2-1.0) mg/dl Direct Bilirubin 0.0 (0-0.2) mg/dl AST 28 (13-39) U/L ALT 23 (7-52) U/L Alkaline Phosphatase 70 (34-104) U/L Total Protein 7.4 (6.0-8.3) gm/dl Albumin 4.4 (3.4-5.0) gm/dl Lipase 9 L (11-82) U/L Urine Color Yellow Urine Appearance Cloudy A (Clear) Urine pH 8.5 H (4.5-7.5) Ur Specific [place] 1.015 (1.000-1.030) Urine Protein Trace H (Negative) Urine Glucose (UA) Negative (Negative) Urine Ketones 1+ H (Negative) Urine Blood 3+ H (Negative) Urine Nitrite Negative (Negative) Urine Bilirubin Negative (Negative) Urine Urobilinogen Negative (Negative) Ur Leukocyte Esterase 2+ H (Negative) Urine WBC (Auto) 11-20 H (0-5) /hpf Urine RBC (Auto) >20 H (0-2) /hpf U Hyaline Cast (Auto) 0-2 (0-2) /lpf U Epithel Cells (Auto) 0-2 (0-2) /hpf Urine Bacteria (Auto) None Seen (None Seen) Administered Medications Albuterol (Albut/Ipratrop 3mg/0.5mg Neb 3 Ml Vial) 3 ml NEB Q6R [facility]; Protocol Stop: 09/06/24 12:59 Last Admin: 08/08/24 01:39 Dose: 3 ml Documented By: Admin: 08/07/24 19:19 Dose: 3 ml Documented By: Admin: 08/07/24 12:45 Dose: Not Given Documented By: DOROTEO Buspirone HCl (Buspirone 15 Mg Tab) 15 mg PO BID [facility] Stop: 09/06/24 20:59 Last Admin: 08/07/24 20:10 Dose: 15 mg Documented By: LESLYE Citalopram Hydrobromide (Citalopram 40 Mg Tab) 40 mg PO HS [facility] Stop: 09/06/24 20:59 Last Admin: 08/07/24 20:10 Dose: 40 mg Documented By: LESLYE Diatrizoate Meglumine (Diatrizoate Meglumine 30% 100ml Vial) 6 ml INSTIL UD PRN PRN Reason: Radiology Use Stop: 08/11/24 13:26 Last Admin: 08/07/24 13:28 Dose: 6 ml Documented By: [id number] Fluticasone/Vilanterol (Fluticasone/Vilanterol 200/25mcg 14 Puffs/Inhaler) 1 puffs INH HS [facility] Stop: 09/06/24 20:59 Last Admin: 08/07/24 20:11 Dose: 1 puffs Documented By: LESLYE Guaifenesin (Guaifenesin 600 Mg Tabcr) 600 mg PO Q12 [facility] Stop: 09/06/24 20:59 Last Admin: 08/07/24 20:11 Dose: 600 mg Documented By: LESLYE Promethazine HCl (Phenergan) 6.25 mg in 50.25 mls @ 201 mls/hr IV Q6H PRN PRN Reason: Nausea And Vomiting Stop: 09/06/24 10:41 Last Infusion: 08/07/24 21:38 Dose: Infused Documented By: Admin: 08/07/24 21:12 Dose: 201 mls/hr Documented By: LESLYE Insulin Aspart (Insulin Aspart Per Unit Charge) 0 units SC ACHS [facility] Stop: 09/06/24 11:29 Last Admin: 08/07/24 20:40 Dose: Not Given Documented By: Admin: 08/07/24 17:37 Dose: Not Given Documented By: Admin: 08/07/24 17:05 Dose: Not Given Documented By: ANNA Lorazepam (Lorazepam 0.5 Mg Tab) 0.5 mg PO BID [facility] Stop: 09/06/24 21:14 Last Admin: 08/07/24 21:12 Dose: 0.5 mg Documented By: LESLYE Morphine Sulfate (Morphine Sulfate 2 Mg/Ml Carp) 1 mg IV Q4H PRN PRN Reason: Severe Pain (Scale 7, 8, 9,10) Stop: 08/21/24 09:25 Last Admin: 08/07/24 20:26 Dose: 1 mg Documented By: LESLYE Tamsulosin HCl (Tamsulosin Hcl 0.4 Mg Cap) 0.4 mg PO QAM [facility] Stop: 09/06/24 09:44 Last Admin: 08/07/24 10:07 Dose: 0.4 mg Documented By: PHUC Trazodone HCl (Trazodone Hcl 50 Mg Tab) 25 mg PO QPM [facility] Stop: 09/06/24 20:59 Last Admin: 08/07/24 20:09 Dose: 25 mg Documented By: LESLYE Discontinued Medications Albuterol (Albut/Ipratrop 3mg/0.5mg Neb 3 Ml Vial) 3 ml NEB NOW STA; Protocol Stop: 08/07/24 09:33 Last Admin: 08/07/24 10:07 Dose: 3 ml Documented By: PHUC Hydromorphone HCl (Hydromorphone Inj 0.5 Mg/0.5 Ml Syr) 0.5 mg IV NOW STA Stop: 08/07/24 04:44 Last Admin: 08/07/24 04:55 Dose: 0.5 mg Documented By: ABHIJIT Hydromorphone HCl (Hydromorphone Inj 1 Mg/Ml Syringe) 1 mg IV NOW STA Stop: 08/07/24 05:24 Last Admin: 08/07/24 05:30 Dose: 1 mg Documented By: VITALIY Sodium Chloride (Nss) 1,000 mls @ 999 mls/hr IV .Q1H1M ONE Stop: 08/07/24 05:43 Last Infusion: 08/07/24 05:56 Dose: Infused Documented By: Admin: 08/07/24 04:55 Dose: 999 mls/hr Documented By: ABHIJIT Ceftriaxone Sodium (Rocephin) 2,000 mg in 50 mls @ 100 mls/hr IV NOW STA Stop: 08/07/24 07:10 Last Infusion: 08/07/24 08:52 Dose: Infused Documented By: Admin: 08/07/24 06:57 Dose: 100 mls/hr Documented By: VITALIY Acetaminophen (Ofirmev) 1,000 mg in 100 mls @ 400 mls/hr IV NOW STA Stop: 08/07/24 09:38 Last Infusion: 08/07/24 11:05 Dose: Infused Documented By: Admin: 08/07/24 09:59 Dose: 400 mls/hr Documented By: SHARATH Sodium Chloride (Nss) 1,000 mls @ 60 mls/hr IV .[id number] [facility] Stop: 08/08/24 02:24 Last Infusion: 08/08/24 02:47 Dose: Infused Documented By: Admin: 08/07/24 10:07 Dose: 60 mls/hr Documented By: PHUC Ondansetron HCl (Ondansetron Inj 2 Mg/Ml 2 Ml Vial) 4 mg IV NOW STA Stop: 08/07/24 04:44 Last Admin: 08/07/24 04:55 Dose: 4 mg Documented By: EJW Discharge Plan Visit Data Chief Complaint: Kidney Stone Stated Complaint: KIDNEY STONE MOVING ED Provider: Cesar Suero Discharge Problem: Hydronephrosis, right, Failure of outpatient treatment, Calculus of distal right ureter, Hypoxia Patient Disposition: Admitted As Inpatient Condition: Good Discharge Instructions Interventions: ED Discharge Assessment Last Done: 08/07/24 10:23
[2024-08-07] MEDS: HYDROmorphone INJ 0.5 MG/0.5 ML SYR IV STA (04:55)
[2024-08-07] MEDS: ONDANSETRON INJ 2 MG/ML 2 ML VIAL IV STA (04:55)
[2024-08-07] MEDS: SODIUM CHLORIDE 0.9% 1,000 ML IV ONE (04:55)
[2024-08-07 05:20] LABS: Basophils # (auto) 0.05 K/uL (0.00-0.20); Basophils % (auto) 0.4 %; Eosinophils # (auto) 0.04 K/uL (0.00-0.50); Eosinophils % (auto) 0.3 %; Hematocrit (blood only) 39.8 % (37.0-47.0); Hemoglobin 12.7 g/dl (12.0-16.0); Immature Granulocytes # (auto) 0.05 K/uL (0.01-0.20); Immature Granulocytes % (auto) 0.4 %; Lymphocytes # (auto) 0.94 K/uL (1.20-3.40); Lymphocytes % (auto) 7.8 %; Mean Corpuscular Hemoglobin 27.8 pg (25.0-34.0); Mean Corpuscular Hgb Conc 31.9 g/dL (32.0-36.0); Mean Corpuscular Volume 87.1 fL (80.0-100.0); Mean Platelet Volume 10.8 fL (9.4-12.4); Monocytes % (auto) 5.8 %; Neutrophils # (auto) 10.28 K/uL (1.40-6.50); Neutrophils % (auto) 85.3 %; Platelet Count 227 K/uL (130-400); RDW Coefficient of Variation 12.5 % (11.5-14.5); RDW Standard Deviation 39.6 fL (36.4-46.3); Red Blood Count 4.57 M/uL (4.20-5.40); White Blood Count 12.06 K/ul (4.8-10.8)
[2024-08-07 05:21] LABS: Appearance Urine Cloudy (Clear); Bacteria Urine Automated None Seen (None Seen); Bilirubin Urine Negative (Negative); Blood Urine 3+ (Negative); Cast Urine Automated 0-2 /lpf (0-2); Color Urine Yellow; Epithelial Cell Urine Auto 0-2 /hpf (0-2); Glucose Urine UA Negative (Negative); Ketones Urine 1+ (Negative); Leukocyte Esterase Urine 2+ (Negative); Nitrite Urine Negative (Negative); Protein Urine Trace (Negative); RBC Urine Automated >20 /hpf (0-2); Specific Gravity Urine 1.015 (1.000-1.030); Urobilinogen Urine Negative (Negative); pH Urine 8.5 (4.5-7.5)
[2024-08-07] MEDS: HYDROmorphone INJ 1 MG/ML SYRINGE IV STA (05:30)
[2024-08-07 05:37] LABS: Albumin Level 4.4 gm/dl (3.4-5.0); BUN Creatinine Ratio 12.6 (10-20); Bilirubin,Total 0.3 mg/dl (0.2-1.0); Calcium 9.4 mg/dl (8.6-10.3); Creatinine Clr Calc Pharmacy 43.1 ml/min; Potassium 3.9 mmol/L (3.5-5.1); Total Protein 7.4 gm/dl (6.0-8.3)
--- NOTE | 2024-08-07 06:15 | CT Scan Report ---
EXAM: CT abd pelvis wo con CLINICAL HISTORY: right flank pain TECHNIQUE: Contiguous axial images were obtained from the level of the diaphragm to the pubic symphysis without intravenous or oral contrast. Coronal and sagittal reconstructions were likewise performed and indicated to increase the sensitivity for detecting clinically relevant pathology. CT scan was performed according to ALARA (as low as reasonable achievable). 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 The unenhanced liver, spleen, pancreas, and adrenal glands are grossly unremarkable. The gallbladder is present. The kidneys are normal in size and attenuation without obvious calcification. Right kidney show nonobstructing calculus of size 6 mm in middle calyx. Right kidney shows hydronephrosis and hydroureter up to an obstructing calculus of size 8 mm is noted in right vesicoureteric junction. Left kidney show nonobstructing calculus of size 2mm in middle calyx. No adenopathy or fluid collections are seen. No evidence of focal or diffuse bowel wall thickening or evidence of bowel obstruction is seen. No evidence of inflamed appendix. The aorta is normal in caliber. The urinary bladder is normal in contour. Pelvic viscera are grossly unremarkable. No aggressive appearing osseous lesions are identified. Fluid Filled mildly prominent small bowel loops seen without significant obstructive changes. Multiple small uncomplicated sigmoid colonic diverticulosis IMPRESSION: 1. Right kidney show nonobstructing calculus of size 6 mm in middle calyx.-increased in size. 2. Right kidney shows hydronephrosis and hydroureter up to an obstructing calculus of size 8mm is noted in right vesicoureteric junction.-new finding. 3. Left kidney show nonobstructing calculus of size 2mm in middle calyx. -new finding. 4. Fluid Filled mildly prominent small bowel loops seen without significant obstructive changes.-follow up suggested-new finding. 5. Multiple small uncomplicated sigmoid colonic diverticulosis -stable. 6. Prior Left ureterolithiasis is not seen in present scan Electronically signed by Jack Moran 08-07-2024 06:15 AM
[2024-08-07] MEDS: cefTRIAXone SODIUM 2,000 MG/50 ML BAG IV STA (06:57)
--- NOTE | 2024-08-07 07:47 | History & Physical Report ---
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 CTAP with the following findings: right kidney show nonobstructing calculus of size 6mm in middle calyx (increased in size), right kidney hydronephrosis and hydroureter up to an obstructing calculus of size 8mm is noted in right vesicoureteric junction (new finding) and left kidney nonobstructing calculus of size 2mm in middle calyx (new finding). Bradypnea and itching reported with administration of IV Dilaudid in the ED. Reports tolerating IV morphine in the past without any issues >> will utilize PRN for severe pain. UA with 2+ LE and 11-20 WBC >> concerning for possible infection. Continue IV Rocephin for now pending urine cx results. Appreciate urology consult. Discussed case with urology [id number] via TT >> plan for stent placement today. Keep NPO for procedure. Gentle IVF with additional 1L NSS @ 60cc/hr given underlying left-sided HF; closely monitor volume status. Daily Flomax. Strain all urine. (2) Oxygen dependent: (3) COPD (chronic obstructive pulmonary disease): Plan: Known oxygen-dependent COPD, uses 2-3L NC at baseline. On 3L currently. Has been feeling more short of breath over the past week. Chronic nonproductive cough. + smoker. Reports she was on a Z-Blake and course of oral prednisone about 3 weeks ago for an acute COPD exacerbation. Check CXR. Encourage ISP use. Continue home inhalers. Will start scheduled Duonebs Q6R for now. May benefit from oral prednisone taper if no improvement of wheezing with Duonebs. (4) Diabetes mellitus, type II: Plan: Hgb A1c 6.2% in April 2020. Obtain updated Hgb A1c in AM. Diet-controlled. CC diet following procedure. SSI coverage while inpatient for tighter control. BSG checks ACHS. (5) HTN (hypertension): Plan: SBP in the 110s during our conversation in the ED. Holding home amlodipine- benazepril for now. Routine BP monitoring. (6) Left-sided heart failure: Plan: Prior TTE from January 2019: normal LV cavity size, borderline increased concentric LV wall thickness, normal LV wall motion, LVEF = 60-64%, grade I LV diastolic dysfunction, no significant valvular disease and no evidence of pulmonary HTN. Appears euvolemic on exam. Will give another 1L NSS as per above with close monitoring of volume status. Other Chronic Medical Conditions: HLD/Hypothyroidism/CRISTOFER/Depression - Can continue home meds for these specific conditions. DVT Prophylaxis: SCDs/TEDs for now in anticipation for above procedure. Code Status: FULL CODE PCP: Vickey Merchant MD Disposition: Admit to med/surg for further inpatient evaluation and management of above conditions. Patient seen in collaboration with Dr. Morel. Please see addendum. I spent a total of 62 minutes coordinating, documenting, and providing care for this patient excluding time spent in the performance of separately billed services or time spent by another provider/QHP. This included personally reviewing all current laboratories and imaging studies, medical reconciliation, outpatient chart review and discussion with specialists. This chart was completed in part utilizing Speech Voice Recognition Software. Grammatical errors, random word insertions, pronoun errors, and incomplete sentences are an occasional consequence of this system due to software limitations, ambient noise, and hardware issues. Any formal questions or concerns about the content, text, or information contained within the body of this dictation should be directly addressed to the provider for clarification. History of Present Illness Chief Complaint: Right flank pain Primary Care Provider: Vickey Merchant MD Tania Rogers is a 68y/o F with PMHx significant for DMII, acquired hypothyroidism, oxygen-dependent COPD on 2-3L NC at baseline, mitral valve prolapse, left-sided HF, ulcerative colitis, presenile dementia, major depressive disorder, tobacco use disorder, persistent insomnia and CRISTOFER who presented to the ED for evaluation of right flank pain. History obtained from the patient and associated chart review. Previously seen and evaluated at [facility] ED on 07/30/24 due to right flank pain and diagnosed with renal calculi. CTAP without contrast at that time revealed the following: punctate left intrarenal calculus and 5mm nonobstructing right intrarenal calculus, [id number] right perinephric stranding and hydronephrosis secondary to a 6 x 4 x 6.5mm calculus located in the right ureter at the level of L4. UA at that time was concerning for infection given evidence of 3-5 WBC and 26-50 bacteria however urine culture did not reveal any significant growth. Patient was not discharged home on any antibiotics at that time. She was scheduled to see urology at [facility] as an outpatient on 08/04/24 however she fell ill with flu-like symptoms and subsequently was unable to attend her appointment. Prior history of kidney stones. Ongoing right flank pain since previously seen at [facility] ED last week. No reported fevers however does endorse some intermittent chills. Denies any hematuria, dysuria or increased urinary frequency. Had been taking Tylenol and Motrin at home for pain relief. Does endorse some N/V with most recent episode occurring en route to the ED. Has a chronic cough. Nonproductive in nature. Known smoker. Smokes a little under 1 pack of cigarettes every day. No alcohol use. Known oxygen-dependent COPD. Uses 2-3L NC at baseline. Has been feeling more short of breath over the past week. Reports she was on a Z-Blake and course of oral prednisone about 3 weeks ago for an acute COPD exacerbation. Denies any chest pain. Did not take any of her medications today. Bradypnea and itching reported with administration of IV Dilaudid in the ED. Reports tolerating IV morphine in the past without any issues. Pain well controlled at the time of our conversation. Saturating on 3L NC. NAD. Normal respiratory effort. VSS. ED labs personally reviewed. Mild leukocytosis with neutrophilic predominance. Electrolytes WNL. UA with 2+ LE and 11-20 WBC >> concerning for possible infection. CTAP with the following findings: right kidney show nonobstructing calculus of size 6mm in middle calyx (increased in size), right kidney hydronephrosis and hydroureter up to an obstructing calculus of size 8mm is noted in right vesicoureteric junction (new finding) and left kidney nonobstructing calculus of size 2mm in middle calyx (new finding). Allergies Allergy/AdvReac Type Severity Reaction Status Date / Time levothyroxine Allergy Hives Verified 08/07/24 12:11 moxifloxacin [From Avelox] AdvReac Intermediate Cellulitic Verified 08/07/24 12:11 Rash tomato AdvReac Verified 08/07/24 12:11 Home Medications Medication Instructions Recorded Confirmed Type albuterol sulfate 90 mcg/actuation 2 puff inhalation QID PRN 09/09/19 08/07/24 History aerosol inhaler Shortness Of Breath citalopram 40 mg tablet 40 mg PO HS 09/09/19 08/07/24 History amlodipine 5 mg-benazepril 10 mg 1 cap PO QAM 08/07/24 08/07/24 History capsule buspirone 15 mg tablet 15 mg PO BID 08/07/24 08/07/24 History ipratropium 0.5 mg-albuterol 3 mg 3 ml inhalation QID PRN SOB or 08/07/24 08/07/24 History (2.5 mg base)/3 mL nebulization Wheezing soln ipratropium 20 mcg-albuterol 100 1 puff inhalation QID 08/07/24 08/07/24 History mcg/actuation mist for inhalation (Combivent Respimat) levocetirizine 5 mg tablet 5 mg PO QAM PRN Allergies 08/07/24 08/07/24 History levothyroxine 50 mcg tablet 50 mcg PO QAM 08/07/24 08/07/24 History lorazepam 0.5 mg tablet 0.5 mg PO BID 08/07/24 08/07/24 History mometasone-formoterol HFA 200 2 puff inhalation BID 08/07/24 08/07/24 History mcg-5 mcg/actuation aerosol inhaler (Dulera) pantoprazole 40 mg tablet,delayed 40 mg PO QAM 08/07/24 08/07/24 History release simvastatin 10 mg tablet 10 mg PO QAM 08/07/24 08/07/24 History trazodone 50 mg tablet 25 mg PO QPM 08/07/24 08/07/24 History Past Med/Surg History Problem List Hydronephrosis Right ureteral calculus Hydronephrosis with renal calculous obstruction Oxygen dependent Chronic respiratory failure DVT prophylaxis COPD exacerbation (Acute) Pneumonia due to COVID-19 virus (Acute) COVID-19 (Acute) Hypothyroidism Left-sided heart failure Insomnia Depression with anxiety HTN (hypertension) Diabetes mellitus, type II COPD (chronic obstructive pulmonary disease) (Acute) oxygen dependent Medical History High cholesterol Asthma Kidney stones Surgical History Hx of tonsillectomy Hx of tubal ligation Family History Mother Breast cancer Father FH: leukemia CLL Sister Hypertension Social History Smoking Status: Current every day smoker Tobacco Type: Cigarettes Cigarettes Per Day: 1; Second Hand Exposure: Yes; Do You Dip or Chew Tobacco: No; Hx Alcohol Use: No Hx Substance Use: No Preferred Language: Mongolian Communication Ability: Effective Financial Aid Counselor Required: No Beliefs That Will Affect Care: None Current Living Situation: Alone Feels Safe at Home: No Is there a partner from a previous relationship who is making you feel unsafe now?: No Assistive Devices: Oxygen - Continuous Review of Systems Review of Systems: At least ten systems reviewed and negative, except as noted in the HPI. Physical Exam Physical Exam: General/Neurologic: F. NAD. Sitting up in bed. Very pleasant. A&Ox4. Conversing appropriately. No overt focal deficits. HEENT: Normocephalic, atraumatic. Conjunctivae normal, anicteric sclerae. External ear and nose normal. Dry mucous membranes. Respiratory: Normal respiratory effort. On baseline 3L NC. Diffuse wheezing th roughout. + nonproductive cough (chronic per patient). Cardiovascular: Regular rate and rhythm, normal peripheral pulses. No BLE edema. Abdomen/GI: Normal bowel sounds, soft, nondistended. TTP in RLQ region with deep palpation. Extremities/MSK: No cyanosis or clubbing. + R>L CVA tenderness. Extremities motor strength intact, actively moves all extremities. Results & Data Results & Data Vital Signs (Past 12 Hours) Vital Signs Temp Pulse Resp BP Pulse Ox O2 Del Method O2 Flow Rate 08/07/24 07:33 102 H 22 94 08/07/24 07:31 155/95 H 08/07/24 07:31 155/95 H 08/07/24 07:12 78 9 L 95 08/07/24 07:00 133/74 08/07/24 07:00 133/74 08/07/24 07:00 133/74 08/07/24 07:00 82 14 94 08/07/24 06:30 121/84 08/07/24 06:30 121/84 08/07/24 06:00 81 12 135/77 95 Nasal Cannula 2 08/07/24 05:36 89 15 153/73 H 96 Nasal Cannula 2 08/07/24 04:54 82 17 150/77 H 95 Nasal Cannula 2 08/07/24 04:46 79 08/07/24 04:26 36.5 C 88 16 181/84 H 91 Room Air Laboratory Results Short CBC 08/07/24 Range/Units 04:50 WBC 12.06 H (4.8-10.8) K/ul Hgb 12.7 (12.0-16.0) g/dl Hct 39.8 (37.0-47.0) % Plt Count 227 (130-400) K/uL BMP 08/07/24 04:50 Sodium 137 Potassium 3.9 Chloride 99 Carbon Dioxide 30 BUN 13 Creatinine 1.03 Glucose 169 H Calcium 9.4 Liver Function 08/07/24 Range/Units 04:50 Total Bilirubin 0.3 (0.2-1.0) mg/dl Direct Bilirubin 0.0 (0-0.2) mg/dl AST 28 (13-39) U/L ALT 23 (7-52) U/L Alkaline Phosphatase 70 (34-104) U/L Albumin 4.4 (3.4-5.0) gm/dl Urine 08/07/24 Range/Units 04:50 Urine Color Yellow Urine Appearance Cloudy A (Clear) Urine pH 8.5 H (4.5-7.5) Ur Specific Gilman 1.015 (1.000-1.030) Urine Protein Trace H (Negative) Urine Glucose (UA) Negative (Negative) Diagnostic Findings Abdomen/Pelvis CT 08/07/24 04:43 EXAM: CT abd pelvis wo con CLINICAL HISTORY: right flank pain TECHNIQUE: Contiguous axial images were obtained from the level of the diaphragm to the pubic symphysis without intravenous or oral contrast. Coronal and sagittal reconstructions were likewise performed and indicated to increase the sensitivity for detecting clinically relevant pathology. CT scan was performed according to ALARA (as low as reasonable achievable). COMPARISON: 09/09/2019 10:00:02 FACILITY MANAGER FINDINGS: The visualized lung bases show atelectatic bands Evaluation of the abdominal and pelvic visceral organs is limited without intravenous contrast. The unenhanced liver, spleen, pancreas, and adrenal glands are grossly unremarkable. The gallbladder is present. The kidneys are normal in size and attenuation without obvious calcification. Right kidney show nonobstructing calculus of size 6 mm in middle calyx. Right kidney shows hydronephrosis and hydroureter up to an obstructing calculus of size 8 mm is noted in right vesicoureteric junction. Left kidney show nonobstructing calculus of size 2mm in middle calyx. No adenopathy or fluid collections are seen. No evidence of focal or diffuse bowel wall thickening or evidence of bowel obstruction is seen. No evidence of inflamed appendix. The aorta is normal in caliber. The urinary bladder is normal in contour. Pelvic viscera are grossly unremarkable. No aggressive appearing osseous lesions are identified. Fluid Filled mildly prominent small bowel loops seen without significant obstructive changes. Multiple small uncomplicated sigmoid colonic diverticulosis IMPRESSION: 1. Right kidney show nonobstructing calculus of size 6 mm in middle calyx.-increased in size. 2. Right kidney shows hydronephrosis and hydroureter up to an obstructing calculus of size 8mm is noted in right vesicoureteric junction.-new finding. 3. Left kidney show nonobstructing calculus of size 2mm in middle calyx. -new finding. 4. Fluid Filled mildly prominent small bowel loops seen without significant obstructive changes.-follow up suggested-new finding. 5. Multiple small uncomplicated sigmoid colonic diverticulosis -stable. 6. Prior Left ureterolithiasis is not seen in present scan Electronically signed by Jack Moran 08-07-2024 06:15 AM Medications Administered Discontinued Medications Hydromorphone HCl (Hydromorphone Inj 0.5 Mg/0.5 Ml Syr) 0.5 mg IV NOW STA Stop: 08/07/24 04:44 Last Admin: 08/07/24 04:55 Dose: 0.5 mg Documented By: ABHIJIT Hydromorphone HCl (Hydromorphone Inj 1 Mg/Ml Syringe) 1 mg IV NOW STA Stop: 08/07/24 05:24 Last Admin: 08/07/24 05:30 Dose: 1 mg Documented By: VITALIY Sodium Chloride (Nss) 1,000 mls @ 999 mls/hr IV .Q1H1M ONE Stop: 08/07/24 05:43 Last Infusion: 08/07/24 05:56 Dose: Infused Documented By: Admin: 08/07/24 04:55 Dose: 999 mls/hr Documented By: ABHIJIT Ceftriaxone Sodium (Rocephin) 2,000 mg in 50 mls @ 100 mls/hr IV NOW STA Stop: 08/07/24 07:10 Last Admin: 08/07/24 06:57 Dose: 100 mls/hr Documented By: VITALIY Ondansetron HCl (Ondansetron Inj 2 Mg/Ml 2 Ml Vial) 4 mg IV NOW STA Stop: 08/07/24 04:44 Last Admin: 08/07/24 04:55 Dose: 4 mg Documented By: ABHIJIT Code Status & VTE Plan Code Status FULL CODE Supervising Physician Co-Signing Physician Notes Attending Addendum: Case reviewed with the advanced practitioner. I have personally performed a history and physical examination on the patient. I have reviewed the advanced practitioner's documentation on the date of service referenced in note, and I agree with, and take responsibility for the plan of care. please refer to her notes for full details patient seen and examined, records reviewed by myself as well all labs, imaging noted and reviewed diagnoses and plan of care as per advanced practitioner's notes I spent a total of 35 minutes coordinating, documenting, and providing care for this patient, excluding time spent in the performance of separately billed services or time spent by another provider/QHP. Thien Morel MD (3) COPD (chronic obstructive pulmonary disease) COPD type: unspecified COPD Qualified Code(s): J44.9 - Chronic obstructive pulmonary disease, unspecified (4) Diabetes mellitus, type II Diabetes mellitus complication status: without complication Diabetes mellitus correction insulin use: unspecified correction insulin use status Qualified Code(s): E11.9 - Type 2 diabetes mellitus without complications (5) HTN (hypertension) Hypertension type: unspecified Qualified Code(s): I10 - Essential (primary) hypertension
[2024-08-07] MEDS ORDERED: HYDROmorphone INJ 0.5 MG/0.5 ML SYR IV PRN (08:13)
[2024-08-07] MEDS: ACETAMINOPHEN 1,000 MG/100 ML VIAL IV STA (09:59)
--- NOTE | 2024-08-07 10:06 | XRay Report ---
XR chest 1V portable CLINICAL HISTORY: Cough, dyspnea. COMPARISON STUDY: Chest radiograph April 20, 2020. FINDINGS: There is mild elevation/eventration of the right hemidiaphragm. There is no pneumothorax or pleural effusion. Right basilar favor atelectasis. There is mild cardiomegaly without evidence for p ulmonary edema. IMPRESSION: 1. Right basilar opacities suggestive of atelectasis. An infectious process is considered less likely . 2. Cardiomegaly without evidence for pulmonary edema. ACT 112: Negative or not required by law. Electronically signed by: Bryn Diego M.D. 08/07/2024 10:05 AM
[2024-08-07] MEDS: ALBUT/IPRATROP 3MG/0.5MG NEB 3 ML VIAL NEB STA (10:07)
[2024-08-07] MEDS: SODIUM CHLORIDE 0.9% 1,000 ML IV SCH (10:07)
[2024-08-07] MEDS: TAMSULOSIN HCL 0.4 MG CAP PO SCH (10:07)
--- NOTE | 2024-08-07 10:14 | Urology Consultation ---
<Statement entered by Cesar Lindsey MD - 08/07/24 12:32> I have seen and discussed Ms. Rogers's case with INEZ Tang and agree with the above documentation. We will plan on cystoscopy, right retrograde pyelogram and right ureteral stent placement to decompress the kidney in the setting of obstructing stone and possible UTI. We discussed risks and benefits of surgery. She expressed understanding, and would like to proceed. -Cesar Lindsey MD. Date of Consultation August 07, 2024 Assessment & Plan (1) Right ureteral calculus: (2) Hydronephrosis: (3) Flank Pain: Plan We reviewed her CT findings showing an obstructing 8 mm right UVJ stone and additional nonobstructing bilateral renal stones. We discussed options for acute stone management. Discussed cystoscopy and ureteral stent placement. Ureteral stents were discussed as well as postoperative issues and pain management. She is aware a second procedure will be needed for stone treatment. Also reviewed conservative management and trial of passage. Discussed stone passage rates given size and location. Risks and benefits were each discussed. All questions were answered. She would like to proceed with stent placement. Plan for OR today for cystoscopy, right retrograde pyelogram, right ureteral stent placement with Dr. Lindsey. Risks and benefits discussed. Urine culture is pending. She is covered with IV Rocephin. Keep NPO. Urology will follow- Please call with any questions/concerns. History of Present Illness History of Present Illness 68-year-old female who presented to the ED with severe right flank pain. Per chart review, patient was previously seen at [facility] ED on 07/30/2024 for right flank pain and was found to have an obstructing right ureteral stone. She was discharged home and due to ongoing pain, presented to [facility] ED. On arrival she was afebrile and hemodynamically stable. Labs showing a WBC 12.06 and creatinine 1.03. Urinalysis with 3+ blood, negative nitrite, 2+ LE, negative bacteria. Urine culture collected and pending. CT abdomen pelvis obtained and demonstrated an 8 mm right UVJ stone with hydronephrosis, additional nonobstructing bilateral renal stones. She is admitted to medicine service. Patient was seen at bedside today in the ED. She is awake and resting in bed on arrival. No acute distress. Has been NPO. She does not currently follow with a urologist. She has a history of kidney stones with history of URS/[place] [address] Swain. Allergies Allergy/AdvReac Type Severity Reaction Status Date / Time levothyroxine Allergy Hives Verified 04/12/20 03:00 moxifloxacin [From Avelox] AdvReac Intermediate Cellulitic Unverified 04/20/20 15:16 Rash tomato AdvReac Verified 04/21/20 16:33 Home Medications Medication Instructions Recorded Confirmed Type albuterol sulfate 90 mcg/actuation 2 puff inhalation QID PRN 09/09/19 08/07/24 History aerosol inhaler Shortness Of Breath citalopram 40 mg tablet 40 mg PO HS 09/09/19 08/07/24 History amlodipine 5 mg-benazepril 10 mg 1 cap PO QAM 08/07/24 08/07/24 History capsule buspirone 15 mg tablet 15 mg PO BID 08/07/24 08/07/24 History ipratropium 0.5 mg-albuterol 3 mg 3 ml inhalation QID PRN SOB or 08/07/24 08/07/24 History (2.5 mg base)/3 mL nebulization Wheezing soln ipratropium 20 mcg-albuterol 100 1 puff inhalation QID 08/07/24 08/07/24 History mcg/actuation mist for inhalation (Combivent Respimat) levocetirizine 5 mg tablet 5 mg PO QAM PRN Allergies 08/07/24 08/07/24 History levothyroxine 50 mcg tablet 50 mcg PO QAM 08/07/24 08/07/24 History lorazepam 0.5 mg tablet 0.5 mg PO BID 08/07/24 08/07/24 History mometasone-formoterol HFA 200 2 puff inhalation BID 08/07/24 08/07/24 History mcg-5 mcg/actuation aerosol inhaler (Dulera) pantoprazole 40 mg tablet,delayed 40 mg PO QAM 08/07/24 08/07/24 History release simvastatin 10 mg tablet 10 mg PO QAM 08/07/24 08/07/24 History trazodone 50 mg tablet 25 mg PO QPM 08/07/24 08/07/24 History Patient History Medical History (Updated 08/07/24 @ 10:40 by INEZ Mondragon) High cholesterol Asthma Kidney stones Surgical History Hx of tonsillectomy Hx of tubal ligation Family History Mother Breast cancer Father FH: leukemia CLL Sister Hypertension Social History Smoking Status: Current every day smoker Tobacco Type: Cigarettes Cigarettes Per Day: 1; Second Hand Exposure: Yes; Do You Dip or Chew Tobacco: No; Hx Alcohol Use: No Hx Substance Use: No Preferred Language: Beninese Communication Ability: Effective Commodity Lead Required: No Beliefs That Will Affect Care: None Current Living Situation: Alone Feels Safe at Home: Yes Assistive Devices: None Review of Systems Review of Systems: All systems reviewed & are unremarkable except as noted in HPI & below Physical Exam Constitutional: no acute distress Respiratory: no respiratory distress and no labored breathing Musculoskeletal: Head/Neck/Chest: normocephalic Skin: No visible rashes or lesions to exposed skin areas Neurologic: awake Psychiatric: A+Ox3, euthymic affect Results & Data Vital Signs (Past 12 Hours) Vital Signs Temp Pulse Resp BP Pulse Ox O2 Del Method O2 Flow Rate 08/07/24 08:48 80 08/07/24 07:33 102 H 22 94 08/07/24 07:31 155/95 H 08/07/24 07:31 155/95 H 08/07/24 07:12 78 9 L 95 08/07/24 07:00 133/74 08/07/24 07:00 133/74 08/07/24 07:00 133/74 08/07/24 07:00 82 14 94 08/07/24 06:30 121/84 08/07/24 06:30 121/84 08/07/24 06:00 81 12 135/77 95 Nasal Cannula 2 08/07/24 05:36 89 15 153/73 H 96 Nasal Cannula 2 08/07/24 04:54 82 17 150/77 H 95 Nasal Cannula 2 08/07/24 04:46 79 08/07/24 04:26 36.5 C 88 16 181/84 H 91 Room Air PG Care Time/CCT Total # of Minutes Spent Total Time Spent with Patient: Total time spent is greater than 50% in coordination of care (as documented) at patient's floor/unit and/or counseling patient: Coding Level of Care Code 05723 INT INP/OBS CARE 2/55MIN Diagnoses Right ureteral calculus N20.1 Hydronephrosis N13.30 Flank Pain R10.9
[2024-08-07] MEDS ORDERED: ACETAMINOPHEN 1,000 MG/100 ML VIAL IV PRN (10:42)
[2024-08-07] MEDS ORDERED: GLUCOSE 10 TAB/TUBE PO PRN (10:42)
[2024-08-07] MEDS ORDERED: GLUCOSE 40% GEL 15 GM TUBE PO PRN (10:42)
[2024-08-07] MEDS ORDERED: oxyCODONE HCL IR 5 MG TAB (IMMEDIATE RELEASE) PO PRN (10:42)
[2024-08-07] MEDS ORDERED: GLUCAGON FOR INJ 1 MG VIAL SQ PRN (10:42)
[2024-08-07] MEDS ORDERED: POLYETHYLENE (MIRALAX) 17 GM PACK PO PRN (10:42)
[2024-08-07] MEDS ORDERED: DEXTROSE 50% 50 ML SYRINGE IV PRN (10:42)
[2024-08-07] MEDS ORDERED: CARBOHYDRATES FOR HYPOGLYCEMIA PO PRN (10:42)
[2024-08-07] MEDS ORDERED: MAGNESIUM HYDROXIDE SUSP 30 ML UDC PO PRN (10:42)
--- NOTE | 2024-08-07 10:42 | Anesthesiology Consultation ---
Date of Service August 07, 2024 Assessment & Plan Chart Review Chart Review: Acceptable Risk for Surgery and Patient NOT seen in Pre Admission Testing History Surgery Operation Date: 08/07/24 10:40 Proposed Procedures p Cystoscopy Right Retrograde Pyelogram and Stent Placement - Cesar Lindsey MD Height/Weight Height: 5 ft Weight: 62.3 kg Allergies Allergy/AdvReac Type Severity Reaction Status Date / Time levothyroxine Allergy Hives Verified 04/12/20 03:00 moxifloxacin [From Avelox] AdvReac Intermediate Cellulitic Unverified 04/20/20 15:16 Rash tomato AdvReac Verified 04/21/20 16:33 Medications Home Medications Medication Instructions Recorded Confirmed Last Taken albuterol sulfate 90 mcg/actuation 2 puff inhalation QID PRN 09/09/19 08/07/24 04/20/20 10:00 aerosol inhaler Shortness Of Breath citalopram 40 mg tablet 40 mg PO HS 09/09/19 08/07/24 04/20/20 10:00 amlodipine 5 mg-benazepril 10 mg 1 cap PO QAM 08/07/24 08/07/24 Unknown capsule buspirone 15 mg tablet 15 mg PO BID 08/07/24 08/07/24 Unknown ipratropium 0.5 mg-albuterol 3 mg 3 ml inhalation QID PRN SOB or 08/07/24 08/07/24 Unknown (2.5 mg base)/3 mL nebulization Wheezing soln ipratropium 20 mcg-albuterol 100 1 puff inhalation QID 08/07/24 08/07/24 Unknown mcg/actuation mist for inhalation (Combivent Respimat) levocetirizine 5 mg tablet 5 mg PO QAM PRN Allergies 08/07/24 08/07/24 Unknown levothyroxine 50 mcg tablet 50 mcg PO QAM 08/07/24 08/07/24 Unknown lorazepam 0.5 mg tablet 0.5 mg PO BID 08/07/24 08/07/24 Unknown mometasone-formoterol HFA 200 2 puff inhalation BID 08/07/24 08/07/24 Unknown mcg-5 mcg/actuation aerosol inhaler (Dulera) pantoprazole 40 mg tablet,delayed 40 mg PO QAM 08/07/24 08/07/24 Unknown release simvastatin 10 mg tablet 10 mg PO QAM 08/07/24 08/07/24 Unknown trazodone 50 mg tablet 25 mg PO QPM 08/07/24 08/07/24 Unknown Active Medications Generic Name Dose Route Start Last Admin Trade Name Telloq PRN Reason Stop Dose Admin Sodium Chloride 1,000 mls @ 60 mls/hr 08/07/24 09:45 08/07/24 10:07 Nss IV 08/08/24 02:24 60 mls/hr .[id number] ASHIA Administration Tamsulosin HCl 0.4 mg 08/07/24 09:45 08/07/24 10:07 Tamsulosin Hcl 0.4 Mg Cap PO 09/06/24 09:44 0.4 mg QAM ASHIA Administration Past Medical History Medical History High cholesterol Asthma Kidney stones Past Family History Family History Mother Breast cancer Father FH: leukemia CLL Sister Hypertension Past Surgical History Surgical History Hx of tonsillectomy Hx of tubal ligation Social History Smoking Status: Current every day smoker tobacco type: cigarettes Smoking cigarettes per day: 1 Do You Dip or Chew Tobacco: No Hx Alcohol Use: No Hx Substance Use: No substance use type: does not use Physical Exam Vital Signs Last Vital Signs Temp 36.5 C 08/07/24 04:26 Pulse 80 08/07/24 08:48 Resp 22 08/07/24 07:33 BP 155/95 H 08/07/24 07:31 Pulse Ox 94 08/07/24 07:33 O2 Del Method Nasal Cannula 08/07/24 06:00 O2 Flow Rate 2 08/07/24 06:00 Testing Laboratory Results 08/07/24 04:50 08/07/24 04:50 Urine Color Yellow 08/07/24 04:50 Urine Appearance Cloudy (Clear) A 08/07/24 04:50 Urine pH 8.5 (4.5-7.5) H 08/07/24 04:50 Ur Specific [place] 1.015 (1.000-1.030) 08/07/24 04:50 Urine Protein Trace (Negative) H 08/07/24 04:50 Urine Glucose (UA) Negative (Negative) 08/07/24 04:50 Urine Ketones 1+ (Negative) H 08/07/24 04:50 Urine Nitrite Negative (Negative) 08/07/24 04:50 Ur Leukocyte Esterase 2+ (Negative) H 08/07/24 04:50 Urine WBC (Auto) 11-20 /hpf (0-5) H 08/07/24 04:50 Urine RBC (Auto) >20 /hpf (0-2) H 08/07/24 04:50 U Hyaline Cast (Auto) 0-2 /lpf (0-2) 08/07/24 04:50 U Epithel Cells (Auto) 0-2 /hpf (0-2) 08/07/24 04:50 Urine Bacteria (Auto) None Seen (None Seen) 08/07/24 04:50
[2024-08-07] MEDS ORDERED: LIDOCAINE 2% 2 ML VIAL/AMP(20MG/ML) INFIL ONE (10:58)
[2024-08-07] MEDS ORDERED: DEXAMETHASONE SOD INJ 4 MG/ML VIAL ONE (10:58)
[2024-08-07] MEDS ORDERED: ONDANSETRON INJ 2 MG/ML 2 ML VIAL ONE (10:58)
[2024-08-07] MEDS ORDERED: PROPOFOL IV EMULSION 10 MG/ML 20 ML VIAL IV ONE ×2 (10:58→11:42)
[2024-08-07] MEDS ORDERED: MIDAZOLAM HCL 1 MG/ML 2ML VIAL ONE (11:40)
[2024-08-07] MEDS ORDERED: fentaNYL citrate PF 100 MCG/2 ML VIAL ONE (11:40)
[2024-08-07] MEDS: ALBUT/IPRATROP 3MG/0.5MG NEB 3 ML VIAL NEB SCH (12:45)
[2024-08-07] MEDS ORDERED: IPRATROPIUM BROMIDE/ALBUTEROL respimat INH INH SCH (13:00)
[2024-08-07] MEDS ORDERED: ePHEDrine sulfate 50 MG/5 ML SYR ONE (13:17)
--- NOTE | 2024-08-07 13:27 | Operative Report ---
PG Post Operative Report Pre & Post Diagnosis Operation Date: 08/07/24 10:40 Preoperative diagnosis: Right ureteral stone, possible UTI Postoperative diagnosis: Right ureteral stone, possible UTI I identified the patient and participated in the time-out.: Yes Procedure Operation Date: 08/07/24 10:40 Cystoscopy, right retrograde pyelogram, right ureteral stent placement Surgeon Cesar Lindsey MD Brake Repairer Bus None Estimated Blood Loss 0 Findings Consistent with Post-Op Diagnosis Specimens None Drains 6 [place] x 24 cm double-J ureteral stent in the right ureter Anesthesia Type MAC Complications none Disposition Accompanied Patient To Recovery: Yes Disposition: Recovery Room Indications This is a 68-year-old female who presented to the emergency department with right-sided flank pain was found to have a right ureteral stone. Urinalysis was suspicious for urinary tract infection. She is brought to the OR for right ureteral stent placement. Description of Procedure The patient was identified in the holding area and informed consent was confirmed. She was marked on the right side, then was taken to the operating room where anesthesia was initiated. She was placed in the dorsal lithotomy position with all pressure points appropriately padded. She was prepped and draped in the usual sterile fashion and a preoperative timeout was performed. A well-lubricated cystoscope was inserted per urethra and panendoscopy was performed. The urethra was normal in appearance. The bladder was of normal size with ureteral orifices in orthotopic position. The right ureteral orifice was identified and cannulated with a 5 [place] open- ended catheter. A retrograde pyelogram was performed demonstrating shadow in the distal ureter suspicious for the stone. There was mild proximal hydronephrosis and hydroureter. A 0.038" ZIPwire was advanced to the level of the kidney under fluoroscopic guidance. Over the wire, a 6 [place] x 24 centimeter double-J ureteral stent was advanced. When the wire was removed, the proximal curl was visualized in the kidney with x-ray, and the distal curl visualized in the bladder with the cystoscope. At this point the bladder was drained and all instrumentation was removed. The patient was then awakened from anesthesia and was brought to the PACU in stable condition. I attest to the content of the Intraoperative Record and any orders documented therein. Any exceptions are noted below.
[2024-08-07] MEDS: DIATRIZOATE MEGLUMINE 30% 100ML VIAL INSTIL PRN (13:28)
--- NOTE | 2024-08-07 15:47 | Fluoroscopy Report ---
FL retrograde includes kub CLINICAL HISTORY: RETROGRADE COMPARISON STUDY: CT abdomen and pelvis 08/07/2024 FLUOROSCOPY TIME: 9.2 seconds FLUOROSCOPY IMAGES: 3 EXPOSURE DOSE: 199 mGy FINDINGS: The hydronephrosis seen on comparison CT is not appreciated on these images. No definite ur eteral filling defects. Proximal portion of the right ureteral stent projects over the right ureterop elvic junction. IMPRESSION: Fluoroscopic assistance as above. ACT 112: Negative or not required by law. Electronically signed by: Cliff Colón M.D. 08/07/2024 3:45 PM
[2024-08-07] MEDS: INSULIN ASPART PER UNIT CHARGE SC SCH (17:05)
[2024-08-07] MEDS: traZODone HCL 50 MG TAB PO SCH (20:09)
[2024-08-07] MEDS: busPIRone 15 MG TAB PO SCH (20:10)
[2024-08-07] MEDS: CITALOPRAM 40 MG TAB PO SCH (20:10)
[2024-08-07] MEDS: guaiFENesin 600 MG TABCR PO SCH (20:11)
[2024-08-07] MEDS: FLUTICASONE/VILANTEROL 200/25MCG 14 PUFFS/INHALER INH SCH (20:11)
[2024-08-07] MEDS: MoRPHine SULFATE 2 MG/ML CARP IV PRN (20:26)
[2024-08-07] MEDS: LORazepam 0.5 MG TAB PO SCH (21:12)
[2024-08-07] MEDS: PROMETHAZINE 6.25 MG/50.25 ML BAG IV PRN (21:12)
[2024-08-08] MEDS: cefTRIAXone SODIUM 2,000 MG/50 ML BAG IV SCH (06:05)
[2024-08-08] MEDS ORDERED: methylPREDNISolone 125 MG/2 ML VIAL IV STA (07:27)
[2024-08-08] MEDS: methylPREDNISolone 40 MG in SYRINGE 0 ML IV ONE (07:53)
[2024-08-08] MEDS: LEVOTHYROXINE SODIUM 50 MCG TABLET PO SCH (07:54)
[2024-08-08] MEDS: PANTOprazole 40 MG TAB PO SCH (07:55)
[2024-08-08] MEDS: SIMVASTATIN 10 MG TAB PO SCH (07:55)
[2024-08-08 08:26] LABS: Hematocrit (blood only) 33.4 % (37.0-47.0); Hemoglobin 10.5 g/dl (12.0-16.0); Mean Corpuscular Hemoglobin 27.8 pg (25.0-34.0); Mean Corpuscular Hgb Conc 31.4 g/dL (32.0-36.0); Mean Corpuscular Volume 88.4 fL (80.0-100.0); Mean Platelet Volume 10.9 fL (9.4-12.4); Platelet Count 165 K/uL (130-400); RDW Coefficient of Variation 12.8 % (11.5-14.5); RDW Standard Deviation 41.1 fL (36.4-46.3); Red Blood Count 3.78 M/uL (4.20-5.40); White Blood Count 6.35 K/ul (4.8-10.8)
[2024-08-08] MEDS: DOXYCYCLINE HYCLATE 100 MG CAP PO SCH (08:48)
[2024-08-08] MEDS ORDERED: CETIRIZINE HCL 10 MG TABLET PO PRN (09:00)
[2024-08-08 09:24] LABS: Estimated Average Glucose 120 mg/dl; Hemoglobin A1C 5.8 % (4.5-5.6)
[2024-08-08 09:43] LABS: Calcium 8.2 mg/dl (8.6-10.3); Magnesium 1.7 mg/dl (1.7-2.4)
--- NOTE | 2024-08-08 09:47 | Urology Progress Note ---
Date of Service August 08, 2024 Assessment & Plan (1) Calculus of distal right ureter: (2) Hydronephrosis, right: Plan 68-year-old female recovering appropriately s/p right ureteral stent placement. Even though urine culture not showing a definitive organism, would cover empirically with antibiotics for couple days. Urology will arrange outpatient follow-up to coordinate definitive stone removal. Will sign off for now. Please call with any questions or concerns. Admission and Anticipated Discharge Date Admission Date: August 07, 2024 Subjective Feeling okay this morning Right flank pain has improved with right ureteral stent placement No fevers or chills overnight Urine culture with 3 organisms present, all moderate counts Physical Exam Physical Exam: Resting in bed, NAD Results & Data Vital Signs (Past 12 Hours) Vital Signs Temp Pulse Resp BP BP Pulse Ox O2 Del Method 08/08/24 07:34 79 19 92 Nasal Cannula 08/08/24 07:20 Nasal Cannula 08/08/24 07:00 36.8 C 77 18 133/71 92 Nasal Cannula 08/08/24 02:28 36.9 C 76 18 121/53 L 94 Nasal Cannula 08/08/24 01:39 72 18 93 Nasal Cannula 08/07/24 23:15 37.2 C 71 16 126/66 96 Nasal Cannula O2 Flow Rate 08/08/24 07:34 4 08/08/24 07:20 3 08/08/24 07:00 4 08/08/24 02:28 3 08/08/24 01:39 2 08/07/24 23:15 3 PG Care Time/CCT Total # of Minutes Spent Total Time Spent with Patient: Total time spent is greater than 50% in coordination of care (as documented) at patient's floor/unit and/or counseling patient: Coding Level of Care Code 40492 SUB INP/OBS CARE 05/02MIN Diagnoses Calculus of distal right ureter N20.1 Hydronephrosis, right N13.30
[2024-08-08 09:49] LABS: BUN Creatinine Ratio 10.2 (10-20); Creatinine Clr Calc Pharmacy 50.4 ml/min
--- NOTE | 2024-08-08 10:05 | Hospitalist Progress Note ---
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 08/07 CT abd/pelvis: right kidney show nonobstructing calculus of size 6mm in middle calyx (increased in size), right kidney hydronephrosis and hydroureter up to an obstructing calculus of size 8mm is noted in right vesicoureteric junction (new finding) and left kidney nonobstructing calculus of size 2mm in middle calyx (new finding). UA with 2+ LE and 11-20 WBC >> concerning for possible infection On IV Rocephin S/P Cystoscopy, right retrograde pyelogram, right ureteral stent placement on 08/07/24 08/07/24 Urine culture: 3 types or organisms present, possible skin kayy Today renal functions remain stable. No leukocytosis Strain urine Continue tamsulosin Has oxycodone, morphine prn pain, but reports pain has been controlled Bowel regimen Urology consult. Recommends continued coverage empirically with antibiotics for couple days even though urine culture not definitive. Urology will arrange outpatient follow-up to coordinate definitive stone removal. CBC, BMP in am (2) Oxygen dependent: (3) COPD (chronic obstructive pulmonary disease): Plan: #COPD exacerbation #Chronic hypoxic respiratory failure On uses 2-3L O2 via NC at baseline. Recently treated outpatient for COPD exacerbation approximately 3 weeks ago 08/07/24 CXR:.Right basilar opacities suggestive of atelectasis. An infectious process is considered less likely. Cardiomegaly without evidence for pulmonary edema. Overnight increased wheezing and SOB Flutter valve, incentive spirometry, Mucinex Hold home inhalers Scheduled duonebs. Add formoterol, budesindie nebs Started Solumedrol 40mg Q8H Started doxycycline Continue home oxygen (4) Diabetes mellitus, type II: Plan: Hgb A1c 5.8 08/08/24 Diet-controlled. Diabetic diet Novolog sliding scale per protocol while hospitalized (5) HTN (hypertension): Plan: Home amlodipine and benazepril has been on hold since admission SBP's in 130s-140's today Will restart amlodipine. Likely restart benazepril tomorrow if BP allows (6) Left-sided heart failure: Plan: Prior TTE from January 2019: normal LV cavity size, borderline increased concentric LV wall thickness, normal LV wall motion, LVEF = 60-64%, grade I LV diastolic dysfunction, no significant valvular disease and no evidence of pulmonary HTN. Currently appears euvolemic #Hypothyroidism Continue levothyroxine #HLD Continue simvastatin #Anxiety, Depression Continue lorazepam, citalopram, buspirone DVT Prophylaxis: Start Lovenox SQ since is now post procedure Code Status: FULL CODE PCP: Vickey Merchant MD Disposition. Likely discharge home tomorrow pending improvement of COPD exacerbation Patient seen in collaboration with Dr. Morel. Please see addendum. I spent a total of 48 minutes coordinating, documenting, and providing care for this patient excluding time spent in the performance of separately billed services or time spent by another provider/QHP. This included personally reviewing all current laboratories and imaging studies, medical reconciliation, outpatient chart review and discussion with specialists. Admission and Anticipated Discharge Date Admission Date: August 07, 2024 Supervising Physician Co-Signing Physician Notes Attending Addendum: Case reviewed with the advanced practitioner. I have reviewed the advanced practitioner's documentation on the date of service referenced in note, and I agree with, and take responsibility for the plan of care. please refer to her notes for full details patient seen and examined, records reviewed by myself as well diagnoses and plan of care as per advanced practitioner's notes I spent a total of 25 minutes coordinating, documenting, and providing care for this patient, excluding time spent in the performance of separately billed services or time spent by another provider/QHP. Thien Morel MD Subjective Patient seen and examined lying in bed. Patient reports overnight increased SOB, chest tightness and wheezing. Nonproductive cough. This morning IV steroids added and additional nebs. Since patient reports decreased chest tightness and SOB but wheezing still present, however overall feels improvement. States flank pain much improved. Reports urinating and denies dysuria. States last BM almost a week ago. Denies other abdominal pain. Feels a little constipated. Patient wishing to go home today, however willing to stay for attempt at better control of COPD exacerbation. Denies fever/chills, diaphoresis, N/V/D, MEEHAN, dizziness, palpitations, hemoptysis, sore throat, weakness, extremity weakness, extremity edema, rashes. Review of Systems Review of Systems: All systems reviewed & are unremarkable except as noted in HPI & below Physical Exam Physical Exam: General: no distress, WDWN Head: normocephalic, atraumatic Eyes: conjunctiva non-injected, anicteric ENT: normal inspection external ears, nose, mucous membranes moist Neck: supple, trachea midline Lungs: no respiratory distress on 4L via NC, sat 92%, +diffuse wheezing throughout, no rhonchi/rales CV: RRR, no murmur, no pretibial edema Abd: hypoactive BS, soft, non-tender Ext: no cyanosis, no calf tenderness Neuro: A&O x 3, no focal deficits noted, normal affect Skin: warm, dry Results & Data Results & Data Vital Signs (Past 12 Hours) Vital Signs Temp Pulse Resp BP BP Pulse Ox O2 Del Method 08/08/24 07:34 79 19 92 Nasal Cannula 08/08/24 07:20 Nasal Cannula 08/08/24 07:00 36.8 C 77 18 133/71 92 Nasal Cannula 08/08/24 02:28 36.9 C 76 18 121/53 L 94 Nasal Cannula 08/08/24 01:39 72 18 93 Nasal Cannula 08/07/24 23:15 37.2 C 71 16 126/66 96 Nasal Cannula O2 Flow Rate 08/08/24 07:34 4 08/08/24 07:20 3 08/08/24 07:00 4 08/08/24 02:28 3 08/08/24 01:39 2 08/07/24 23:15 3 Laboratory Results Short CBC 08/08/24 Range/Units 07:30 WBC 6.35 (4.8-10.8) K/ul Hgb 10.5 L (12.0-16.0) g/dl Hct 33.4 L (37.0-47.0) % Plt Count 165 (130-400) K/uL BMP 08/08/24 07:30 Sodium 137 Potassium 3.9 Chloride 102 Carbon Dioxide 31 BUN 9 Creatinine 0.88 Glucose 116 H Calcium 8.2 L (3) COPD (chronic obstructive pulmonary disease) COPD type: unspecified COPD Qualified Code(s): J44.9 - Chronic obstructive pulmonary disease, unspecified (4) Diabetes mellitus, type II Diabetes mellitus complication status: without complication Diabetes mellitus jail insulin use: unspecified lobsterman insulin use status Qualified Code(s): E11.9 - Type 2 diabetes mellitus without complications (5) HTN (hypertension) Hypertension type: unspecified Qualified Code(s): I10 - Essential (primary) hypertension
[2024-08-08] MEDS: ALBUT/IPRATROP 3MG/0.5MG NEB 3 ML VIAL NEB SCH (10:53)
[2024-08-08] MEDS: MAGNESIUM HYDROXIDE SUSP 30 ML UDC PO ONE (11:54)
[2024-08-08] MEDS ORDERED: methylPREDNISolone 125 MG/2 ML VIAL IV SCH (13:00)
[2024-08-08] MEDS: methylPREDNISolone 40 MG in SYRINGE 0 ML IV SCH (13:57)
[2024-08-08] MEDS: amLODIPine BESYLATE 5 MG TAB PO SCH (17:14)
[2024-08-08] MEDS: ENOXAPARIN INJ 40 MG/0.4 ML SYR SQ SCH (17:14)
[2024-08-08 19:16] VITALS: RESP 18
[2024-08-08] MEDS: BUDESONIDE 0.25 MG/2 ML VIAL (PULMICORT) NEB SCH (20:06)
[2024-08-08] MEDS: FORMOTEROL 20 MCG/2 ML VIAL NEB SCH (20:06)
[2024-08-09 06:51] LABS: Hematocrit (blood only) 33.7 % (37.0-47.0); Mean Corpuscular Hemoglobin 28.1 pg (25.0-34.0); Mean Corpuscular Hgb Conc 32.6 g/dL (32.0-36.0); Mean Corpuscular Volume 86.2 fL (80.0-100.0); Mean Platelet Volume 10.9 fL (9.4-12.4); Platelet Count 189 K/uL (130-400); RDW Coefficient of Variation 12.6 % (11.5-14.5); RDW Standard Deviation 39.4 fL (36.4-46.3); Red Blood Count 3.91 M/uL (4.20-5.40); White Blood Count 10.97 K/ul (4.8-10.8)
[2024-08-09 07:04] VITALS: BP 159/88; TEMP 97.7
[2024-08-09 07:18] LABS: BUN Creatinine Ratio 22.2 (10-20); Calcium 8.8 mg/dl (8.6-10.3); Creatinine Clr Calc Pharmacy 61.6 ml/min
[2024-08-09 07:43] VITALS: PULSE 71; O2SAT 93
--- NOTE | 2024-08-09 09:11 | Hospitalist Progress Note ---
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 08/07/24 CT abd/pelvis: right kidney show nonobstructing calculus of size 6mm in middle calyx (increased in size), right kidney hydronephrosis and hydroureter up to an obstructing calculus of size 8mm is noted in right vesicoureteric junction (new finding) and left kidney nonobstructing calculus of size 2mm in middle calyx (new finding). UA with 2+ LE and 11-20 WBC with concern for possible infection Day#3 of IV Rocephin S/P Cystoscopy, right retrograde pyelogram, right ureteral stent placement on 08/07/24 08/07/24 Urine culture: 3 types or organisms present, possible skin kayy Renal functions have remained stable Overnight had some right flank pain and hematuria. Received IV morphine with resolution of right flank pain. Denies further hematuria. Has not needed further narcotics. Continue to strain urine Continue tamsulosin Bowel regimen Urology consulted. Recommends continued coverage empirically with antibiotics for couple days even though urine culture not definitive. Urology will arrange outpatient follow-up to coordinate definitive stone removal. (2) Oxygen dependent: (3) COPD (chronic obstructive pulmonary disease): Plan: #COPD exacerbation #Chronic hypoxic respiratory failure On uses 2-3L O2 via NC at baseline. Recently treated outpatient for COPD exacerbation approximately 3 weeks ago 08/07/24 CXR:.Right basilar opacities suggestive of atelectasis. An infectious process is considered less likely. Cardiomegaly without evidence for pulmonary edema. Yesterday had increased wheezing and SOB consistent with COPD exacerbation Yesterday formoterol, budesonide nebs were added as well as Solumedrol 40mg Q8H Today reported decreased SOB and feels SOB is almost back to her baseline. Still with wheezing present but clinically patient improving. Continue doxycycline Scheduled Duonebs Continue home oxygen Flutter valve, incentive spirometry, Mucinex She has nebulizer and tubing at home. Has oxygen supplies at home Patient wishing to be discharged home today with improvement of her breathing. Will anticipate discharge home this morning on prolonged oral prednisone taper (4) Diabetes mellitus, type II: Plan: Hgb A1c 5.8 08/08/24 Diet-controlled. Diabetic diet Novolog sliding scale per protocol while hospitalized (5) HTN (hypertension): Plan: Amlodipine and benazepril initially held upon admission BP started to elevate and her home amlodipine was resumed yesterday Today BP: 159/88 and plan to restart home benazepril (6) Left-sided heart failure: Plan: Prior TTE from January 2019: normal LV cavity size, borderline increased concentric LV wall thickness, normal LV wall motion, LVEF = 60-64%, grade I LV diastolic dysfunction, no significant valvular disease and no evidence of pulmonary HTN. Continues to appear euvolemic #Hypothyroidism Continue levothyroxine #HLD Continue simvastatin #Anxiety, Depression Continue lorazepam, citalopram, buspirone DVT Prophylaxis: Start Lovenox SQ since is now post procedure Code Status: FULL CODE PCP: Vickey Merchant MD Disposition. Discharge home today Patient seen in collaboration with Dr. Morel. Please see addendum. Admission and Anticipated Discharge Date Admission Date: August 07, 2024 Supervising Physician Co-Signing Physician Notes Attending Addendum: Case reviewed with the advanced practitioner. I have personally seen and examined the patient. I have reviewed the advanced practitioner's documentation on the date of service referenced in note, and I agree with, and take responsibility for the plan of care. please refer to her notes for full details patient seen and examined, records reviewed by myself as well diagnoses and plan of care as per advanced practitioner's notes I spent a total of 35 minutes coordinating, documenting, and providing care for this patient, excluding time spent in the performance of separately billed services or time spent by another provider/QHP. Thien Morel MD Subjective Patient seen and examined in room 380-a.Sitting up in bed. Reports had some right flank discomfort last night and had hematuria. This has since resolved. Still with wheezing but feels SOB is improving and wishing to be discharged home. She states she feels her breathing is close to her baseline and reports chronic exertional SOB. She is on her chronic oxygen requirement at 3L. (wears 2-3L at home). Denies fever/chills, diaphoresis, N/V/D/C, MEEHAN, dizziness, syncope, CP, palpitations, cough, otalgia, rhinorrhea, other abdominal pain, paresthesias, extremity weakness, extremity edema, rashes, dysuria, urinary frequency. Review of Systems Review of Systems: All systems reviewed & are unremarkable except as noted in HPI & below Physical Exam Physical Exam: General: no distress, WDWN Head: normocephalic, atraumatic Eyes: conjunctiva non-injected, anicteric ENT: normal inspection external ears, nose, mucous membranes moist Neck: supple, trachea midline Lungs: no respiratory distress on 3L via NC, sat 93%, +diffuse wheezing throughout but with more air movement noted today, no rhonchi/rales CV: RRR, no murmur, no pretibial edema Abd: hypoactive BS, soft, non-tender Ext: no cyanosis, no calf tenderness Neuro: A&O x 3, no focal deficits noted, normal affect Skin: warm, dry Results & Data Results & Data Vital Signs (Past 12 Hours) Vital Signs Temp Pulse Resp BP Pulse Ox O2 Del Method O2 Flow Rate 08/09/24 07:42 71 18 93 Nasal Cannula 3 08/09/24 07:01 36.5 C 73 18 159/88 H 91 Nasal Cannula 3 08/08/24 22:54 86 18 91 Nasal Cannula 3 Laboratory Results Short CBC 08/09/24 Range/Units 06:22 WBC 10.97 H (4.8-10.8) K/ul Hgb 11.0 L (12.0-16.0) g/dl Hct 33.7 L (37.0-47.0) % Plt Count 189 (130-400) K/uL BMP 08/09/24 06:22 Sodium 138 Potassium 4.0 Chloride 103 Carbon Dioxide 29 BUN 16 Creatinine 0.72 Glucose 181 H Calcium 8.8 (3) COPD (chronic obstructive pulmonary disease) COPD type: unspecified COPD Qualified Code(s): J44.9 - Chronic obstructive pulmonary disease, unspecified (4) Diabetes mellitus, type II Diabetes mellitus complication status: without complication Diabetes mellitus fci insulin use: unspecified fci insulin use status Qualified Code(s): E11.9 - Type 2 diabetes mellitus without complications (5) HTN (hypertension) Hypertension type: unspecified Qualified Code(s): I10 - Essential (primary) hypertension
--- NOTE | 2024-08-09 10:19 | Discharge Summary ---
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 History obtained from the patient and associated chart review. Previously seen and evaluated at [facility] ED on 07/30/24 due to right flank pain and diagnosed with renal calculi. CTAP without contrast at that time revealed the following: punctate left intrarenal calculus and 5mm nonobstructing right intrarenal calculus, [id number] right perinephric stranding and hydronephrosis secondary to a 6 x 4 x 6.5mm calculus located in the right ureter at the level of L4. UA at that time was concerning for infection given evidence of 3-5 WBC and 26-50 bacteria however urine culture did not reveal any significant growth. Patient was not discharged home on any antibiotics at that time. She was scheduled to see urology at [facility] as an outpatient on 08/04/24 however she fell ill with flu-like symptoms and subsequently was unable to attend her appointment. Prior history of kidney stones. Ongoing right flank pain since previously seen at [facility] ED last week. No reported fevers however does endorse some intermittent chills. Denies any hematuria, dysuria or increased urinary frequency. Had been taking Tylenol and Motrin at home for pain relief. Does endorse some N/V with most recent episode occurring en route to the ED. Has a chronic cough. Nonproductive in nature. Known smoker. Smokes a little under 1 pack of cigarettes every day. No alcohol use. Known oxygen-dependent COPD. Uses 2-3L NC at baseline. Has been feeling more short of breath over the past week. Reports she was on a Z-Blake and course of oral prednisone about 3 weeks ago for an acute COPD exacerbation. Denies any chest pain. Did not take any of her medications today. Bradypnea and itching reported with administration of IV Dilaudid in the ED. Reports tolerating IV morphine in the past without any issues. Pain well controlled at the time of our conversation. Saturating on 3L NC. NAD. Normal respiratory effort. VSS. ED labs personally reviewed. Mild leukocytosis with neutrophilic predominance. Electrolytes WNL. UA with 2+ LE and 11-20 WBC >> concerning for possible infection. CTAP with the following findings: right kidney show nonobstructing calculus of size 6mm in middle calyx (increased in size), right kidney hydronephrosis and hydroureter up to an obstructing calculus of size 8mm is noted in right vesicoureteric junction (new finding) and left kidney nonobstructing calculus of size 2mm in middle calyx (new finding). Admission Exam Per Admitting Provider General/Neurologic: F. NAD. Sitting up in bed. Very pleasant. A&Ox4. Conversing appropriately. No overt focal deficits. HEENT: Normocephalic, atraumatic. Conjunctivae normal, anicteric sclerae. External ear and nose normal. Dry mucous membranes. Respiratory: Normal respiratory effort. On baseline 3L NC. Diffuse wheezing throughout. + nonproductive cough (chronic per patient). Cardiovascular: Regular rate and rhythm, normal peripheral pulses. No BLE edema. Abdomen/GI: Normal bowel sounds, soft, nondistended. TTP in RLQ region with deep palpation. Extremities/MSK: No cyanosis or clubbing. + R>L CVA tenderness. Extremities motor strength intact, actively moves all extremities Principal Diagnosis Right Hydronephrosis with renal calculous obstruction COPD exacerbation Discharge Exam General: no distress, WDWN Head: normocephalic, atraumatic Eyes: conjunctiva non-injected, anicteric ENT: normal inspection external ears, nose, mucous membranes moist Neck: supple, trachea midline Lungs: no respiratory distress on 3L via NC, sat 93%, +diffuse wheezing throughout but with more air movement noted today, no rhonchi/rales CV: RRR, no murmur, no pretibial edema Abd: hypoactive BS, soft, non-tender Ext: no cyanosis, no calf tenderness Neuro: A&O x 3, no focal deficits noted, normal affect Skin: warm, dry Discharge Data Allergies Allergy/AdvReac Type Severity Reaction Status Date / Time levothyroxine Allergy Hives Verified 08/07/24 12:11 moxifloxacin [From Avelox] AdvReac Intermediate Cellulitic Verified 08/07/24 12:11 Rash tomato AdvReac Verified 08/07/24 12:11 Consultations 08/07/24 07:04 ED Decision to Admit Stat 08/07/24 07:46 Consult Urology Routine Procedures Performed Operation Date: 08/07/24 10:40 Actual Procedures p Cystoscopy Right Retrograde Pyelogram and Stent Placement(Right) - Cesar Lindsey MD Ordered Studies Retrograde Pyelogram 08/07/24 00:00 FL retrograde includes kub CLINICAL HISTORY: RETROGRADE COMPARISON STUDY: CT abdomen and pelvis 08/07/2024 FLUOROSCOPY TIME: 9.2 seconds FLUOROSCOPY IMAGES: 3 EXPOSURE DOSE: 199 mGy FINDINGS: The hydronephrosis seen on comparison CT is not appreciated on these images. No definite ureteral filling defects. Proximal portion of the right ureteral stent projects over the right ureteropelvic junction. IMPRESSION: Fluoroscopic assistance as above. ACT 112: Negative or not required by law. Electronically signed by: Cliff Colón M.D. 08/07/2024 3:45 PM Abdomen/Pelvis CT 08/07/24 04:43 EXAM: CT abd pelvis wo con CLINICAL HISTORY: right flank pain TECHNIQUE: Contiguous axial images were obtained from the level of the diaphragm to the pubic symphysis without intravenous or oral contrast. Coronal and sagittal reconstructions were likewise performed and indicated to increase the sensitivity for detecting clinically relevant pathology. CT scan was performed according to ALARA (as low as reasonable achievable). COMPARISON: 09/09/2019 10:00:02 [employer] FINDINGS: The visualized lung bases show atelectatic bands Evaluation of the abdominal and pelvic visceral organs is limited without intravenous contrast. The unenhanced liver, spleen, pancreas, and adrenal glands are grossly unremarkable. The gallbladder is present. The kidneys are normal in size and attenuation without obvious calcification. Right kidney show nonobstructing calculus of size 6 mm in middle calyx. Right kidney shows hydronephrosis and hydroureter up to an obstructing calculus of size 8 mm is noted in right vesicoureteric junction. Left kidney show nonobstructing calculus of size 2mm in middle calyx. No adenopathy or fluid collections are seen. No evidence of focal or diffuse bowel wall thickening or evidence of bowel obstruction is seen. No evidence of inflamed appendix. The aorta is normal in caliber. The urinary bladder is normal in contour. Pelvic viscera are grossly unremarkable. No aggressive appearing osseous lesions are identified. Fluid Filled mildly prominent small bowel loops seen without significant obstructive changes. Multiple small uncomplicated sigmoid colonic diverticulosis IMPRESSION: 1. Right kidney show nonobstructing calculus of size 6 mm in middle calyx.-increased in size. 2. Right kidney shows hydronephrosis and hydroureter up to an obstructing calculus of size 8mm is noted in right vesicoureteric junction.-new finding. 3. Left kidney show nonobstructing calculus of size 2mm in middle calyx. -new finding. 4. Fluid Filled mildly prominent small bowel loops seen without significant obstructive changes.-follow up suggested-new finding. 5. Multiple small uncomplicated sigmoid colonic diverticulosis -stable. 6. Prior Left ureterolithiasis is not seen in present scan Electronically signed by Jack Moran 08-07-2024 06:15 AM Chest X-Ray 08/07/24 09:24 XR chest 1V portable CLINICAL HISTORY: Cough, dyspnea. COMPARISON STUDY: Chest radiograph April 20, 2020. FINDINGS: There is mild elevation/eventration of the right hemidiaphragm. There is no pneumothorax or pleural effusion. Right basilar favor atelectasis. There is mild cardiomegaly without evidence for pulmonary edema. IMPRESSION: 1. Right basilar opacities suggestive of atelectasis. An infectious process is considered less likely. 2. Cardiomegaly without evidence for pulmonary edema. ACT 112: Negative or not required by law. Electronically signed by: Bryn Diego M.D. 08/07/2024 10:05 AM Hospital Course (1) Hydronephrosis with renal calculous obstruction: Tania Rogers is a 68y/o F with PMHx significant for DMII, acquired hypothyroidism, oxygen-dependent COPD on 2-3L NC at baseline, mitral valve prolapse, left-sided HF, ulcerative colitis, presenile dementia, history of renal calculi, major depressive disorder, tobacco use disorder, persistent insomnia and CRISTOFER who was admitted on 08/07/24 for management of an obstructing right renal calculous. Initial UA concerning for possible infection and patient started on Rocephin. S/P Cystoscopy, right retrograde pyelogram, right ureteral stent placement on 08/07/[address] Lindsey. 08/07/24 Urine culture showed 3 types or organisms present, possible skin kayy. She had completed 3 days IV Rocephin. Renal functions remained stable and patient was afebrile. Urology recommended empirical antibiotic treatment for couple days even though urine culture not definitive. Urology will arrange outpatient follow-up to coordinate definitive stone removal. Patient discharge on cefdinir to finish course. Discharged with oxycodone to use as needed for moderate to severe pain. Patient to continue to strain urine. Is to continue taking the tamsulosin 1 tablet daily. (2) Oxygen dependent: (3) COPD (chronic obstructive pulmonary disease): #COPD exacerbation #Chronic hypoxic respiratory failure On uses 2-3L O2 via NC at baseline. Recently treated outpatient for COPD exacerbation approximately 3 weeks ago however during hospital course had worsening wheezing and increased SOB and treated for COPD exacerbation. 08/07/24 CXR showed.Right basilar opacities suggestive of atelectasis and no evidence of pulmonary edema. She was treated with scheduled duonebs, formoterol, and budesonide nebs, as well as IV Solumedrol 40mg Q8H and doxycycline. Patient with improvement with decreased SOB. She was able to maintain home oxygen requirement of 2-3L. Is discharged home with 5 days oral doxycycline to finish course. Is to start prolonged prednisone taper, as seems to have failed recent outpatient shorter prednisone taper. She is to use Duoneb four times a day and can resume her home inhalers. Is to continue home oxygen supplementation. Recommend continue Mucinex BID and continue flutter valve, incentive spirometry . (4) Diabetes mellitus, type II: Hgb A1c 5.8 08/08/24 Follow diabetic diet Follow up with PCP for continued monitoring (5) HTN (hypertension): Amlodipine and benazepril initially held upon admission. During hospital course BP started to elevate and her home amlodipine was resumed yesterday. Today BP: 159/88 and plan to restart home benazepril today. She is to resume her home amlodipine/benazepril daily. (6) Left-sided heart failure: Prior TTE from January 2019: normal LV cavity size, borderline increased concentric LV wall thickness, normal LV wall motion, LVEF = 60-64%, grade I LV diastolic dysfunction, no significant valvular disease and no evidence of pulmonary HTN. Currently appears euvolemic #Hypothyroidism Continue home levothyroxine #HLD Continue home simvastatin #Anxiety, Depression Continue home lorazepam, citalopram, buspirone Code Status: FULL CODE PCP: Vickey Merchant MD Disposition: Discharge home today Patient seen in collaboration with Dr. Morel. Please see addendum. I spent a total of 40 minutes coordinating, documenting, and providing care for this patient excluding time spent in the performance of separately billed services or time spent by another provider/QHP. This included personally reviewing all current laboratories and imaging studies, medical reconciliation, outpatient chart review and discussion with specialists. Total Time Total Time Spent Total Time Spent (In Minutes): 40 Discharge Plan Discharge Items Patient Disposition: Home - Self-Care Reason For Visit: OBSTRUCTING KIDNEY STONE Discharge Diagnosis: Obstructing kidney stone COPD exacerbation Condition on Discharge: Good Activity: Resume your previous activity Non-emergency contact: Primary Care Provider and Urologist Call non-emergency contact if: you have any medication questions, your symptoms worsen, your pain is not controlled and you have a fever Follow-up/Referrals: Vickey Merchant M.D. [Primary Care Provider] - Diet: Regular Addtl Attending Provider Instructions: You were seen for obstructing right ureter kidney stone. You had right ureteral stent placement on 08/07/[address] Lindsey. You have been treated with 3 days of IV antibiotics (Rocephin). Your urine culture was unremarkable for definitive infection. You also had flare of your COPD. You were treated with IV steroids and started on doxycycline with some improvement. Continue your home oxygen. MEDICATION CHANGES: -Start Prednisone taper. Take as prescribed and take until finished. Would recommend taking with food and taking in the morning. -Use your home nebulizer with your ipratropium-albuterol (Duoneb) four times a day. Once your breathing improves you can resume your typical three times daily. -Take Doxycycline 100mg 1 tablet twice daily until finished. Take with full glass of water and make sure sitting up for at least an hour after you take. Taking it with food may help decrease nausea side effect. Avoid sun exposure while on this medication and wear protective clothing and sunscreen. -Take cefdinir 1 tab twice daily unil finished. (to complete treatment of urine/kidney stone) -Oxycodone 5mg 1 tablet every 4-6 hours as needed for moderate-severe pain -Continue taking the tamsulosin 1 tablet daily (that you were recently prescribed and have at home) SUMMARY OF TEST RESULTS: 08/07/24 CT abdomen/pelvis: Showed that you had right hydronephrosis (swelling of kidney) that was due to obstructing 8mm kidney stone at the right vesicoureteric junction PENDING TEST RESULTS: None RECOMMENDATIONS FOR FOLLOW-UP: -Follow up with PCP in 3-5 days for follow up of COPD exacerbation -Follow up with Dr Lindsey at the urology clinic. Urology will arrange outpatient follow-up to coordinate definitive stone removal. Please call their office to confirm follow up appointment date/time. [facility] [address] [place] [id number] OTHER INSTRUCTIONS: Seek medical attention if you have: * temperature above 101 * chest pain or trouble breathing * abdominal pain, nausea, vomiting * diarrhea, dark stools or bloody stools * any unanswered questions or concerns Call [phone] if symptoms are severe. It was a pleasure taking care of you. Call if you have any questions or problems. You can reach a [facility] hospitalist on duty at [facility] 24 hours a day by calling [phone]. Take care of yourself. Pending Studies at Discharge: No Stand-Alone Forms: My [facility], Pain - Opioid Pain Management, Smoking Cessation Medications and DC Order Prescriptions: New doxycycline hyclate 100 mg Capsule 100 mg PO BID 5 Days Qty: 10 0RF tamsulosin 0.4 mg Capsule 0.4 mg PO QAM Qty: 14 0RF oxycodone 5 mg Tablet 5 mg PO Q4H PRN (Reason: pain) Qty: 10 0RF guaifenesin [Mucinex] 600 mg Tablet Extended Release 12hr 600 mg PO Q12 Qty: 20 0RF prednisone 10 mg tablet 10 mg PO DAILY Qty: 42 0RF Rx Instructions: 60mg daily x 2 days, then 40mg daily x 3 days, then 30mg daily x 3 days, then 20mg daily x 3 days, then 10mg daily x 3 days, then Stop cefdinir 300 mg capsule 300 mg PO BID Qty: 4 0RF Continued albuterol sulfate 90 mcg/actuation Hfa Aerosol Inhaler 2 puff INHALATION QID PRN (Reason: Shortness Of Breath) citalopram 40 mg tablet 40 mg PO HS trazodone 50 mg tablet 25 mg PO QPM simvastatin 10 mg tablet 10 mg PO QAM lorazepam 0.5 mg tablet 0.5 mg PO BID levothyroxine 50 mcg tablet 50 mcg PO QAM pantoprazole 40 mg tablet,delayed release (DR/EC) 40 mg PO QAM buspirone 15 mg tablet 15 mg PO BID levocetirizine 5 mg tablet 5 mg PO QAM PRN (Reason: Allergies) Dulera 200-5 mcg/actuation HFA aerosol inhaler 2 puff INHALATION BID Combivent Respimat 20-100 mcg/actuation mist 1 puff INHALATION QID amlodipine-benazepril 5-10 mg capsule 1 cap PO QAM Changed ipratropium-albuterol 0.5 mg-3 mg(2.5 mg base)/3 mL solution for nebulization 3 ml INHALATION QID Qty: 180 0RF Rx Instructions: QID for 7 days then QID as needed Discharge Orders: Discharge Order (Routine); Ordered 08/09/24 Ordered By: Ghislaine Palomares/Other Patient Handouts: Asthma and COPD, Understanding Kidney Stones Admission Data Admit Date/Time: 08/07/24 08:26 Attending Provider: Thien Morel Admit Provider: Thien Morel Primary Care Provider: Vickey Merchant Other Providers: Jim Merino; Cesar Lindsey Other Interventions: Discharge Summary Assessment (RN) Last Done: 08/09/24 09:38 Supervising Physician Co-Signing Physician Notes Attending Addendum: Case reviewed with the advanced practitioner. I have personally seen and examined the patient. I have reviewed the advanced practitioner's documentation on the date of service referenced in note, and I agree with, and take responsibility for the plan of care. please refer to her notes for full details patient seen and examined, records reviewed by myself as well diagnoses and plan of care as per advanced practitioner's notes I spent a total of 35 minutes coordinating, documenting, and providing care for this patient, excluding time spent in the performance of separately billed services or time spent by another provider/QHP. Thien Morel MD
--- NOTE | 2024-08-10 14:47 | Anesthesiology Progress Note ---
Date of Service August 07, 2024 Anesthesia Post Procedure Pain Intensity Right Lower Abdomen: Pain Intensity: 8 Transfer of Care Handoff Completed per policy Notes Mental Status: alert / awake / arousable and participated in evaluation Patient Amnestic to Procedure: Yes Nausea / Vomiting: adequately controlled Pain: adequately controlled Airway Patency, RR, SpO2: stable & adequate BP & HR: stable & adequate Hydration State: stable & adequate Anesthetic Complications: no major complications apparent and Pt Satisfied with anesthetic care
== END 2024-08-09 11:30 | disposition home or self-care (01) | DRG 660 ==
LOC: ED 04:24 → EDINP 08:26 → 3N 16:30